=== PATIENT | male | born 1950 | race Caucasian/White ===

== ENCOUNTER 2017-10-21 08:07 | Emergency (ER) | payer MEDICARE ==
[~2017-10-21] VITALS: Ht 188 cm; Wt 125.2 kg
[~2017-10-21 08:07] MED LIST: ACYCLOVIR800 MG PO; AMIODARONE HCL200 MG PO; B COMPLEX1 EACH PO; BIAXIN500 MG PO; FOLIC ACID1 MG PO; LEVAQUIN750 MG PO; PERCOCET 7.5-31 EACH PO; VITAMIN D5000 UNI1 PO; ZOFRAN ODT4 MG SL
[2017-10-21] MEDS ORDERED: CARDIZEM CD120 MG PO (09:21)
--- OUTSIDE RECORDS SUMMARY | 2017-10-21 09:42 | XMS | Clinical Summary ---
Demographics + + + | Address | [address] | | | [place] [address] | + + + | Home Phone | | + + + | Preferred Language | Unknown | + + + | Marital Status | Single | + + + | Hoahaoism Affiliation | Unknown | + + + | Race | White | + + + | Ethnic Group | Not or | + + + Author + + + | Author | [facility] | + + + | Organization | [facility] | + + + | Address | Unknown | + + + | Phone | Unavailable | + + + Support +------+ +---------+ + | Name | Relationship | Address | Phone | +------+ +---------+ + ECON | Unknown | | +------+ +---------+ + ECON | Unknown | | +------+ +---------+ + Care Team Providers + +------+-------+ | Care Wheat Grower Name | Role | Phone | + +------+-------+ | Emeterio Campos DO | PP | tel | + +------+-------+ Source Comments MIRANDA is fully live on both [facility] and [facility] Allergies No Known Allergies Current Medications + + +-------+---------+------+------+-------+ | Prescription | Sig. | Disp. | Refills | Star | End | Statu | | | | | | t | Date | s | | | | | | Date | | | + + +-------+---------+------+------+-------+ | amiodarone 200 mg | Take 200 mg by mouth | | | | | Activ | | oral tablet | once daily. | | | | | e | + + +-------+---------+------+------+-------+ | acyclovir 800 mg | Take 800 mg by mouth | | | | | Activ | | oral tablet | once daily. | | | | | e | + + +-------+---------+------+------+-------+ Active Problems + + + | Problem | Noted Date | + + + | CLL (chronic lymphocytic leukemia) (HCC) | 09/09/2013 | + + + Social History + +-------+ +--------+------+ | Tobacco Use | Types | Packs/Day | Years | Date | | | | | Used | | + +-------+ +--------+------+ | Never Smoker | | | | | + +-------+ +--------+------+ + + +---------+ + | Alcohol Use | Drinks/We | oz/Week | Comments | | | ek | | | + + +---------+ + | No | | | | + + +---------+ + + + + | Sex Assigned at | Date Recorded | | | | + + + | Not on file | | + + + Last Filed Vital Signs + + + + | Vital Sign | Reading | Time Taken | + + + + | Blood Pressure | 123/79 | 05/23/2016 2:37 PM PDT | + + + + | Pulse | 66 | 05/23/2016 2:37 PM PDT | + + + + | Temperature | 36.9 C (98.4 F) | 05/23/2016 2:37 PM PDT | + + + + | Respiratory Rate | 16 | 05/23/2016 2:37 PM PDT | + + + + | Oxygen Saturation | 95% | 05/23/2016 2:37 PM PDT | + + + + | Inhaled Oxygen | - | - | | Concentration | | | + + + + | Weight | 135.7 kg (299 lb 3.2 | 05/23/2016 2:37 PM PDT | | | oz) | | + + + + | Height | 187 cm (6' 1.62") | 05/23/2016 2:37 PM PDT | + + + + | Body Mass Index | 38.81 | 05/23/2016 2:37 PM PDT | + + + + Plan of Treatment + + + + + | Health Maintenance | Due Date | Last Done | Comments | + + + + + | INFLUENZA VACCINE | | | | | (FLU SHOT) | 7 | | | + + + + + Results Not on filefrom Last 3 Months
--- NOTE | 2017-10-22 14:25 | EKG ---
[facility] [address] [facility] [place] [address] Signed Atrial fibrillation Abnormal ECG No previous ECGs available Confirmed by NASIM BERRIOS MD ([id number]) on 10/22/2017 2:25:05 PM Electronically Signed By: NASIM BERRIOS MD 10/22/17 1425 PATIENT NAME: OCTAVIO WASHINGTON MARIS Electrocardiogram DATE OF : 52 PHYSICIAN: NASIM BERRIOS MD REPORT #: [id number] REPORT IS CONFIDENTIAL AND NOT TO BE RELEASED WITHOUT AUTHORIZATION
[2017-11-07] MEDS ORDERED: ASPIRIN EC325 MG PO (11:01)
[2017-11-07] MEDS ORDERED: IMBRUVICA140 MG PO (11:02)
== END 2017-10-21 11:43 | disposition home or self-care (01) ==
LOC: ED 08:07
DX: I48.91 Unspecified atrial fibrillation (principal); C91.10 Chronic lymphocytic leukemia of B-cell type not having achieved remission; Z85.46 Personal history of malignant neoplasm of prostate; Z79.899 Other long term (current) drug therapy
CPT/HCPCS: 71010; 80048; 84484; 85025; 93005; 93010; 96374; 99283; J7030

== ENCOUNTER 2018-12-02 15:09 | Emergency (ER) | payer MEDICARE ==
[~2018-12-02] VITALS: Ht 188 cm; Wt 126.8 kg
[~2018-12-02 15:09] MED LIST changes: +ASPIRIN EC325 MG PO; +CARDIZEM CD120 MG PO; +IMBRUVICA140 MG PO
--- NOTE | 2018-12-03 13:39 | EKG ---
[facility] [address] [facility] [place] [address] Signed Atrial fibrillation Abnormal ECG When compared with ECG of 21-OCT-2017 08:25, No significant change was found Confirmed by JENNIE GARCIA DO ([id number]) on 12/03/2018 1:39:47 PM Electronically Signed By: JENNIE GARCIA DO 12/03/18 1339 PATIENT NAME: OCTAVIO WASHINGTON Electrocardiogram DATE OF : 52 PHYSICIAN: JENNIE GARCIA DO REPORT #: [id number] REPORT IS CONFIDENTIAL AND NOT TO BE RELEASED WITHOUT AUTHORIZATION
== END 2018-12-02 17:22 | disposition home or self-care (01) ==
LOC: ED 15:09
DX: I48.91 Unspecified atrial fibrillation (principal); C91.10 Chronic lymphocytic leukemia of B-cell type not having achieved remission; Z85.46 Personal history of malignant neoplasm of prostate; Z79.82 Long term (current) use of aspirin; Z79.899 Other long term (current) drug therapy
CPT/HCPCS: 71045; 80053; 84484; 85025; 93005; 93010; 99285-25

== ENCOUNTER 2019-03-27 09:38 | Inpatient (IN) | payer MEDICARE ==
[~2019-03-27] VITALS: Ht 188 cm; Wt 131.4 kg
--- NOTE | ~2019-03-27 | OR ---
[facility] [address] [place], [place] [address] Draft DATE OF OPERATION: 04/14/2019 SURGEON: Sarah Pardo MD PREOPERATIVE DIAGNOSIS: Severe degenerative joint disease, right hip. POSTOPERATIVE DIAGNOSIS: Severe degenerative joint disease, right hip. PROCEDURE PERFORMED: Right total hip arthroplasty, anterior approach. BAG REPAIRER: Tiki Tavera PA-C. ANESTHESIA: Spinal. BLOOD LOSS: 500 mL. IMPLANTS: Simms size 7 Accolade II 58 mm PSL cup and a -2.5 head. BRIEF HISTORY: Octavio is a 68-year-old gentleman with progressive worsening of severe osteoarthritis. Risks and benefits of operative treatment were discussed with him and he elected to proceed. DESCRIPTION OF PROCEDURE: Once consent was obtained, he was taken to the operating room. 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 I did speak to his dental resident who said that his platelets at 120 should be sufficient for surgery, although I did bank two 6 packs of platelets in case they were needed. The patient was given a gram of TXA prior to surgery and one intraoperatively when he continued to have bleeding from the bone. Soft tissue bleeding was actually quite minimal. Once consent was obtained, he was taken to the operating room. After a time-out was established and all agreed. The patient was placed on operating table. All downside pressure points well padded. Both legs were prepped and draped in a standard sterile fashion. The ASIS PATIENT NAME: OCTAVIO WASHINGTON OPERATIVE REPORT DATE OF : 52 REPORT #: [id number] PHYSICIAN: SARAH PARDO MD PCP: NASIM BERRIOS MD REPORT IS CONFIDENTIAL AND NOT TO BE RELEASED WITHOUT AUTHORIZATION [facility] [address] [place], [place] [address] Draft and the greater trochanter were marked out and a 10 cm incision was planned. This was taken through the skin and subcutaneous tissue. It was taken through the fat down to the fascia. The fascia was easily visualized and the interval between the tensor fascia ebonie and the gluteus medius was opened and the finger dissection was undertaken through the muscle down to the bone. Image intensifier was brought in and used to ascertain landmarks as there were significant osteophytes all the way around. The two retractors were placed around the femoral neck and the anterior capsulotomy was performed. The labrum and osteophytes around the acetabulum were removed as best we could prior to dislocation. Two femoral neck cuts were made, one just below the head and one at the proposed final cutting position again visualized using image intensifier. The napkin ring of bone was then removed and the femoral head was removed. The periacetabular soft tissue was removed and the acetabulum was reamed starting with a 45 and going up to a 58. A 58 for correction. This was done under image intensifier guidance for medialization and sizing. The 58 was selected and a 50 cup was impacted until it was well seated. The liner was then impacted until it was locked. The remaining osteophytes were removed as best we could. Once this was accomplished, attention was turned to the proximal femur. There was extensive tightening of the capsule throughout his hip. He had virtually no rotation on preoperative examination. The capsule was carefully released superiorly and posteriorly around the top of the femur to allow visual correction to allow elevation without significant stress on the trochanter. Once this was accomplished, the could be proximal femur was opened using Voice123 cutter followed by the awls. The femur was then sequentially broached starting with one up to a 7. The 7 was cut, found to be quite well fitting. The correction eight sorry not seven please change that on the on the implants to its the size eight sorry the eight. The correction the -2.5 head was placed on the trial and the hip was reduced leg lengths found to be equally and excellent range of motion. Excellent stability. The radiographs showed the trial to be well positioned. The trial was removed after dislocation of the hip and the final size eight stem was impacted until it was well-seated with no rotational instability. The -2.5 head was placed on it was deduced again. Final radiographs showed excellent placement of the stem. Leg lengths and offset. The wound was copiously irrigated with antibiotic solution. The periarticular soft tissues were injected with 100 mL of ropivacaine and Toradol mixture. The fascia was then closed using #1 Stratafix, the subcutaneous tissue with #0 Stratafix, and the skin with gary. Wound was dressed with a DEBBIE wound VAC dressing. He was awakened and taken to the recovery room in satisfactory condition. All sponge, needle, and instrument counts were correct. Sarah Pardo MD PATIENT NAME: OCTAVIO WASHINGTON OPERATIVE REPORT DATE OF : 52 REPORT #: [id number] PHYSICIAN: SARAH PARDO MD PCP: NASIM BERRIOS MD REPORT IS CONFIDENTIAL AND NOT TO BE RELEASED WITHOUT AUTHORIZATION [place] [id number] [facility] /[id number] Copies: ~ PATIENT NAME: OCTAVIO WASHINGTON OPERATIVE REPORT DATE OF : 52 REPORT #: [id number] PHYSICIAN: SARAH PARDO MD PCP: NASIM BERRIOS MD REPORT IS CONFIDENTIAL AND NOT TO BE RELEASED WITHOUT AUTHORIZATION
--- NOTE | 2019-04-01 12:57 | NUR ---
PATIENT IS HERE TODAY FOR PREADMISSION APPOINTMENT. HE IS SCHEDULED TO HAVE A RIGHT TOTAL HIP ARTHROPLASTY ON 04/14/19. HE REPORTS ATTENDING THE [facility] ON 03/27/19. HIS SON JOSE WILL BE HERE TO TAKE HIM HOME AND AVAILABLE AFTER HER IS DISCHARGED TO HELP OUT. HE HAS 3 STEPS INTO THE HOME AND NO STEPS INSIDE THE HOME. HE WILL WORK ON GETTING A HAND HELD SHOWER HEAD AND SHOWER BENCH TO USE IN THE WALK IN SHOWER HE HAS. HE WOULD LIKE TO HAVE A WALKER SENT HERE TO THE HOSPITAL DURING HIS STAY SINCE PHYSICAL THERAPY TOLD HIM WE COULD ARRANGE THAT. HE WOULD LIKE PHYSICAL THERAPY SET UP AT [facility] PHYSICAL THERAPY AFTER SURGERY. THIS INFORMATION WILL BE SENT TO DR SCHULTZ OFFICE AND CASE MANAGEMENT FOR FURTHER FOLLOW UP.
--- NOTE | 2019-04-14 09:30 | NUR ---
PT HAS O2 MASK ON, AND IS RAHER DROWSY. HE IS TRYING HARD TO STAY AWAKE. HE IS SUPPORTED BY HIS SON JOSE. PT REQUESTED PRAYER, AND WAS AWAKE FOR SOME OF IT! WILL CONTINUE TO FOLLOW NEEDED
--- NOTE | 2019-04-14 10:02 | NUR ---
04/14/19 1001 Sheets,Nicole 0992 PT ARRIVED TO PACU ON 10L VIA MASK, RESP EVEN AND UNLABORED. PT REACTIVE TO VERBAL STIMULI. 928 NASAL AIRWAY REMVOED. PT REORINTED TO PACU, PT DENIES PAIN AND NAUSEA. HOLDING TORADOL PER MD DUE TO PLATLETS. HOB INCREASED. PT BACK TO SLEEP AND SMALL AMOUNT OF SNORING NOTED, PT WOKE TO VERBAL STIMULI AND IS ENCOURAGED TO DEEP BREATHE AND COUGH. 935 O2 MASK REMOVED. PT ENOCURAGED TO DEEP BREATHE AND COUGH. 943 PT ASLEEP OFF AND ON. O2 SAT DECREASED TO 86%, PT ENOCURAGED TO COUGH AND DEEP BREATHE. O2 NC PLACED ON PT AT 2L. 944 O2 SAT 95%. X-RAY AT BEDSIDE. PT CONTINUES TO DENY NAUSEA AND PAIN.
[2019-04-14] MEDS ORDERED: CARTIA XT180 MG PO (11:01)
[2019-04-14] MEDS ORDERED: IMBRUVICA280 MG PO (11:02)
--- NOTE | 2019-04-14 11:23 | NUR ---
PT ARRIVED FROM PACU. REPORT GIVEN BY ROXANA VAUGHN. VITAL SIGNS STABLE. PT DROSWY BUT EASILY AROUSABLE TO SOUND. PT HAS NUMBNESS ON RIGHT LEG HAD NERVE BLOCK PLACED PREOP. PT IS ABLE TO WIGGLE TOES AND FEEL TOUCH ON LOWER LEGS. PT ON 2L NC ON 95%. PT HAS NO NEEDS/CONCERNS AT THIS TIME. CALL LIGHT WITHIN REACH.
--- NOTE | 2019-04-14 12:59 | NUR ---
PT IN M/S RM FOLLOWING SURGERY. PT WAS STILL PRETTY GROGGY, BUT AWARE OF MY PRESENCE. PT SAID HE HAD NO PAIN, AND WAS FEELING PRETY GOOD AT THE MOMENT. I EXTENDED A BLESSING AND WILL CONTINUE TO FOLLOW
--- NOTE | 2019-04-14 14:15 | NUR ---
1400 RN TO ROOM WITH P.T., P.T. ASKED HELP WITH Pt FIRST TIME OUT OF BED. Pt VOIDED IN BED, CHUX REMOVED AND NEW ONE PLACED. BED DRY. O2 SAT 94%, O2 NC REMOVED. Pt STANDING AT SIDE OF BED WITH P.T. Pt USING URINAL AND WAS ABLE TO VOID. Pt BACK IN BED AND CALL LIGHT WITHIN REACH AND P.T. AT BEDSIDE FINISHING EDUCATION.
--- NOTE | 2019-04-14 14:56 | NUR ---
PT RESTING WITH SON AT BEDSIDE. PT REQUESTING FOOD TRAY SOUP AND SANDWICH. ICE MACHINE REFILLED. PT PAIN IS 0/10 AND STATES THAT NUMBNESS IS SLOWLY GOING AWAY "GETTING SOME FEELING IN LEG BACK". DRESSING WITH SANGUINOUS AT BOTTOM HALF. HEEL PROTECTORS PLACED. PT HAS NO FURTHER CONCERNS/NEEDS AT THIS TIME. CALL LIGHT WITHIN REACH.
--- NOTE | 2019-04-14 16:58 | NUR ---
DR SCHULTZ NOTIFIED OF DEBBIE DRESSING DRAINAGE IN THE LAST TWO HOURS WITH NO NEW ORDERS AT THIS TIME.
--- NOTE | 2019-04-14 18:41 | NUR ---
PT DRESSING COMPLETELY SATURATED, LEAKING BLOOD FROM BOTTOM OF DRESSING. DR SCHULTZ CALLED AND NOTIFIED, ORDER TO REPLACE DEBBIE DRESSING AND PLACE COBAND SPICA DRESSING OVER TOP, DOES NOT WANT TO TRANSFUSE PLATELETS AT THIS TIME.
--- NOTE | 2019-04-14 19:11 | NUR ---
DEBBIE DRESSING REMOVED. PT WITH MODERATE AMOUNT OF ACTIVE DRAINAGE FROM DISTAL PORTION OF INCISION, PRESSURE HELD. NEW DEBBIE APPLIED TO INCISION. HIP COBAN SPICA PLACED WITH 3 ABD AND 2 ROLLS OF COBAN. PT SHORTS CHNAGED. PT BED CHANGED. PT ASSISTED TO BED, INSTRUCTED TO REST AT THIS TIME. PT DENIES OTHER NEEDS AT THIS TIME.
--- NOTE | 2019-04-14 19:20 | NUR ---
SHIFT REPORT RECEIVED. PATIENT RESTING IN BED. WATCHING TV. SPICE DRESSING IN PLACE. NO DRAINAGE NOTED ON AREAS VISUALIZED UNDER COBAN WRAP. PATIENT DENIES ANY NEEDS. CRYO IN PLACE. CALL LIGHT IN REACH.
--- NOTE | 2019-04-14 21:45 | NUR ---
V/S AND I&O TAKEN AND CHARTED. CRYO CUFF REFILLED. ICE ON CUP REFILLED. PATIENT WAS DANGLING BY THE BED. INSTRUCTED TO CALL WHEN READY TO LAY DOWN IN BED. PATIENT AGREED.
--- NOTE | 2019-04-14 22:00 | NUR ---
EVENING MEDS PROVIDED PER ORDER. PATIENT SITTING UP ON EDGE OF BED WATCHING BASEBALL GAME. HE DENIES ANY PAIN. NO OBVIOUS DRAINAGE NOTED UNDER SPICA DRESSING. DEBBIE IN PLACE, GREEN LIGHT NOTED. CMS INTACT. SPINAL RESOLVED. CRYO, TEDS, AND SCDS IN USE. PATIENT DENIES PAIN OR NAUSEA. FRESH WATER PROVIDED. PATIENT DECLINES NEEDS AT THIS TIME. WILL CALL WHEN READY TO LAY BACK IN BED. CALL LIGHT IN REACH.
--- NOTE | 2019-04-15 00:18 | NUR ---
ANSWERED CALL LIGHT. PATIENT BACK IN BED. SCD, CRYO AND HEEL PROTECTOR ARE BACK ON. CALL LIGHT AND PERSONAL THINGS WITHIN REACH. ROOM LIGHTS ARE OFF.
--- NOTE | 2019-04-15 01:50 | NUR ---
PATIENT APPEARED TO BE SLEEPING SOUNDLY. WOKE TO VOICE. VS COMPLETED. DEBBIE DRESSING PARTIALLY VISUALIZED, APPEARS HEAVILY SATURATED. NO DRAINAGE OUTSIDE DEBBIE DRESSING. COBAN SPICA IN PLACE. CRYO, HEEL PROTECTORS, AND SCDS IN USE. PATIENT DENIES PAIN. URINE OUTPUT QS. PATIENT CONFUSED BY HIS SURROUNDINGS UPON WAKING BUT WAS EASILY REORIENTED. DENIES ANY NEEDS. CALL LIGHT IN REACH.
--- NOTE | 2019-04-15 04:15 | NUR ---
PATIENT SITTING UP AT BEDSIDE. PATIENT STATES HE WAS "HAVING WEIRD DREAMS AND WOKE UP THINKING I WAS SOME WHERE ELSE". PATIENT AAOX4. ENCOURAGED PATIENT TO REST BUT HE STATED "I CAN'T LAY IN THAT BED ANYMORE, I NEED TO SIT UP". DISCUSSED SAFETY CONCERNS WITH PATIENT AND ENCOURAGED HIM TO USE CALL LIGHT FOR ANY NEEDS. PATIENT AGREES NOT TO GET UP ON HIS OWN. CALL LIGHT IN REACH.
--- NOTE | 2019-04-15 05:27 | NUR ---
ROMARIO MARTIN FOUND PATIENT AMBULATING IN HIS ROOM WITHOUT STAFF ASSIST. PATIENT REPORTS BEING CONFUSED ABOUT WHERE HE WAS WHEN HE WOKE UP AND THAT IT TOOK HIM A WHILE TO CLEAR. PATIENT REMEMBERS OUR CONVERSATION AN HOUR AGO BUT REPORTS THINKING IT WAS PART OF HIS DREAM. PATIENT APPEARS ORIENTED AT THIS TIME, ALARM PLACED ON PATIENT TO ENSURE HE DOES NOT AMBULATE WITHOUT STAFF. PATIENT DENIES PAIN. THE DEBBIE DRESSING UNDER THE SPICA IS SATURATED WITH DARK RED DRAINAGE, NOT LEAKING FROM THE SITE. DEBBIE TUBING BROKEN, UNABLE TO REPAIR.
--- NOTE | 2019-04-15 06:35 | NUR ---
PATIENT APPEARS TO BE SLEEPING SOUNDLY IN RECLINER. DOES NOT WAKE WITH RN IN ROOM. CHAIR ALARM IN PLACE. CALL LIGHT IN REACH.
--- NOTE | 2019-04-15 06:36 | NUR ---
PATIENT POST-OP DAY 1. PAIN WELL CONTROLLED. 1PA W/FWW. PATIENT STEADY THIS MORNING. DEBBIE DRESSING WILL LIKELY NEED REPLACED THIS MORNING. THE DRESSING IS HEAVILY SATURATED AND THE TUBING CONNECTING THE DRESSING TO THE MACHANISM WAS BROKEN. PATIENT OCCATIONALY CONFUSED UPON WAKING, STATES THIS HAS HAPPENED WHEN HE WAS HOSPITALIZED PREVIOUSLY. BED/CHAIR ALARM IN USE. TOLERATING REGULAR DIET. VS STABLE. URINE OUTPUT QS. IV SL.
--- NOTE | 2019-04-15 06:52 | NUR ---
NOTIFIED OF DRESSING SATURATED AND DEBBIE BEING BROKEN. STATES HE WILL BE IN TO SEE THE PATIENT SHORTLY. NO NEW ORDERS.
[2019-04-15] MEDS ORDERED: OXYCODONE HCL5 MG PO (07:24)
[2019-04-15] MEDS ORDERED: TYLENOL EXTRA500 MG PO (07:25)
[2019-04-15] MEDS ORDERED: GABAPENTIN600 MG PO (07:25)
[2019-04-15] MEDS ORDERED: HEALTHYLAX17 GM PO (07:25)
[2019-04-15] MEDS ORDERED: SENNA LAX8.6 MG PO (07:25)
--- NOTE | 2019-04-15 07:45 | NUR ---
DR. SCHULTZ IN TO SEE PATIENT THIS MORNING. DOSE OF TXA INFUSING FOR 15 MINUTES. PLAN TO TRANSFUSE ONE UNIT OF PLATELETS AFTER TXA AND CHANGE RIGHT HIP DRESSING. PATIENT IS RESTING IN BED. RIGHT HIP DRESSING SATURATED BUT NOT LEAKING AT THIS TIME. PATIENT RATES RIGHT HIP PAIN 0/10, NO NAUSEA, BREAKFAST ORDERED.
--- NOTE | 2019-04-15 09:43 | NUR ---
ONE UNIT OF PLATELETS PICKED UP FROM LAB. SECOND UNIT OF PLATELETS ON 04/14/19 AND WERE UNABLE TO BE TRANSFUSED. CALL TO DR. SCHULTZ TO LET HIM KNOW. DR. SCHULTZ INDICATED TO HAVE LAB GET A SECOND UNIT OF PLATELETS STAT. CALL TO LAB AND THEY ARE ORDERING ONE UNIT OF PLATELETS STAT.
--- NOTE | 2019-04-15 09:51 | NUR ---
PATIENT IS TOLERATING PLATELET INFUSION WELL.
--- NOTE | 2019-04-15 10:01 | NUR ---
PT IS ALERT, ORIENTED AND WATCHING TV. HE SAID HE SLEPT FAIRLY WELL-JUST NOT HOME. HAVING TROUBLE WITH SOME BLEEDING FROM INCISION, BUT PAIN APPEARS TO BE WELL UNDER CONTROL. EXTENDED A BLESSING, WILL FOLLOW NEEDED
--- NOTE | 2019-04-15 11:09 | NUR ---
DEBBIE DRESSING CHANGED, PATIENT STOOD FOR REPLACEMENT OF SPIKA DRESSING. NOTED THAT BOTTOM PORTION OF NEW DRESSING WAS ALREADY SATURATED. PATIENT PLACED BACK IN BED, ICE APPLIED.
--- NOTE | 2019-04-15 11:12 | NUR ---
PT STATED HE WANTED TO WAIT UNTIL THIS AFTERNOON TO SHOWER.
--- NOTE | 2019-04-15 11:42 | NUR ---
ONE HOUR POST PLATELET TRANSFUSION VITALS ARE STABLE. PATIENT DENIES PAIN, DENIES NAUSEA.
--- NOTE | 2019-04-15 15:11 | NUR ---
PATIENT RESTING IN BED, SECOND PLATELET INFUSION GOING, PATIENT TOLERATING WELL. PATIENT DENIES PAIN, SCHEDULED TYLENOL AND GABAPENTIN GIVEN.
--- NOTE | 2019-04-15 16:59 | NUR ---
PATIENT HAS DONE WELL TODAY WITH LIMITED ACTIVITY DUE TO INCISIONAL BLEEDING. DRESSING CHANGED EARLY TODAY AND HAD VERY LITTLE BLEEDING ON IT. MEDICATIONS AND 2 UNITS OF PLATELETS GIVEN. PATIENT DID TAKE PART IN PHYSICAL THERAPY TONIGHT AND DRESSING IS NOW SATURATED. PLAN TO CALL DR. SCHULTZ AND GIVE HIM AND UPDATE.
--- NOTE | 2019-04-15 17:10 | NUR ---
CALL TO DR. SCHULTZ TO UPDATE ON DRESSING HAVING STABLE AMOUNT OF BLOOD ON IN ALL AFTERNOON AND DRESSING WAS SATURATED AFTER PHYSICAL THERAPY THIS AFTERNOON. DR. SCHULTZ ODERED DRESSING OF MEPILEX WITH 2-3 ABD UNDER SPIKA DRESSING.
--- NOTE | 2019-04-15 19:11 | NUR ---
CHARGE NURSE REPORT. PT ON BEDREST, WATCHING TV.
--- NOTE | 2019-04-15 19:20 | NUR ---
SHIFT REPORT RECEIVED. PATIENT RESTING IN BED. DENIES PAIN. DRESSING OBSERVED, NO DRAINAGE OUTSIDE MEPILEX NOTED. REMINDED PATIENT TO CALL FOR ASSIST. PATIENT AGREES. BED ALARM ACTIVE.
--- NOTE | 2019-04-15 21:50 | NUR ---
EVENING MEDS PROVIDED. PATIENT RESTING IN BED. REPORTS FEELING WELL. DENIES PAIN. VS STABLE. PATIENT HAS REMAINED IN BED AND CALLED APPROPRIATELY. SPICA DRESSING IN PLACE. SMALL AMOUNT OF SHADOWING NOTED ON MEPILEX, NOT BLEEDING THROUGH TO ABD PAD. [facility] INATCT. CRYO AND SCDS IN USE. PATIENT DENIES ANY NEEDS. CALL LIGHT IN REACH. BED ALARM ACTIVE.
--- NOTE | 2019-04-15 22:59 | NUR ---
WENT INTHE ROOM. REFILLED CRYO AND ICE WATER. EMPTIED URINAL. BED ALARM ON.
--- NOTE | 2019-04-15 23:22 | NUR ---
PATIENT RESTING IN BED. EYES CLOSED. RR18. TV AND LIGHT TURNED OFF. CALL LIGHT IN REACH.
--- NOTE | 2019-04-16 02:00 | NUR ---
PATIENT SLEEPING ON RIGHT SIDE. HIP AND LEG IN STRAIGHT LINE. PATIENT APPEARS COMFORTABLE. RR18. CRYO IN USE. CALL LIGHT IN REACH. BED ALARM ACTIVE.
--- NOTE | 2019-04-16 04:36 | NUR ---
PATIENT RESTING IN BED. APPEARS TO BE SLEEPING SOUNDLY. RR 17. CALL LIGHT IN REACH. BED ALARM ACTIVE.
--- NOTE | 2019-04-16 05:40 | NUR ---
PATIENT PROVIDED WITH SCHEDULED TYLENOL. PATIENT DENIES ANY PAIN. SPICA DRESSING REPOSITIONED. NO NEW DRAINAGE NOTED ON MEPILEX. CMS INTACT. VS STABLE.
--- NOTE | 2019-04-16 05:51 | NUR ---
PATIENT SLEPT MOST OF THE NIGHT. PATIENT AAAOX4, USED CALL LIGHT APPROPRIATELY. NO PAIN OR DISCOMFORT REPORTED. VS STABLE. URINE OUTPUT QS. SPICA DRESSING WITH ABD AND MEPILEX ON RIGHT HIP. SMALL AMOUNT OF DRAINAGE NOTED ON MEPILEX. PATIENT ONLY OUT OF BED ONCE LAST NIGHT TO LIMIT ACTIVITY DUE TO BLEEDING. REGULAR DIET. CRYO, SCDS, AND TABITHA HOSE.
--- NOTE | 2019-04-16 06:52 | NUR ---
DR SCHULTZ CALLED, REQUESTED A CBC BE DRAWN STAT. ORDER PLACED, AND NOTIFIED LAB VIA PHONE.
--- NOTE | 2019-04-16 07:48 | NUR ---
0715: BEDSIDE REPORT RECIEVED FROM KOMAL SCHMIDT. PT LAYING IN BED WITH CALL SALTER WITHIN REACH AND NOT COMPLAINTS AT THIS TIME.
--- NOTE | 2019-04-16 09:51 | NUR ---
PT WAS AMBULATING IN THE HALLS. UPON RETURNING TO THE ROOM I ASSESSED THE DRESSING WHICH THERE IS AN INCREASE IN THE NOTED SHADOWING ON THE DRESSING. CHARLA LADD WAS NOTIFIED AND CAME AND SAW THE PT. THE DRESSING WAS CHANGED WITH CHARLA AND WE WILL CONTINUE TO MONITOR FOR BLEEDING. OCTAVIO TOLERATED THE DRESSING CHANGE WELL AND IS HOPING TO GO HOME TODAY.
--- NOTE | 2019-04-16 10:26 | NUR ---
PATIENT WALKING AROUND ROOM. NURSE IN ROOM WITH HIM. WATER REFRESHED. CALL LIGHT IN REACH.
--- NOTE | 2019-04-16 10:31 | NUR ---
DISCHARGE INSTRUCTIONS GIVEN WITH UNDERSTANDING STATED BY THE PT. VSS. INCISION SITE DRESSING REMAINS CDI AFTER MOVING AROUND IN HIS ROOM. WILL CONTINUE TO MONITOR.
--- NOTE | 2019-04-16 10:52 | NUR ---
DRESSING REMAINS CDI.
--- NOTE | 2019-04-16 13:42 | NUR ---
SAW PT IN THE [place]AN[place] ROMARIO SPENCER WAS ESCORTING HIM OUT IN . PT SEEMS EXCITED, HAD GOOD VISIT. EXTENDED A BLESSING. WILL FOLLOW NEEDED
--- NOTE | 2019-04-17 09:38 | NUR ---
FAXED CHART NOTES TO [facility] OP PT INCLUDING FACE SHEET, OP NOTE, PROG NOTE, PT AND OT EVAL AND NOTES. RECIEVED FAX CONFIRMATION. TALKED WITH ROSA FROM [facility] OP PT.
== END 2019-04-16 10:55 | disposition home or self-care (01) | DRG 470 ==
LOC: DSVR 04-14 05:35 → MS 04-14 06:45
PROVIDERS: ADMIT Specialist
PROC: 3E0T3BZ Introduction of Anesthetic Agent into Peripheral Nerves and Plexi, Percutaneous Approach (ICD-10-PCS; 2019-04-14)
PROC: 0SR90JZ Replacement of Right Hip Joint with Synthetic Substitute, Open Approach (ICD-10-PCS; principal; 2019-04-14 06:45)
PROC: 30233R1 Transfusion of Nonautologous Platelets into Peripheral Vein, Percutaneous Approach (ICD-10-PCS; 2019-04-15)
DX: M16.11 Unilateral primary osteoarthritis, right hip (principal); C91.10 Chronic lymphocytic leukemia of B-cell type not having achieved remission; G89.18 Other acute postprocedural pain; I48.2 Chronic atrial fibrillation; E66.01 Morbid (severe) obesity due to excess calories; D69.6 Thrombocytopenia, unspecified; Z79.82 Long term (current) use of aspirin; Z79.899 Other long term (current) drug therapy; Z68.36 Body mass index [BMI] 36.0-36.9, adult
CPT/HCPCS: 01214; 36415; 36430; 64447; 72170; 76942; 85025; 97110; 97116; 97161; 97166; 97535; C1776; J0131; J0690; J0735; J1100; J1160; J1885; J2250; J2370; J2405; J2704; J2765; J3010; J7120; J8540; P9035

== ENCOUNTER 2019-11-10 22:57 | Emergency (ER) | payer MEDICARE ==
[~2019-11-10] VITALS: Ht 188 cm; Wt 134.7 kg
--- OUTSIDE RECORDS SUMMARY | ~2019-11-10 | XMS | Encounter Summary ---
Demographics + + + | Address | [address] | | | [place] [address] | + + + | Home Phone | | + + + | Preferred Language | Unknown | + + + | Marital Status | | + + + | Hoahaoism Affiliation | 1028 | + + + | Race | Unknown | + + + | Ethnic Group | Unknown | + + + Author + + + | Author | [facility] | | | and [place] | + + + | Organization | [facility] | | | and [place] | + + + | Address | Unknown | + + + | Phone | Unavailable | + + + Support + + + + + | Name | Relationship | Address | Phone | + + + + + | Jorge Myrick | [place] | [place], [place] | | | | | [address] | | + + + + + | Feng Myrick | ECON | NA | | | | | [place] | | + + + + + Care Team Providers + +------+ + | Care Rn Traveling Name | Role | Phone | + +------+ + | Emeterio Campos DO | PCP | | + +------+ + Reason for Visit +--------+ + | Reason | Comments | +--------+ + | Other | Labs needed for amiodarone protocol | +--------+ + Encounter Details +--------+ + + + + | Date | Type | Department | Care Team | Description | +--------+ + + + + | 05/11/ | Telephone | [facility] | Jerrod Redding | Other (Labs needed | | 2013 | | CARDIOLOGY [address] | MD Jose [address] | for amiodarone | | | | [address] [place], | [address] [place] | protocol) | | | | [place] [address] | [place] [address] | | | | | [phone] | [phone] | | | | | | | | +--------+ + + + + Social History + +-------+ +--------+------+ | Tobacco Use | Types | Packs/Day | Years | Date | | | | | Used | | + +-------+ +--------+------+ | Never Smoker | | | | | + +-------+ +--------+------+ + +------+---+---+ | Smokeless Tobacco: | Chew | | | | Current User | | | | + +------+---+---+ + + | Comments: Since 1968 | + + + + +---------+ + | Alcohol Use | Drinks/Week | oz/Week | Comments | + + +---------+ + | Yes | | | 3-4 monthly, beer | + + +---------+ + + + + | Sex Assigned at | Date Recorded | | | | + + + | Not on file | | + + + + + + + | Job Start Date | Occupation | Industry | + + + + | Not on file | Not on file | Not on file | + + + + + + + + | Travel History | Travel Start | Travel End | + + + + + + | No recent travel history available. | + + documented as of this encounter Plan of Treatment Not on filedocumented as of this encounter Visit Diagnoses Not on filedocumented in this encounter"
--- OUTSIDE RECORDS SUMMARY | ~2019-11-10 | XMS | Encounter Summary ---
Demographics + + + | Address | [address] | | | [place] [address] | + + + | Home Phone | | + + + | Preferred Language | Unknown | + + + | Marital Status | | + + + | Samaritan Affiliation | 1028 | + + + | Race | Unknown | + + + | Ethnic Group | Unknown | + + + Author + + + | Author | [facility] | | | and [place] | + + + | Organization | [facility] | | | and [place] | + + + | Address | Unknown | + + + | Phone | Unavailable | + + + Support + + + + + | Name | Relationship | Address | Phone | + + + + + | Jorge Myrick | [place] | [place] | | | | | [address] | | + + + + + | Feng Myrick | ECON | NA | | | | | [place], [place] | | + + + + + Care Team Providers + +------+ + | Care Water Systems Designer Name | Role | Phone | + +------+ + PCP | Unavailable | + +------+ + Encounter Details +--------+ + + + + | Date | Type | Department | Care Team | Description | +--------+ + + + + | 10/26/ | Hospital | [facility] | [place], | | | 2010 | Encounter | MED CTR XRAY [address] | Markell Cano MD [address] | | | | | [place] | [address] [place] | | | | | [place] [address] | [place] [address] | | | | | [phone] | [phone] | | | | | | | | +--------+ + + + + Social History + +-------+ +--------+------+ | Tobacco Use | Types | Packs/Day | Years | Date | | | | | Used | | + +-------+ +--------+------+ | Never Assessed | | | | | + +-------+ +--------+------+ + + + | Sex Assigned at [...] Not on filedocumented as of this encounter Procedures + +--------+ + + + | Procedure Name | Priori | Date/Time | Associated Diagnosis | Comments | | | ty | | | | + +--------+ + + + | CBC WITH | Routin | 10/26/2011 | | Results for this | | DIFFERENTIAL | e | 11:00 AM | | procedure are in the | | | | PST | | results section. | + +--------+ + + + documented in this encounter Results CBC with Differential (10/26/2011 11:00 AM PST) + + + + + + | Component | Value | Ref Range | Performed | Pathologist | | | | | At | Signature | + + + + + + | WBC | 7.1 | 4.0 - 11.0 K/uL | [facility] | | | | | | [facility] | | | | | | [facility] | | | | | [facility] - | | | | | | LABORATORY | | + + + + + + | RBC | 3.90 (L) | 4.30 - 5.70 | [facility] | | | | | M/uL | [facility] | | | | | | [facility] | | | | | | [facility] - | | | | | | LABORATORY | | + + + + + + | Hemoglobin | 12.9 (L) | 13.5 - 18.0 | [facility] | | | | | gm/dL | [facility] | | | | | | [facility] | | | | | | C[facility] - | | | | | | LABORATORY | | + + + + + + | Hematocrit | 37.2 (L) | 40.0 - 51.0 % | [facility] | | | | | | [facility] | | | | | | [facility] | | | | | | C[facility] - | | | | | | LABORATORY | | + + + + + + | MCV | 95.3 | 83.0 - 101.0 fL | [facility] | | | | | | [facility] | | | | | | [facility] | | | | | | [facility] - | | | | | | LABORATORY | | + + + + + + | MCH | 33.1 | 28.0 - 35.0 pg | [facility] | | | | | | [facility] | | | | | | [facility] | | | | | | [facility] - | | | | | | LABORATORY | | + + + + + + | MCHC | 34.7 | 32.0 - 36.0 | [facility] | | | | | g/dL | [facility] | | | | | | MED[facility] | | | | | | CENTER - | | | | | | LABORATORY | | + + + + + + | RDW-CV | 13.6 | <15.0 % | [facility] | | | | | | [facility] | | | | | | [facility] | | | | | | C[facility] - | | | | | | LABORATORY | | + + + + + + | Platelet | 97 (L) | 140 - 440 K/uL | [facility] | | | Count | | | [facility] | | | | | | [facility] | | | | | | CENTER - | | | | | | LABORATORY | | + + + + + + | % | 23.8 (L) | 45 - 75 % | [facility] | | | Neutrophils | | | [facility] | | | | | | MEDICAL | | | | | | CENTER - | | | | | | LABORATORY | | + + + + + + | % | 73.2 (H)Comment: RARE | 20 - 45 % | [facility] | | | Lymphocytes | ATYPICAL LYMP SEEN ON | | [facility] | | | | SMEAR REVIEW. | | MEDICAL | | | | | | CENTER - | | | | | | LABORATORY | | + + + + + + | % Monocytes | 2.1 (L) | 4 - 12 % | [facility] | | | | | | [facility] | | | | | | MEDICAL | | | | | | CENTER - | | | | | | LABORATORY | | + + + + + + | % | 0.7 | 0 - 5 % | [facility] | | | Eosinophils | | | [facility] | | | | | | MEDICAL | | | | | | CENTER - | | | | | | LABORATORY | | + + + + + + | % Basophils | 0.2 | 0 - 1 % | [facility] | | | | | | [facility] | | | | | | MEDICAL | | | | | | CENTER - | | | | | | LABORATORY | | + + + + + + | Absolute | 1.7 | 1.5 - 6.6 K/uL | [facility] | | | Neutrophils | | | [facility] | | | | | | MEDICAL | | | | | | CENTER - | | | | | | LABORATORY | | + + + + + + | Absolute | 5.2 (H) | 0.6 - 3.2 K/uL | [facility] | | | Lymphocytes | | | [facility] | | | | | | MEDICAL | | | | | | CENTER - | | | | | | LABORATORY | | + + + + + + | Absolute | 0.1 | 0.0 - 1.0 K/uL | [facility] | | | Monocytes | | | [facility] | | | | | | MEDICAL | | | | | | CENTER - | | | | | | LABORATORY | | + + + + + + | Absolute | 0.0 | 0.0 - 0.4 K/uL | [facility] | | | Eosinophils | | | [facility] | | | | | | MEDICAL | | | | | | CENTER - | | | | | | LABORATORY | | + + + + + + | Absolute | 0.0 | 0.0 - 0.1 K/uL | [facility] | | | Basophils | | | [facility] | | | | | | MEDICAL | | | | | | CENTER - | | | | | | LABORATORY | | + + + + + + | FLAG | 1Comment: Lymphocytosis | | [facility] | | | | % | | [facility] | | | | | | MEDICAL | | | | | | CENTER - | | | | | | LABORATORY | | + + + + + + | SUSPECTED | 1 (H)Comment: Variant LY | | [facility] | | | PROBLEM IS: | | | [facility] | | | | | | MEDICAL | | | | | | CENTER - | | | | | | LABORATORY | | + + + + + + + + | Specimen | + + | | + + + + + + + | Performing | Address | City/State/Zipcode | Phone Number | | Organization | | | | + + + + + | [facility] | [address] | [place] | [phone] | | [facility] | | [address] | | | - LABORATORY | | | | + + + + + | [facility] | [address] | [place], [place] | | | [facility] | | [address] | | | - LABORATORY | | | | + + + + + documented in this encounter Visit Diagnoses Not on filedocumented in this encounter"
--- OUTSIDE RECORDS SUMMARY | ~2019-11-10 | XMS | Encounter Summary ---
Demographics + + + | Address | [address] | | | [place] [address] | + + + | Home Phone | | + + + | Preferred Language | Unknown | + + + | Marital Status | Single | + + + | Spiritism Affiliation | Unknown | + + + | Race | White | + + + | Ethnic Group | Not or | + + + Author + + + | Author | [facility] | + + + | Organization | [facility] | + + + | Address | Unknown | + + + | Phone | Unavailable | + + + Support + + +---------+ + | Name | Relationship | Address | Phone | + + +---------+ + | Feng Myrick | ECON | Unknown | | + + +---------+ + | Ulices Myrick | ECON | Unknown | | + + +---------+ + Care Team Providers + +------+ + | Care Cardiopulmonary Physical Therapist Name | Role | Phone | + +------+ + | Emeterio Campos DO | PCP | | + +------+ + Encounter Details +--------+ + + + + | Date | Type | Department | Care Team | Description | +--------+ + + + + | 12/23/ | Document-Sc | UNKNOWN DEPARTMENT | Unknown . | | | 2016 | anned | [address] | | | | | | [address] | | | | | | [place], [place] | | | | | | [address] | | | +--------+ + + + [...] Comments | + + +---------+ + | No [...] | + +--------+ + + + | LAB REPORTS | | 12/23/2015 | | Results for this | | | | 12:00 AM | | procedure are in the | | | | PST | | results section. | + +--------+ + + + documented in this encounter Results LAB REPORTS (12/23/2015 12:00 AM PST) + + + | Narrative | Performed At | + + + | | | + + + documented in this encounter Visit Diagnoses Not on filedocumented in this encounter"
--- OUTSIDE RECORDS SUMMARY | ~2019-11-10 | XMS | Encounter Summary ---
Demographics + + + | Address | [address] | | | [place] [address] | + + + | Home Phone | | + + + | Preferred Language | Unknown | + + + | Marital Status | Single | + + + | Jainism Affiliation | Unknown | + + + | Race | White | + + + | Ethnic Group | Not or | + + + Author + + + | Author | [facility] | + + + | Organization | [facility] | + + + | Address | [...] Team Providers + +------+ + | Care Stacker Name | Role | Phone | + +------+ + | Emeterio Campos DO | PCP | | + +------+ + Encounter Details +--------+ + + + + | Date | Type | Department | Care Team | Description | +--------+ + + + + | 07/29/ | Document-Sc | UNKNOWN DEPARTMENT | Unknown . | | | 2012 | anned | [address] | | | | | | [address] | | | | | | [place], [place] | | | | | | [address] | | | +--------+ + + + [...] + + | LAB REPORTS | | 07/29/2013 | | Results for this | | | | 12:00 AM | | procedure are in the | | | | PDT | | results section. | + +--------+ + + + documented in this encounter Results LAB REPORTS (07/29/2013 12:00 AM PDT) + + + | Narrative | Performed At | + + + | | | + + + documented in this encounter Visit Diagnoses Not on filedocumented in this encounter"
--- OUTSIDE RECORDS SUMMARY | ~2019-11-10 | XMS | Encounter Summary ---
Demographics + + + | Address | [address] | | | [place] [address] | + + + | Home Phone | | + + + | Preferred Language | Unknown | + + + | Marital Status | | + + + | Confucianist Affiliation | 1028 | + + + | Race | Unknown | + + + | Ethnic Group | Unknown | + + + Author + + + | Author | [facility] | | | and [place] | + + + | Organization | [facility] | | | and [place] | + + + | Address | Unknown | + + + | Phone | Unavailable | + + + Support + + + + + | Name | Relationship | Address | Phone | + + + + + | Jorge Myrick | [place] | [place] | | | | | [address] | | + + + + + | Feng Myrick | ECON | NA | | | | | [place] | | + + + + + Care Team Providers + +------+ + | Care Splitter Head Name | Role | Phone | + +------+ + | Emeterio Campos DO | PCP | | + +------+ + Encounter Details +--------+ + + + + | Date | Type | Department | Care Team | Description | +--------+ + + + + | 01/01/ | Orders Only | [facility] | Jerrod Redding | A-fib ([facility]) (Primary | | 2013 | | [facility] [address] | MD Jose [address] | Dx); Encounter for | | | | [address], | [address] [place] | monitoring | | | | [place] [address] | [place] [address] | amiodarone therapy | | | | [phone] | [phone] | | | | | | | [...] filedocumented as of this encounter Visit Diagnoses + + | Diagnosis | + + | A-fib (HCC) - Primary Atrial fibrillation | + + | Encounter for monitoring amiodarone therapy Encounter for therapeutic drug monitoring | + + documented in this encounter"
--- OUTSIDE RECORDS SUMMARY | ~2019-11-10 | XMS | Encounter Summary ---
Demographics + + + | Address | [address] | | | [place] [address] | + + + | Home Phone | | + + + | Preferred Language | Unknown | + + + | Marital Status | Single | + + + | Anglican Affiliation | Unknown | + + + | Race | White | + + + | Ethnic Group | Not or | + + + Author + + + | Author | [facility] | + + + | Organization | [facility] | + + + | Address | [...] Team Providers + +------+ + | Care Extension Work Director Name | Role | Phone | + +------+ + | Emeterio Campos DO | PCP | | + +------+ + Encounter Details +--------+------+ + + + | Date | Type | Department | Care Team | Description | +--------+------+ + + + | 09/09/ | Lab | Laboratory, | | CLL (chronic | | 2012 | | Specimen Collection | | lymphocytic | | | | at [facility] [address] | | leukemia) (HCC) | | | | [address] | | | | | | [address] [place], [place] | | | | | | [address] | | | | | | [phone] | | | +--------+------+ + + + Social History + +-------+ [...] | + +--------+ + + + | C3 FÁTIMA | Routin | 09/09/2013 | CLL (chronic | Results for this | | | e | 2:34 PM | lymphocytic | procedure are in the | | | | PST | leukemia) ([facility]) | results section. | + +--------+ + + + | FÁTIMA POLY | Routin | 09/09/2013 | CLL (chronic | Results for this | | | e | 2:34 PM | lymphocytic | procedure are in the | | | | PST | leukemia) ([facility]) | results section. | + +--------+ + + + | FTÁIMA IGG | Routin | 09/09/2013 | CLL (chronic | Results for this | | | e | 2:34 PM | lymphocytic | procedure are in the | | | | PST | leukemia) ([facility]) | results section. | + +--------+ + + + | RBC MORPHOLOGY | Routin | 09/09/2013 | CLL (chronic | Results for this | | | e | 2:34 PM | lymphocytic | procedure are in the | | | | PST | leukemia) ([facility] | results section. | + +--------+ + + + | CBC AND AUTO DIFF | Routin | 09/09/2013 | CLL (chronic | Results for this | | | e | 2:34 PM | lymphocytic | procedure are in the | | | | PST | leukemia) ([facility] | results section. | + +--------+ + + + | MANUAL DIFFERENTIAL | Routin | 09/09/2013 | CLL (chronic | Results for this | | | e | 2:34 PM | lymphocytic | procedure are in the | | | | PST | leukemia) ([facility]) | results section. | + +--------+ + + + | CBC, WITH | Routin | 09/09/2013 | CLL (chronic | Results for this | | DIFFERENTIAL | e | 2:34 PM | lymphocytic | procedure are in the | | | | PST | leukemia) ([facility]) | results section. | + +--------+ + + + | COMPLETE METABOLIC | Routin | 09/09/2013 | CLL (chronic | Results for this | | SET | e | 2:34 PM | lymphocytic | procedure are in the | | (NA,K,CL,CO2,BUN,CRE | | PST | leukemia) ([facility]) | results section. | | AT,GLUC,CA,AST,ALT,B | | | | | | KATE TOTAL,ALK | | | | | | PHOS,ALB,PROT TOTAL) | | | | | + +--------+ + + + | IGG, SERUM | Routin | 09/09/2013 | CLL (chronic | Results for this | | | e | 2:34 PM | lymphocytic | procedure are in the | | | | PST | leukemia) ([facility]) | results section. | + +--------+ + + + | BRANDEE KNOWLES | Routin | 09/09/2013 | CLL (chronic | Results for this | | | e | 2:34 PM | lymphocytic | procedure are in the | | | | PST | leukemia) ([facility]) | results section. | + +--------+ + + + | LDH TOTAL, PLASMA | Routin | 09/09/2013 | CLL (chronic | Results for this | | | e | 2:34 PM | lymphocytic | procedure are in the | | | | PST | leukemia) ([facility]) | results section. | + +--------+ + + + documented in this encounter Results RBC MORPHOLOGY (09/09/2013 2:34 PM PST) + +---------+ + + + | Component | Value | Ref Range | Performed | Pathologist | | | | | At | Signature | + +---------+ + + + | JAIMEE | Present | | [facility] | | | BODIES | | | LABORATORY | | | | | | SERVICES, | | | | | | CORE | | + +---------+ + + + | TOXIC | Present | | [facility] | | | GRANULATION | | | LABORATORY | | | | | | SERVICES, | | | | | | CORE | | + +---------+ + + + + + | Specimen | + + | Blood - Blood | + + + + + + + | Performing | Address | City/State/Zipcode | Phone Number | | Organization | | | | + + + + + | [facility] | [address] | [place] [address] | | | SERVICES, CORE | [address] | | | + + + + + MANUAL DIFFERENTIAL (09/09/2013 2:34 PM PST) + + + + + + | Component | Value | Ref Range | Performed | Pathologist | | | | | At | Signature | + + + + + + | NEUTROPHIL | 59.0 | 50.0 - 70.0 % | [facility] | | | % | | | LABORATORY | | | | | | SERVICES, | | | | | | CORE | | + + + + + + | LYMPHOCYTE | 3.8 (L) | 18.0 - 42.0 % | [facility] | | | % | | | LABORATORY | | | | | | SERVICES, | | | | | | CORE | | + + + + + + | MONOCYTE % | 2.9 (L) | 3.5 - 9.0 % | [facility] | | | | | | LABORATORY | | | | | | SERVICES, | | | | | | CORE | | + + + + + + | EOSINOPHIL | 0.9 (L) | 1.0 - 3.0 % | [facility] | | | % | | | LABORATORY | | | | | | SERVICES, | | | | | | CORE | | + + + + + + | BASOPHIL % | 1.9 | 0.0 - 2.0 % | [facility] | | | | | | LABORATORY | | | | | | SERVICES, | | | | | | CORE | | + + + + + + | BANDS % | 28.6 (H) | 0.0 - 10.0 % | [facility] | | | | | | LABORATORY | | | | | | SERVICES, | | | | | | CORE | | + + + + + + | METAMYELOCY | 1.0 (H) | <1.0 % | [facility] | | | ANGELINE % | | | LABORATORY | | | | | | SERVICES, | | | | | | CORE | | + + + + + + | MYELOCYTES | | 0.0 % | [facility] | | | % | | | LABORATORY | | | | | | SERVICES, | | | | | | CORE | | + + + + + + | PROMYELOCYT | 1.0 (H) | 0.0 % | [facility] | | | ES % | | | LABORATORY | | | | | | SERVICES, | | | | | | CORE | | + + + + + + | ATYPICAL | | 0.0 % | [facility] | | | CELL % | | | LABORATORY | | | | | | SERVICES, | | | | | | CORE | | + + + + + + | REACTIVE | 0.9 | 0.0 - 10.0 % | [facility] | | | LYMPHS % | | | LABORATORY | | | | | | SERVICES, | | | | | | CORE | | + + + + + + | NEUTROPHIL | 9.32 (H) | 1.80 - 7.70 | [facility] | | | # | | K/cu mm | LABORATORY | | | | | | SERVICES, | | | | | | CORE | | + + + + + + | LYMPHOCYTE | 0.60 (L) | 1.00 - 4.80 | [facility] | | | # | | K/cu mm | LABORATORY | | | | | | SERVICES, | | | | | | CORE | | + + + + + + | MONOCYTE # | 0.46 | 0.10 - 0.90 | [facility] | | | | | K/cu mm | LABORATORY | | | | | | SERVICES, | | | | | | CORE | | + + + + + + | EOSINOPHIL | 0.14 | 0.00 - 0.50 | [facility] | | | # | | K/cu mm | LABORATORY | | | | | | SERVICES, | | | | | | CORE | | + + + + + + | BASOPHIL # | 0.30 (H) | 0.00 - 0.10 | [facility] | | | | | K/cu mm | LABORATORY | | | | | | SERVICES, | | | | | | CORE | | + + + + + + | BANDS # | 4.52 (H) | 0.00 - 1.10 | [facility] | | | | | K/cu mm | LABORATORY | | | | | | SERVICES, | | | | | | CORE | | + + + + + + | METAMYELOCY | 0.16 | K/cu mm | [facility] | | | ANGELINE # | | | LABORATORY | | | | | | SERVICES, | | | | | | CORE | | + + + + + + | MYELOCYTES | | K/cu mm | [facility] | | | # | | | LABORATORY | | | | | | SERVICES, | | | | | | CORE | | + + + + + + | PROMYELOCYT | 0.16 | K/cu mm | [facility] | | | ES # | | | LABORATORY | | | | | | SERVICES, | | | | | | CORE | | + + + + + + | ATYPICAL | | K/cu mm | [facility] | | | CELLS # | | | LABORATORY | | | | | | SERVICES, | | | | | | CORE | | + + + + + + | REACTIVE | 0.14 | K/cu mm | [facility] | | | LYMPHS # | | | LABORATORY | | | | | | SERVICES, | | | | | | CORE | | + + + + + + + + | Specimen | + + | Blood - Blood | + + + + + + + | Performing | Address | City/State/Zipcode | Phone Number | | Organization | | | | + + + + + | [facility] | [address] | [place] [address] | | | SERVICES, CORE | [address] | | | + + + + + C3 FÁTIMA (09/09/2013 2:34 PM PST) + + + + + + | Component | Value | Ref Range | Performed | Pathologist | | | | | At | Signature | + + + + + + | FÁTIMA C3 | Negative | | [facility] | | | | | | LABORATORY | | | | | | SERVICES, | | | | | | TRANSFUSION | | | | | | MEDICINE | | + + + + + + + + | Specimen | + + | Blood - Blood | + + + + + + + | Performing | Address | City/State/Zipcode | Phone Number | | Organization | | | | + + + + + | [facility] | [address] | [place] [address] | | | SERVICES, | [address] | | | | TRANSFUSION MEDICINE | | | | + + + + + FÁTIMA POLY (09/09/2013 2:34 PM PST) + + + + + + | Component | Value | Ref Range | Performed | Pathologist | | | | | At | Signature | + + + + + + | FÁTIMA POLY | Positive | | [facility] | | | | | | LABORATORY | | | | | | SERVICES, | | | | | | TRANSFUSION | | | | | | MEDICINE | | + + + + + + + + | Specimen | + + | Blood - Blood | + + + + + + + | Performing | Address | City/State/Zipcode | Phone Number | | Organization | | | | + + + + + | [facility] | [address] | [place] [address] | | | SERVICES, | [address] | | | | TRANSFUSION MEDICINE | | | | + + + + + FÁTIMA IGG (09/09/2013 2:34 PM PST) + + + + + + | Component | Value | Ref Range | Performed | Pathologist | | | | | At | Signature | + + + + + + | BENSON, IGG | Positive | | [facility] | | | | | | LABORATORY | | | | | | SERVICES, | | | | | | TRANSFUSION | | | | | | MEDICINE | | + + + + + + + + | Specimen | + + | Blood - Blood | + + + + + + + | Performing | Address | City/State/Zipcode | Phone Number | | Organization | | | | + + + + + | [facility] | [address] | [place] [address] | | | SERVICES, | [address] | | | | TRANSFUSION MEDICINE | | | | + + + + + CBC AND AUTO DIFF (09/09/2013 2:34 PM PST) + + + + + + | Component | Value | Ref Range | Performed | Pathologist | | | | | At | Signature | + + + + + + | WHITE CELL | 15.79 (H) | 4.40 - 11.00 | [facility] | | | COUNT | | K/cu mm | LABORATORY | | | | | | SERVICES, | | | | | | CORE | | + + + + + + | RED CELL | 4.23 (L) | 4.50 - 6.00 | [facility] | | | COUNT | | M/cu mm | LABORATORY | | | | | | SERVICES, | | | | | | CORE | | + + + + + + | HEMOGLOBIN | 13.8 | 13.5 - 17.5 | [facility] | | | | | g/dL | LABORATORY | | | | | | SERVICES, | | | | | | CORE | | + + + + + + | HEMATOCRIT | 39.8 (L) | 41.0 - 53.0 % | [facility] | | | | | | LABORATORY | | | | | | SERVICES, | | | | | | CORE | | + + + + + + | MCV | 94.1 | 80.0 - 96.0 fL | [facility] | | | | | | LABORATORY | | | | | | SERVICES, | | | | | | CORE | | + + + + + + | MCHC | 34.7 | 33.0 - 35.5 | [facility] | | | | | g/dL | LABORATORY | | | | | | SERVICES, | | | | | | CORE | | + + + + + + | RDW SD | 43.4 | 35.1 - 46.3 fL | [facility] | | | | | | LABORATORY | | | | | | SERVICES, | | | | | | CORE | | + + + + + + | PLATELET | 127 (L) | 150 - 400 K/cu | [facility] | | | COUNT | | mm | LABORATORY | | | | | | SERVICES, | | | | | | CORE | | + + + + + + | MPV | 10.2 | 9.7 - 12.3 fL | [facility] | | | | | | LABORATORY | | | | | | SERVICES, | | | | | | CORE | | + + + + + + | NRBC% | 0.0 | 0.0 - 0.3 % | [facility] | | | | | | LABORATORY | | | | | | SERVICES, | | | | | | CORE | | + + + + + + | NRBC# | 0.00 | 0.00 - 0.02 | [facility] | | | | | K/cu mm | LABORATORY | | | | | | SERVICES, | | | | | | CORE | | + + + + + + + + | Specimen | + + | Blood - Blood | + + + + + | Narrative | Performed At | + + + | New methodology and reference ranges for some CBC/Differential | [facility] | | analytes in effect on 05/16/13. | LABORATORY | | | SERVICES, CORE | + + + + + + + + | Performing | Address | City/State/Zipcode | Phone Number | | Organization | | | | + + + + + | [facility] | [address] | [place] [address] | | | RAME[address]QUEIR[place] | [address] | | | + + + + + IGG, SERUM (09/09/2013 2:34 PM PST) + +---------+ + + + | Component | Value | Ref Range | Performed | Pathologist | | | | | At | Signature | + +---------+ + + + | IGG SERUM | 438 (L) | 700 - 1600 | [facility] | | | | | mg/dL | [facility] | | | | | [place] | | + +---------+ + + + + + | Specimen | + + | Blood - Blood | + + + + + + + | Performing | Address | City/State/Zipcode | Phone Number | | Organization | | | | + + + + + | [facility] | [address] | [place] [address] | | | [place] | | | | + + + + + LDH TOTAL, PLASMA (09/09/2013 2:34 PM PST) + +---------+ + + + | Component | Value | Ref Range | Performed | Pathologist | | | | | At | Signature | + +---------+ + + + | LD TOTAL, | 229 | 155 - 250 U/L | [facility] | | | PLASMA | | | LABORATORY | | | | | | SERVICES, | | | | | | CORE | | + +---------+ + + + | LD CMNT | No Hemo | | [facility] | | | | | | LABORATORY | | | | | | SERVICES, | | | | | | CORE | | + +---------+ + + + + + | Specimen | + + | Blood | + + + + + | Narrative | Performed At | + + + | New reference range effective 2013 for LD Total performed | [facility] | | in Core Lab only. | LABORATORY | | | SERVICES, CORE | + + + + + + + + | Performing | Address | City/State/Zipcode | Phone Number | | Organization | | | | + + + + + | [facility] | [address] | [place] [address] | | | SERVICES, CORE | [address] | | | + + + + + COMPLETE METABOLIC SET (NA,K,CL,CO2,BUN,CREAT,GLUC,CA,AST,ALT,BILI TOTAL,ALK PHOS,ALB,PROT TOTAL) (09/09/2013 2:34 PM PST) + +---------+ + + + | Component | Value | Ref Range | Performed | Pathologist | | | | | At | Signature | + +---------+ + + + | GLUCOSE, | 85 | 60 - 99 mg/dL | [facility] | | | PLASMA | | | LABORATORY | | | (LAB) | | | SERVICES, | | | | | | CORE | | + +---------+ + + + | BUN, PLASMA | 12 | 6 - 20 mg/dL | [facility] | | | (LAB) | | | LABORATORY | | | | | | SERVICES, | | | | | | CORE | | + +---------+ + + + | CREATININE | 1.07 | 0.70 - 1.30 | [facility] | | | PLASMA | | mg/dL | LABORATORY | | | (LAB) | | | SERVICES, | | | | | | CORE | | + +---------+ + + + | EGFR | >60 | >60 mL/min | [facility] | | | - | | | LABORATORY | | | [facility] [place] [facility] | | | SERVICES, | | | | | | CORE | | + +---------+ + + + | EGFR NON | >60 | >60 mL/min | [facility] | | | -JETT | | | LABORATORY | | | RICAN | | | SERVICES, | | | | | | CORE | | + +---------+ + + + | SODIUM, | 142 | 136 - 145 | [facility] | | | PLASMA | | mmol/L | LABORATORY | | | (LAB) | | | SERVICES, | | | | | | CORE | | + +---------+ + + + | POTASSIUM, | 3.4 | 3.4 - 5.0 | [facility] | | | PLASMA | | mmol/L | LABORATORY | | | (LAB) | | | SERVICES, | | | | | | CORE | | + +---------+ + + + | CHLORIDE, | 106 | 97 - 108 mmol/L | [facility] | | | PLASMA | | | LABORATORY | | | (LAB) | | | SERVICES, | | | | | | CORE | | + +---------+ + + + | TOTAL CO2, | 23 | 21 - 32 mmol/L | [facility] | | | PLASMA | | | LABORATORY | | | (LAB) | | | SERVICES, | | | | | | CORE | | + +---------+ + + + | CALCIUM, | 8.6 | 8.6 - 10.2 | [facility] | | | PLASMA | | mg/dL | LABORATORY | | | (LAB) | | | SERVICES, | | | | | | CORE | | + +---------+ + + + | BILIRUBIN | 0.6 | mg/dL | [facility] | | | TOTAL | | | LABORATORY | | | | | | SERVICES, | | | | | | CORE | | + +---------+ + + + | TOTAL | 6.7 | 6.4 - 8.2 g/dL | [facility] | | | PROTEIN, | | | LABORATORY | | | PLASMA | | | SERVICES, | | | (LAB) | | | CORE | | + +---------+ + + + | ALBUMIN, | 4.2 | 3.5 - 4.7 g/dL | [facility] | | | PLASMA | | | LABORATORY | | | (LAB) | | | SERVICES, | | | | | | CORE | | + +---------+ + + + | ALK PHOS | 128 (H) | 56 - 119 U/L | [facility] | | | | | | LABORATORY | | | | | | SERVICES, | | | | | | CORE | | + +---------+ + + + | AST(SGOT) | 12 (L) | 15 - 41 U/L | [facility] | | | | | | LABORATORY | | | | | | SERVICES, | | | | | | CORE | | + +---------+ + + + | ALT (SGPT) | 18 | 12 - 60 U/L | [facility] | | | | | | LABORATORY | | | | | | SERVICES, | | | | | | CORE | | + +---------+ + + + | ANION | 12 (H) | 4 - 11 mmol/L | [facility] | | | GAP(ALB | | | LABORATORY | | | CORRECTED) | | | SERVICES, | | | | | | CORE | | + +---------+ + + + | POTASSIUM | No Hemo | | [facility] | | | CMNT | | | LABORATORY | | | | | | SERVICES, | | | | | | CORE | | + +---------+ + + + | BILI T CMNT | No Hemo | | [facility] | | | | | | LABORATORY | | | | | | SERVICES, | | | | | | CORE | | + +---------+ + + + | AST CMNT | No Hemo | | [facility] | | | | | | LABORATORY | | | | | | SERVICES, | | | | | | CORE | | + +---------+ + + + | ANION GAP | 13 | mmol/L | [facility] | | | | | | LABORATORY | | | | | | SERVICES, | | | | | | CORE | | + +---------+ + + + + + | Specimen | + + | Blood | + + + + + | Narrative | Performed At | + + + | GFR is estimated using the MDRD equation recommended by the | [facility] | | National Kidney Disease Education Program. Estimated GFR | LABORATORY | | Interpretive Information: <60 mL/min/1.73 sq m | SERVICES, CORE | | Chronic Kidney Disease <15 mL/min/1.73 sq m | | | Kidney Failure Estimated GFR greater that 60 mL/min/1.73 sq m is of | | | limited clinical value. The MDRD equation is not valid in the | | | following situations: - Patients under 18 years of age - Severe | | | malnutrition or obesity - Vegetarian diet - Rapidly changing kidney | | | function New reference range effective 2013 for Total proteins | | | performed in Core Lab only. | | + + + + + + + + | Performing | Address | City/State/Zipcode | Phone Number | | Organization | | | | + + + + + | [facility] | [address] | [place] [address] | | | SERVICES, CORE | [address] | | | + + + + + documented in this encounter Visit Diagnoses + + | Diagnosis | + + | CLL (chronic lymphocytic leukemia) (HCC) Chronic lymphoid leukemia, without mention | | of having achieved remission | + + documented in this encounter"
--- OUTSIDE RECORDS SUMMARY | ~2019-11-10 | XMS | Encounter Summary ---
Demographics + + + | Address | [address] | | | [place] [address] | + + + | Home Phone | | + + + | Preferred Language | Unknown | + + + | Marital Status | | + + + | Adventism Affiliation | 1028 | + + + | Race | Unknown | + + + | Ethnic Group | Unknown | + + + Author + + + | Author | [facility] | | | and [place] | + + + | Organization | [facility] | | | and [place] | + + + | Address | Unknown | + + + | Phone | Unavailable | + + + Support + + + + + | Name | Relationship | Address | Phone | + + + + + | Jorge Myrick | [place] | [place] | | | | | [address] | | + + + + + | Feng Myrick | ECON | NA | | | | | [place], [place] | | + + + + + Care Team Providers + +------+ + | Care Sand Miller Name | Role | Phone | + +------+ + PCP | Unavailable | + +------+ + Encounter Details +--------+ + + + + | Date | Type | Department | Care Team | Description | +--------+ + + + + | 03/12/ | Hospital | [facility] | | | | 2002 - | Encounter | [facility] | | | | | | C[facility] [address] | | | | 05/21/ | | [place] | | | | 2002 | | [address] | | | | | | [phone] | | | +--------+ + + + [...]
--- OUTSIDE RECORDS SUMMARY | ~2019-11-10 | XMS | Encounter Summary ---
Demographics + + + | Address | [address] | | | [place] [address] | + + + | Home Phone | | + + + | Preferred Language | Unknown | + + + | Marital Status | | + + + | Buddhist Affiliation | 1028 | + + + | Race | Unknown | + + + | Ethnic Group | Unknown | + + + Author + + + | Author | [facility] | | | and [place] | + + + | Organization | [facility] | | | and [place] | + + + | Address | Unknown | + + + | Phone | Unavailable | + + + Support + + + + + | Name | Relationship | Address | Phone | + + + + + | Jorge Myrick | [place] | [place] | | | | | [address] | | + + + + + | Feng Myrick | ECON | NA | | | | | [place], [place] | | + + + + + Care Team Providers + +------+ + | Care Controls Designer Name | Role | Phone | + +------+ + PCP | Unavailable | + +------+ + Encounter Details +--------+ + + + + | Date | Type | Department | Care Team | Description | +--------+ + + + + | 11/28/ | Hospital | [facility] | | | | 2004 | Encounter | MED [facility] | | | | | | [address] | | | | | | [place], [place] | | | | | | [phone] | | | | | | [phone] | | | +--------+ + + + [...]
--- OUTSIDE RECORDS SUMMARY | ~2019-11-10 | XMS | Encounter Summary ---
Demographics + + + | Address | [address] | | | [place] [address] | + + + | Home Phone | | + + + | Preferred Language | Unknown | + + + | Marital Status | Single | + + + | Orthodoxy Affiliation | Unknown | + + + | Race | White | + + + | Ethnic Group | Not or | + + + Author + + + | Author | [facility] | + + + | Organization | [facility] | + + + | Address | [...] Team Providers + +------+ + | Care Linux Architect Name | Role | Phone | + +------+ + | Emeterio Campos DO | PCP | | + +------+ + Reason for Visit + + + | Reason | Comments | + + + | New patient | | | consultation | | + + + Consultation (Routine) +--------+--------+ + + + + | Status | Reason | Specialty | Diagnoses / | Referred By | Referred To | | | | | Procedures | Contact | Contact | +--------+--------+ + + + + | Closed | | Hematology | Diagnoses | | Daniela, | | | | Malignancy | Stage 4 CLL | Andry | MD Huseyin | | | | | Never had | Markell Rachael, | [address] | | | | | a bmbx CT | [address] | | | | | done in March | [facility] | [place], [place] | | | | | @ St | [place], | [address] | | | | | [place] | [place] [address] | Phone: | | | | | Hospital | Phone: | [phone] | | | | | | [phone] | Fax: | | | | | | Fax: | [phone] | | | | | | [phone] | | +--------+--------+ + + + + Encounter Details +--------+---------+ + + + | Date | Type | Department | Care Team | Description | +--------+---------+ + + + | 09/09/ | Office | Center for | Huseyin Suarez, | CLL (chronic | | 2012 | Visit | Hematologic | MD [address] | lymphocytic | | | | Malignancies at [facility] | [address] [place], [place] | leukemia) (HCC) | | | | [address] | [address] | (Primary Dx) | | | | Loop Mailcode: | [phone] | | | | | [id number] | | | | | | [facility] [place], | | | | | | [place] [address] | | | | | | [phone] | | | +--------+---------+ + + + Social History + +-------+ [...] + + documented as of this encounter Last Filed Vital Signs + + + + + | Vital Sign | Reading | Time Taken | Comments | + + + + + | Blood Pressure | 150/91 | 09/09/2013 12:51 PM | | | | | PST | | + + + + + | Pulse | 66 | 09/09/2013 12:51 PM | | | | | PST | | + + + + + | Temperature | 37.6 C (99.7 F) | 09/09/2013 12:51 PM | | | | | PST | | + + + + + | Respiratory Rate | 18 | 09/09/2013 12:51 PM | | | | | PST | | + + + + + | Oxygen Saturation | 96% | 09/09/2013 12:51 PM | | | | | PST | | + + + + + | Inhaled Oxygen | - | - | | | Concentration | | | | + + + + + | Weight | 125.3 kg (276 lb 3.8 | 09/09/2013 12:51 PM | | | | oz) | PST | | + + + + + | Height | 188 cm (6' 2") | 09/09/2013 12:51 PM | | | | | PST | | + + + + + | Body Mass Index | 35.47 | 09/09/2013 12:51 PM | | | | | PST | | + + + + + documented in this encounter Patient Instructions Patient Instructions Lore Sheriff RN - 09/09/2013 2:07 PM PSTIt was nice to see you to day. We will have you get labs on your way out on the 3rd floor [facility]. Dr. Suarez will see you back after you have your bone marrow biopsy and CT scans after your 6 th cycle of treatment. Call me and let me know the date of those tests and we can then sched ule for an appointment. Please let me know if you have any questions before your next visit. Email is the best way to get a hold of me. Lore Wolff RN is Dr. Suarez s Nurse Coordinator. Please call me with any questio ns or concerns. My direct line is [phone] or you may contact me through email: [email or web address]. Please note: I am in clinic Tuesdays, Wednesdays, and and ma y not be able to respond to phone calls on those days. I am also off on Sunday afternoons. Heber pappas call the Triage Nurse (contact information listed below) for medical issues and/or pre scriptions. If you develop any symptoms or have any urgent medical questions, please call the Triage Nu rse at [phone] or [phone] (Sunday - Sunday 8:30-4:30). During after steve rs, please call [phone] and ask to have the BMT Person Adoption Specialist paged. If you have any questions about appointments or need to call to make a follow up appointmen t, please call the front office coordinator at [phone]. FOR PRESCRIPTIONS: please allow 48-72 hours for prescription refills. Please make sure no r efills remain prior to calling. If refills remain, please call the pharmacy for a refill. documented in this encounter Progress Notes Huseyin Suarez MD - 09/14/2013 5:55 PM PSTFormatting of this note might be different f rom the original. [place] [facility] Initial Consultation 09-09-13 Referring MD: Markell Wilde Reason for Referral: CLL, hemolytic anemia HPI: Mr. 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 Most recent;y he developed progressive splenomegaly and hemolytic anemia and tumor lysis. Given his rapidly progressive course, there was significant concern for Ri chters transformation. He did not have any adenopathy and there was no histologic confirmati on/evidence for transformation. He was started on R-Bendamustine to which he has had an exce llent response with normalization of his counts, resolution of his splenomeglay, and his hem olytic anemia. He has completed 3 cycles of B-R with plan for a bone marrow biopsy after 4 cycles, tentative plan for 2 additional cycles and then R-maintenance. Currently, Mr. Myrick notes he feels well and has tolerated the B-R very well (after cycle 1). He is accompanied by a friend today. Oncology History --initially diagnosed with hairy cell luekaemia in 2004 at that time with hemoglobin of 12. 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 +smokeless tobacco use. No smoking hx. ETOH-3 drinks per week. Hx of marijuana use. Family Hx: non-contributory Physical Exam Objective: vitals and nursing notes reviewed per [facility] perfomance status = 0 Physical Exam: General appearance, incl mental status: pleasant, alert and oriented x 3, no distress LABS Lab Results Component Value Date WBC 15.79* 09/09/2013 RBC 4.23* 09/09/2013 HCT 39.8* 09/09/2013 HB 13.8 09/09/2013 MCV 94.1 09/09/2013 MCHC 34.7 09/09/2013 PLT 127* 09/09/2013 NEUTROPERC 59.0 09/09/2013 LYMPHPERC 3.8* 09/09/2013 MONOPERC 2.9* 09/09/2013 EOSPERC 0.9* 09/09/2013 BASOPERC 1.9 09/09/2013 NEUTROPHILCO 9.32* 09/09/2013 GLU 85 09/09/2013 BUN 12 09/09/2013 CR 1.07 09/09/2013 TP 6.7 09/09/2013 ALB 4.2 09/09/2013 CA 8.6 09/09/2013 TBILI 0.6 09/09/2013 AP 128* 09/09/2013 AST 12* 09/09/2013 NA 142 09/09/2013 K 3.4 09/09/2013 CL 106 09/09/2013 BICARB 23 09/09/2013 ALT 18 09/09/2013 LDH 229 Yonathan- positive with +IgG Assessment: 62 year old man with history of relapsde CLL (although dx with hairy cell leuke musa in 2004). He recently developed rapid progression of his disease with splenomegaly, hemo lytic anemia, and tumor lysis. Given his clinical presentation, there was concern about pote ntial transformation. He has had an excellent response to B-R chemotherapy. I had a lengthy discussion with Mr. Myrick and his friend today about the followin) Transformation: I explained that in the setting of hemolytic anemia that clinically, CLL can appear to be aggressive with profound splenomegaly, lymphocytosis, elevated LDH; howeve r, this oftehn happens without histologic transformation and thus, without tissue dx (flow s howing PLL or DLBCL) and given good response to B-R, I do not think this represents transfor mation. 2) Treatment: He is responding nicely to B-R and thus I have recommended he have a bone mar row and CT at least one month after Rx to assess his disease status. We also discussed MRD w hich we can perform by PB flow; however, we would need to do this 3 months after his last ri tuximab. 3) maintenance rituximab: Outside of a clinical trial, there is little role for R_maintenan ce in CL and I explained that this is not something I usually recommend. However, given his hemolytic anemia, this could be considered. 4) Novel therapies: There are many novel therapies that we discussed today including kinase inhibitors (on study or off-with ibrutinib pending approval in early 2103) among others. We have a number of trials her but not a consolidation trial. 5) BMT: No role for transplant currently (despite aggressive presentation); however, I revi ewed these indications in detail. Recommendations 1. Continue B-R, complete a total of [address] Wilde -perform restaging studies after completion of 6 cycles 2. I will see Mr. Myrick back after he has had restaging studies (would do marrow and CT). At that time, we will again check a Yonathan (may remain positive even after resolution of hem olytic anemia). We will then discuss further remission expectations and plans moving forward . I appreciate the opportunity to be involved in Mr. Broussard's care. Please do not hesitate to call me with questions. I spent 65 minutes with > 50% In face to face counseling and coordination of care. HUSEYIN SUAREZ MD Supervisor [employer] [email or web address] [email or web address] [phone] documented in this encounter Plan of Treatment Not on filedocumented as of this encounter Results IGG, SERUM (09/09/2013 2:34 PM PST) + [...] + | [facility] - | [address] | [place] [address] | | | [facility] | | | | + + + [...] | + + + + + | [facility] | [address] | [place] [address] | | | SERVICES, CORE | PARK [...] | | | LABORATORY | | | [facility] | | | SERVICES, | | | [...] the MDRD equation recommended by the | [facility] | | National Kidney Disease Education Program. Estimated GFR | LABORATORY | | Interpretive Information: <60 mL/min/1.73 sq m | [facility] | | Chronic Kidney Disease <15 mL/min/1.73 [...] | + + + + + | [facility] | [address] | [place] [address] | | | [facility] | [address] | | | + + + + + documented in this encounter Visit Diagnoses + + | Diagnosis | + + | CLL (chronic lymphocytic leukemia) (HCC) - Primary Chronic lymphoid leukemia, without | | mention of having achieved remission | + + documented in this encounter
--- OUTSIDE RECORDS SUMMARY | ~2019-11-10 | XMS | Encounter Summary ---
Demographics + + + | Address | [address] | | | [place] [address] | + + + | Home Phone | | + + + | Preferred Language | Unknown | + + + | Marital Status | | + + + | Scientologist Affiliation | [id number] | + + + [...] [place] | | | | | [address] | | + + + + + | Feng Myrick | ECON | NA | | | | | [place] | | + + + + + Care Team Providers + +------+ + | Care Tower Attendant Name | Role | Phone | + +------+ + | Emeterio Campos DO | PCP | | + +------+ + Reason for Visit + + + | Reason | Comments | + + + | Appointment | | + + + Encounter Details +--------+ + + + + | Date | Type | Department | Care Team | Description | +--------+ + + + + | 09/28/ | Telephone | [facility] | Jerrod Redding | Appointment | | 2013 | | [address] | MD Jose [address] | | | | | [address], | [address] [place] | | | | | [place] [address] | [place] [address] | | | | | [phone] | [phone] | | | | | | | [...]
--- OUTSIDE RECORDS SUMMARY | ~2019-11-10 | XMS | Encounter Summary ---
Demographics + + + | Address | [address] | | | [place] [address] | + + + | Home Phone | | + + + | Preferred Language | Unknown | + + + | Marital Status | | + + + | Oriental Orthodox Affiliation | 1028 | + + + | Race | Unknown | + + + | Ethnic Group | Unknown | + + + Author + + + | Author | [facility] | | | and [place] | + + + | Organization | [facility] | | | and [place] | + + + | Address | Unknown | + + + | Phone | Unavailable | + + + Support + + + + + | Name | Relationship | Address | Phone | + + + + + | Jorge Myrick | [place] | [place] | | | | | [address] | | + + + + + | Feng Myrick | ECON | NA | | | | | [place] | | + + + + + Care Team Providers + +------+ + | Care Consulting Networking Engineer Name | Role | Phone | + +------+ + | Emeterio Campos DO | PCP | | + +------+ + Encounter Details +--------+ + + + + | Date | Type | Department | Care Team | Description | +--------+ + + + + | 06/24/ | Hospital | [facility] | [place], | | | 2012 - | Encounter | [facility] | Markell Cano MD [address] | | | | [address] [place] | [address] [place] | | | 06/28/ | | [place] [address] | [place] [address] | | | 2012 | | [phone] | [phone] | | | | | | | [...] + + documented as of this encounter Discharge Summaries Provider Franci, In System - 06/28/2013 11:49 [place] [address] Patient Name: JUDE MYRICK Provider: Markell Wilde MD Unit #: [id number] Location : [facility] : 1950 ADMISSION DATE: 06/24/2013 DISCHARGE DATE: 06/28/2013 DISCHARGE SUMMARY ADMITTING DIAGNOSES 1. Chronic lymphocytic leukemia. 2. Warm autoimmune hemolytic anemia. DISCHARGE DIAGNOSES 1. Chronic lymphocytic leukemia, improved. 2. Warm autoimmune hemolytic anemia, improved. 3. Renal insufficiency. 4. Acute tubular necrosis. 5. Tumor lysis syndrome. CONSULTATIONS: None. COMPLICATIONS: None. PROCEDURES: Cycle #1 bendamustine/Rituxan chemotherapy beginning on 06/24/2013. HOSPITAL COURSE: Jude Myrick is a 62-year-old man from [place], [place], who has an estab lished diagnosis of chronic lymphocytic leukemia and currently was on active surveillance, who was admitted for progression of disease complicated by a warm autoimmune hemolytic anem ia. Jude was admitted to the [address] [place] [address] oncology [place] where he immediately began on intrav enous fluids , urinary alkalinization, and Allopurinol. He immediately began treatment with bendamustine/Rituxan chemotherapy as follows. On 06/24/2013, he received 900 mg of intravenous Rituxan, along with 125 mg of intravenous Solu- Medrol every 8 hours. On 06/25/2013 he received 226 mg of intravenous bendamustine along with another dose of 12 5 mg of intravenous Solu-Medrol. On 06/26/2013 he received 226 mg of intravenous bendamustine and 125 mg of intravenous Sheeba u-Medrol. On 06/27/2013 he received 125 mg of intravenous Solu-Medrol. Chemotherapy was complicated by an infusion related reaction related to Rituxan that resol dionna with a brief interruption of the infusion and a single dose of intravenous Demerol. Treatment with bendamustine was complicated by mild nausea without emesis. It was well con trolled with Zofran and lorazepam. Treatment with bendamustine/Rituxan was complicated by the tumor lysis syndrome and acute tubular necrosis. Treatment consisted of high-dose intravenous IV fluids urinary alkaliniza tion and oral Allopurinol. PHYSICAL EXAMINATION VITAL SIGNS: Temperature was 36.6 degrees Celsius. His pulse was 60, blood pressure is 131 /64, respiratory rate was 18, saturation of oxygen was 92% on room air. 24-hour input was 6 101 mL, 24-hour output 4700 mL. HEENT: Sclerae is anicteric. The oropharynx is free of lesions. NECK: Supple without thyromegaly. LUNGS: Clear to auscultation. CARDIOVASCULAR: Regular rate and rhythm, normal S1, normal S2 without rubs, gallops or mur murs. ABDOMEN: Notable for splenomegaly 16 cm below the left costal margin, although Jude report s that pain from the spleen as well as abdominal distention from splenomegaly, at least sub jectively, improved substantially during his hospitalization. LYMPH NODE SURVEY: There was no cervical, supraclavicular, axillary, or inguinal lymphaden opathy. MUSCULOSKELETAL: There is no joint tenderness or swelling or sarcopenia. EXTREMITIES: There was no edema. NEUROLOGIC: Jude was fatigued during his hospitalization, but he was totally independent o f all his activities and was alert and oriented. LABORATORY DATA: Hemoglobin was 5.5, hematocrit 16.3%, platelet count was 44,000. His whit e count was 10,000 with an absolute lymphocyte count of 7600. BUN was 15, creatinine was 1. 37 estimated GFR of 53 mL per minute per 1.73 meters squared. Uric acid was 5.7 mg /dL. Urinary electrolytes were notable for a fractional excretion of sodium of 3%. DISCHARGE PLAN: The discharge plan was discussed with Jude in great detail on the day of d ischarge where I recommended ongoing hospitalization for IV fluids and urinary alkalinizati on to prevent further renal dysfunction from his tumor lysis syndrome; however, Jude declin ed, but did voice his understanding of the nature of his diagnoses and the need to take act ion at home, specifically with trying to drink at least 6 liters (1-1/2 gallons) of fluid a day as well as to continue with allopurinol as an outpatient. DISCHARGE MEDICATIONS 1. Lorazepam 1 mg #40 one tablet orally every 4 hours as needed for nausea, anxiety or res tlessness. 2. Zofran 8 mg ODT #30 one tablet on the tongue every 8 hours as needed for na usea. 3. Allopurinol 300 mg orally daily. 4. Acyclovir 800 mg orally twice daily. Jude will return to the [facility] on Sunday07/01/2013 for clinical and laboratory followup and additional IV fluids if necessary to treat complications of tumor lysis syndrome. DICTATED BY: Markell Wilde MD Oncology JOB #: [id number] EXT JOB #:[id number] <<Signature on File>> Markell lamas [id number]/01/[id number] < documented in this encounter Plan of Treatment Not on filedocumented as of this encounter Procedures + +--------+ + + + | Procedure Name | Priori | Date/Time | Associated Diagnosis | Comments | | | ty | | | | + +--------+ + + + | SODIUM, URINE, | Routin | 06/27/2013 | | Results for this | | RANDOM | e | 4:41 PM | | procedure are in the | | | | PDT | | results section. | + +--------+ + + + | CREATININE, URINE, | Routin | 06/27/2013 | | Results for this | | RANDOM | e | 4:41 PM | | procedure are in the | | | | PDT | | results section. | + +--------+ + + + | CBC WITH | Routin | 06/27/2013 | | Results for this | | DIFFERENTIAL | e | 11:17 AM | | procedure are in the | | | | PDT | | results section. | + +--------+ + + + | BASIC METABOLIC | Routin | 06/27/2013 | | Results for this | | PANEL | e | 11:17 AM | | procedure are in the | | | | PDT | | results section. | + +--------+ + + + | CBC WITH | Routin | 06/27/2013 | | Results for this | | DIFFERENTIAL | e | 6:59 AM | | procedure are in the | | | | PDT | | results section. | + +--------+ + + + | BASIC METABOLIC | Routin | 06/27/2013 | | Results for this | | PANEL | e | 6:59 AM | | procedure are in the | | | | PDT | | results section. | + +--------+ + + + | URINALYSIS, REFLEX | Routin | 06/26/2013 | | Results for this | | MICROSCOPIC AND/OR | e | 10:29 AM | | procedure are in the | | CULTURE | | PDT | | results section. | + +--------+ + + + | MANUAL DIFFERENTIAL | Routin | 06/26/2013 | | Results for this | | | e | 6:52 AM | | procedure are in the | | | | PDT | | results section. | + +--------+ + + + | CBC WITH | Routin | 06/26/2013 | | Results for this | | DIFFERENTIAL | e | 6:52 AM | | procedure are in the | | | | PDT | | results section. | + +--------+ + + + | URIC ACID | Routin | 06/26/2013 | | Results for this | | | e | 6:52 AM | | procedure are in the | | | | PDT | | results section. | + +--------+ + + + | BASIC METABOLIC | Routin | 06/26/2013 | | Results for this | | PANEL | e | 6:52 AM | | procedure are in the | | | | PDT | | results section. | + +--------+ + + + | CBC WITH | Routin | 06/25/2013 | | Results for this | | DIFFERENTIAL | e | 5:42 AM | | procedure are in the | | | | PDT | | results section. | + +--------+ + + + | URIC ACID | Routin | 06/25/2013 | | Results for this | | | e | 5:42 AM | | procedure are in the | | | | PDT | | results section. | + +--------+ + + + | BASIC METABOLIC | Routin | 06/25/2013 | | Results for this | | PANEL | e | 5:42 AM | | procedure are in the | | | | PDT | | results section. | + +--------+ + + + | ANTIBODY ID | Routin | 06/24/2013 | | Results for this | | | e | 1:13 PM | | procedure are in the | | | | PDT | | results section. | + +--------+ + + + | ANTIBODY ID | Routin | 06/24/2013 | | Results for this | | | e | 1:13 PM | | procedure are in the | | | | PDT | | results section. | + +--------+ + + + | ABO RH | Routin | 06/24/2013 | | Results for this | | | e | 1:13 PM | | procedure are in the | | | | PDT | | results section. | + +--------+ + + + | ABO RH | Routin | 06/24/2013 | | | | | e | 1:13 PM | | | | | | PDT | | | + +--------+ + + + | CBC WITH | Routin | 06/24/2013 | | Results for this | | DIFFERENTIAL | e | 1:13 PM | | procedure are in the | | | | PDT | | results section. | + +--------+ + + + | ANTIBODY SCREEN | Routin | 06/24/2013 | | Results for this | | | e | 1:13 PM | | procedure are in the | | | | PDT | | results section. | + +--------+ + + + | URIC ACID | Routin | 06/24/2013 | | Results for this | | | e | 1:13 PM | | procedure are in the | | | | PDT | | results section. | + +--------+ + + + | BASIC METABOLIC | Routin | 06/24/2013 | | Results for this | | PANEL | e | 1:13 PM | | procedure are in the | | | | PDT | | results section. | + +--------+ + + + documented in this encounter Results Sodium, Urine, Random (06/27/2013 4:41 PM PDT) + + + + + + | Component | Value | Ref Range | Performed | Pathologist | | | | | At | Signature | + + + + + + | Sodium, | 77Comment: NO NORMAL | mEq/L | [facility] | | | Urine | RANGE FOR RANDOM URINE | | [facility] | | | Random | SPECIMEN | | MEDICAL | | | | [...] + | [facility] | [address] | [place] | [phone] | | [facility] | | [address] | | | - LABORATORY | | | | + + + + + | [facility] | [address] | [place] | | | [facility] | | [address] | | | - LABORATORY | | | | + + + + + Creatinine, Urine, Random (06/27/2013 4:41 PM PDT) + + + + + + | Component | Value | Ref Range | Performed | Pathologist | | | | | At | Signature | + + + + + + | Creatinine, | 25.18Comment: NO NORMAL | mg/dL | [facility] | | | Urine, | RANGE FOR RANDOM URINE | | [facility] | | | Random | SPECIMEN | | MEDICAL | | | | [...] + | [facility] | [address] | [place] | [phone] | | [facility] | | [address] | | | - LABORATORY | | | | + + + + + | [facility] | [address] | [place] | | | [facility] | | [address] | | | - LABORATORY | | | | + + + + + CBC with Differential (06/27/2013 11:17 AM PDT) + + + + + + | Component | Value | Ref Range | Performed | Pathologist | | | | | At | Signature | + + + + + + | MANUAL | NO | | [facility] | | | DIFFERENTIA | | | [facility] | | | L ? | | | MEDICAL | | | | | | CENTER - | | | | | | LABORATORY | | + + + + + + | WBC | 10.0 (A) | 4.0 - 11.0 K/uL | [facility] | | | | | | [facility] | | | | | | MEDICAL | | | | | | CENTER - | | | | | | LABORATORY | | + + + + + + | RBC | 1.42 (L) | 4.30 - 5.70 | [facility] | | | | | M/uL | [facility] | | | | | | MEDICAL | | | | | | CENTER - | | | | | | LABORATORY | | + + + + + + | Hemoglobin | 5.5 (LL)Comment: @VALUE | 13.5 - 18.0 | [facility] | | | | CONSISTENT WITH PREVIOUS | gm/dL | [facility] | | | | RESULTS | | MEDICAL | | | | | | CENTER - | | | | | | LABORATORY | | + + + + + + | Hematocrit | 16.3 (LL) | 40.0 - 51.0 % | [facility] | | | | | | [facility] | | | | | | MEDICAL | | | | | | CENTER - | | | | | | LABORATORY | | + + + + + + | MCV | 114.8 (H)Comment: @VALUE | 83.0 - 101.0 fL | [facility] | | | | CONSISTENT WITH | | [facility] | | | | PREVIOUS RESULTS | | MEDICAL | | | | | | CENTER - | | | | | | LABORATORY | | + + + + + + | MCH | 38.8 (H) | 28.0 - 35.0 pg | [facility] | | | | | | [facility] | | | | | | MEDICAL | | | | | | CENTER - | | | | | | LABORATORY | | + + + + + + | MCHC | 33.8 | 32.0 - 36.0 | [facility] | | | | | g/dL | [facility] | | | | | | MEDICAL | | | | | | CENTER - | | | | | | LABORATORY | | + + + + + + | RDW-CV | 19.7 (H) | <15.0 % | [facility] | | | | | | [facility] | | | | | | MEDICAL | | | | | | CENTER - | | | | | | LABORATORY | | + + + + + + | Platelet | 44 (L) | 140 - 440 K/uL | [facility] | | | Count | | | [facility] | | | | | | MEDICAL | | | | | | CENTER - | | | | | | LABORATORY | | + + + + + + | % | 22.8 (L) | 45 - 75 % | [facility] | | | Neutrophils | | | [facility] | | | | | | MEDICAL | | | | | | CENTER - | | | | | | LABORATORY | | + + + + + + | % | 76.0 (H)Comment: @VALUE | 20 - 45 % | [facility] | | | Lymphocytes | CONSISTENT WITH PREVIOUS | | [facility] | | | | RESULTS | | MEDICAL | | | | | | CENTER - | | | | | | LABORATORY | | + + + + + + | % Monocytes | 1.1 (L) | 4 - 12 % | [facility] | | | | | | [facility] | | | | | | MEDICAL | | | | | | CENTER - | | | | | | LABORATORY | | + + + + + + | % | 0.1 | 0 - 5 % | [facility] | | | Eosinophils | | | [facility] | | | | | | MEDICAL | | | | | | CENTER - | | | | | | LABORATORY | | + + + + + + | % Basophils | 0.0 | 0 - 1 % | [facility] | | | | | | [facility] | | | | | | MEDICAL | | | | | | CENTER - | | | | | | LABORATORY | | + + + + + + | Absolute | 2.3 | 1.5 - 6.6 K/uL | [facility] | | | Neutrophils | | | [facility] | | | | | | MEDICAL | | | | | | CENTER - | | | | | | LABORATORY | | + + + + + + | Absolute | 7.6 (H) | 0.6 - 3.2 K/uL | [...] + + | SUSPECTED | 1 (H)Comment: TEST | | [facility] | | | PROBLEM IS: | REPEATED, CRITICAL | | [facility] | | | | RESULT-PHONE RESULTS | | MEDICAL | | | | PERFORM SMEAR REVIEW | | CENTER - | | | | FOR DIFF % PERFORM | | LABORATORY | | | | SMEAR REVIEW FOR MCV/RDW | | | | | | Variant LY | | | | + + + + + + + + | Specimen | + + | | + + + + + + + | Performing | Address | City/State/Zipcode | Phone Number | | Organization | | | | + + + + + | [facility] | [address] | [place] | [phone] | | [facility] | | [address] | | | - LABORATORY | | | | + + + + + | [facility] | [address] | [place] | | | [facility] | | [address] | | | - LABORATORY | | | | + + + + + Basic Metabolic Panel (06/27/2013 11:17 AM PDT) + + + + + + | Component | Value | Ref Range | Performed | Pathologist | | | | | At | Signature | + + + + + + | Glucose | 123 (H) | 70 - 109 mg/dL | [facility] | | | | | | [facility] | | | | | | MEDICAL | | | | | | CENTER - | | | | | | LABORATORY | | + + + + + + | Calcium | 7.9 (L) | 8.3 - 10.5 | [facility] | | | | | mg/dL | [facility] | | | | | | MEDICAL | | | | | | CENTER - | | | | | | LABORATORY | | + + + + + + | BUN | 15 | 7 - 18 mg/dL | [facility] | | | | | | [facility] | | | | | | MEDICAL | | | | | | CENTER - | | | | | | LABORATORY | | + + + + + + | Creatinine | 1.37 (H) | 0.60 - 1.30 | [facility] | | | | | mg/dL | [facility] | | | | | | MEDICAL | | | | | | CENTER - | | | | | | LABORATORY | | + + + + + + | Estimated | 53 (L)Comment: For | >60 mL/min/A | [facility] | | | GFR | -Americans, | | [facility] | | | | please multiply the | | MEDICAL | | | | result by 1.210 | | CENTER - | | | | This is an estimated | | LABORATORY | | | | GFR and is based on a | | | | | | standard adult | | | | | | body mass (A=1.73m2) and | | | | | | serum creatinine | | | | + + + + + + | BUN/Creatin | 10.9 (L) | 12 - 20 | [facility] | | | ine Ratio | | | [facility] | | | | | | MEDICAL | | | | | | CENTER - | | | | | | LABORATORY | | + + + + + + | Na | 137 | 136 - 149 mEq/L | [facility] | | | | | | [facility] | | | | | | MEDICAL | | | | | | CENTER - | | | | | | LABORATORY | | + + + + + + | K | 3.2 (L) | 3.5 - 5.1 mEq/l | [facility] | | | | | | [facility] | | | | | | MEDICAL | | | | | | CENTER - | | | | | | LABORATORY | | + + + + + + | Cl | 99 | 98 - 109 mEq/l | [facility] | | | | | | [facility] | | | | | | MEDICAL | | | | | | CENTER - | | | | | | LABORATORY | | + + + + + + | CO2 | 34 (H) | 24 - 31 mEq/L | [facility] | | | | | | [facility] | | | | | | MEDICAL | | | | | | CENTER - | | | | | | LABORATORY | | + + + + + + | Anion Gap | 7.2 | 6.0 - 17.0 | [facility] | | | | | [...] + | [facility] | [address] | [place] | [phone] | | [facility] | | [address] | | | - LABORATORY | | | | + + + + + | [facility] | [address] | [place] | | | [facility] | | [address] | | | - LABORATORY | | | | + + + + + CBC with Differential (06/27/2013 6:59 AM PDT) + + + + + + | Component | Value | Ref Range | Performed | Pathologist | | | | | At | Signature | + + + + + + | MANUAL | NO | | [facility] | | | DIFFERENTIA | | | [facility] | | | L ? | | | MEDICAL | | | | | | CENTER - | | | | | | LABORATORY | | + + + + + + | WBC | 12.2 (H) | 4.0 - 11.0 K/uL | [facility] | | | | | | [facility] | | | | | | MEDICAL | | | | | | CENTER - | | | | | | LABORATORY | | + + + + + + | RBC | 1.29 (L) | 4.30 - 5.70 | [facility] | | | | | M/uL | [facility] | | | | | | MEDICAL | | | | | | CENTER - | | | | | | LABORATORY | | + + + + + + | Hemoglobin | 5.1 (LL)Comment: @VALUE | 13.5 - 18.0 | [facility] | | | | CONSISTENT WITH PREVIOUS | gm/dL | [facility] | | | | RESULTS | | MEDICAL | | | | | | CENTER - | | | | | | LABORATORY | | + + + + + + | Hematocrit | 15.2 (LL)Comment: @VALUE | 40.0 - 51.0 % | [facility] | | | | CONSISTENT WITH | | [facility] | | | | PREVIOUS RESULTS | | MEDICAL | | | | | | CENTER - | | | | | | LABORATORY | | + + + + + + | MCV | 117.7 (H) | 83.0 - 101.0 fL | [facility] | | | | | | [facility] | | | | | | MEDICAL | | | | | | CENTER - | | | | | | LABORATORY | | + + + + + + | MCH | 39.8 (H) | 28.0 - 35.0 pg | [facility] | | | | | | [facility] | | | | | | MEDICAL | | | | | | CENTER - | | | | | | LABORATORY | | + + + + + + | MCHC | 33.8 | 32.0 - 36.0 | [facility] | | | | | g/dL | [facility] | | | | | | MEDICAL | | | | | | CENTER - | | | | | | LABORATORY | | + + + + + + | RDW-CV | 19.3 (H) | <15.0 % | [facility] | | | | | | [facility] | | | | | | MEDICAL | | | | | | CENTER - | | | | | | LABORATORY | | + + + + + + | Platelet | 40 (L) | 140 - 440 K/uL | [facility] | | | Count | | | [facility] | | | | | | MEDICAL | | | | | | CENTER - | | | | | | LABORATORY | | + + + + + + | % | 20.9 (L)Comment: SEE | 45 - 75 % | [facility] | | | Neutrophils | MANUAL DIFF FROM | | [facility] | | | | 06/26/13 | | MEDICAL | | | | | | CENTER - | | | | | | LABORATORY | | + + + + + + | % | 78.1 (H) | 20 - 45 % | [facility] | | | Lymphocytes | | | [facility] | | | | | | MEDICAL | | | | | | CENTER - | | | | | | LABORATORY | | + + + + + + | % Monocytes | 1.0 (L) | 4 - 12 % | [facility] | | | | | | [facility] | | | | | | MEDICAL | | | | | | CENTER - | | | | | | LABORATORY | | + + + + + + | % | 0.0 | 0 - 5 % | [facility] | | | Eosinophils | | | [facility] | | | | | | MEDICAL | | | | | | CENTER - | | | | | | LABORATORY | | + + + + + + | % Basophils | 0.0 | 0 - 1 % | [facility] | | | | | | [facility] | | | | | | MEDICAL | | | | | | CENTER - | | | | | | LABORATORY | | + + + + + + | Absolute | 2.6 | 1.5 - 6.6 K/uL | [facility] | | | Neutrophils | | | [facility] | | | | | | MEDICAL | | | | | | CENTER - | | | | | | LABORATORY | | + + + + + + | Absolute | 9.5 (H) | 0.6 - 3.2 K/uL | [...] + + | SUSPECTED | 1 (H)Comment: TEST | | [facility] | | | PROBLEM IS: | REPEATED, CRITICAL | | [facility] | | | | RESULT-PHONE RESULTS | | MEDICAL | | | | PERFORM SMEAR REVIEW | | CENTER - | | | | FOR DIFF % PERFORM | | LABORATORY | | | | SMEAR REVIEW FOR MCV/RDW | | | | | | PERFORM SMEAR REVIEW | | | | | | FOR PLTS Variant LY | | | | | | | | | | + + + + + + + + | Specimen | + + | | + + + + + + + | Performing | Address | City/State/Zipcode | Phone Number | | Organization | | | | + + + + + | [facility] | [address] | [place] | [phone] | | [facility] | | [address] | | | - LABORATORY | | | | + + + + + | [facility] | [address] | [place], [place] | | | [facility] | | [address] | | | - LABORATORY | | | | + + + + + Basic Metabolic Panel (06/27/2013 6:59 AM PDT) + + + + + + | Component | Value | Ref Range | Performed | Pathologist | | | | | At | Signature | + + + + + + | Glucose | 132 (H) | 70 - 109 mg/dL | [facility] | | | | | | [facility] | | | | | | MEDICAL | | | | | | CENTER - | | | | | | LABORATORY | | + + + + + + | Calcium | 7.9 (L) | 8.3 - 10.5 | [facility] | | | | | mg/dL | [facility] | | | | | | MEDICAL | | | | | | CENTER - | | | | | | LABORATORY | | + + + + + + | BUN | 16 | 7 - 18 mg/dL | [facility] | | | | | | [facility] | | | | | | MEDICAL | | | | | | CENTER - | | | | | | LABORATORY | | + + + + + + | Creatinine | 1.33 (H) | 0.60 - 1.30 | [facility] | | | | | mg/dL | [facility] | | | | | | MEDICAL | | | | | | CENTER - | | | | | | LABORATORY | | + + + + + + | Estimated | 55 (L)Comment: For | >60 mL/min/A | [facility] | | | GFR | -Americans, | | [facility] | | | | please multiply the | | MEDICAL | | | | result by 1.210 | | CENTER - | | | | This is an estimated | | LABORATORY | | | | GFR and is based on a | | | | | | standard adult | | | | | | body mass (A=1.73m2) and | | | | | | serum creatinine | | | | + + + + + + | BUN/Creatin | 12.0 | 12 - 20 | [facility] | | | ine Ratio | | | [facility] | | | | | | MEDICAL | | | | | | CENTER - | | | | | | LABORATORY | | + + + + + + | Na | 139 | 136 - 149 mEq/L | [facility] | | | | | | [facility] | | | | | | MEDICAL | | | | | | CENTER - | | | | | | LABORATORY | | + + + + + + | K | 3.6 | 3.5 - 5.1 mEq/l | [facility] | | | | | | [facility] | | | | | | MEDICAL | | | | | | CENTER - | | | | | | LABORATORY | | + + + + + + | Cl | 101 | 98 - 109 mEq/l | [facility] | | | | | | [facility] | | | | | | MEDICAL | | | | | | CENTER - | | | | | | LABORATORY | | + + + + + + | CO2 | 31 | 24 - 31 mEq/L | [facility] | | | | | | [facility] | | | | | | MEDICAL | | | | | | CENTER - | | | | | | LABORATORY | | + + + + + + | Anion Gap | 10.6 | 6.0 - 17.0 | [facility] | | | | | | [facility] [...] | + + + + + | [facility] | [address] | [place] | [phone] | | [facility] | | [id number] | | | - LABORATORY | | | | + + + + + | [facility] | [address] | [place] | | | [facility] | | [phone] | | | - LABORATORY | | | | + + + + + Urinalysis, Reflex Microscopic and/or Culture (06/26/2013 10:29 AM PDT) + + + + + + | Component | Value | Ref Range | Performed | Pathologist | | | | | At | Signature | + + + + + + | COLLECTION | VOID | | [facility] | | | [facility] | | | [facility] | | | | | | [facility] | | | | | | CENTER - | | | | | | LABORATORY | | + + + + + + | Color, | YELLOW | | [facility] | | | Urine | | | [facility] | | | | | | [facility] | | | | | | CENTER - | | | | | | LABORATORY | | + + + + + + | Clarity | CLEAR | | [facility] | | | | | | [facility] | | | | | | [facility]ICAL | | | | | | CENTER - | | | | | | LABORATORY | | + + + + + + | Glucose, | NEGATIVE | NEGATIVE mg/dL | [facility] | | | Urine | | | [facility] | | | | | | MEDICAL | | | | | | CENTER - | | | | | | LABORATORY | | + + + + + + | Bilirubin, | NEGATIVE | NEGATIVE | [facility] | | | Urine | | | [facility] | | | | | | MEDICAL | | | | | | CENTER - | | | | | | LABORATORY | | + + + + + + | Ketones, | NEGATIVE | NEGATIVE | [facility] | | | Urine | | | [facility] | | | | | | MEDICAL | | | | | | CENTER - | | | | | | LABORATORY | | + + + + + + | Specific | 1.010 | 1.001 - 1.030 | [facility] | | | Spring | | | [facility] | | | | | | MEDICAL | | | | | | CENTER - | | | | | | LABORATORY | | + + + + + + | Blood, | NEGATIVE | NEGATIVE | [facility] | | | Urine | | | [facility] | | | | | | MEDICAL | | | | | | CENTER - | | | | | | LABORATORY | | + + + + + + | pH, Urine | 7.5 | 5.0 - 8.0 | [facility] | | | | | | [facility] | | | | | | [facility] | | | | | | [facility] - | | | | | | LABORATORY | | + + + + + + | Protein, | NEGATIVE | NEGATIVE mg/dL | [facility] | | | Urine | | | [facility] | | | | | | [facility]ICAL | | | | | | CENTER - | | | | | | LABORATORY | | + + + + + + | Urobilinoge | 4.0 | NORMAL EU/dL | [facility] | | | n, Urine | | | [facility] | | | | | | MEDICAL | | | | | | CENTER - | | | | | | LABORATORY | | + + + + + + | Nitrite, | NEGATIVE | NEGATIVE | [facility] | | | Urine | | | [facility] | | | | | | MEDICAL | | | | | | CENTER - | | | | | | LABORATORY | | + + + + + + | Leukocyte | NEGATIVE | NEGATIVE | [facility] | | | Esterase, | | | [facility] | | | Urine | | | MEDICAL | | | | | | CENTER - | | | | | | LABORATORY | | + + + + + + | MICROSCOPIC | NO | | [facility] | | | ? | | | [facility] | | [...] + | [facility] | [address] | [place], [place] | [phone] | | [facility] | | [address] | | | - LABORATORY | | | | + + + + + | [facility] | [address] | [place], [place] | | | [facility] | | [address] | | | - LABORATORY | | | | + + + + + Differential, Blood, Manual (06/26/2013 6:52 AM PDT) + + + + + + | Component | Value | Ref Range | Performed | Pathologist | | | | | At | Signature | + + + + + + | Total | 100 | | [facility] | | | Counted | | | [facility] | | | | | | MEDICAL | | | | | | CENTER - | | | | | | LABORATORY | | + + + + + + | % Segmented | 15 (L) | 50 - 70 % | [facility] | | | | | | [facility] | | | Neutrophils | | | MEDICAL | | | | | | CENTER - | | | | | | LABORATORY | | + + + + + + | % Bands | 1 | 0 - 5 % | [facility] | | | | | | [facility] | | | | | | MEDICAL | | | | | | CENTER - | | | | | | LABORATORY | | + + + + + + | % | 81 (H) | 20 - 40 % | [facility] | | | Lymphocytes | | | [facility] | | | | | | MEDICAL | | | | | | CENTER - | | | | | | LABORATORY | | + + + + + + | % Variant | 3 | 0 - 5 % | [facility] | | | Lymphocytes | | | [facility] | | | | | | MEDICAL | | | | | | CENTER - | | | | | | LABORATORY | | + + + + + + | Absolute | 2.7 | K/uL | [facility] | | | Neutrophils | | | [facility] | | | | | | MEDICAL | | | | | | CENTER - | | | | | | LABORATORY | | + + + + + + | nRBC, | 1 (H) | 0 /100WBC | [facility] | | | manual | | | [facility] | | | | | | MEDICAL | | | | | | CENTER - | | | | | | LABORATORY | | + + + + + + | Anisocytosi | 3+ | | [facility] | | | s | | | [facility] | | | | | | MEDICAL | | | | | | CENTER - | | | | | | LABORATORY | | + + + + + + | Poikilocyte | 2+ | | [facility] | | | s | | | [facility] | | | | | | MEDICAL | | | | | | CENTER - | | | | | | LABORATORY | | + + + + + + | RBC | 2+ | | [facility] | | | Microcytes | | | [facility] | | | | | | MEDICAL | | | | | | CENTER - | | | | | | LABORATORY | | + + + + + + | RBC | 1+ | | [facility] | | | Macrocytes | | | [facility] | | | | | | MEDICAL | | | | | | CENTER - | | | | | | LABORATORY | | + + + + + + | Polychromas | 2+ | | [facility] | | | ia | | | [facility] | | | | | | MEDICAL | | | | | | CENTER - | | | | | | LABORATORY | | + + + + + + | Hypochromas | 1+ | | [facility] | | | ia | | | [facility] | | | | | | MEDICAL | | | | | | CENTER - | | | | | | LABORATORY | | + + + + + + | Tear Drop | 2+ | | [facility] | | | Cells | | | [facility] | | | | | | MEDICAL | | | | | | CENTER - | | | | | | LABORATORY | | + + + + + + | Basophilic | 2+ | | [facility] | | | Stippling | | | [facility] | | | | | | MEDICAL | | | | | | CENTER - | | | | | | LABORATORY | | + + + + + + | Platelet | DECREASED | | [facility] | | | Estimate | | | [facility] | | [...] | + + + + + | [facility] | [address] | [place], [place] | [phone] | | [facility] | | [address] | | | - LABORATORY | | | | + + + + + | [facility] | [address] | [place], [place] | | | [facility] | | [address] | | | - LABORATORY | | | | + + + + + CBC with Differential (06/26/2013 6:52 AM PDT) + + + + + + | Component | Value | Ref Range | Performed | Pathologist | | | | | At | Signature | + + + + + + | MANUAL | YES | | [facility] | | | [facility] | | | [facility] | | | L ? | | | MEDICAL | | | | | | CENTER - | | | | | | LABORATORY | | + + + + + + | WBC | 17.1 (H) | 4.0 - 11.0 K/uL | [facility] | | | | | | [facility] | | | | | | MEDICAL | | | | | | CENTER - | | | | | | LABORATORY | | + + + + + + | RBC | 1.23 (L) | 4.30 - 5.70 | [facility] | | | | | M/uL | [facility] | | | | | | MEDICAL | | | | | | CENTER - | | | | | | LABORATORY | | + + + + + + | Hemoglobin | 4.8 (LL)Comment: @VALUE | 13.5 - 18.0 | [facility] | | | | CONSISTENT WITH PREVIOUS | gm/dL | [facility] | | | | RESULTS | | MEDICAL | | | | | | CENTER - | | | | | | LABORATORY | | + + + + + + | Hematocrit | 14.5 (LL)Comment: @VALUE | 40.0 - 51.0 % | [facility] | | | | CONSISTENT WITH | | [facility] | | | | PREVIOUS RESULTS | | MEDICAL | | | | | | CENTER - | | | | | | LABORATORY | | + + + + + + | MCV | 118.0 (H) | 83.0 - 101.0 fL | [facility] | | | | | | [facility] | | | | | | MEDICAL | | | | | | CENTER - | | | | | | LABORATORY | | + + + + + + | MCH | 39.1 (H) | 28.0 - 35.0 pg | [facility] | | | | | | [facility] | | | | | | MEDICAL | | | | | | CENTER - | | | | | | LABORATORY | | + + + + + + | MCHC | 33.1 | 32.0 - 36.0 | [facility] | | | | | g/dL | [facility] | | | | | | MEDICAL | | | | | | CENTER - | | | | | | LABORATORY | | + + + + + + | RDW-CV | 19.8 (H) | <15.0 % | [facility] | | | | | | [facility] | | | | | | MEDICAL | | | | | | CENTER - | | | | | | LABORATORY | | + + + + + + | Platelet | 41 (L) | 140 - 440 K/uL | [facility] | | | Count | | | [facility] | | | | | | MEDICAL | | | | | | CENTER - | | | | | | LABORATORY | | + + + + + + | SUSPECTED | 1 (H)Comment: TEST | | [facility] | | | PROBLEM IS: | REPEATED, CRITICAL | | [facility] | | | | RESULT-PHONE RESULTS | | MEDICAL | | | | PERFORM SMEAR REVIEW | | CENTER - | | | | FOR PLTS PERFORM SMEAR | | LABORATORY | | | | REVIEW FOR DIFF % | | | | | | PERFORM SMEAR REVIEW | | | | | | FOR MCV/RDW Variant | | | | | | LY | | | | + + + + + + + + | Specimen | + + | | + + + + + + + | Performing | Address | City/State/Zipcode | Phone Number | | Organization | | | | + + + + + | [facility] | [address] | [place] | [phone] | | [facility] | | [address] | | | - LABORATORY | | | | + + + + + | [facility] | [address] | [place] | | | [facility] | | [address] | | | - LABORATORY | | | | + + + + + Basic Metabolic Panel (06/26/2013 6:52 AM PDT) + + + + + + | Component | Value | Ref Range | Performed | Pathologist | | | | | At | Signature | + + + + + + | Glucose | 151 (H) | 70 - 109 mg/dL | [facility] | | | | | | [facility] | | | | | | MEDICAL | | | | | | CENTER - | | | | | | LABORATORY | | + + + + + + | Calcium | 8.0 (L) | 8.3 - 10.5 | [facility] | | | | | mg/dL | [facility] | | | | | | MEDICAL | | | | | | CENTER - | | | | | | LABORATORY | | + + + + + + | BUN | 19 (H) | 7 - 18 mg/dL | [facility] | | | | | | [facility] | | | | | | MEDICAL | | | | | | CENTER - | | | | | | LABORATORY | | + + + + + + | Creatinine | 1.28 | 0.60 - 1.30 | [facility] | | | | | mg/dL | [facility] | | | | | | MEDICAL | | | | | | CENTER - | | | | | | LABORATORY | | + + + + + + | Estimated | 57 (L)Comment: For | >60 mL/min/A | [facility] | | | GFR | -Americans, | | [facility] | | | | please multiply the | | MEDICAL | | | | result by 1.210 | | CENTER - | | | | This is an estimated | | LABORATORY | | | | GFR and is based on a | | | | | | standard adult | | | | | | body mass (A=1.73m2) and | | | | | | serum creatinine | | | | + + + + + + | BUN/Creatin | 14.8 | 12 - 20 | [facility] | | | ine Ratio | | | [facility] | | | | | | MEDICAL | | | | | | CENTER - | | | | | | LABORATORY | | + + + + + + | Na | 136 | 136 - 149 mEq/L | [facility] | | | | | | [facility] | | | | | | MEDICAL | | | | | | CENTER - | | | | | | LABORATORY | | + + + + + + | K | 3.8 | 3.5 - 5.1 mEq/l | [facility] | | | | | | [facility] | | | | | | MEDICAL | | | | | | CENTER - | | | | | | LABORATORY | | + + + + + + | Cl | 99 | 98 - 109 mEq/l | [facility] | | | | | | [facility] | | | | | | MEDICAL | | | | | | CENTER - | | | | | | LABORATORY | | + + + + + + | CO2 | 29 | 24 - 31 mEq/L | [facility] | | | | | | [facility] | | | | | | MEDICAL | | | | | | CENTER - | | | | | | LABORATORY | | + + + + + + | Anion Gap | 11.8 | 6.0 - 17.0 | [facility] | | | | | | [facility] | | | | | | [...] + | [facility] | [address] | [place] | [phone] | | [facility] | | [address] | | | - LABORATORY | | | | + + + + + | [facility] | [address] | [place] | | | [facility] | | [address] | | | - LABORATORY | | | | + + + + + Uric Acid (06/26/2013 6:52 AM PDT) + +-------+ + + + | Component | Value | Ref Range | Performed | Pathologist | | | | | At | Signature | + +-------+ + + + | Uric Acid | 5.7 | 2.6 - 7.2 mg/dL | [facility] | | | | | | [facility] | | | | | | MEDICAL | | | | | | CENTER - | | | | | | LABORATORY | | + +-------+ + + + + + | Specimen | + + | | + + + + + + + | Performing | Address | City/State/Zipcode | Phone Number | | Organization | | | | + + + + + | [facility] | [address] | [place] | [phone] | | [facility] | | [address] | | | - LABORATORY | | | | + + + + + | [facility] | [address] | [place] | | | [facility] | | [address] | | | - LABORATORY | | | | + + + + + CBC with Differential (06/25/2013 5:42 AM PDT) + + + + + + | Component | Value | Ref Range | Performed | Pathologist | | | | | At | Signature | + + + + + + | MANUAL | NO | | [facility] | | | [facility] | | | [facility] | | | L ? | | | MEDICAL | | | | | | CENTER - | | | | | | LABORATORY | | + + + + + + | WBC | 17.6 (H) | 4.0 - 11.0 K/uL | [facility] | | | | | | [facility] | | | | | | MEDICAL | | | | | | CENTER - | | | | | | LABORATORY | | + + + + + + | RBC | 1.37 (L) | 4.30 - 5.70 | [facility] | | | | | M/uL | [facility] | | | | | | MEDICAL | | | | | | CENTER - | | | | | | LABORATORY | | + + + + + + | Hemoglobin | 5.2 (LL)Comment: @VALUE | 13.5 - 18.0 | [facility] | | | | CONSISTENT WITH PREVIOUS | gm/dL | [facility] | | | | RESULTS | | MEDICAL | | | | | | CENTER - | | | | | | LABORATORY | | + + + + + + | Hematocrit | 16.0 (LL)Comment: @VALUE | 40.0 - 51.0 % | [facility] | | | | CONSISTENT WITH | | [facility] | | | | PREVIOUS RESULTS | | MEDICAL | | | | | | CENTER - | | | | | | LABORATORY | | + + + + + + | MCV | 116.9 (H)Comment: @VALUE | 83.0 - 101.0 fL | [facility] | | | | CONSISTENT WITH | | [facility] | | | | PREVIOUS RESULTS | | MEDICAL | | | | | | CENTER - | | | | | | LABORATORY | | + + + + + + | MCH | 37.9 (H) | 28.0 - 35.0 pg | [facility] | | | | | | [facility] | | | | | | MEDICAL | | | | | | CENTER - | | | | | | LABORATORY | | + + + + + + | MCHC | 32.4 | 32.0 - 36.0 | [facility] | | | | | g/dL | [facility] | | | | | | MEDICAL | | | | | | CENTER - | | | | | | LABORATORY | | + + + + + + | RDW-CV | 20.3 (H)Comment: @VALUE | <15.0 % | [facility] | | | | CONSISTENT WITH PREVIOUS | | [facility] | | | | RESULTS | | MEDICAL | | | | | | CENTER - | | | | | | LABORATORY | | + + + + + + | Platelet | 29 (L) | 140 - 440 K/uL | [facility] | | | Count | | | [facility] | | | | | | MEDICAL | | | | | | CENTER - | | | | | | LABORATORY | | + + + + + + | % | 20.6 (L) | 45 - 75 % | [facility] | | | Neutrophils | | | [facility] | | | | | | MEDICAL | | | | | | CENTER - | | | | | | LABORATORY | | + + + + + + | % | 78.9 (H) | 20 - 45 % | [facility] | | | Lymphocytes | | | [facility] | | | | | | MEDICAL | | | | | | CENTER - | | | | | | LABORATORY | | + + + + + + | % Monocytes | 0.5 (L) | 4 - 12 % | [facility] | | | | | | [facility] | | | | | | MEDICAL | | | | | | CENTER - | | | | | | LABORATORY | | + + + + + + | % | 0.0 | 0 - 5 % | [facility] | | | Eosinophils | | | [facility] | | | | | | MEDICAL | | | | | | CENTER - | | | | | | LABORATORY | | + + + + + + | % Basophils | 0.0 | 0 - 1 % | [facility] | | | | | | [facility] | | | | | | MEDICAL | | | | | | CENTER - | | | | | | LABORATORY | | + + + + + + | Absolute | 3.6 (A) | 1.5 - 6.6 K/uL | [facility] | | | Neutrophils | | | [facility] | | | | | | MEDICAL | | | | | | CENTER - | | | | | | LABORATORY | | + + + + + + | Absolute | 13.9 (H) | 0.6 - 3.2 K/uL | [...] + + | SUSPECTED | 1 (H)Comment: TEST | | [facility] | | | PROBLEM IS: | REPEATED, CRITICAL | | [facility] | | | | RESULT-PHONE RESULTS | | MEDICAL | | | | PERFORM SMEAR REVIEW | | CENTER - | | | | FOR PLTS PERFORM SMEAR | | LABORATORY | | | | REVIEW FOR DIFF % | | | | | | PERFORM SMEAR REVIEW | | | | | | FOR MCV/RDW Variant | | | | | | LY | | | | + + + + + + + + | Specimen | + + | | + + + + + + + | Performing | Address | City/State/Zipcode | Phone Number | | Organization | | | | + + + + + | [facility] | [address] | [place] | [phone] | | [facility] | | [address] | | | - LABORATORY | | | | + + + + + | [facility] | [address] | [place] | | | [facility] | | [address] | | | - LABORATORY | | | | + + + + + Basic Metabolic Panel (06/25/2013 5:42 AM PDT) + + + + + + | Component | Value | Ref Range | Performed | Pathologist | | | | | At | Signature | + + + + + + | Glucose | 194 (H) | 70 - 109 mg/dL | [facility] | | | | | | [facility] | | | | | | MEDICAL | | | | | | CENTER - | | | | | | LABORATORY | | + + + + + + | Calcium | 7.9 (L) | 8.3 - 10.5 | [facility] | | | | | mg/dL | [facility] | | | | | | MEDICAL | | | | | | CENTER - | | | | | | LABORATORY | | + + + + + + | BUN | 19 (H) | 7 - 18 mg/dL | [facility] | | | | | | [facility] | | | | | | MEDICAL | | | | | | CENTER - | | | | | | LABORATORY | | + + + + + + | Creatinine | 1.13 | 0.60 - 1.30 | [facility] | | | | | mg/dL | [facility] | | | | | | MEDICAL | | | | | | CENTER - | | | | | | LABORATORY | | + + + + + + | Estimated | >60Comment: For | >60 mL/min/A | [facility] | | | GFR | -Americans, | | [facility] | | | | please multiply the | | MEDICAL | | | | result by 1.210 | | CENTER - | | | | This is an estimated | | LABORATORY | | | | GFR and is based on a | | | | | | standard adult | | | | | | body mass (A=1.73m2) and | | | | | | serum creatinine | | | | + + + + + + | BUN/Creatin | 16.8 | 12 - 20 | [facility] | | | ine Ratio | | | [facility] | | | | | | MEDICAL | | | | | | CENTER - | | | | | | LABORATORY | | + + + + + + | Na | 136 | 136 - 149 mEq/L | [facility] | | | | | | [facility] | | | | | | MEDICAL | | | | | | CENTER - | | | | | | LABORATORY | | + + + + + + | K | 3.9 | 3.5 - 5.1 mEq/l | [facility] | | | | | | [facility] | | | | | | MEDICAL | | | | | | CENTER - | | | | | | LABORATORY | | + + + + + + | Cl | 103 | 98 - 109 mEq/l | [facility] | | | | | | [facility] | | | | | | MEDICAL | | | | | | CENTER - | | | | | | LABORATORY | | + + + + + + | CO2 | 25 | 24 - 31 mEq/L | [facility] | | | | | | [facility] | | | | | | MEDICAL | | | | | | CENTER - | | | | | | LABORATORY | | + + + + + + | Anion Gap | 11.9 | 6.0 - 17.0 | [facility] | | | | | [...] + | [facility] | [address] | [place], [place] | [phone] | | [facility] | | [address] | | | - LABORATORY | | | | + + + + + | [facility] | [address] | [place], [place] | | | [facility] | | [address] | | | - LABORATORY | | | | + + + + + Uric Acid (06/25/2013 5:42 AM PDT) + +---------+ + + + | Component | Value | Ref Range | Performed | Pathologist | | | | | At | Signature | + +---------+ + + + | Uric Acid | 7.2 (A) | 2.6 - 7.2 mg/dL | [facility] | | | | | | [facility] | | | | | | MEDICAL | | | | | | CENTER - | | | | | | LABORATORY | | + +---------+ + + + + + | Specimen | + + | | + + + + + + + | Performing | Address | City/State/Zipcode | Phone Number | | Organization | | | | + + + + + | [facility] | [address] | [place] | [phone] | | [facility] | | [address] | | | - LABORATORY | | | | + + + + + | [facility] | [address] | [place] | | | [facility] | | [address] | | | - LABORATORY | | | | + + + + + CBC with Differential (06/24/2013 1:13 PM PDT) + + + + + + | Component | Value | Ref Range | Performed | Pathologist | | | | | At | Signature | + + + + + + | MANUAL | NO | | [facility] | | | [facility] | | | [facility] | | | L ? | | | MEDICAL | | | | | | CENTER - | | | | | | LABORATORY | | + + + + + + | WBC | 15.8 (H) | 4.0 - 11.0 K/uL | [facility] | | | | | | [facility] | | | | | | MEDICAL | | | | | | CENTER - | | | | | | LABORATORY | | + + + + + + | RBC | 1.26 (L) | 4.30 - 5.70 | [facility] | | | | | M/uL | [facility] | | | | | | MEDICAL | | | | | | CENTER - | | | | | | LABORATORY | | + + + + + + | Hemoglobin | 4.9 (LL)Comment: | 13.5 - 18.0 | [facility] | | | | | gm/dL | [facility] | | | | CRITICAL NOTIFICATION | | MEDICAL | | | | Time for CRITICAL | | CENTER - | | | | 11 results to Clinical | | LABORATORY | | | | Provider is 30 min. | | | | | | DO NOT DISCARD | | | | | | THIS REPORT * PLACE IN | | | | | | NURSING NOTES | | | | | | Nursing documentation | | | | | | will NOT be included on | | | | | | Summary Report | | | | | | RESULT CALLED TO | | | | | | ANTHONY/4EM 06/24/13 | | | | | | @1328 by WESSMA @ * | | | | | | READ BACK MUST BE | | | | | | OBTAINED * READ BACK | | | | | | PERFORMED? Y Nurses' | | | | | | patient: Y N if NO | | | | | | -handoff | | | | | | to: Date/time: | | | | | | Report by Nursing | | | | | | Staff to Clinical | | | | | | Provider who will | | | | | | act/intervene on this | | | | | | value: Nurse Calling | | | | | | Result: | | | | | | Date/Time: | | | | | | Provider or licensee | | | | | | called: | | | | | | | | | | | | Time Provider | | | | | | called/paged: | | | | | | Time spoke to | | | | | | Provider: | | | | | | Read Back performed: Y | | | | | | N Provider NOT | | | | | | called - Reason: | | | | | | | | | | | | | | | | | | | | | | | | | | | | | | | | | | | | . | | | | + + + + + + | Hematocrit | 15.1 (LL) | 40.0 - 51.0 % | [facility] | | | | | | [facility] | | | | | | MEDICAL | | | | | | CENTER - | | | | | | LABORATORY | | + + + + + + | MCV | 120.3 (H) | 83.0 - 101.0 fL | [facility] | | | | | | [facility] | | | | | | MEDICAL | | | | | | CENTER - | | | | | | LABORATORY | | + + + + + + | MCH | 39.0 (H) | 28.0 - 35.0 pg | [facility] | | | | | | [facility] | | | | | | MEDICAL | | | | | | CENTER - | | | | | | LABORATORY | | + + + + + + | MCHC | 32.5 | 32.0 - 36.0 | [facility] | | | | | g/dL | [facility] | | | | | | MEDICAL | | | | | | CENTER - | | | | | | LABORATORY | | + + + + + + | RDW-CV | 20.2 (H) | <15.0 % | [facility] | | | | | | [facility] | | | | | | MEDICAL | | | | | | CENTER - | | | | | | LABORATORY | | + + + + + + | Platelet | 95 (L) | 140 - 440 K/uL | [facility] | | | Count | | | [facility] | | | | | | MEDICAL | | | | | | CENTER - | | | | | | LABORATORY | | + + + + + + | % | 12.6 (L) | 45 - 75 % | [facility] | | | Neutrophils | | | [facility] | | | | | | MEDICAL | | | | | | CENTER - | | | | | | LABORATORY | | + + + + + + | % | 86.1 (H) | 20 - 45 % | [facility] | | | Lymphocytes | | | [facility] | | | | | | MEDICAL | | | | | | CENTER - | | | | | | LABORATORY | | + + + + + + | % Monocytes | 0.9 (L) | 4 - 12 % | [facility] | | | | | | [facility] | | | | | | MEDICAL | | | | | | CENTER - | | | | | | LABORATORY | | + + + + + + | % | 0.2 | 0 - 5 % | [facility] [...] + + + + | Absolute | 2.0 | 1.5 - 6.6 K/uL | [facility] | | | Neutrophils | | | [facility] | | | | | | MEDICAL | | | | | | CENTER - | | | | | | LABORATORY | | + + + + + + | Absolute | 13.6 (H) | 0.6 - 3.2 K/uL | [...] + + | SUSPECTED | 1 (H)Comment: TEST | | [facility] | | | PROBLEM IS: | REPEATED, CRITICAL | | [facility] | | | | RESULT-PHONE RESULTS | | MEDICAL | | | | PERFORM SMEAR REVIEW | | CENTER - | | | | FOR DIFF % PERFORM | | LABORATORY | | | | SMEAR REVIEW FOR MCV/RDW | | | | | | Variant LY | | | | + + + + + + + + | Specimen | + + | | + + + + + + + | Performing | Address | City/State/Zipcode | Phone Number | | Organization | | | | + + + + + | [facility] | [address] | [place], [place] | [phone] | | [facility] | | [address] | | | - LABORATORY | | | | + + + + + | [facility] | [address] | [place], [place] | | | [facility] | | [address] | | | - LABORATORY | | | | + + + + + ABO Rh (06/24/2013 1:13 PM PDT) + +-------+ + + + | Component | Value | Ref Range | Performed | Pathologist | | | | | At | Signature | + +-------+ + + + | ABO | OP | | [facility] | | | | | | [facility] | | | | [facility] | [facility] | | | | | | CENTER - | | | | | | LABORATORY | | + +-------+ + + + + + | Specimen | + + | | + + + + + + + | Performing | Address | City/State/Zipcode | Phone Number | | Organization | | | | + + + + + | [facility] | [address] | [place] | [phone] | | [facility] | | [address] | | | - LABORATORY | | | | + + + + + | [facility] | [address] | [place] | | | [facility] | | [address] | | | - LABORATORY | | | | + + + + + Antibody ID (06/24/2013 1:13 PM PDT) + + + + + + | Component | Value | Ref Range | Performed | Pathologist | | | | | At | Signature | + + + + + + | Antibody ID | SEE BELOWComment: Red | | [facility] | | | Result 2 | Cell Serology Report - | | [facility] | | | | [place] | | MEDICAL | | | | Laboratory Red Cell | | CENTER - | | | | Antibodies: - An | | LABORATORY | | | | apparent warm | | | | | | autoantibody was | | | | | | reactive with all cells | | | | | | tested in saline at AGT | | | | | | and in papain at 37C to | | | | | | AGT. An adsorption of | | | | | | the patient's plasma | | | | | | using donor cells | | | | | | (papain-treated) of | | | | | | known phenotypes | | | | | | revealed no underlying | | | | | | alloantibodies reactive | | | | | | in saline at AGT. - | | | | | | No additional antibodies | | | | | | were detected. | | | | | | Transfusion | | | | | | Recommendations: | | | | | | Consult pathologist; | | | | | | patients with warm | | | | | | autoantibodies are | | | | | | considered higher | | | | | | transfusion risk. Avoid | | | | | | transfusion if possible. | | | | | | Due to the presence of | | | | | | the apparent warm | | | | | | autoantibody the units | | | | | | will, at this time, be | | | | | | crossmatch incompatible. | | | | | | Consultation: | | | | | | Immunohematology | | | | | | Reference Laboratory | | | | | | results indicate the | | | | | | presence of a positive | | | | | | dirct antiglobulin test | | | | | | (FÁTIMA) due to IgG and | | | | | | complement (C3d). The | | | | | | plasma also reacted with | | | | | | all test cells. These | | | | | | results are consistent | | | | | | with the formation of a | | | | | | warm autoantibody. Warm | | | | | | autoantibodies of this | | | | | | type may be drug-induced | | | | | | (commonly alpha-methyl | | | | | | dopa and derivatives) or | | | | | | occur in association | | | | | | with underlying disease | | | | | | processes such as | | | | | | infections, neoplasms, | | | | | | and autoimmune | | | | | | disorders. The | | | | | | following may indicated | | | | | | immune hemolysis: | | | | | | 1. Increased | | | | | | bilirubin, 2. | | | | | | elevated reticulocyte | | | | | | values, 3. and | | | | | | decreased haptoglobin | | | | | | levels | | | | | | Autoadsorption | | | | | | techniques could not be | | | | | | performed to remove the | | | | | | apparent warm | | | | | | autoantibody since this | | | | | | patient appears to have | | | | | | been recently | | | | | | transfused. Warm | | | | | | adsorption using donor | | | | | | cells of known | | | | | | phenotypes removed the | | | | | | autoantibody and | | | | | | revealed no underlying | | | | | | allo-antibodies. | | | | | | The formation of an | | | | | | antibody to a high | | | | | | incidence antigen, while | | | | | | unlikely, is not ruled | | | | | | out in the warm | | | | | | adsorption procedure | | | | | | mentioned above. | | | | | | Jose Cheung MD, | | | | | | MT(ASCP), Interim Chief | | | | | | Ammonia Operator | | | | | | 06/25/13 <<TEST | | | | | | PERFORMED BY [facility] | | | | | | [facility] | | | | | | [facility].>> | | | | | | [address] | | | | | [address] | | | | | | | | | | | | [place] [address] | | | | | | | | | | | | | | | | | | | | | | | | . [ | | | | + + + + + + + + | Specimen | + + | | + + + + + + + | Performing | Address | City/State/Zipcode | Phone Number | | Organization | | | | + + + + + | [facility] | [address] | [place] | [phone] | | [facility] | | [address] | | | - LABORATORY | | | | + + + + + | [facility] | [address] | [place] | | | [facility] | | [address] | | | - LABORATORY | | | | + + + + + Antibody identification (06/24/2013 1:13 PM PDT) + + + + + + | Component | Value | Ref Range | Performed | Pathologist | | | | | At | Signature | + + + + + + | Antibody ID | ...Comment: SPECIMEN | | [facility] | | | | SENT TO [facility] | | [facility] | | | | [facility] | | MEDICAL | | | | 06-24-13 @ 1500 | | CENTER - | | | | CONCLUSION FROM | | LABORATORY | | | | [facility] | | | | | | REFERENCE LAB 06-25-13: | | | | | | FÁTIMA POSITIVE | | | | | | IgG(3+) C3d(1+) | | | | | | PROBABLE WARM AUTO | | | | | | ANTIBODY IN PLASMA AND | | | | | | ELUATE. 1X HOMOLOGOUS | | | | | | ADSORPTION REMOVED, NO | | | | | | UNDERLYING ANTIBODY | | | | | | DETECTED. ANTIBODY TO | | | | | | Complex Media. AG. IS NOT | | | | | | RULED OUT WITH THIS | | | | | | METHOD. CONSULT | | | | | | PATHOLOGIST, PATIENT | | | | | | WITH WARM AUTO ANTIBODY | | | | | | ARE HIGHER RISK | | | | | | TRANSFUSION. AVOID IF | | | | | | POSSIBLE. YOU WILL NOT | | | | | | GET AGT CROSSMATCH | | | | | | COMPATIBLE UNITS. | | | | + + + + + + + + | Specimen | + + | | + + + + + + + | Performing | Address | City/State/Zipcode | Phone Number | | Organization | | | | + + + + + | [facility] | [address] | [place], [place] | [phone] | | [facility] | | [address] | | | - LABORATORY | | | | + + + + + | [facility] | [address] | [place], [place] | | | [facility] | | [address] | | | - LABORATORY | | | | + + + + + Antibody Screen (06/24/2013 1:13 PM PDT) + + + + + + | Component | Value | Ref Range | Performed | Pathologist | | | | | At | Signature | + + + + + + | Antibody | POSITIVE | | [facility] | | | Screen | | | [facility] | | [...] | + + + + + | [facility] | [address] | [place] | [phone] | | [facility] | | [address] | | | - LABORATORY | | | | + + + + + | [facility] | [address] | [place] | | | [facility] | | [address] | | | - LABORATORY | | | | + + + + + ABO Rh (06/24/2013 1:13 PM PDT) + + | Specimen | + + | | + + + + + + + | Performing | Address | City/State/Zipcode | Phone Number | | Organization | | | | + + + + + | [facility] | [address] | [place] | [phone] | | [facility] | | [address] | | | - LABORATORY | | | | + + + + + Basic Metabolic Panel (06/24/2013 1:13 PM PDT) + + + + + + | Component | Value | Ref Range | Performed | Pathologist | | | | | At | Signature | + + + + + + | Glucose | 130 (H) | 70 - 109 mg/dL | [facility] | | | | | | [facility] | | | | | | MEDICAL | | | | | | CENTER - | | | | | | LABORATORY | | + + + + + + | Calcium | 8.8 | 8.3 - 10.5 | [facility] | | | | | mg/dL | [facility] | | | | | | MEDICAL | | | | | | CENTER - | | | | | | LABORATORY | | + + + + + + | BUN | 19 (H) | 7 - 18 mg/dL | [facility] | | | | | | [facility] | | | | | | MEDICAL | | | | | | CENTER - | | | | | | LABORATORY | | + + + + + + | Creatinine | 1.22 | 0.60 - 1.30 | [facility] | | | | | mg/dL | [facility] | | | | | | MEDICAL | | | | | | CENTER - | | | | | | LABORATORY | | + + + + + + | Estimated | 60Comment: For | >60 mL/min/A | [facility] | | | GFR | -Americans, | | [facility] | | | | please multiply the | | MEDICAL | | | | result by 1.210 | | CENTER - | | | | This is an estimated | | LABORATORY | | | | GFR and is based on a | | | | | | standard adult | | | | | | body mass (A=1.73m2) and | | | | | | serum creatinine | | | | + + + + + + | BUN/Creatin | 15.6 | 12 - 20 | [facility] | | | ine Ratio | | | [facility] | | | | | | MEDICAL | | | | | | CENTER - | | | | | | LABORATORY | | + + + + + + | Na | 137 | 136 - 149 mEq/L | [facility] | | | | | | [facility] | | | | | | [facility]ICAL | | | | | | CENTER - | | | | | | LABORATORY | | + + + + + + | K | 3.8 | 3.5 - 5.1 mEq/l | [facility] | | | | | | [facility] | | | | | | [facility]ICAL | | | | | | CENTER - | | | | | | LABORATORY | | + + + + + + | Cl | 103 | 98 - 109 mEq/l | [facility] | | | | | | [facility] | | | | | | MEDICAL | | | | | | CENTER - | | | | | | LABORATORY | | + + + + + + | CO2 | 23 (L) | 24 - 31 mEq/L | [facility] | | | | | | [facility] | | | | | | MEDICAL | | | | | | CENTER - | | | | | | LABORATORY | | + + + + + + | Anion Gap | 14.8 | 6.0 - 17.0 | [facility] | | | | | [...] + | [facility] | [address] | [place] | [phone] | | [facility] | | [address] | | | - LABORATORY | | | | + + + + + | [facility] | [address] | [place], [place] | | | [facility] | | [address] | | | - LABORATORY | | | | + + + + + Uric Acid (06/24/2013 1:13 PM PDT) + +---------+ + + + | Component | Value | Ref Range | Performed | Pathologist | | | | | At | Signature | + +---------+ + + + | Uric Acid | 9.7 (H) | 2.6 - 7.2 mg/dL | [facility] | | | | | [facility] | | | [facility] | [facility] | | | | | | [facility] - | | | | | | LABORATORY | | + +---------+ + + + + + | Specimen | + + | | + + + + + + + | Performing | Address | City/State/Zipcode | Phone Number | | Organization | | | | + + + + + | [facility] | [address] | [place] | [phone] | | [facility] | | [address] | | | - LABORATORY | | | | + + + + + | [facility] | [address] | [place] | | | [facility] | | [address] | | | - LABORATORY | | | | + + + + + documented in this encounter Visit Diagnoses Not on filedocumented in this encounter"
--- OUTSIDE RECORDS SUMMARY | ~2019-11-10 | XMS | Encounter Summary ---
Demographics + + + | Address | [address] | | | [place] [address] | + + + | Home Phone | | + + + | Preferred Language | Unknown | + + + | Marital Status | | + + + | Congregation Affiliation | 1028 | + + + | Race | Unknown | + + + | Ethnic Group | Unknown | + + + Author + + + | Author | [facility] | | | and [place] | + + + | Organization | [facility] | | | and [place] | + + + | Address | Unknown | + + + | Phone | Unavailable | + + + Support + + + + + | Name | Relationship | Address | Phone | + + + + + | Jorge Myrick | [place] | [place], [place] | | | | | [address] | | + + + + + | Feng Myrick | ECON | NA | | | | | [place] | | + + + + + Care Team Providers + +------+ + | Care Canvas Goods Maker Name | Role | Phone | + +------+ + | Emeterio Campos DO | PCP | | + +------+ + Reason for Visit +--------+ + | Reason | Comments | +--------+ + | LABS | per amiodarone protocol | +--------+ + Encounter Details +--------+ + + + + | Date | Type | Department | Care Team | Description | +--------+ + + + + | 03/02/ | Telephone | [facility] | Jerrod Redding | LABS (per amiodarone | | 2013 | | CARDIOLOGY [address] | MD Jose [address] | protocol) | | | | [address] [place] [address], | [address] [place] | | | | | [place] [address] | [place] [address] | | | | | [phone] | [phone] | | | | | | | [...]
--- OUTSIDE RECORDS SUMMARY | ~2019-11-10 | XMS | Encounter Summary ---
Demographics + + + | Address | [address] | | | [place] [address] | + + + | Home Phone | | + + + | Preferred Language | Unknown | + + + | Marital Status | | + + + | Spiritism Affiliation | 1028 | + + + | Race | Unknown | + + + | Ethnic Group | Unknown | + + + Author + + + | Author | [facility] | | | and [place] | + + + | Organization | [facility] | | | and [place] | + + + | Address | Unknown | + + + | Phone | Unavailable | + + + Support + + + + + | Name | Relationship | Address | Phone | + + + + + | Jorge Myrick | [place] | [place] | | | | | [address] | | + + + + + | Feng Myrick | ECON | NA | | | | | [place], [place] | | + + + + + Care Team Providers + +------+ + | Care Tub Washer Name | Role | Phone | + +------+ + PCP | Unavailable | + +------+ + Encounter Details +--------+ + + + + | Date | Type | Department | Care Team | Description | +--------+ + + + + | 08/15/ | Hospital | [facility] | Santi Larson MD | | | 2001 | Encounter | [facility] | [address] | | | | | [address] | [place], [place] | | | | | [place], [place] | [address] | | | | | [address] | [phone] | | | | | [phone] | | | +--------+ + + + [...]
--- OUTSIDE RECORDS SUMMARY | ~2019-11-10 | XMS | Encounter Summary ---
Demographics + + + | Address | [address] | | | [place] [address] | + + + | Home Phone | | + + + | Preferred Language | Unknown | + + + | Marital Status | Single | + + + | Gnosticism Affiliation | Unknown | + + + | Race | White | + + + | Ethnic Group | Not or | + + + Author + + + | Author | [facility] | + + + | Organization | [facility] | + + + | Address [...] Team Providers + +------+ + | Care Deportation Officer Name | Role | Phone | + [...] Daniela, | | | | Malignancy | CLL | Andry | MD Huseyin | | | | | (chronic | Markell C, | [address] | | | | | lymphocytic | [address] | | | | | leukemia) | [address] [address] | [place], [place] | | | | | (HCC) CLL | [place], | [address] | | | | | Procedures | [place] [address] | Phone: | | | | | CONSULT TO | Phone: | [phone] | | | | | HEMATOLOGIC | [phone] | Fax: | | | | | MALIGNANCIES | Fax: | [phone] | | | | | | [phone] | | +--------+--------+ + + + + Encounter Details +--------+---------+ + + + | Date | Type | Department | Care Team | Description | +--------+---------+ + + + | 05/23/ | Office | Center for | Huseyin Suarez, | CLL (chronic | | 2016 | Visit | Hematologic | MD [address] | lymphocytic | | | | Malignancies at | [address] [place], [place] | leukemia) (HCC) | | | | [facility] | [address] | (Primary Dx) | | | | [address] | [phone] | | | | | Loop Mailcode: | | | | | | [id number] [facility] | | | | | | [facility] [place], | | | | | | [place] [address] | | | | | | [phone] | | | +--------+---------+ + + + [...] Pressure | 123/79 | 05/23/2016 2:37 PM | | | | | PDT | | + + + + + | Pulse | 66 | 05/23/2016 2:37 PM | | | | | PDT | | + + + + + | Temperature | 36.9 C (98.4 F) | 05/23/2016 2:37 PM | | | | | PDT | | + + + + + | Respiratory Rate | 16 | 05/23/2016 2:37 PM | | | | | PDT | | + + + + + | Oxygen Saturation | 95% | 05/23/2016 2:37 PM | | | | | PDT | | + + + + + | Inhaled Oxygen | - | - | | | Concentration | | | | + + + + + | Weight | 135.7 kg (299 lb 3.2 | 05/23/2016 2:37 PM | | | | oz) | PDT | | + + + + + | Height | 187 cm (6' 1.62") | 05/23/2016 2:37 PM | | | | | PDT | | + + + + + | Body Mass Index | 38.81 | 05/23/2016 2:37 PM | | | | | PDT | | + + + + + documented in this encounter Patient Instructions Patient Instructions Lore Sheriff RN - 05/23/2016 3:29 PM PDTIt was nice to see you to day. These are the things that were discussed in your appointment today: 1. We are going to get labs today. 2. We will give you a consent form for you to look over for our PRATIBHA study. 3. Dr. Suarez will let you know what his thoughts are in regards to you needing treatment after he reviews your labs. Lore Wolff RN is Dr. Suarez s and Dr. Calhoun's Nurse Coordinator. My direct karlo e is [phone] or you may contact me through email: [email or web address] or [email or web address]. Please note that I am off on Fridays. If you develop any symptoms or have any urgent medical questions, please call the Triage Nu rse at [phone] or x [phone] (Sunday - Sunday 8:30-4:30). During after steve rs, please call [phone] and ask to have the BMT Person Quality Control Industrial Engineer paged. If you have any questions about appointments or need to call to make a follow up appointmen t, please call the front man at [phone]. FOR PRESCRIPTIONS: please allow 48-72 hours for prescription refills. Please make sure no r efills remain prior to calling. If refills remain, please call the pharmacy for a refill. documented in this encounter Progress Notes Huseyin Suarez MD - 06/07/2016 12:23 PM PDTFormatting of this note might be different f rom the original. [facility] Consultation 05-23-16 Referring MD: Markell Wilde Reason for Referral: CLL, hemolytic anemia HPI: Mr. 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 He was fisrt seen at [facility] in August of 2013. His course has been complicated with hemolytic anemia which resolved after initail treatmen t with B-R to which he had an excellent response. He recently developed progressive disease (see hx below). He currently notes that he feels well and is essentially asymptomatic. Speci fically, he denies fatigue, early satiety, night sweats, weight loss, fevers, or infections. 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 He is here to discuss potential treatment approaches and developments in the field. 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 FISH with 13q and 11q deletion (no 17p del). IgVh testing equivocal (polyclonal) CT scan shows splenomegaly 19 x 10 cm and recurrent small volume adenopathy up to 1.7 cm i n the pelvis and jugular node in neck measuring 3.7 x 1.7 cm. Yonathan also now positive for FÁTIMA and IgG (FÁTIMA had turned negative with rx) Past Medical History Diagnosis Date A-fib (HCC) Depression Chronic low back pain Prostate cancer (HCC) s/p brachytherapy Pneumonia Hemolytic anemia (HCC) Social History Narrative Stinson who lives in [place]. 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 +smokeless tobacco use. No smoking hx. ETOH-3 drinks per week. Hx of marijuana use. Family Hx: non-contributory Physical Exam Objective: vitals and nursing notes reviewed per [facility] perfomance status = 0 Physical Exam: General appearance, incl mental status: pleasant, alert and oriented x 3, no distress HEENT: OP clear, NCAT, sclera are anicteric Cor: RR s1s2 w/o m/r/g Pulm: CTA b/l Abd: obese, NTND spleen palpable 2 finger breadths below LCM laterally Ext: no edema Skin: no rashes on visible surfaces MSK: no spinal tenderness Psych: normal affect Lymph: no significant palpable adenopathy involving the neck, supraclavicular, axillary, or inguinal regions. Psych: normal affect LAB Lab Results Component Value Date WBC 19.60* 05/23/2016 RBC 4.82 05/23/2016 HCT 42.0 05/23/2016 HB 15.4 05/23/2016 MCV 87.1 05/23/2016 MCHC 36.7 05/23/2016 PLT 120* 05/23/2016 NEUTROPERC 21.2* 05/23/2016 LYMPHPERC 73.7* 05/23/2016 MONOPERC 0.9* 05/23/2016 EOSPERC 4.2* 05/23/2016 BASOPERC 0.0 05/23/2016 NEUTROPHILCO 4.16 05/23/2016 GLU 95 05/23/2016 BUN 14 05/23/2016 CR 0.92 05/23/2016 TP 6.3* 05/23/2016 ALB 4.1 05/23/2016 CA 8.4* 05/23/2016 TBILI 0.8 05/23/2016 AP 83 05/23/2016 AST 17 05/23/2016 NA 140 05/23/2016 K 3.8 05/23/2016 CL 109* 05/23/2016 BICARB 22 05/23/2016 ALT 35 05/23/2016 Assessment: 65 year old man with 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 In 2012 he developed rapid progression of his disease with splenomegaly, hemol ytic anemia. Given his clinical presentation, there was concern about potential transformati on. He has had an excellent response to B-R chemotherapy x 6 and recently developed relapse/ progression of his disease. We discussed his disease in detail as well as indication for treatment, disease complicatio ns, novel therapies, and clinical trials. Although he has developed disease progression, he does not have any indications for treatment. He does have a + Yonathan noting that this may or may not become clinically important as we often see persistent Yonathan positivity. It is not able that his prior Yonathan C3/FÁTIMA had been negative in 2013 (in setting of positive yonathan) but is now negative. Of note, [facility] is performing a different test (different vendor) and in speaking with Dr. Ackerman, he notes he has seen some inconsistencies with these results c ompared to prior testing. Either way, as mentioned previously, the clinical significance is unclear. With this in mind, given stability of lymphocytosis, minimal adenopathy, asymptomatic splen omegaly, lack of B symtpoms, and preserved plt (have been lower since B-R) and hgb, I have r ecommended that he defer treatment at this time. We did discuss available trials here includ ing a trial we currently have using a novel btk inhibitor plus idelalisib or entoepletenib ( syk inhibitor). He is interested in pursuing such a trial. We also have another trial with i brutinib plus an anti-CD37 antibody as well as a trial using obinituzumab plus entospletenib (this one includes ibrutinib failures). Of note, given his FISH test results, if he opted n ot to pursue TKI based therapy or I did business and financial counsel him on signs/symptoms of hemolysis. Recommendations 1. Continue observation and follow up with Dr. Wilde 2. Pursue treatment if b symptoms, bulky adenopathy, cytopenias etc. 3. Provided pt with consent of one of our currently available trials (he understands trials can open and close noting that he is interested in potentially prusuing a trial) 4. I would like to see him back in 6 months to touch base. 5. Annual flu shot 6. Age appropriate cancer screening and annual skin exams I appreciate the opportunity to be involved in Mr. Broussard's care. Please do not hesitate to call me with questions. I spent 60 minutes in face to face time with > 50% Spent reviewing the above. HUSEYIN SUAREZ MD Epilepsy Physician [facility] Cancer Equality [email or web address] [phone] documented in this encounter Plan of Treatment Not on filedocumented as of this encounter Procedures + +--------+ + + + | Procedure Name | Priori | Date/Time | Associated Diagnosis | Comments | | | ty | | | | + +--------+ + + + | PATHOLOGY | | 02/13/2017 | | Results for this | | | | 12:00 AM | | procedure are in the | | | | PDT | | results section. | + +--------+ + + + | LAB REPORTS | | 07/06/2016 | | Results for this | | | | 12:00 AM | | procedure are in the | | | | PDT | | results section. | + +--------+ + + + | C3 FÁTIMA | Routin | 05/23/2016 | CLL (chronic | Results for this | | | e | 3:45 PM | lymphocytic | procedure are in the | | | | PDT | leukemia) ([facility]) | results section. | + +--------+ + + + | FÁTIMA IGG | Routin | 05/23/2016 | CLL (chronic | Results for this | | | e | 3:45 PM | lymphocytic | procedure are in the | | | | PDT | leukemia) ([facility]) | results section. | + +--------+ + + + | BRANDEE KNOWLES | Routin | 05/23/2016 | CLL (chronic | Results for this | | | e | 3:45 PM | lymphocytic | procedure are in the | | | | PDT | leukemia) ([facility]) | results section. | + +--------+ + + + | RBC MORPHOLOGY | Routin | 05/23/2016 | CLL (chronic | | | | e | 3:44 PM | lymphocytic | | | | | PDT | leukemia) ([facility]) | | + +--------+ + + + | CBC AND AUTO DIFF | Urgent | 05/23/2016 | CLL (chronic | Results for this | | | | 3:44 PM | lymphocytic | procedure are in the | | | | PDT | leukemia) ([facility]) | results section. | + +--------+ + + + | MANUAL DIFFERENTIAL | Routin | 05/23/2016 | CLL (chronic | Results for this | | | e | 3:44 PM | lymphocytic | procedure are in the | | | | PDT | leukemia) ([facility]) | results section. | + +--------+ + + + | CBC, WITH | Urgent | 05/23/2016 | CLL (chronic | Results for this | | DIFFERENTIAL | | 3:44 PM | lymphocytic | procedure are in the | | | | PDT | leukemia) ([facility]) | results section. | + +--------+ + + + | COMPLETE METABOLIC | Routin | 05/23/2016 | CLL (chronic | Results for this | | SET | e | 3:44 PM | lymphocytic | procedure are in the | | (NA,K,CL,CO2,BUN,CRE | | PDT | leukemia) ([facility]) | results section. | | AT,GLUC,CA,AST,ALT,B | | | | | | KATE TOTAL,ALK | | | | | | PHOS,ALB,PROT TOTAL) | | | | | + +--------+ + + + | BETA 2 | Routin | 05/23/2016 | CLL (chronic | Results for this | | MICROGLOBULIN, SERUM | e | 3:44 PM | lymphocytic | procedure are in the | | | | PDT | leukemia) ([facility]) | results section. | + +--------+ + + + | URIC ACID, PLASMA | Routin | 05/23/2016 | CLL (chronic | Results for this | | | e | 3:44 PM | lymphocytic | procedure are in the | | | | PDT | leukemia) ([facility]) | results section. | + +--------+ + + + | LDH TOTAL, PLASMA | Routin | 05/23/2016 | CLL (chronic | Results for this | | | e | 3:44 PM | lymphocytic | procedure are in the | | | | PDT | leukemia) ([facility]) | results section. | + +--------+ + + + | OUTSIDE RADIOLOGY - | | 04/26/2016 | | Results for this | | CT | | 12:00 AM | | procedure are in the | | | | PDT | | results section. | + +--------+ + + + | OUTSIDE LAB - | | 04/19/2016 | | Results for this | | PATHOLOGY | | 12:00 AM | | procedure are in the | | | | PDT | | results section. | + +--------+ + + + | OUTSIDE LAB - | | 10/26/2011 | | Results for this | | PATHOLOGY | | 12:00 AM | | procedure are in the | | | | PST | | results section. | + +--------+ + + + documented in this encounter Results PATHOLOGY (02/13/2017 12:00 AM PDT) + + + | Narrative | Performed At | + + + | | | + + + LAB REPORTS (07/06/2016 12:00 AM PDT) + + + | Narrative | Performed At | + + + | | | + + + C3 FÁTIMA (05/23/2016 3:45 PM PDT) + + + + + + | Component | Value | Ref Range | Performed | Pathologist | | | | | At | Signature | + + + + + + | FÁTIMA C3 | Positive | | [facility] | | [...] + + | [facility] | [address] | [place] [address] | | | SERVICES, | [address] | | | | TRANSFUSION MEDICINE | | | | + + + + + FÁTIMA IGG (05/23/2016 3:45 PM PDT) + + + + + + | Component | Value | Ref Range | Performed | Pathologist | | | | | At | Signature | + + + + + + | YONATHAN, IGG | Positive | | [facility] | [...] | + + + + + | [facility] | [address] | [place] [address] | | | SERVICES, | [address] | | | | TRANSFUSION MEDICINE | | | | + + + + + RBC MORPHOLOGY (05/23/2016 3:44 PM PDT) + + | Specimen | + + | Blood - Blood | | (substance) | + + + + + + + | Performing | Address | City/State/Zipcode | Phone Number | | Organization | | | | + + + + + | [facility] | [address] | [place] [address] | | | SERVICES, CORE | [address] | | | + + + + + MANUAL DIFFERENTIAL (05/23/2016 3:44 PM PDT) + + + + + + | Component | Value | Ref Range | Performed | Pathologist | | | | | At | Signature | + + + + + + | NEUTROPHIL | 21.2 (L)Comment: Fewer | 50.0 - 70.0 % | [facility] | | | % | than 10% Reactive Lymphs | | LABORATORY | | | | noted on scan. | | SERVICES, | | | | | | CORE | | + + + + + + | LYMPHOCYTE | 73.7 (H) | 18.0 - 42.0 % | [facility] | | | % | | | LABORATORY | | | | | | SERVICES, | | | | | | CORE | | + + + + + + | MONOCYTE % | 0.9 (L) | 3.5 - 9.0 % | [facility] | | | | | | LABORATORY | | | | | | SERVICES, | | | | | | CORE | | + + + + + + | EOSINOPHIL | 4.2 (H) | 1.0 - 3.0 % | [facility] | | | % | | | LABORATORY | | | | | | SERVICES, | | | | | | CORE | | + + + + + + | BASOPHIL % | 0.0 | 0.0 - 2.0 % | [facility] | | | | | | LABORATORY | | | | | | SERVICES, | | | | | | CORE | | + + + + + + | IG% | 0.0Comment: Immature | 0.0 - 0.6 % | [facility] | | | | Granulocytes (IG) | | LABORATORY | | | | include metamyelocytes, | | SERVICES, | | | | myelocytes and | | CORE | | | | promyelocytes. Bands are | | | | | | not included in the IG | | | | | | count. Bands are | | | | | | included in the | | | | | | neutrophil count. | | | | + + + + + + | NEUTROPHIL | 4.16 | 1.80 - 7.70 | [facility] | | | # | | K/cu mm | LABORATORY | | | | | | SERVICES, | | | | | | CORE | | + + + + + + | LYMPHOCYTE | 14.45 (H) | 1.00 - 4.80 | [facility] | | | # | | K/cu mm | LABORATORY | | | | | | SERVICES, | | | | | | CORE | | + + + + + + | MONOCYTE # | 0.18 | 0.10 - 0.90 | [facility] | | | | | K/cu mm | LABORATORY | | | | | | SERVICES, | | | | | | CORE | | + + + + + + | EOSINOPHIL | 0.82 (H) | 0.00 - 0.50 | [facility] | | | # | | K/cu mm | LABORATORY | | | | | | SERVICES, | | | | | | CORE | | + + + + + + | BASOPHIL # | 0.00 | 0.00 - 0.10 | [facility] | | | | | K/cu mm | LABORATORY | | | | | | SERVICES, | | | | | | CORE | | + + + + + + | IG# | 0.00 | 0.00 - 0.03 | [facility] | | | | | K/cu mm | LABORATORY | | | | | | SERVICES, | | | | | | CORE | | + + + + + + + + | Specimen | + + | Blood - Blood | | (substance) | + + + + + | Narrative | Performed At | + + + | Immature Granulocytes (IG) include metamyelocytes, myelocytes | [facility] | | and promyelocytes. Bands are not included in the IG count. Bands are | LABORATORY | | included in the neutrophil count. | [facility] | + + + + + + + + | Performing | Address | City/State/Zipcode | Phone Number | | Organization | | | | + + + + + | [facility] | [address] | [place] [address] | | | HUA, RAMEZ | [address] | | | + + + + + CBC AND AUTO DIFF (05/23/2016 3:44 PM PDT) + + + + + + | Component | Value | Ref Range | Performed | Pathologist | | | | | At | Signature | + + + + + + | WHITE CELL | 19.60 (H) | 4.40 - 11.00 | [facility] | | | COUNT | | K/cu mm | LABORATORY | | | | | | SERVICES, | | | | | | CORE | | + + + + + + | RED CELL | 4.82 | 4.50 - 6.00 | [facility] | | | COUNT | | M/cu mm | LABORATORY | | | | | | SERVICES, | | | | | | CORE | | + + + + + + | HEMOGLOBIN | 15.4 | 13.5 - 17.5 | [facility] | | | | | g/dL | LABORATORY | | | | | | SERVICES, | | | | | | CORE | | + + + + + + | HEMATOCRIT | 42.0 | 41.0 - 53.0 % | [facility] | | | | | | LABORATORY | | | | | | SERVICES, | | | | | | CORE | | + + + + + + | MCV | 87.1 | 80.0 - 96.0 fL | [facility] | | | | | | LABORATORY | | | | | | SERVICES, | | | | | | CORE | | + + + + + + | MCHC | 36.7 | 33.0 - 35.5 | [facility] | | | | | g/dL | LABORATORY | | | | | | SERVICES, | | | | | | CORE | | + + + + + + | RDW SD | 42.3 | 35.1 - 46.3 fL | [facility] | | | | | | LABORATORY | | | | | | SERVICES, | | | | | | CORE | | + + + + + + | PLATELET | 120 (L) | 150 - 400 K/cu | [facility] | | | COUNT | | mm | LABORATORY | | | | | | SERVICES, | | | | | | CORE | | + + + + + + | MPV | 9.2 (L) | 9.7 - 12.3 fL | [facility] | | | | | | LABORATORY | | | | | | SERVICES, | | | | | | CORE | | + + + + + + | NRBC% | 0.2 | 0.0 - 0.3 % | [facility] | | | | | | LABORATORY | | | | | | SERVICES, | | | | | | CORE | | + + + + + + | NRBC# | 0.04 (H) | 0.00 - 0.02 | [facility] | | | | | K/cu mm | LABORATORY | | | | | | SERVICES, | | | | | | CORE | | + + + + + + + + | Specimen | + + | Blood - Blood | | (substance) | + + + + + + + | Performing | Address | City/State/Zipcode | Phone Number | | Organization | | | | + + + + + | [facility] | [address] | [place] [address] | | | SERVICES, CORE | [address] | | | + + + + + URIC ACID, PLASMA (05/23/2016 3:44 PM PDT) + +-------+ + + + | Component | Value | Ref Range | Performed | Pathologist | | | | | At | Signature | + +-------+ + + + | URIC ACID, | 6.2 | 3.7 - 8.0 mg/dL | [facility] | | | PLASMA | | | LABORATORY | | | (LAB) | | | SERVICES, | | | | | | CORE | | + +-------+ + + + + + | Specimen | + + | Blood - Blood | | (substance) | + + + + + + + | Performing | Address | City/State/Zipcode | Phone Number | | Organization | | | | + + + + + | [facility] | [address] | [place] [address] | | | SERVICES, CORE | [address] | | | + + + + + BETA 2 MICROGLOBULIN, SERUM (05/23/2016 3:44 PM PDT) + + + + + + | Component | Value | Ref Range | Performed | Pathologist | | | | | At | Signature | + + + + + + | BETA 2 | 2.2Comment: Performed by | 1.1 - 2.4 mg/L | [facility] | | | MICROGLOB | [facility] | | [address] | | | SERUM | [facility] [address] [place], [facility] | | PTH - [facility] | | | | [address] | | | | | | [phone]. | | | | | | comEdmundo, | | | | | | Patricia ORTEGA. Director | | | | + + + + + + + + | Specimen | + + | Blood - Blood | + + + + + + + | Performing | Address | City/State/Zipcode | Phone Number | | Organization | | | | + + + + + | [facility] | [address] | [place], [place] | | | UNIV [facility] | | [address] | | + + + + + LDH TOTAL, PLASMA (05/23/2016 3:44 PM PDT) + +---------+ + + + | Component | Value | Ref Range | Performed | Pathologist | | | | | At | Signature | + +---------+ + + + | LD TOTAL, | 191 | <=250 U/L | [facility] | | | PLASMA [...] + + | Blood - Blood | | (substance) | + + + + + + + | Performing | Address | City/State/Zipcode | Phone Number | | Organization | | | | + + + + + | [facility] | [address] | [place] [address] | | | SERVICES, CORE | [address] | | | + + + + + COMPLETE METABOLIC SET (NA,K,CL,CO2,BUN,CREAT,GLUC,CA,AST,ALT,BILI TOTAL,ALK PHOS,ALB,PROT TOTAL) (05/23/2016 3:44 PM PDT) + +---------+ + + + | Component | Value | Ref Range | Performed | Pathologist | | | | | At | Signature | + +---------+ + + + | GLUCOSE, | 95 | 60 - 99 mg/dL | [facility] | | | PLASMA | | | LABORATORY | | | (LAB) | | | SERVICES, | | | | | | CORE | | + +---------+ + + + | BUN, PLASMA | 14 | 6 - 20 mg/dL | [facility] | | | (LAB) | | | LABORATORY | | | | | | SERVICES, | | | | | | CORE | | + +---------+ + + + | CREATININE | 0.92 | 0.70 - 1.30 | [facility] | | | PLASMA | | mg/dL | LABORATORY | | | (LAB) | | | SERVICES, | | | | | | CORE | | + +---------+ + + + | EGFR | >60 | >60 mL/min | [facility] | | | - | | | LABORATORY | | | SUDANESE | | | SERVICES, | | | | | | CORE | | + +---------+ + + + | EGFR NON | >60 | >60 mL/min | [facility] | | | -JETT | | | LABORATORY | | | RICAN | | | SERVICES, | | | | | | CORE | | + +---------+ + + + | SODIUM, | 140 | 136 - 145 | [facility] | | | PLASMA | | mmol/L | LABORATORY | | | (LAB) | | | SERVICES, | | | | | | CORE | | + +---------+ + + + | POTASSIUM, | 3.8 | 3.4 - 5.0 | [facility] | | | PLASMA | | mmol/L | LABORATORY | | | (LAB) | | | SERVICES, | | | | | | CORE | | + +---------+ + + + | CHLORIDE, | 109 (H) | 97 - 108 mmol/L | [facility] | | | PLASMA | | | LABORATORY | | | (LAB) | | | SERVICES, | | | | | | CORE | | + +---------+ + + + | TOTAL CO2, | 22 | 21 - 32 mmol/L | [facility] | | | PLASMA | | | LABORATORY | | | (LAB) | | | SERVICES, | | | | | | CORE | | + +---------+ + + + | CALCIUM, | 8.4 (L) | 8.6 - 10.2 | [facility] | | | PLASMA | | mg/dL | LABORATORY | | | (LAB) | | | SERVICES, | | | | | | CORE | | + +---------+ + + + | CALCIUM(ALB | 8.3 (L) | 8.6 - 10.2 | [facility] | | | CORRECTED) | | mg/dL | LABORATORY | | | | | | SERVICES, | | | | | | CORE | | + +---------+ + + + | BILIRUBIN | 0.8 | 0.3 - 1.2 mg/dL | [facility] | | | TOTAL | | | LABORATORY | | | | | | SERVICES, | | | | | | CORE | | + +---------+ + + + | TOTAL | 6.3 (L) | 6.4 - 8.2 g/dL | [facility] | | | PROTEIN, | | | LABORATORY | | | PLASMA | | | SERVICES, | | | (LAB) | | | CORE | | + +---------+ + + + | ALBUMIN, | 4.1 | 3.5 - 4.7 g/dL | [facility] | | | PLASMA | | | LABORATORY | | | (LAB) | | | SERVICES, | | | | | | CORE | | + +---------+ + + + | ALK PHOS | 83 | 56 - 119 U/L | [facility] | | | | | | LABORATORY | | | | | | SERVICES, | | | | | | CORE | | + +---------+ + + + | AST(SGOT) | 17 | <=41 U/L | [facility] | | | | | | LABORATORY | | | | | | SERVICES, | | | | | | CORE | | + +---------+ + + + | ALT (SGPT) | 35 | <=60 U/L | [facility] | | | | | | LABORATORY | | | | | | SERVICES, | | | | | | CORE | | + +---------+ + + + | ANION GAP | 9 | mmol/L | [facility] | | | | | | LABORATORY | | | | | | SERVICES, | | | | | | CORE | | + +---------+ + + + | ANION | 8 | 4 - 11 mmol/L | [facility] [...] + + | Blood - Blood | | (substance) | + + + + + | Narrative | Performed At | + + + | GFR is estimated using the MDRD equation recommended by the | [facility] | | National Kid[employer] Education Program. Estimated GFR | LABORATORY | | Interpretive Information: <60 mL/min/1.73 sq m | HUA, CORE | | Chronic Kidney Disease <15 [...] Rapidly changing kidney | | | function | | + + + + + + + + | Performing | Address | City/State/Zipcode | Phone Number | | Organization | | | | + + + + + | [facility] | [address] | [place] [address] | | | RAMEZ SEQUEIRA | [address] | | | + + + + + OUTSIDE RADIOLOGY - CT (04/26/2016 12:00 AM PDT) + + + | Narrative | Performed At | + + + | | | + + + OUTSIDE LAB - PATHOLOGY (04/19/2016 12:00 AM PDT) + + + | Narrative | Performed At | + + + | | | + + + OUTSIDE LAB - PATHOLOGY (10/26/2011 12:00 AM PST) + + + | [...]
--- OUTSIDE RECORDS SUMMARY | ~2019-11-10 | XMS | Encounter Summary ---
Demographics + + + | Address | [address] | | | [place] [address] | + + + | Home Phone | | + + + | Preferred Language | Unknown | + + + | Marital Status | | + + + | Roman Catholic Affiliation | 1028 | + + + | Race | Unknown | + + + | Ethnic Group | Unknown | + + + Author + + + | Author | [facility] | | | and [place] | + + + | Organization | [facility] | | | and [place] | + + + | Address | Unknown | + + + | Phone | Unavailable | + + + Support + + + + + | Name | Relationship | Address | Phone | + + + + + | Jorge Myrick | [place] | [place] | | | | | [address] | | + + + + + | Feng Myrick | ECON | NA | | | | | [place] | | + + + + + Care Team Providers + +------+ + | Care Cloth Printing Back Tender Name | Role | Phone | + [...] | +--------+ + + + + | 09/29/ | Telephone | [facility] | Jerrod Redding | Appointment | | 2013 | | [address] | MD Jose [address] | | | | | [place], | [address] [place] | | | | | [place] [address] | [place] [address] | | | | | [phone] | [phone] | | | | | | | [...]
--- OUTSIDE RECORDS SUMMARY | ~2019-11-10 | XMS | Encounter Summary ---
Demographics + + + | Address | [address] | | | [place] [address] | + + + | Home Phone | | + + + | Preferred Language | Unknown | + + + | Marital Status | Single | + + + | Roman Catholic Affiliation | Unknown | + + + | Race | White | + + + | Ethnic Group | Not or | + + + Author + + + | Author | [facility] | + + + | Organization | [facility] | + + + | [...] Team Providers + +------+ + | Care Open Hearth Furnace Operator Name | Role | Phone | + +------+ + | Emeterio Campos DO | PCP | | + +------+ + Encounter Details +--------+ + + + + | Date | Type | Department | Care Team | Description | +--------+ + + + + | 04/11/ | Document-Sc | Health Information | Unknown . | | | 2015 | anned | [id number] | | | | | | [address] | | | | | | Mailcode: [id number] | | | | | | [facility] | | | | | | [place], [place] | | | | | | [address] | | | | | | [phone] | | | +--------+ + + + [...] + + | LAB REPORTS | | 04/11/2016 | | Results for this | | | | 12:00 AM | | procedure are in the | | | | PDT | | results section. | + +--------+ + + + documented in this encounter Results LAB REPORTS (04/11/2016 12:00 AM PDT) + + + | Narrative | Performed At | + + + | | | + + + documented in this encounter Visit Diagnoses Not on filedocumented in this encounter"
--- OUTSIDE RECORDS SUMMARY | ~2019-11-10 | XMS | Encounter Summary ---
Demographics + + + | Address | [address] | | | [place] [address] | + + + | Home Phone | | + + + | Preferred Language | Unknown | + + + | Marital Status | | + + + | Restorationist Affiliation | 1028 | + + + | Race | Unknown | + + + | Ethnic Group | Unknown | + + + Author + + + | Author | [facility] | | | and [place] | + + + | Organization | [facility] | | | and [place] | + + + | Address | Unknown | + + + | Phone | Unavailable | + + + Support + + + + + | Name | Relationship | Address | Phone | + + + + + | Jorge Myrick | [place] | [place] | | | | | [address] | | + + + + + | Feng Myrick | ECON | NA | | | | | [place], [place] | | + + + + + Care Team Providers + +------+ + | Care Hyperbaric Technologist Name | Role | Phone | + +------+ + PCP | Unavailable | + +------+ + Encounter Details +--------+ + + + + | Date | Type | Department | Care Team | Description | +--------+ + + + + | 12/08/ | Hospital | [facility] | | | | 2005 - | Encounter | [facility] | | | | | | [address] | | | | 12/09/ | | [place] [address] | | | | 2004 | | [phone] | | | +--------+ + + + [...]
--- OUTSIDE RECORDS SUMMARY | ~2019-11-10 | XMS | Encounter Summary ---
Demographics + + + | Address | [address] | | | [place] [address] | + + + | Home Phone | | + + + | Preferred Language | Unknown | + + + | Marital Status | | + + + | Zoroastrian Affiliation | 1028 | + + + | Race | Unknown | + + + | Ethnic Group | Unknown | + + + Author + + + | Author | [facility] | | | and [place] | + + + | Organization | [facility] | | | and [place] | + + + | Address | Unknown | + + + | Phone | Unavailable | + + + Support + + + + + | Name | Relationship | Address | Phone | + + + + + | Jorge Myrick | [place] | [place] | | | | | [address] | | + + + + + | Feng Myrick | ECON | NA | | | | | [place] | | + + + + + Care Team Providers + +------+ + | Care Global Product Manager Name | Role | Phone | + +------+ + | Massiel Pérez MD | PCP | | + +------+ + Reason for Referral Diagnostic/Screening (Routine) + +--------+ + + + + | Status | Reason | Specialty | Diagnoses / | Referred By | Referred To | | | | | Procedures | Contact | Contact | + +--------+ + + + + | Pending | | Radiology | Diagnoses | Ewer, | ADRIEL | | Review | | | Atrial | Huseyin N, | CARDIOLOGY | | | | | fibrillation | MD [address] | | | | | , | [address] | [address] | | | | | unspecified | [address] | | | | | type (HCC) | [place] [address] | [place], [place] | | | | | Procedures | Phone: | [address] | | | | | ECHO | [phone] | Phone: | | | | | Complete | Fax: | [phone] | | | | | | [phone] | Fax: | | | | | | | [phone] | + +--------+ + + + + Reason for Visit + + + | Reason | Comments | + + + | Follow-up | 6 mon | + + + Encounter Details +--------+---------+ + + + | Date | Type | Department | Care Team | Description | +--------+---------+ + + + | 09/18/ | Office | [facility] | Huseyin Khan, | Atrial fibrillation, | | 2019 | Visit | CARDIOLOGY ALINA | [address] | unspecified type | | | | [address] | [place] [address] | ([facility]) (Primary Dx) | | | | [place], [place] | [phone] | | | | | [address] | | | | | | [phone] | | | +--------+---------+ + + + [...] +---------+ + | Yes | | | Alcoholic | | | | | Drinks/day: | | | | | occasional | + + +---------+ + + + [...] + + + | Blood Pressure | 120/76 | 09/18/2019 8:46 AM | | | | | PST | | + + + + + | Pulse | 95 | 09/18/2019 8:46 AM | | | | | PST | | + + + + + | Temperature | - | - | | + + + + + | Respiratory Rate | - | - | | + + + + + | Oxygen Saturation | 95% | 09/18/2019 8:46 AM | | | | | PST | | + + + + + | Inhaled Oxygen | - | - | | | Concentration | | | | + + + + + | Weight | - | - | | + + + + + | Height | 188 cm (6' 2.02") | 09/18/2019 8:46 AM | | | | | PST | | + + + + + | Body Mass Index | - | - | | + + + + + documented in this encounter Progress Notes SoniIshan lyn - 09/18/2019 9:00 AM PSTFormatting of this note might be different from the o [place]. Progress Notes by Huseyin Khan MD at 03/13/19 1045 Author: Huseyin Khan MD Service: (none) Author Type: Physician Filed: 03/14/19 1142 Encounter Date: 03/13/2019 Status: Signed Perforator: Huseyin Khan MD (Physician) Related Notes: Original Note by Huseyin Khan MD (Physician) filed at 03/13/19 1159 CARDIOVASCULAR NEW PATIENT : 1950 DATE OF SERVICE: 03/13/2019 PROVIDER: HUSEYIN KHAN MD PRIMARY CARE: ADE MARKHAM REASON FOR CONSULTATION: Chief Complaint Patient presents with Follow-up Echo Medical Clearance HPI: He is here for followup on his atrial fibrillation. He remains asymptomatic and active. SHERITA DS-VASc score remains 1 on the basis of age. No symptoms of angina, heart failure, arrhythmi a, claudication, or TIA-type symptoms. He has good energy level. PH, FH, SH, and medications reviewed in the chart. PAST MEDICAL HISTORY: Past Medical History Diagnosis Date Chronic lymphatic leukemia (HCC) Past Surgical History Procedure Laterality Date CHOLECYSTECTOMY PROSTATE SURGERY SCROTAL SURGERY WISDOM TOOTH EXTRACTION FAMILY HISTORY: History reviewed. No pertinent family history. SOCIAL HISTORY: Social History Social History Marital status: Spouse name: N/A Number of children: N/A Years of education: N/A Occupational History Not on file. Social History Main Topics Smoking status: Never Smoker Smokeless tobacco: Current User Types: Snuff Alcohol use Yes Comment: occasional Drug use: No Sexual activity: Not on file Other Topics Concern Not on file Social History Narrative No narrative on file CURRENT MEDICATIONS: Outpatient Encounter Prescriptions as of 03/13/2019 Medication Sig Dispense Refill aspirin 325 MG tablet Take 325 mg by mouth daily with breakfast. diltiazem (CARDIZEM CD) 120 MG 24 hr capsule Take 120 mg by mouth daily. ibrutinib (IMBRUVICA) 140 MG capsule Take 420 mg by mouth daily. No facility-administered encounter medications on file as of 03/13/2019. ALLERGIES: Patient has no known allergies. REVIEW OF SYSTEMS: Review of Systems Constitutional: Negative. HENT: Negative. Eyes: Negative. Respiratory: Negative. Cardiovascular: Negative for palpitations. Gastrointestinal: Negative. Endocrine: Negative. Genitourinary: Negative. Musculoskeletal: Negative. Neurological: Negative. Hematological: Negative. Psychiatric/Behavioral: Negative. All other systems reviewed and negative. PHYSICAL EXAM: VITAL SIGNS: BP 120/80 (BP Location: Left upper arm, Patient Position: Sitting) | Pulse 81 | Ht 1.88 m (6' 2") | Wt 130.8 kg (288 lb 6.4 oz) | SpO2 97% | BMI 37.03 kg/m GENERAL - Well developed, well-nourished, appears stated age, in no acute distress. HEENT - Normocephalic, atraumatic. No arcus senillis, no scleral icterus. NECK - Supple. No thyromegaly. CARDIOVASCULAR - No JVD, no carotid bruit, Carotid upstroke normal bilaterally. Irregular r ate and rhythm. No rub. No murmur. No gallop. Normal S1 and S2. CHEST - Nontender. LUNGS - Clear to auscultation. No wheezing, no crackles, no rales, no rhonchi and normal re spiratory rate and rhythm. EXTREMITIES - No edema, clubbing or cyanosis. No deformities, no tenderness, and no discolo ration or ulceration. NEURO/PSYCH - Alert and oriented x3, mood and affect appropriate. No obvious focal motor or sensory deficits. Cranial nerves are grossly intact. MUSCULOSKELETAL - No muscle spasms, no muscle atrophy and no joint deformities. SKIN - No pallor, no jaundice, no cyanosis. Assessment IMPRESSION 1. Persistant atrial fibrillation. 2. Chronic lymphocytic leukemia requiring intermittent cycles of chemotherapy. PLAN He asked questions about ablation. However, given his lack of symptoms and good functional capacity, I do not feel he is a candidate for that. I have asked him to pay close attention to symptoms that could possibly be related to atrial fibrillation, at which time that may gu marcy us towards an attempt at restoring sinus rhythm. We will do an echocardiogram in 6 month s. In the meantime, continue diltiazem and aspirin. Call for problems. Documented by Scott. Cardiac Medications: Continue as prescribed. Huseyin Khan MD FACC, FACP, FASNC documented in this encounter Plan of Treatment + + +--------+ + + | Name | Type | Priori | Associated Diagnoses | Order Schedule | | | | ty | | | + + +--------+ + + | ECHO Complete | Echocardiog | Routin | Atrial | Expected: | | | alix | e | fibrillation, | 03/18/2020, Expires: | | | | | unspecified type | 09/18/2020 | | | | | (HCC) | | + + +--------+ + + documented as of this encounter Visit Diagnoses + + | Diagnosis | + + | Atrial fibrillation, unspecified type (HCC) - Primary | + + documented in this encounter
--- OUTSIDE RECORDS SUMMARY | ~2019-11-10 | XMS | Encounter Summary ---
Demographics + + + | Address | [address] | | | [place] [address] | + + + | Home Phone | | + + + | Preferred Language | Unknown | + + + | Marital Status | | + + + | Latter Day Affiliation | 1028 | + + + | Race | Unknown | + + + | Ethnic Group | Unknown | + + + Author + + + | Author | [facility] | | | and [place] | + + + | Organization | [facility] | | | and [place] | + + + | Address | Unknown | + + + | Phone | Unavailable | + + + Support + + + + + | Name | Relationship | Address | Phone | + + + + + | Jorge Myrick | [place] | [place] | | | | | [address] | | + + + + + | Feng Myrick | ECON | NA | | | | | [place] | | + + + + + Care Team Providers + +------+ + | Care Electric Cell Tender Name | Role | Phone | + +------+ + | Emeterio Campos DO | PCP | | + +------+ + Encounter Details +--------+ + + + + | Date | Type | Department | Care Team | Description | +--------+ + + + + | 12/25/ | Abstract | [facility] | [place], | | | 2013 | | Conversion Location | Markell Cano MD [address] | | | | | [phone] | [address] | | | | | | [place] [address] | | | | | | [phone] | | | | | | | [...] + + + | Blood Pressure | - | - | | + + + + + | Pulse | - | - | | + + + + + | Temperature | - | - | | + + + + + | Respiratory Rate | - | - | | + + + + + | Oxygen Saturation | - | - | | + + + + + | Inhaled Oxygen | - | - | | | Concentration | | | | + + + + + | Weight | 127.4 kg (280 lb | 07/04/2013 10:00 AM | | | | 13.9 oz) | PDT | | + + + + + | Height | 189 cm (6' 2.41") | 07/04/2013 10:00 AM | | | | | PDT | | + + + + + | Body Mass Index | 35.66 | 07/04/2013 10:00 AM | | | | | PDT | | + + + + + documented in this encounter Plan of Treatment Not on filedocumented as of this encounter Visit Diagnoses Not on filedocumented in this encounter
--- OUTSIDE RECORDS SUMMARY | ~2019-11-10 | XMS | Encounter Summary ---
Demographics + + + | Address | [address] | | | [place] [address] | + + + | Home Phone | | + + + | Preferred Language | Unknown | + + + | Marital Status | Single | + + + | Muslim Affiliation | Unknown | + + + | Race | White | + + + | Ethnic Group | Not or | + + + Author + + + | Author | [facility] | + + + | Organization | [facility] | + + + | [...] Team Providers + +------+ + | Care Valet Parker Name | Role | Phone | + +------+ + | Emeterio Campos DO | PCP | | + +------+ + Encounter Details +--------+ + + + + | Date | Type | Department | Care Team | Description | +--------+ + + + + | 07/06/ | Document-Sc | Health Information | Unknown . | | | 2016 | anned | Services [address] | | | | | | [address] | | | | | | Mailcode: [id number] | | | | | | [facility] | | | | | | [place], [place] | | | | | | [address] | | | | | | [phone] | | | +--------+ + + + [...] documented in this encounter Results LAB REPORTS (07/06/2016 12:00 AM PDT) + + + | Narrative | Performed At | + + + | | | + + + documented in this encounter Visit Diagnoses Not on filedocumented in this encounter"
--- OUTSIDE RECORDS SUMMARY | ~2019-11-10 | XMS | Encounter Summary ---
Demographics + + + | Address | [address] | | | [place] [address] | + + + | Home Phone | | + + + | Preferred Language | Unknown | + + + | Marital Status | | + + + | Yarsanism Affiliation | 1028 | + + + | Race | Unknown | + + + | Ethnic Group | Unknown | + + + Author + + + | Author | [facility] | | | and [place] | + + + | Organization | [facility] | | | and [place] | + + + | Address | Unknown | + + + | Phone | Unavailable | + + + Support + + + + + | Name | Relationship | Address | Phone | + + + + + | Jorge Myrick | [place] | [place] | | | | | [address] | | + + + + + | Feng Myrick | ECON | NA | | | | | [place] | | + + + + + Care Team Providers + +------+ + | Care Film Coater Name | Role | Phone | + [...] | +--------+ + + + + | 01/20/ | Telephone | [facility] | Jerrod Redding | Appointment | | 2013 | | [address] | MD Jose [address] | | | | | [place], | [place] | | | | | [place] [address] | [place] [address] | | | | | [phone] | [phone] | | | | | | | [...]
--- OUTSIDE RECORDS SUMMARY | ~2019-11-10 | XMS | Encounter Summary ---
Demographics + + + | Address | [address] | | | [place] [address] | + + + | Home Phone | | + + + | Preferred Language | Unknown | + + + | Marital Status | | + + + | Sabianist Affiliation | 1028 | + + + | Race | Unknown | + + + | Ethnic Group | Unknown | + + + Author + + + | Author | [facility] | | | and [place] | + + + | Organization | [facility] | | | and [place] | + + + | Address | Unknown | + + + | Phone | Unavailable | + + + Support + + + + + | Name | Relationship | Address | Phone | + + + + + | Jorge Myrick | [place] | [place] | | | | | [address] | | + + + + + | Feng Myrick | ECON | NA | | | | | [place] | | + + + + + Care Team Providers + +------+ + | Care Cement Mason Apprentice Name | Role | Phone | + +------+ + | Emeterio Campos DO | PCP | | + +------+ + Encounter Details +--------+ + + + + | Date | Type | Department | Care Team | Description | +--------+ + + + + | 07/28/ | Abstract | [facility] | Jatin Reddingr | | | 2012 | | [address] | MD Jose [address] | | | | | [place], | [address] [place] | | | | | [place] [address] | [place] [address] | | | | | [phone] | [phone] | | | | | | | [...] | + +--------+ + + + | EXTERNAL LAB: ROBERT | Routin | 07/23/2013 | | Results for this | | | e | | | procedure are in the | | | | | | results section. | + +--------+ + + + | EXTERNAL LAB: AST | Routin | 07/23/2013 | | Results for this | | | e | | | procedure are in the | | | | | | results section. | + +--------+ + + + | EXTERNAL LAB: ALT | Routin | 07/23/2013 | | Results for this | | | e | | | procedure are in the | | | | | | results section. | + +--------+ + + + | EXTERNAL LAB: EGFR | Routin | 07/23/2013 | | Results for this | | | e | | | procedure are in the | | | | | | results section. | + +--------+ + + + | EXTERNAL LAB: | Routin | 07/23/2013 | | Results for this | | CREATININE | e | | | procedure are in the | | | | | | results section. | + +--------+ + + + documented in this encounter Results External Lab: CBC (07/23/2013) + +-------+ + + + | Component | Value | Ref Range | Performed | Pathologist | | | | | At | Signature | + +-------+ + + + | WBC, | 1.6 | | | | | External | | | | | + +-------+ + + + | HGB, | 7.6 | | | | | External | | | | | + +-------+ + + + | HCT, | 26.8 | | | | | External | | | | | + +-------+ + + + | PLT, | 38 | | | | | External | | | | | + +-------+ + + + + + | Resulting Agency Comment | + + | [facility] | + + External Lab: CRISTI (07/23/2013) + +-------+ + + + | Component | Value | Ref Range | Performed | Pathologist | | | | | At | Signature | + +-------+ + + + | AST, | 11 | | | | | External | | | | | + +-------+ + + + + + | Specimen | + + | Blood specimen | | (specimen) | + + + + | Resulting Agency Comment | + + | [facility] | + + External Lab: ALT (07/23/2013) + +-------+ + + + | Component | Value | Ref Range | Performed | Pathologist | | | | | At | Signature | + +-------+ + + + | ALT, | 14 | | | | | External | | | | | + +-------+ + + + + + | Specimen | + + | Blood specimen | | (specimen) | + + + + | Resulting Agency Comment | + + | [facility] | + + External Lab: eGFR (07/23/2013) + +-------+ + + + | Component | Value | Ref Range | Performed | Pathologist | | | | | At | Signature | + +-------+ + + + | eGFR, | >60 | | | | | External | | | | | + +-------+ + + + | eGFR, | | | | | | | | | | | | Taiwanese, | | | | | | External | | | | | + +-------+ + + + + + | Specimen | + + | Blood specimen | | (specimen) | + + + + | Resulting Agency Comment | + + | [facility] | + + External Lab: Creatinine (07/23/2013) + +-------+ + + + | Component | Value | Ref Range | Performed | Pathologist | | | | | At | Signature | + +-------+ + + + | Creatinine, | 0.94 | | | | | External | | | | | + +-------+ + + + + + | Specimen | + + | Blood specimen | | (specimen) | + + + + | Resulting Agency Comment | + + | [facility] | + + documented in this encounter Visit Diagnoses Not on filedocumented in this encounter"
--- OUTSIDE RECORDS SUMMARY | ~2019-11-10 | XMS | Encounter Summary ---
Demographics + + + | Address | [address] | | | [place] [address] | + + + | Home Phone | | + + + | Preferred Language | Unknown | + + + | Marital Status | Single | + + + | Catholic Affiliation | Unknown | + + + | Race | White | + + + | Ethnic Group | Not or | + + + Author + + + | Author | [facility] | + + + | Organization | [facility] | + + + | [...] Team Providers + +------+ + | Care Cheese Grader Name | Role | Phone | + +------+ + | Emeterio Campos DO | PCP | | + +------+ + Encounter Details +--------+ + + + + | Date | Type | Department | Care Team | Description | +--------+ + + + + | 12/23/ | Document-Sc | UNKNOWN DEPARTMENT | Unknown . | | | 2013 | anned | [address] | | | | [address] | | | | | | [place], [place] | | | | | | [address] | | | +--------+ + + + [...] + + | LAB REPORTS | | 12/23/2013 | | Results for this | | | | 12:00 AM | | procedure are in the | | | | PST | | results section. | + +--------+ + + + documented in this encounter Results LAB REPORTS (12/23/2013 12:00 AM PST) + + + | Narrative | Performed At | + + + | | | + + + documented in this encounter Visit Diagnoses Not on filedocumented in this encounter"
--- OUTSIDE RECORDS SUMMARY | ~2019-11-10 | XMS | Encounter Summary ---
Demographics + + + | Address | [address] | | | [place] [address] | + + + | Home Phone | | + + + | Preferred Language | Unknown | + + + | Marital Status | | + + + | Yarsanism Affiliation | 1028 | + + + | Race | Unknown | + + + | Ethnic Group | Unknown | + + + Author + + + | Author | [facility] | | | and [place] | + + + | Organization | [facility] | | | and [place] | + + + | Address | Unknown | + + + | Phone | Unavailable | + + + Support + + + + + | Name | Relationship | Address | Phone | + + + + + | Jorge Myrick | [place] | [place] | | | | | [address] | | + + + + + | Feng Myrick | ECON | NA | | | | | [place] | | + + + + + Care Team Providers + +------+ + | Care Physician Aide Name | Role | Phone | + +------+ + | Emeterio Campos DO | PCP | | + +------+ + Reason for Visit + + + | Reason | Comments | + + + | Atrial Fibrillation | Initial Consultation | + + + Encounter Details +--------+---------+ + + + | Date | Type | Department | Care Team | Description | +--------+---------+ + + + | 07/24/ | Office | [facility] | Jerrod Redding | Atrial fibrillation | | 2012 | Visit | CARDIOLOGY [address] | MD Jose [address] | ([facility]) (Primary Dx) | | | | [place], | [address] [place] | | | | | [place] [address] | [place] [address] | | | | | [phone] | [phone] | | | | | | | | +--------+---------+ + + + [...] + + + | Blood Pressure | 102/60 | 07/24/2013 9:16 AM | 114/70, right arm | | | | PDT | | + + + + + | Pulse | 78 | 07/24/2013 9:16 AM | regular | | | | PDT | | + + + + + | Temperature | - | - | | + + + + + | Respiratory Rate | 18 | 07/24/2013 9:16 AM | | | | | PDT | | + + + + + | Oxygen Saturation | - | - | | + + + + + | Inhaled Oxygen | - | - | | | Concentration | | | | + + + + + | Weight | 122.5 kg (270 lb) | 07/24/2013 9:16 AM | | | | | PDT | | + + + + + | Height | 188 cm (6' 2") | 07/24/2013 9:16 AM | | | | | PDT | | + + + + + | Body Mass Index | 34.67 | 07/24/2013 9:16 AM | | | | | PDT | | + + + + + documented in this encounter Progress Notes Jerrod Redding MD - 07/24/2013 9:11 AM PDTFormatting of this note might be differe nt from the original. Subjective: Cardiology Office Visit Note Date of Service: 07/24/2013 Patient ID: Jude Myrick is a 62 y.o. male. PCP: Dr. Andry Flores HPI Jude Myrick is a 62 y.o. male with a history of chronic lymphocytic leukemia and recent e pisode of paroxysmal atrial fibrillation who presents for a followup visit after recent disc harge from the hospital. He was hospitalized earlier this month after presenting with episod e of atrial fibrillation with rapid ventricular rate in the context of severe anemia. He was treated with loading dose of intravenous amiodarone and discharged on a low maintenance ora l dose. Since discharge he has done well without any further palpitations or chest discomfor t and he believes that his anemia is slowly improving. Patient had had an episode of paroxysmal atrial fibrillation back in 2005 for which she und erwent brief evaluation including echocardiography. Recent repeat evaluation confirmed that he has mild left atrial enlargement. He has no known history of CAD, cardiomyopathy, heart f ailure, diabetes, hypertension, or hyperlipidemia. He anticipates needing more cycles of christa motherapy over the next 4-6 months and probable associated anemia. He has been followed by Dwight Palma for this. Patient Active Problem List Diagnosis Atrial fibrillation, 2004 Leukemia, Lymphocytic Past Surgical History Procedure Date Colonoscopy Prostate surgery radiation seed implant for cancer Hydrocele excision x2 No family history on file. 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 amiodarone (PACERONE) 200 mg tablet Active Take 200 mg by mouth Daily. amoxicillin (AMOXIL) 875 mg tablet Active Take 875 mg by mouth 2 times daily. diltiazem (CARDIZEM) 60 mg tablet Active Take 1 tablet by mouth Daily as needed. 30 ta blet 6 folic acid 1 mg tablet Active Take 1 mg by mouth Daily. levofloxacin (LEVAQUIN) 750 MG tablet Active Take 750 mg by mouth Daily. LORazepam (ATIVAN) 1 mg tablet Active Take 1 mg by mouth every 6 hours as needed. posaconazole (NOXAFIL) 40 mg/mL suspension Active Take 200 mg by mouth 3 times daily (w ith meals). 200mg/5ml No Known Allergies Review of Systems Constitutional: Positive for fever, chills, activity change (in cancer treatment), appetite change, fatigue and unexpected weight change. Negative for diaphoresis. HENT: Negative for hearing loss, ear pain, nosebleeds, congestion, dental problem and tinni tus. Eyes: Negative for visual disturbance. Respiratory: Negative for apnea, cough, choking, chest tightness, shortness of breath, whee zing and stridor. Cardiovascular: Positive for palpitations and leg swelling. Negative for chest pain. Gastrointestinal: Positive for constipation. Negative for nausea, vomiting, abdominal pain, diarrhea, blood in stool, abdominal distention, anal bleeding and rectal pain. Genitourinary: Negative for dysuria, urgency, frequency, hematuria, decreased urine volume and difficulty urinating. Musculoskeletal: Negative for myalgias, back pain, joint swelling, arthralgias and gait pro blem. Skin: Negative for color change, rash and wound. Neurological: Positive for light-headedness and numbness (feet, mild). Negative for dizzine ss, tremors, seizures, syncope, speech difficulty, weakness and headaches. Hematological: Negative for adenopathy. Does not bruise/bleed easily. Psychiatric/Behavioral: Negative for confusion, sleep disturbance and decreased concentrati on. The patient is not nervous/anxious. Objective: Physical Exam Vitals reviewed. Constitutional: He is oriented to person, place, and time. He appears well-developed and we ll-nourished. HENT: Head: Normocephalic and atraumatic. Eyes: Conjunctivae normal and EOM are normal. Neck: Normal range of motion. Neck supple. No thyromegaly present. Cardiovascular: Normal rate, regular rhythm, S1 normal, S2 normal, normal heart sounds and intact distal pulses. PMI is not displaced. Exam reveals no gallop and no friction rub. No murmur heard. Pulmonary/Chest: Effort normal and breath sounds normal. No respiratory distress. He has no wheezes. He has no rales. He exhibits no tenderness. Abdominal: Soft. Bowel sounds are normal. He exhibits no distension and no mass. There is n o tenderness. There is no rebound and no guarding. Musculoskeletal: Normal range of motion. He exhibits no edema. Lymphadenopathy: He has no cervical adenopathy. Neurological: He is alert and oriented to person, place, and time. Skin: Skin is warm and dry. No rash noted. Psychiatric: He has a normal mood and affect. BP 102/60 | Pulse 78 | Resp 18 | Ht 1.88 m (6' 2") | Wt 122.471 kg (270 lb) | BMI 34.67 kg/ m2 ECG: Reviewed by me today shows normal sinus rhythm, heart rate 69, normal ECG. LAB: Abstract on 07/24/2013 Component Date Value Creatinine, External 06/17/2013 1.09 eGFR, External 06/17/2013 >60 LDL Cholesterol, External 06/17/2013 38 Cholesterol, Total, Exte* 06/17/2013 76 HDL Cholesterol, External 06/17/2013 22.3* Triglycerides, External 06/17/2013 80 Cholesterol, Total, Non * 06/17/2013 54 TSH, External 06/17/2013 2.01 ALT, External 06/17/2013 14 AST, External 06/17/2013 19 WBC, External 06/17/2013 13.1* HGB, External 06/17/2013 7.3* HCT, External 06/17/2013 23.0* PLT, External 06/17/2013 142 RBC 06/17/2013 2.07* MCV 06/17/2013 111.4* RDW 06/17/2013 18.6* MCH 06/17/2013 35.0* MCHC 06/17/2013 32.0 NEUTROPHILS % 06/17/2013 15.0* LYMPHOCYTES % 06/17/2013 83.3* MONOCYTES % 06/17/2013 0.3 EOSINOPHILS % 06/17/2013 0.5 BASOPHILS % 06/17/2013 0.8 T3, Total 06/17/2013 94 Free T4 06/17/2013 1.5 NA 06/17/2013 140 K 06/17/2013 4.2 Chloride 06/17/2013 107 CO2 06/17/2013 28 ANION GAP 06/17/2013 9 GLUCOSE 06/17/2013 119 BUN 06/17/2013 18 BUN/CREATININE 06/17/2013 16.5 CALCIUM 06/17/2013 9.0 ALK PHOS 06/17/2013 59 BILIRUBIN TOTAL 06/17/2013 4.0* Total protein 06/17/2013 6.4 ALBUMIN 06/17/2013 4.8 Globulin 06/17/2013 1.6* Albumin/Globulin Ratio 06/17/2013 3.0* VLDL Cholesterol Minesh 06/17/2013 16 Chol/HDL Ratio 06/17/2013 3.4 Hematocrit 27, white count 1.6, platelet count 38, creatinine 0.94, potassium 3.8 checked y esterday. I personally reviewed records from another healthcare provider. Echocardiogram June 2013 interpreted and reviewed by me notable for LVEF at 63%, biatr ial enlargement, mild TR, borderline right-sided systolic pressures, mildly enlarged aortic root, no change compared with patient's prior study of 2004 Assessment: 1. Paroxysmal atrial fibrillation - patient should continue on his current dose of amiodaro ne therapy given anticipated recurrence of significant anemia associated with upcoming cycle s of chemotherapy - perhaps this could be discontinued within 6 months if his CLL stabilizes . We will recheck liver and thyroid parameters in the near future and I will see him in [facility] within 3 months. At this point, patient does not meet criteria for anticoagulation, and even antiplatelet therapy is contraindicated at this point given his thrombocytopenia and s evere anemia. I have prescribed him short-acting diltiazem 60 mg to be taken in the event of recurrence o f paroxysmal A. Fib. We also discussed the importance of good hydration and remaining as act daniel as feasible. Plan: 1. Continue current medical therapy - additional therapy with diltiazem in case of paroxysm al episode of A. Fib. 2. No further cardiovascular diagnostics for now. 3. No antiplatelet therapy until/unless thrombocytopenia and anemia resolved. 4. followup visit in 2-3 months after recheck of LFTs and TFTs. Portions of this report were transcribed using voice recognition software. Every effort wa s made to ensure accuracy; however, inadvertent computerized scoring machine operator errors may be pre sent. I appreciate the opportunity to help with the management of this patient. Barak Redding MD PhD documented in t his encounter Plan of Treatment + +------+--------+ + + | Name | Type | Priori | Associated Diagnoses | Order Schedule | | | | ty | | | + +------+--------+ + + | ECG 12 lead | ECG | Routin | Atrial | Ordered: 07/24/2013 | | | | e | fibrillation (HCC) | | + +------+--------+ + + documented as of this encounter Procedures + +--------+ + + + | Procedure Name | Priori | Date/Time | Associated Diagnosis | Comments | | | ty | | | | + +--------+ + + + | ECG - EXTERNAL SCAN | | 07/24/2013 | | Results for this | | | | 12:00 AM | | procedure are in the | | | | PDT | | results section. | + +--------+ + + + | LABS - EXTERNAL SCAN | | 07/23/2013 | | Results for this | | | | 12:00 AM | | procedure are in the | | | | PDT | | results section. | + +--------+ + + + | LABS - EXTERNAL SCAN | | 06/17/2013 | | Results for this | | | | 12:00 AM | | procedure are in the | | | | PDT | | results section. | + +--------+ + + + documented in this encounter Results ECG - EXTERNAL SCAN (07/24/2013 12:00 AM PDT) + + + | Narrative | Performed At | + + + | Ordered by an | | | unspecified provider. | | + + + + + | Transcriptions | + + | Valentina Owen - 07/24/2013 12:00 AM PDT | + + LABS - EXTERNAL SCAN (07/23/2013 12:00 AM PDT) + + + | Narrative | Performed At | + + + | Ordered by an | | | unspecified provider. | | + + + + + | Transcriptions | + + | Valentina Owen - 07/23/2013 12:00 AM PDT | + + LABS - EXTERNAL SCAN (06/17/2013 12:00 AM PDT) + + + | Narrative | Performed At | + + + | Ordered by an | | | unspecified provider. | | + + + + + | Transcriptions | + + | Cayetano Owenaamir - 06/17/2013 12:00 AM PDT | + + documented in this encounter Visit Diagnoses + + | Diagnosis | + + | Atrial fibrillation (HCC) - Primary Atrial fibrillation | + + documented in this encounter
--- OUTSIDE RECORDS SUMMARY | ~2019-11-10 | XMS | Encounter Summary ---
Demographics + + + | Address | [address] | | | [place] [address] | + + + | Home Phone | | + + + | Preferred Language | Unknown | + + + | Marital Status | | + + + | Orthodox Affiliation | 1028 | + + + | Race | Unknown | + + + | Ethnic Group | Unknown | + + + Author + + + | Author | [facility] | | | and [place] | + + + | Organization | [facility] | | | and [place] | + + + | Address | Unknown | + + + | Phone | Unavailable | + + + Support + + + + + | Name | Relationship | Address | Phone | + + + + + | Jorge Myrick | [place] | [place] | | | | | [address] | | + + + + + | Feng Myrick | ECON | NA | | | | | [place] | | + + + + + Care Team Providers + +------+ + | Care Tumor Registrar Name | Role | Phone | + +------+ + | Massiel Pérez MD | PCP | | + +------+ + Encounter Details +--------+ + + + + | Date | Type | Department | Care Team | Description | +--------+ + + + + | 01/17/ | Orders Only | [facility] | Huseyin Khan, | | | 2017 | | CARDIOLOGY [place] | MD [address] | | | | | [address] | [place] [address] | | | | | [address] | [phone] | | | | | [place], [place] | | | | | | [address] | | | | | | [phone] | | | +--------+ + + + [...] | + +--------+ + + + | NM MYOCARDIAL | Routin | 01/17/2018 | | Results for this | | PERFUSION MULT SPECT | e | 12:33 PM | | procedure are in the | | | | PDT | | results section. | + +--------+ + + + documented in this encounter Results NM Myocardial Perfusion Mult SPECT (01/17/2018 12:33 PM PDT) + + | Specimen | + + | | + + + + + | Impressions | Performed At | + + + | Good exercise tolerance No exercise-induced symptoms or significant | | | arrhythmias Borderline ST segment depression Mildly abnormal SPECT | | | study showing a small but reversible inferobasal defect Normal LV | | | systolic function Low to moderate risk study. Huseyin Khan, | | | , FACC, FACP, FASNC | | + + + + + + | Narrative | Performed At | + + + | [facility] [address], [address] [place], [place] | | | [phone] NUCLEAR TREADMILL STRESS TEST TEST DATE: | | | 01/17/2018 NAME: Jude Myrick : 1950 | | | ORDERING MD: Huseyin Khan MD INDICATION FOR TEST: atrial | | | fibrillation RISK FACTORS: hypertension, tobacco abuse | | | PREVIOUS CARDIAC PROCEDURES: No PROCEDURE: Mainor protocol. Rest | | | dose- 11.6 mCi of Tc-99 Cardiolite given intravenously. Stress dose- | | | At 10:57minutes 35.6 mCi of Tc-99 Cardiolite given intravenously. | | | Effective Dose Equivalent: 23.7 mSv. Predicted exercise time was 8:00 | | | minutes. Predicted Maximum HR: 154. Predicted 85% Max HR: 131. | | | REST DATA: Heart Rate: 71 bpm, BP: 110/73. ECG: Normal STRESS | | | DATA: Exercise Time: 11:20 minutes, Heart Rate achieved: 139 bpm, Max | | | BP: 187/85, RPP: 12189. METS: 13.70. The patient walked to 90% MPHR. | | | Symptoms none The test was terminated due to patient fatigue, ECG: | | | Significant tracing artifact. Occasional PACs and PVCs. Borderline | | | ST segment depression. EJECTION FRACTION: REST EF: 56% STRESS EF: | | | 69%. IMAGING: The quality images are good. No artifacts are seen. | | | SPECT images show a small reversible inferolateral basal defect. | | | There is abnormal thickening in the inferolateral basal region. Gated | | | images show normal wall motion and normal systolic thickening. Post | | | stress ejection fraction 69%.. | | + + + + + | Procedure Note | + + | Vasyl Nj Conversion - 06/19/2019 5:18 PM [facility] [id number] | | , [place], [phone] NUCLEAR TREADMILL STRESS TESTTEST DATE: | | 01/17/2018NAME: Bishop MyrickOB: 1950MRN: [id number] MD: Huseyin Khan MD | | INDICATION FOR TEST: atrial fibrillation RISK FACTORS: hypertension, tobacco abuse | | PREVIOUS CARDIAC PROCEDURES: No PROCEDURE: Mainor protocol. Rest dose- 11.6 mCi of Tc-99 | | Cardiolite given intravenously. Stress dose- At 10:57minutes 35.6 mCi of Tc-99 | | Cardiolite given intravenously. Effective Dose Equivalent: 23.7 mSv. Predicted exercise | | time was 8:00 minutes. Predicted Maximum HR: 154. Predicted 85% Max HR: 131. REST DATA: | | Heart Rate: 71 bpm, BP: 110/73. ECG: Normal STRESS DATA: Exercise Time: 11:20 minutes, | | Heart Rate achieved: 139 bpm, Max BP: 187/85, RPP: 16498. METS: 13.70. The patient | | walked to 90% MPHR. Symptoms none The test was terminated due to patient fatigue, ECG: | | Significant tracing artifact. Occasional PACs and PVCs. Borderline ST segment | | depression. EJECTION FRACTION: REST EF: 56% STRESS EF: 69%. IMAGING:The quality images | | are good. No artifacts are seen. SPECT images show a small reversible inferolateral | | basal defect. There is abnormal thickening in the inferolateral basal region. Gated | | images show normal wall motion and normal systolic thickening. Post stress ejection | | fraction 69%.. IMPRESSION: Good exercise toleranceNo exercise-induced symptoms or | | significant arrhythmiasBorderline ST segment depressionMildly abnormal SPECT study | | showing a small but reversible inferobasal defectNormal LV systolic functionLow to | | moderate risk study. Huseyin Khan MD, FACC, FACP, F[place] | | | |STRESS DATA: Exercise Time: 11:20 minutes, Heart Rate achieved: 139 bpm, Max BP: 187/85, RP P: [id number]. METS: 13.70. The patient walked to 90% MPHR. Symptoms none The test was terminated due to patient fatigue, ECG: | |Significant tracing artifact. Occasional | |PACs and PVCs. Borderline ST segment depression. | | | |EJECTION FRACTION: REST EF: 56% STRESS EF: 69%. | | | |IMAGING: | |The quality images are good. No artifacts are seen. SPECT images show a small reversible in ferolateral basal defect. There is abnormal thickening in the inferolateral basal region. Ga sulema images show normal wall motion | |and normal systolic thickening. Post | | stress ejection fraction 69%.. | | | |IMPRESSION: | |Good exercise tolerance | |No exercise-induced symptoms or significant arrhythmias | |Borderline ST segment depression | |Mildly abnormal SPECT study showing a small but reversible inferobasal defect | |Normal LV systolic function | |Low to moderate risk study. | | | |Huseyin Khan MD, FACC, FACP, FASNC | | | | | + + documented in this encounter Visit Diagnoses Not on filedocumented in this encounter"
--- OUTSIDE RECORDS SUMMARY | ~2019-11-10 | XMS | Clinical Summary ---
Demographics + + + | Address | [address] | | | [place] [address] | + + + | Home Phone | | + + + | Preferred Language | Unknown | + + + | Marital Status | Single | + + + | Yarsanism Affiliation | Unknown | + + + | Race | White | + + + | Ethnic Group | Not or | + + + Author + + + | Author | [facility] | + + + | Organization | [facility] | + + + [...] Team Providers + +------+ + | Care Cotton Cleaner Name | Role | Phone | + +------+ + | Emeterio Campos DO | PCP | | + +------+ + Source Comments MIRANDA is fully live on both [facility] and [facility] Allergies No Known Allergies Medications + + + +---------+------+------+-------+ | Medication | Sig | Dispensed | Refills | Star | End | Statu | | | | | | t | Date | s | | | | | | Date | | | + + + +---------+------+------+-------+ | amiodarone 200 mg | Take 200 mg by mouth | | 0 | | | Activ | | oral tablet | once daily. | | | | | e | + + + +---------+------+------+-------+ | acyclovir 800 mg | Take 800 mg by mouth | | 0 | | | Activ | | oral tablet | once daily. | | | | | e | + + + +---------+------+------+-------+ Active Problems + + + | Problem | Noted Date | + + + | CLL (chronic lymphocytic leukemia) | 09/09/2013 | + + + Social [...] recent travel history available. | + + Last Filed Vital Signs + [...] | | + + + + + Plan of Treatment + + + + + | Health Maintenance | Due Date | Last Done | Comments | + + + + + | Pneumococcal | | | | | vaccination (1 of 2 | 7 | | | | - PCV13) | | | | + + + + + | Influenza (Flu) | | | | | vaccination (#1) | 9 | | | + + + + + Results Not on filefrom Last 3 Months Insurance +-------+--------+ +--------+ + +------+ | Payer | Benefi | Subscriber | Effect | Phone | Address | Type | | | t Plan | ID | daniel | | | | | | / | | Dates | | | | | | Group | | | | | | +-------+--------+ +--------+ + +------+ | [employer] | [employer] | [phone] | 10/29/19 | [phone] | [address] | PPO | | | [place] | | [address] | [address] | [id number] | | | | | | sent | | [place], | | | | | | | | [place] [address] | | +-------+--------+ +--------+ + +------+ + +--------+ +--------+ + + | Guarantor Name | Accoun | Relation to | Date | Phone | Billing Address | | | t Type | Patient | of | | | | | | | | | | + +--------+ +--------+ + + | Jude Myrick | Person | Self [birth year] | [address] | | | al/Fam | | 1951 | [phone] | [place] | | | [place] | | | [address] (Home) | [phone] | + +--------+ +--------+ + +
--- OUTSIDE RECORDS SUMMARY | ~2019-11-10 | XMS | Encounter Summary ---
Demographics + + + | Address | [address] | | | [place] [address] | + + + | Home Phone | | + + + | Preferred Language | Unknown | + + + | Marital Status | | + + + | Christian Affiliation | 1028 | + + + | Race | Unknown | + + + | Ethnic Group | Unknown | + + + Author + + + | Author | [facility] | | | and [place] | + + + | Organization | [facility] | | | and [place] | + + + | Address | Unknown | + + + | Phone | Unavailable | + + + Support + + + + + | Name | Relationship | Address | Phone | + + + + + | Jorge Washington | [place] | [place] | | | | | [address] | | + + + + + | Feng [place] | ECON | NA | | | | | [place] | | + + + + + Care Team Providers + +------+ + | [employer] Name | Role | Phone | + +------+ + | Emeterio Campos DO | PCP | | + +------+ + Encounter Details +--------+ + + + + | Date | Type | Department | Care Team | Description | +--------+ + + + + | 07/04/ | Hospital | [facility] | [place], | | | 2012 - | Encounter | MED CTR ICU [address] | Markell Cano MD [address] | | | | | [place], | [address] [place] | | | 07/15/ | | [place] [address] | [place] [address] | | | 2012 | | [phone] | [phone] | | | | | | | [...] Discharge Summaries Provider Franci, In System - 09/10/2013 4:50 [place] [address] Patient Name: JUDE WASHINGTON Provider: Markell Wilde MD Unit #: [id number] Location : [facility] : 1950 ADMISSION DATE: 07/04/2013 DISCHARGE DATE: 07/15/2013 ADMITTING DIAGNOSES 1. Acute kidney injury. 2. Fever of unknown origin with myelosuppression from chemotherapy formerly known as neutr openic fever ) cycle #1, day #11 of bendamustine/Rituxan chemotherapy. 3. Tumor lysis syndrome. 4. Nausea, vomiting and dehydration. 5. Chronic lymphocytic leukemia. 6. Warm autoimmune hemolytic anemia. DISCHARGE DIAGNOSES 1. ACUTE KIDNEY INJURY, RESOLVED. 2. FEVER OF UNKNOWN ORIGIN WITH MYELOSUPPRESSION (FORMERLY KNOWN NEUTROPENIC FEVER) CYC LE #1, DAY # 20 BENDAMUSTINE/RITUXAN CHEMOTHERAPY, IMPROVED. 3. TUMOR LYSIS SYNDROME, RESOLVED. 4. NAUSEA, VOMITING AND DEHYDRATION, RESOLVED. 5. CHRONIC LYMPHOCYTIC LEUKEMIA, IMPROVED. 6. WARM AUTOIMMUNE HEMOLYTIC ANEMIA, STABLE. 7. ATRIAL FIBRILLATION WITH RAPID VENTRICULAR RESPONSE. CONSULTATIONS: Jerrod Redding MD, Cardiology. PROCEDURES: None. COMPLICATIONS: None. HOSPITAL COURSE: Jude Washington was admitted to [address] on 2012 to manage issues related to his aggressive presentation of chronic lymphoc ytic leukemia, potentially with an acute transformation causing a warm autoimmune hemolytic anemia status post chemotherapy with bendamustine and Rituxan chemotherapy. He was started on intravenous fluids with normal saline at 125 mL an hour, and he was started on antibiot ics with ceftazidime 2 grams intravenously every 12 hours. For his warm autoimmune hemolyti c anemia, he began Solu-Medrol 60 mg intravenously every 12 hours. For nausea and vomiting, he received Reglan and Ativan. For tumor lysis syndrome, he received allopurinol. On 07/05/2013, the second hospital day, the patient remained febrile, with a T-max of 39.1 degrees Celsius. However, his nausea resolved. He complained of fatigue but denied chest p ain or dyspnea. PHYSICAL EXAMINATION VITAL SIGNS: Temperature was 39.1 degrees Celsius and subsequently was 36.6 degrees Celsiu s. Blood pressure is 100/62, pulse was 86, 24-hour input was 2276, 24-hour output was 900 w ith a balance of + 1376 mL. His weight was 123.7 kilograms. HEENT: Sclerae were markedly icteric because of his hemolytic anemia. Otherwise, his oroph arynx is clear. LUNGS: Clear to auscultation. CARDIOVASCULAR: Regular, without murmur. ABDOMEN: Notable for splenomegaly 13 cm below the left costal margin. EXTREMITIES: There was no lower extremity edema. NEUROLOGIC: He was alert and awake, although his mentation remained somewhat slow. LABORATORY DATA: Hemoglobin was 4.3 g/dL, hematocrit was 12.2%, platelet count was 80,000, white count was 700. His BUN was 27, creatinine 1.32 and his uric acid was 5.4. All were s ubstantially improved. He continued on ceftazidime 2 grams intravenously every 8 hours with the improvement in hi s kidney function. He continued on intravenous fluids. He continued on Solu-Medrol for his warm autoimmune hemolytic anemia but could not receive a blood transfusion because of the w arm autoantibody. He continued on Zofran, Reglan and lorazepam for his chemotherapy-induced nausea and vomiting. On 07/06/2013, the third hospital day, he was still complaining of fatigue but had no new fevers or chills, and his nausea had resolved. Temperature was 36.1 degrees Celsius, blood pressure was 108/54, pulse 76, respiratory rate was 20. 24-hour input was 5718, 24-hour out put was 3000. His sclerae were less icteric. His lungs were clear to auscultation. His card iovascular exam was notable for the fact that he had a regular rate. His abdomen exam was n otable for the fact that he had persistent splenomegaly 13 cm below the left costal margin. His skin was very pale but no petechia. He was awake and alert and appeared comfortable, w as ambulating without assistance. Hemoglobin was 4.5 g/dL, hematocrit was 13.1%, platelet c ount was 83,000, white count was 600. GFR was greater than 60 mL/min per 1.73 m sq. Blood c ultures demonstrated no growth. He continued on ceftazidime for his neutropenic fever. He switched to p.r.n. and antiemeti cs for his nausea. He continued on allopurinol and IV fluids for his acute kidney injury du e to tumor lysis syndrome and his Solu-Medrol was decreased to 30 mg intravenously every 12 hours for his warm autoimmune hemolytic anemia again with panagglutinin making a type and cross match impossible, and thus prohibiting a transfusion of blood products. On 07/07/2013 hospital day 4, his chief complaint was fatigue, but he denied fevers, chill s, nausea or vomiting. Denied anorexia. He was complaining of insomnia, likely related to t he steroids. Temperature was 36.3 degrees Celsius, blood pressure is 104/50, pulse 73, resp iratory rate was 18, saturation of oxygen was 96% on room air. A 24-hour input was 3600, 24 -hour output was 3000. His sclerae remained icteric. His cardiovascular exam was notable fo r slow regular rate without rubs, gallops or murmurs. He was awake and alert and orientated . Hemoglobin was 4.9, hematocrit was 14.4%, platelet count was 103,000, white count was 700 . BUN 20, creatinine 1.05. His reticulocyte count had decreased dramatically to 30,000. He continued on ceftazidime for his fever and neutropenia. He continued on allopurinol and IV fluids for his acute kidney injury. Solu-Medrol was decreased to once a day dosing for his warm autoimmune hemolytic anemia. Again, the presence of a panagglutinin prohibited blood t ransfusion, and for his insomnia, I prescribed temazepam. On 07/08/2013, the 5th hospital day, his chief complaint was fatigue and nightmares. He de nied any chest pain or palpitations. He denied any nausea, vomiting or anorexia. Temperatur e was 36.6 degrees Celsius, blood pressure is 110/58, pulse 84, respiratory rate 18, satura tion of oxygen is 100% on room air. A 24-hour input was 3312, 24-hour output was 1450. Scle lisa remained slightly icteric. There was no evidence of oral thrush. The abdominal exam was notable for persistent splenomegaly and his neurological exam, although he was awake and a lert and orientated, he appeared quite fatigued, emotional, despondent and sad. Hemoglobin was 4.2 g/dL, hematocrit was 12.5%, platelet count 95,000, white count 500. BUN is 15, creatinine 0.98. He continued on ceftazidime as well as prophylactic acyclovir for his fever and pancytopenia. He continued on intravenous Solu-Medrol for his hemolytic anemi a. On 07/09/2013, hospital day #6, he denied any nausea, vomiting, or pain. He complained of fatigue but denied any dyspnea or angina. Temperature was 36.6 degrees Celsius, pulse 78, r espiratory rate was 20. Blood pressure is 108/60, saturation of oxygen was 97% on room air. A 24-hour input was 3273, 24-hour output was 2400. His sclerae had become anicteric and hi s abdominal exam was notable for the complete resolution of his splenomegaly. Neurological exam was notable for the fact that he appeared more euthymic and was awake and alert and co mfortable. Hemoglobin was 4.3 g/dL, hematocrit was 12.7%, platelet count was 109,000. His w marcie count was 700 with an absolute neutrophil count of 14. BUN was 12 , creatinine was 0.7 9. His bilirubin had decreased to 2.0. His LDH had decreased to 198. His reticulocyte count was 64,410 where previously it was 316,680. All were indicators that his warm autoimmune h emolytic anemia was improving. On 07/10/2013, the 7th hospital day, he still had fatigue and insomnia, but he denied feve rs or chills , nausea or vomiting. Temperature was 36.3 degrees Celsius, pulse 59, blood pr essure 111/75, respiratory rate 16, saturation of oxygen is 95% on room air. A 24-hour inpu t was 4287, 24-hour output was 2150. His sclerae remained anicteric. His abdominal exam was notable for the fact that he had no splenomegaly. He had developed some trace pedal edema. On neurological exam, he was fatigued, but otherwise comfortable. His voice was articulate and moved all extremities well. Hemoglobin was 4.7 g/dL , hematocrit was 13.6%, platelet c ount 118,000, white count 800. However, his neutrophil count was 0. Because of his prolonge d pancytopenia following chemotherapy, G-CSF was added to his ceftazidime and acyclovir. He continued on intravenous Solu-Medrol for warm autoimmune hemolytic anemia. On 07/11/2013, hospital day #8, he complained of insomnia and nightmares. He did have fati nikko but denied nausea, vomiting, pain or fevers or chills. Temperature was 36.1 degrees Sofiya sius, blood pressure was 132/87, pulse 54, respiratory rate 20, saturation 99% on room air, 24-hour input was 6259 , 24-hour output was 3050. Sclerae remained anicteric. His splenome dulce had resolved and did not recur. He had trace pedal edema, and he appeared fatigued but otherwise was awake and alert. Hemoglobin was 5.1 g/dL, hematocrit 15%, platelet count 124 ,000, white count 900, absolute neutrophil count was 13. He continued on ceftazidime and G- CSF for his pancytopenia and Benadryl was offered to help him sleep. On 07/12/2013, the 9th hospital day, he denied any fevers, chills, night sweats, nausea, v omiting. He still had fatigue, especially with exertion and complained that he had nightmar es. Temperature was 37.4 degrees Celsius, pulse was 86, blood pressure 127/64, respiratory rate 18, saturation of oxygen 100% room air. He was alert and orientated. Skin exam was not able for the absence of any petechiae. His white count was 700 with an absolute neutrophil count of 30. He continued on Acyclovir, allopurinol , ceftazidime and Neupogen. On 07/13/2013, hospital day #10, the patient developed a rapid heart rate and the oncologi st, Dr. Mills, was alerted. An EKG was obtained that demonstrated atrial fibrillation with rapid ventricular response. Nevertheless, in spite of only feeling lightheaded, he denied a ny chest pains or palpitations. Pulse ranged from between 126 to 155, blood pressure was 10 2/47 to 85/43. He was transferred to the intensive care unit where Cardizem and digoxin wer e administered intravenously. He continued on Neupogen, Acyclovir, ceftazidime, Solu-Medrol and temazepam. He was alert and orientated x3, but his heart rate was irregular and rapid. White count was 600, hemoglobin was 5.3 g/dL, platelet count 117,000, absolute neutrophil count was 100. Serial troponin measurements were notable for the absence of any cardiac inj ury. Dr. Redding from Cardiology was consulted. Cardiac echocardiogram was obtained and demo nstrated normal left ventricular size and systolic function, ejection fraction 63%, biatria l enlargement, mild tricuspid regurgitation, borderline right-sided systolic pressures, enl arged aortic root and ascending aorta, baseline atrial fibrillation with controlled ventricu lar rate. Dr. Redding recommended that the patient began treatment with amiodarone. On 07/14/2013, the 11 hospital day, he denied any nausea, vomiting, pain. He denied any chest pains , palpitations or dyspnea, denied any fevers or chills. Temperature was 36.8 de grees Celsius, blood pressure 124/54, respiratory rate 20, saturation was 100% on room air. His pulse was 84 on telemetry and it was notable for the fact that he had been in normal s inus rhythm for 24 hours. A 24-hour input was 1610 and output was 900. Sclerae remained ani cteric. His cardiovascular exam was notable for the fact that his heart rate was regular, n o murmur. His abdomen was notable for the complete absence of splenomegaly. Skin exam was n otable for the fact that there were no petechiae. Neurologically, he was awake and alert an d comfortable. Hemoglobin was 5.5, hematocrit was 16.4%, platelet count was 127,000, white count was 600. Review of the peripheral blood was notable for occasional neutrophils. He co ntinued on ceftazidime. However, his Neupogen was boosted to 960 mcg. He continued on amioda felice for his atrial fibrillation and continued on telemetry in the hospital. On 07/15/2013, the 12th hospital day, the patient denied any fevers, chills, nausea, vomit ing, chest pain, palpitations, or dyspnea. Temperature was 36.8 degrees Celsius, blood pres sure was 113/63, respiratory rate was 18, saturation of oxygen was 97% on room air. His pul se was 85 and regular. Sclerae remained anicteric. Oropharynx was notable for the absence o f any oral thrush. Cardiovascular exam was notable for the fact that he now had a regular r ate and rhythm without rubs, gallops or murmurs. Extremities were notable for the absence of any pedal edema. He was awake and alert and totally independent of all his activity in the intensive care unit; however , he voiced hi s advancing frustration with the length of his hospitalization and therefore I engaged the patient in some shared informed decision making about the fact that he remained neutropenic on the day of discharge with a white count of 600 and a neutrophil count of 0. He remained anemic with a hemoglobin of 5.2 and he was at risk of having complications due to his neutr openia after discharge. However, the patient was willing to cooperate with a discharge plan that included both oral Augmentin, oral posaconazole, oral Acyclovir and allopurinol as we ll as to return to see Dr. Wilde every day in his clinic at [facility] in [place], [place] in order to receive additional administrations of Neupogen. The patient wa s willing to comply with the plan and also was willing to contact me immediately if he had any fever over 101 degrees Fahrenheit. He is reliable and therefore Jude and I agree that adams acevedo would be discharged home. DISCHARGE MEDICATIONS 1. Acyclovir 800 mg orally twice daily. 2. Allopurinol 300 mg orally once daily. 3. Amiodarone 200 mg orally once daily. 4. Augmentin 875/125 one tablet orally twice daily. 5. Ativan 1 mg every 4 hours as needed for nausea, anxiety or restlessness. 6. Posacona zole (Noxafil) 40 mg per mL solution, 5 mL orally 3 times a day with food. 7. Zofran 8 mg ODT 1 tablet every 8 hours as needed for nausea. The followup plan is for Jude to see Dr. Wilde tomorrow at the [facility] in [place], [place] for ongoing daily followup and additional administration of Neupogen until his neutrophil count recovers. DICTATED BY: Markell Wilde MD Oncology JOB #: [id number] EXT JOB #:[id number] <<Signature on File>> Markell lamas MD09/13/13 0801 < documented in this encounter Plan of Treatment Not on filedocumented as of this encounter Procedures + +--------+ + + + | Procedure Name | Priori | Date/Time | Associated Diagnosis | Comments | | | ty | | | | + +--------+ + + + | CBC WITH | Routin | 07/15/2013 | | Results for this | | DIFFERENTIAL | e | 4:52 AM | | procedure are in the | | | | PDT | | results section. | + +--------+ + + + | URIC ACID | Routin | 07/15/2013 | | Results for this | | | e | 4:52 AM | | procedure are in the | | | | PDT | | results section. | + +--------+ + + + | LACTATE | Routin | 07/15/2013 | | Results for this | | DEHYDROGENASE | e | 4:52 AM | | procedure are in the | | | | PDT | | results section. | + +--------+ + + + | COMPREHENSIVE | Routin | 07/15/2013 | | Results for this | | METABOLIC PANEL | e | 4:52 AM | | procedure are in the | | | | PDT | | results section. | + +--------+ + + + | CBC WITH | Routin | 07/14/2013 | | Results for this | | DIFFERENTIAL | e | 8:32 AM | | procedure are in the | | | | PDT | | results section. | + +--------+ + + + | ECHO COMPLETE | Routin | 07/13/2013 | | Results for this | | | e | 2:23 PM | | procedure are in the | | | | PDT | | results section. | + +--------+ + + + | TSH | Routin | 07/13/2013 | | Results for this | | | e | 8:07 AM | | procedure are in the | | | | PDT | | results section. | + +--------+ + + + | TROPONIN I | Routin | 07/13/2013 | | Results for this | | | e | 6:32 AM | | procedure are in the | | | | PDT | | results section. | + +--------+ + + + | CBC WITH | Routin | 07/13/2013 | | Results for this | | DIFFERENTIAL | e | 6:32 AM | | procedure are in the | | | | PDT | | results section. | + +--------+ + + + | MAGNESIUM | Routin | 07/13/2013 | | Results for this | | | e | 6:32 AM | | procedure are in the | | | | PDT | | results section. | + +--------+ + + + | LACTATE | Routin | 07/13/2013 | | Results for this | | DEHYDROGENASE | e | 6:32 AM | | procedure are in the | | | | PDT | | results section. | + +--------+ + + + | COMPREHENSIVE | Routin | 07/13/2013 | | Results for this | | METABOLIC PANEL | e | 6:32 AM | | procedure are in the | | | | PDT | | results section. | + +--------+ + + + | CBC WITH | Routin | 07/12/2013 | | Results for this | | DIFFERENTIAL | e | 6:55 AM | | procedure are in the | | | | PDT | | results section. | + +--------+ + + + | CBC WITH | Routin | 07/11/2013 | | Results for this | | DIFFERENTIAL | e | 7:13 AM | | procedure are in the | | | | PDT | | results section. | + +--------+ + + + | MANUAL DIFFERENTIAL | Routin | 07/10/2013 | | Results for this | | | e | 6:43 AM | | procedure are in the | | | | PDT | | results section. | + +--------+ + + + | CBC WITH | Routin | 07/10/2013 | | Results for this | | DIFFERENTIAL | e | 6:43 AM | | procedure are in the | | | | PDT | | results section. | + +--------+ + + + | MANUAL DIFFERENTIAL | Routin | 07/09/2013 | | Results for this | | | e | 6:57 AM | | procedure are in the | | | | PDT | | results section. | + +--------+ + + + | RETIC COUNT | Routin | 07/09/2013 | | Results for this | | | e | 6:57 AM | | procedure are in the | | | | PDT | | results section. | + +--------+ + + + | CBC WITH | Routin | 07/09/2013 | | Results for this | | DIFFERENTIAL | e | 6:57 AM | | procedure are in the | | | | PDT | | results section. | + +--------+ + + + | LACTATE | Routin | 07/09/2013 | | Results for this | | DEHYDROGENASE | e | 6:57 AM | | procedure are in the | | | | PDT | | results section. | + +--------+ + + + | COMPREHENSIVE | Routin | 07/09/2013 | | Results for this | | METABOLIC PANEL | e | 6:57 AM | | procedure are in the | | | | PDT | | results section. | + +--------+ + + + | MANUAL DIFFERENTIAL | Routin | 07/08/2013 | | Results for this | | | e | 6:52 AM | | procedure are in the | | | | PDT | | results section. | + +--------+ + + + | RETIC COUNT | Routin | 07/08/2013 | | Results for this | | | e | 6:52 AM | | procedure are in the | | | | PDT | | results section. | + +--------+ + + + | CBC WITH | Routin | 07/08/2013 | | Results for this | | DIFFERENTIAL | e | 6:52 AM | | procedure are in the | | | | PDT | | results section. | + +--------+ + + + | BASIC METABOLIC | Routin | 07/08/2013 | | Results for this | | PANEL | e | 6:52 AM | | procedure are in the | | | | PDT | | results section. | + +--------+ + + + | RETIC COUNT | Routin | 07/07/2013 | | Results for this | | | e | 6:48 AM | | procedure are in the | | | | PDT | | results section. | + +--------+ + + + | CBC WITH | Routin | 07/07/2013 | | Results for this | | DIFFERENTIAL | e | 6:48 AM | | procedure are in the | | | | PDT | | results section. | + +--------+ + + + | BASIC METABOLIC | Routin | 07/07/2013 | | Results for this | | PANEL | e | 6:48 AM | | procedure are in the | | | | PDT | | results section. | + +--------+ + + + | CBC WITH | Routin | 07/06/2013 | | Results for this | | DIFFERENTIAL | e | 6:35 AM | | procedure are in the | | | | PDT | | results section. | + +--------+ + + + | BASIC METABOLIC | Routin | 07/06/2013 | | Results for this | | PANEL | e | 6:35 AM | | procedure are in the | | | | PDT | | results section. | + +--------+ + + + | CBC WITH | Routin | 07/05/2013 | | Results for this | | DIFFERENTIAL | e | 6:57 AM | | procedure are in the | | | | PDT | | results section. | + +--------+ + + + | URIC ACID | Routin | 07/05/2013 | | Results for this | | | e | 6:57 AM | | procedure are in the | | | | PDT | | results section. | + +--------+ + + + | BASIC METABOLIC | Routin | 07/05/2013 | | Results for this | | PANEL | e | 6:57 AM | | procedure are in the | | | | PDT | | results section. | + +--------+ + + + documented in this encounter Results CBC with Differential (07/15/2013 4:52 AM PDT) + + + + + [...] + + + + | WBC | 0.6 (LL)Comment: @VALUE | 4.0 - 11.0 K/uL | [facility] | | | | CONSISTENT WITH PREVIOUS | | [facility] | | | | RESULTS | | [facility] | | | | | | C[facility] - | | | | | | LABORATORY | | + + + + + + | RBC | 1.40 (L) | 4.30 - 5.70 | [facility] [...] | CONSISTENT WITH PREVIOUS | gm/dL | [facility] | | | | RESULTS | | MEDICAL | | | | | | CENTER - | | | | | | LABORATORY | | + + + + + + | Hematocrit | 15.9 (LL)Comment: @VALUE | 40.0 - 51.0 % | [facility] | | | | CONSISTENT WITH | | [facility] | | | | PREVIOUS RESULTS | | MEDICAL | | | | | | CENTER - | | | | | | LABORATORY | | + + + + + + | MCV | 113.3 (H)Comment: @VALUE | 83.0 - 101.0 fL | [facility] | | | | CONSISTENT WITH | | [facility] | | | | PREVIOUS RESULTS | | MEDICAL | | | | | | CENTER - | | | | | | LABORATORY | | + + + + + + | MCH | 36.9 (H) | 28.0 - 35.0 pg | [facility] | | | | | | [facility] | | | | | | [facility]ICAL | | | | | | [facility] - | | | | | | LABORATORY | | + + + + + + | MCHC | 32.6 | 32.0 - 36.0 | [facility] | | | | | g/dL | [facility] | | | | | [...] + + + + | Platelet | 118 (L) | 140 - 440 K/uL | [facility] | | | Count | | | [facility] | | | | | | MEDICAL | | | | | | CENTER - | | | | | | LABORATORY | | + + + + + + | % | 5.1 (L) | 45 - 75 % | [facility] | | | Neutrophils | | | [facility] | | | | | | MEDICAL | | | | | | CENTER - | | | | | | LABORATORY | | + + + + + + | % | 91.1 (H) | 20 - 45 % | [facility] | | | Lymphocytes | | | [facility] | | | | | | MEDICAL | | | | | | CENTER - | | | | | | LABORATORY | | + + + + + + | % Monocytes | 3.8 (L) | 4 - 12 % | [...] + + + | Absolute | 0.0 (L) | 1.5 - 6.6 K/uL | [facility] | | | Neutrophils | | | [facility] | | | | | | MEDICAL | | | | | | CENTER - | | | | | | LABORATORY | | + + + + + + | Absolute | 0.6 | 0.6 - 3.2 K/uL | [facility] | | | Lymphocytes | | | [facility] | | | | | | MEDICAL | | | | | | CENTER - | | | | | | LABORATORY | | + + + + + + | Absolute | 0.0 | 0.0 - 1.0 K/uL | [facility] [...] + + | SUSPECTED | 1 (H)Comment: System | | [facility] | | | PROBLEM IS: | Error, Specimen | | [facility] | | | | Repeated, Review Results | | MEDICAL | | | | TEST REPEATED, | | CENTER - | | | | CRITICAL RESULT-PHONE | | LABORATORY | | | | RESULTS PERFORM SMEAR | | | | | | REVIEW FOR DIFF % | | | | | | PERFORM SMEAR REVIEW | | | | | | FOR MCV/RDW PERFORM | | | | | | SMEAR REVIEW @VALUE | | | | | | CONSISTENT WITH PREVIOUS | | | | | | RESULTS | | | | + + + + + + + + | Specimen | + + | | + + + + + + + | Performing | Address | City/State/Zipcode | Phone Number | | Organization | | | | + + + + + | [facility] | [address] | [place] | [phone] | | [facility] | | [address] | | | - LABORATORY | | | | + + + + + | [facility] | [address] | [place] | | | [facility] | | [address] | | | - LABORATORY | | | | + + + + + Comprehensive Metabolic Panel (07/15/2013 4:52 AM PDT) + + + + + + | Component | Value | Ref Range | Performed | Pathologist | | | | | At | Signature | + + + + + + | Glucose | 108 | 70 - 109 mg/dL | [facility] [...] + + + + + + | Alkaline | 45 | 40 - 110 IU/L | [facility] | | | Phosphatase | | | [facility] | | | | | | [facility] | | | | | | CENTER - | | | | | | LABORATORY | | + + + + + + | AST | 13 | 10 - 42 IU/L | [facility] | | | | | | [facility] | | | | | | [facility] | | | | | | CENTER - | | | | | | LABORATORY | | + + + + + + | ALT | 17 | 6 - 45 IU/L | [facility] | | | | | | [facility] | | | | | | MED[facility] | | | | | | CENTER - | | | | | | LABORATORY | | + + + + + + | Bilirubin | 2.2 (H) | 0.2 - 1.0 mg/dL | [facility] | | | Total | | | [facility] | | | | | | MEDICAL | | | | | | CENTER - | | | | | | LABORATORY | | + + + + + + | Total | 4.5 (L) | 6.0 - 7.8 gm/dL | [facility] | | | Protein | | | [facility] | | | | | | MEDICAL | | | | | | CENTER - | | | | | | LABORATORY | | + + + + + + | Albumin | 2.9 (L) | 3.2 - 5.0 gm/dL | [facility] | | | | | | [facility] | | | | | | MEDICAL | | | | | | CENTER - | | | | | | LABORATORY | | + + + + + + | BUN | 13 | 7 - 18 mg/dL | [facility] | | | | | | [facility] | | | | | | MEDICAL | | | | | | CENTER - | | | | | | LABORATORY | | + + + + + + | Creatinine | 0.80 | 0.60 - 1.30 | [facility] | | | | | mg/dL | [facility] | | | [facility] | [facility] | | | | | | CENTER - | | | | | | LABORATORY | | + + + + + + | Estimated | >60Comment: For | >60 mL/min/A | [facility] | [...] + + + + | BUN/Creatin | 16.3 | 12 - 20 | [facility] | | | ine Ratio | | | [facility] | | | | | | [facility] | | | | | | CENTER - | | | | | | LABORATORY | | + + + + + + | Na | 138 | 136 - 149 mEq/L | [facility] | | | | | [...] + + + + | Cl | 108 | 98 - 109 mEq/l | [facility] | | | | | | [facility] | | | | | | MEDICAL | | | | | | CENTER - | | | | | | LABORATORY | | + + + + + + | CO2 | 26 | 24 - 31 mEq/L | [facility] | | | | | | [facility] | | | | | | [facility]ICAL | | | | | | CENTER - | | | | | | LABORATORY | | + + + + + + | Anion Gap | 7.9 | 6.0 - 17.0 | [facility] | [...] [address] | [place] | [phone] | | [facility] | | [address] | | | - LABORATORY | | | | + + + + + | [facility] | [address] | [place] | | | [facility] | | [address] | | | - LABORATORY | | | | + + + + + Lactate Dehydrogenase (07/15/2013 4:52 AM PDT) + +-------+ + + + | Component | Value | Ref Range | Performed | Pathologist | | | | | At | Signature | + +-------+ + + + | LDH TOTAL | 149 | 91 - 180 IU/L | [facility] | | | | | | [facility] [...] + | [facility] | [address] | [place] | [phone] | | [facility] | | [address] | | | - LABORATORY | | | | + + + + + | [facility] | [address] | [place], [place] | | | [facility] | | [address] | | | - LABORATORY | | | | + + + + + Uric Acid (07/15/2013 4:52 AM PDT) + +-------+ + + + | Component | Value | Ref Range | Performed | Pathologist | | | | | At | Signature | + +-------+ + + + | Uric Acid | 2.9 | 2.6 - 7.2 mg/dL | [facility] [...] + | [facility] | [address] | [place] | [phone] | | [facility] | | [address] | | | - LABORATORY | | | | + + + + + | [facility] | [address] | [place] | | | [facility] | | [address] | | | - LABORATORY | | | | + + + + + CBC with Differential (07/14/2013 8:32 AM PDT) + + + + + [...] + + + + | WBC | 0.6 (LL)Comment: @VALUE | 4.0 - 11.0 K/uL | [facility] | | | | CONSISTENT WITH PREVIOUS | | [facility] | | | | RESULTS | | MEDICAL | | | | | | CENTER - | | | | | | LABORATORY | | + + + + + + | RBC | 1.46 (L) | 4.30 - 5.70 | [facility] [...] | CONSISTENT WITH PREVIOUS | gm/dL | [facility] | | | | RESULTS | | MEDICAL | | | | | | CENTER - | | | | | | LABORATORY | | + + + + + + | Hematocrit | 16.4 (LL) | 40.0 - 51.0 % | [facility] | | | | | | [facility] | | | | | | MEDICAL | | | | | | CENTER - | | | | | | LABORATORY | | + + + + + + | MCV | 112.6 (H) | 83.0 - 101.0 fL | [...] + + + + | MCHC | 33.6 | 32.0 - 36.0 | [facility] | | | | | g/dL | [facility] | | | | | | MEDICAL | | | | | | CENTER - | | | | | | LABORATORY | | + + + + + + | RDW-CV | 20.0 (H) | <15.0 % | [facility] | | | | | | [facility] | | | | | | MEDICAL | | | | | | CENTER - | | | | | | LABORATORY | | + + + + + + | Platelet | 127 (L) | 140 - 440 K/uL | [facility] | | | Count | | | [facility] | | | | | | MEDICAL | | | | | | CENTER - | | | | | | LABORATORY | | + + + + + + | % | 9.4 (L) | 45 - 75 % | [facility] | | | Neutrophils | | | [facility] | | | | | | MEDICAL | | | | | | CENTER - | | | | | | LABORATORY | | + + + + + + | % | 89.3 (H)Comment: @VALUE | 20 - 45 % | [facility] | | | Lymphocytes | CONSISTENT WITH PREVIOUS | | [facility] | | | | RESULTS | | MEDICAL | | | | | | CENTER - | | | | | | LABORATORY | | + + + + + + | % Monocytes | 0.6 (L) | 4 - 12 % | [facility] | | | | | | [facility] | | | | | | MEDICAL | | | | | | CENTER - | | | | | | LABORATORY | | + + + + + + | % | 0.3 | 0 - 5 % | [facility] | | | Eosinophils | | | [facility] | | | | | | MEDICAL | | | | | | CENTER - | | | | | | LABORATORY | | + + + + + + | % Basophils | 0.4 | 0 - 1 % | [facility] | | | | | | [facility] | | | | | | MEDICAL | | | | | | CENTER - | | | | | | LABORATORY | | + + + + + + | Absolute | 0.1 (L) | 1.5 - 6.6 K/uL | [facility] | | | Neutrophils | | | [facility] | | | | | | MEDICAL | | | | | | CENTER - | | | | | | LABORATORY | | + + + + + + | Absolute | 0.5 (L) | 0.6 - 3.2 K/uL | [facility] | | | Lymphocytes | | | [facility] | | | | | | MEDICAL | | | | | | CENTER - | | | | | | LABORATORY | | + + + + + + | Absolute | 0.0 | 0.0 - 1.0 K/uL | [facility] [...] + + | SUSPECTED | 1 (H)Comment: System | | [facility] | | | PROBLEM IS: | Error, Specimen | | [facility] | | | | Repeated, Review Results | | MEDICAL | | | | TEST REPEATED, | | CENTER - | | | | CRITICAL RESULT-PHONE | | LABORATORY | | | | RESULTS PERFORM SMEAR | | | | | | REVIEW FOR DIFF % | | | | | | PERFORM SMEAR REVIEW | | | | | | FOR MCV/RDW PERFORM | | | | | | SMEAR REVIEW Variant | | | | | | LY Undefined Pop: D | | | | | | Low Events: N | | | | + + + + + + + + | Specimen | + + | | + + + + + + + | Performing | Address | City/State/Zipcode | Phone Number | | Organization | | | | + + + + + | [facility] | [address] | [place], [place] | [phone] | | [facility] | | [address] | | | - LABORATORY | | | | + + + + + | [facility] | [address] | [place], [place] | | | [facility] | | [address] | | | - LABORATORY | | | | + + + + + ECHO Complete (07/13/2013 2:23 PM PDT) + + | Specimen | + + | | + + + + + | Narrative | Performed At | + + + | [facility] | [place] | | Department [address] [facility] | [facility] | | [ rep [phone]] [ rep [facility] | | [facility]] Signed | - IMAGING | | | | | Patient Name: JUDE WASHINGTON Physician: | | | ELICIA.Samuel : 1950 Age: 62 Sex: M Unit #: [id number] | | | Exam Date: 07/13/13 Location: [address] [place] [address] | | | Report #: [id number] Page: | | | %(RAD)RES..mtdd.print.filter("pg") of %(RAD) | | | RES..mtdd.print.filter("tpg") | | | | | | Accession Number: [id number] | | | E C H O C A R D I O G R A P H Y R E P O R T | | | HEIGHT: 6'2" WEIGHT: 279# | | | STUDENT [employer]CIAL [employer] COUNSELOR: PRABHAKAR DAY DR: VICENTE KEN DR: | | | MAXOOD DIAGNOSIS: NEW A-FIB | | | | | | M E A S U R E M E N T S | | | Aortic Root: 42 mm LV | | | Diameter-diastole: 59 mm Aortic Cusp Sep: 26 mm | | | LV Diameter--systole: mm LA: | | | 55 mm Fractional Shortenin % | | | IVS--diastole: 13 mm PFV Aortic Valve: | | | IVS--systole: 20 mm MPG Mitral | | | Valve: mmHg LVPW--diastole: 12 mm | | | PFV TR Jet: 2.30 m/s LVPW--systole: | | | 18 mm RA/RV PP.1 mmHg | | | | | | ECHOCARDIOGRAM, 07/13/2013 REFERRING PHYSICIAN: | | | Ludwig Levin MD INDICATION: Atrial fibrillation. | | | TECHNICAL DATA: The quality of the study is good. This is a | | | complete transthoracic echocardiogram including 2-D / M-mode / | | | Doppler / color-flow Doppler analysis. HEMODYNAMICS: The | | | patient is in underlying atrial fibrillation throughout the procedure | | | with a ventricular rate in the upper 80s. RESULTS: | | | CHAMBERS: The left ventricle is of normal end diastolic and end | | | systolic dimensions with normal wall thickness and regional wall | | | motion. LVEF is calculated at 63%. Left atrium is mild to | | | moderately enlarged. Right atrium is also mildly enlarged. Right | | | ventricle is of normal size and systolic function with normal wall | | | thickness. VALVES: Aortic valve is a mildly sclerotic | | | trileaflet valve with adequate opening. There is no significant | | | stenosis or insufficiency noted. Mitral valve is mildly thickened | | | with mild annular calcification and trace regurgitation. Tricuspid | | | valve shows mild insufficiency with a peak velocity of 3.3 meters | | | per second consistent with RV systolic pressures of 26-31 mmHg. | | | Pulmonic valve is normal. MISCELLANEOUS: Aortic valve | | | is enlarged at 42 mm. Ascending aorta is also mildly enlarged at 40 | | | mm. Pericardium is normal without an epicardial effusion. IVC | | | is normal. DIASTOLOGY: Diastolic parameters are not | | | measured due to baseline dysrhythmia. IMPRESSION: 1. | | | NORMAL LV SIZE AND SYSTOLIC FUNCTION WITH AN LVEF OF 63%. | | | 2. BIATRIAL ENLARGEMENT. 3. MILD TRICUSPID | | | REGURGITATION. 4. BORDERLINE RIGHT-SIDED SYSTOLIC | | | PRESSURES. 5. ENLARGED AORTIC ROOT AND ASCENDING AORTA. | | | 6. BASELINE ATRIAL FIBRILLATION WITH CONTROLLED | | | VENTRICULAR RATE. Dictated Date/Time: 07/13/2013 14:23 | | | Transcribed Date/Time: 07/13/2013 15:27 [employer] Mill[employer]: | | | <<Signature on File>> | | | S | | | Jose Redding MD07/14/13 [id number] <Electronically signed by Mckenna Cancino | | | Miladis ORTEGA> Mckenna Redding MD 07/13/13 1423 | | | [employer] Mill[employer]: Kristian Katvnwlolqcyh52/15/13 1527 | | | | | + + + + + + + + | Performing | Address | City/State/Zipcode | Phone Number | | Organization | | | | + + + + + | [facility] | [address] | [place] | [phone] | | [facility] | | [address] | | | - IMAGING | | | | + + + + + TSH (07/13/2013 8:07 AM PDT) + + + + + + | Component | Value | Ref Range | Performed | Pathologist | | | | | At | Signature | + + + + + + | TSH | 1.24Comment: Testing | 0.34 - 5.60 | [facility] | | | | performed on the Rad[facility] | uIU/mL | [facility] | | | | [place] [facility] | | MEDICAL | | | | Analyzer. | | CENTER - | | | | | | LABORATORY | | + + + + + + + + | Specimen | + + | | + + + + + + + | Performing | Address | City/State/Zipcode | Phone Number | | Organization | | | | + + + + + | [facility] | [address] | [place] | [phone] | | [facility] | | [address] | | | - LABORATORY | | | | + + + + + | [facility] | [address] | [place], [place] | | | [facility] | | [address] | | | - LABORATORY | | | | + + + + + CBC with Differential (07/13/2013 6:32 AM PDT) + + + + + + | Component | Value | Ref Range | Performed | Pathologist | | | | | At | Signature | + + + + + + | MANUAL | NO | | [facility] | | | [facility] | | | [facility] | | | L ? | | | MEDICAL | | | | | | CENTER - | | | | | | LABORATORY | | + + + + + + | WBC | 0.6 (LL)Comment: VALUE | 4.0 - 11.0 K/uL | [facility] | | | | CONSISTENT WITH PREVIOUS | | [facility] | | | | RESULTS | | MEDICAL | | | | | | CENTER - | | | | | | LABORATORY | | + + + + + + | RBC | 1.43 (L) | 4.30 - 5.70 | [facility] | | | | | M/uL | [facility] | | | | | | MEDICAL | | | | | | CENTER - | | | | | | LABORATORY | | + + + + + + | Hemoglobin | 5.3 (LL)Comment: VALUE | 13.5 - 18.0 | [facility] | | | | CONSISTENT WITH PREVIOUS | gm/dL | [facility] | | | | RESULTS | | MEDICAL | | | | | | CENTER - | | | | | | LABORATORY | | + + + + + + | Hematocrit | 16.2 (LL)Comment: VALUE | 40.0 - 51.0 % | [facility] | | | | CONSISTENT WITH PREVIOUS | | [facility] | | | | RESULTS | | MEDICAL | | | | | | CENTER - | | | | | | LABORATORY | | + + + + + + | MCV | 113.1 (H)Comment: @VALUE | 83.0 - 101.0 fL | [facility] | | | | CONSISTENT WITH | | [facility] | | | | PREVIOUS RESULTS | | MEDICAL | | | | | | CENTER - | | | | | | LABORATORY | | + + + + + + | MCH | 37.1 (H) | 28.0 - 35.0 pg | [facility] | | | | | | [facility] | | | | | | MEDICAL | | | | | | CENTER - | | | | | | LABORATORY | | + + + + + + | MCHC | 32.8 | 32.0 - 36.0 | [facility] | | | | | g/dL | [facility] | | | | | | MEDICAL | | | | | | CENTER - | | | | | | LABORATORY | | + + + + + + | RDW-CV | 19.6 (H) | <15.0 % | [facility] | | | | | | [facility] | | | | | | MEDICAL | | | | | | CENTER - | | | | | | LABORATORY | | + + + + + + | Platelet | 117 (L) | 140 - 440 K/uL | [facility] | | | Count | | | [facility] | | | | | | MEDICAL | | | | | | CENTER - | | | | | | LABORATORY | | + + + + + + | % | 14.8 (L) | 45 - 75 % | [facility] | | | Neutrophils | | | [facility] | | | | | | MEDICAL | | | | | | CENTER - | | | | | | LABORATORY | | + + + + + + | % | 84.2 (H) | 20 - 45 % | [facility] | | | Lymphocytes | | | [facility] | | | | | | MEDICAL | | | | | | CENTER - | | | | | | LABORATORY | | + + + + + + | % Monocytes | 0.7 (L) | 4 - 12 % | [...] + + + | % Basophils | 0.1 | 0 - 1 % | [facility] | | | | | | [facility] | | | | | | MEDICAL | | | | | | CENTER - | | | | | | LABORATORY | | + + + + + + | Absolute | 0.1 (L) | 1.5 - 6.6 K/uL | [facility] | | | Neutrophils | | | [facility] | | | | | | MEDICAL | | | | | | CENTER - | | | | | | LABORATORY | | + + + + + + | Absolute | 0.5 (L) | 0.6 - 3.2 K/uL | [facility] | | | Lymphocytes | | | [facility] | | | | | | MEDICAL | | | | | | CENTER - | | | | | | LABORATORY | | + + + + + + | Absolute | 0.0 | 0.0 - 1.0 K/uL | [facility] [...] + | [facility] | [address] | [place] | [phone] | | [facility] | | [address] | | | - LABORATORY | | | | + + + + + | [facility] | [address] | [place], [place] | | | [facility] | | [address] | | | - LABORATORY | | | | + + + + + Comprehensive Metabolic Panel (07/13/2013 6:32 AM PDT) + + + + + + | Component | Value | Ref Range | Performed | Pathologist | | | | | At | Signature | + + + + + + | Glucose | 116 (H) | 70 - 109 mg/dL | [...] | | | | mg/dL | [facility] | | | | | | MEDICAL | | | | | | CENTER - | | | | | | LABORATORY | | + + + + + + | Alkaline | 46 | 40 - 110 IU/L | [facility] | | | Phosphatase | | | [facility] | | | | | | MEDICAL | | | | | | CENTER - | | | | | | LABORATORY | | + + + + + + | AST | 14 | 10 - 42 IU/L | [facility] | | | | | | [facility] | | | | | | MEDICAL | | | | | | CENTER - | | | | | | LABORATORY | | + + + + + + | ALT | 19 | 6 - 45 IU/L | [facility] | | | | | | [facility] | | | | | | MEDICAL | | | | | | CENTER - | | | | | | LABORATORY | | + + + + + + | Bilirubin | 2.8 (H) | 0.2 - 1.0 mg/dL | [facility] | | | Total | | | [facility] | | | | | | MEDICAL | | | | | | CENTER - | | | | | | LABORATORY | | + + + + + + | Total | 4.6 (L) | 6.0 - 7.8 gm/dL | [facility] | | | Protein | | | [facility] | | | | | | MEDICAL | | | | | | CENTER - | | | | | | LABORATORY | | + + + + + + | Albumin | 2.8 (L) | 3.2 - 5.0 gm/dL | [facility] | | | | | | [facility] | | | | | | MEDICAL | | | | | | CENTER - | | | | | | LABORATORY | | + + + + + + | BUN | 12 | 7 - 18 mg/dL | [facility] | | | | | | [facility] | | | | | | MEDICAL | | | | | | CENTER - | | | | | | LABORATORY | | + + + + + + | Creatinine | 0.81 | 0.60 - 1.30 | [facility] | [...] 139 | 136 - 149 mEq/L | [facility] | | | | | | [facility] | | | | | | MEDICAL | | | | | | CENTER - | | | | | | LABORATORY | | + + + + + + | K | 3.7 | 3.5 - 5.1 mEq/l | [facility] | | | | | | [facility] | | | | | | MEDICAL | | | | | | CENTER - | | | | | | LABORATORY | | + + + + + + | Cl | 107 | 98 - 109 mEq/l | [facility] | | | | | | [facility] | | | | | | MEDICAL | | | | | | CENTER - | | | | | | LABORATORY | | + + + + + + | CO2 | 26 | 24 - 31 mEq/L | [facility] | | | | | | [facility] | | | | | | MEDICAL | | | | | | CENTER - | | | | | | LABORATORY | | + + + + + + | Anion Gap | 9.7 | 6.0 - 17.0 | [facility] | [...] + + | Performing | Address | City/[facility]/Zipcode | Phone Number | | Organization | | | | + + + + + | [facility] | [address] | [place], [place] | [phone] | | [facility] | | [address] | | | - LABORATORY | | | | + + + + + | [facility] | [address] | [place], [place] | | | [facility] | | [address] | | | - LABORATORY | | | | + + + + + Troponin I (07/13/2013 6:32 AM PDT) + + + + + + | Component | Value | Ref Range | Performed | Pathologist | | | | | At | Signature | + + + + + + | Troponin I | 0.01Comment: Reference | <0.06 ng/mL | [facility] | | | | Ranges: | | [facility] | | | | 0.00-0.06 = NORMAL | | MEDICAL | | | | >0.06 | | CENTER - | | | | = SUSPICIOUS FOR | | LABORATORY | | | | MYOCARDIAL DAMAGE | | | | | | NOTE: Values greater | | | | | | than 0.50 ng/mL have | | | | | | been shown to be | | | | | | strongly associated with | | | | | | acute myocardial | | | | | | infarction. The | | | | | | [employer] | | | | | | Cardiology (ACC) | | | | | | recommends a decision | | | | | | limit of 0.06 ng/mL for | | | | | | this assay. Results | | | | | | greater than 0.06 can | | | | | | reflect a pre-infarct | | | | | | acute coronary | | | | | | syndrome, but can also | | | | | | reflect myocardial | | | | | | necrosis or injury | | | | | | that is not due to | | | | | | coronary artery | | | | | | disease. Some of these | | | | | | causes are sepsis, | | | | | | hypocolemia, atrial | | | | | | fibrillation, heart | | | | | | failure, pulmonary | | | | | | embolism, myocarditis, | | | | | | myocardial contusion, | | | | | | and renal failure. The | | | | | | diagnosis of myocardial | | | | | | infarction should be | | | | | | based on a combination | | | | | | of the patient's | | | | | | clinical presentation | | | | | | and the clinical | | | | | | laboratory test results | | | | | | (especially serial | | | | | | troponin levels). | | | | + + + + + + + + | Specimen | + + | | + + + + + + + | Performing | Address | City/State/Zipcode | Phone Number | | Organization | | | | + + + + + | [facility] | [address] | [place] | [phone] | | [facility] | | [address] | | | - LABORATORY | | | | + + + + + | [facility] | [address] | [place] | | | [facility] | | [address] | | | - LABORATORY | | | | + + + + + Lactate Dehydrogenase (07/13/2013 6:32 AM PDT) + +-------+ + + + | Component | Value | Ref Range | Performed | Pathologist | | | | | At | Signature | + +-------+ + + + | LDH TOTAL | 165 | 91 - 180 IU/L | [facility] | | | | | [...] + | [facility] | [address] | [place] | [phone] | | [facility] | | [address] | | | - LABORATORY | | | | + + + + + | [facility] | [address] | [place] | | | [facility] | | [address] | | | - LABORATORY | | | | + + + + + Magnesium (07/13/2013 6:32 AM PDT) + +-------+ + + + | Component | Value | Ref Range | Performed | Pathologist | | | | | At | Signature | + +-------+ + + + | Magnesium | 2.1 | 1.8 - 2.5 mg/dL | [facility] | | | | [...] + | [facility] | [address] | [place] | [phone] | | [facility] | | [address] | | | - LABORATORY | | | | + + + + + | [facility] | [address] | [place], [place] | | | [facility] | | [address] | | | - LABORATORY | | | | + + + + + CBC with Differential (07/12/2013 6:55 AM PDT) + + + + + [...] + + + + | WBC | 0.7 (LL)Comment: VALUE | 4.0 - 11.0 K/uL | [facility] | | | | CONSISTENT WITH PREVIOUS | | [facility] | | | | RESULTS | | MEDICAL | | | | | | CENTER - | | | | | | LABORATORY | | + + + + + + | RBC | 1.28 (L) | 4.30 - 5.70 | [facility] | | | | | M/uL | [facility] | | | | | | MEDICAL | | | | | | CENTER - | | | | | | LABORATORY | | + + + + + + | Hemoglobin | 4.9 (LL)Comment: VALUE | 13.5 - 18.0 | [facility] | | | | CONSISTENT WITH PREVIOUS | gm/dL | [facility] | | | | RESULTS | | MEDICAL | | | | | | CENTER - | | | | | | LABORATORY | | + + + + + + | Hematocrit | 14.4 (LL)Comment: VALUE | 40.0 - 51.0 % | [facility] | | | | CONSISTENT WITH PREVIOUS | | [facility] | | | | RESULTS | | MEDICAL | | | | | | CENTER - | | | | | | LABORATORY | | + + + + + + | MCV | 113.3 (H) | 83.0 - 101.0 fL | [facility] | | | | | | [facility] | | | | | | [facility] | | | | | | C[facility] - | | | | | | LABORATORY | | + + + + + + | MCH | 38.1 (H) | 28.0 - 35.0 pg | [facility] | | | | | | [facility] | | | | | | [facility] | | | | | | [facility] - | | | | | | LABORATORY | | + + + + + + | MCHC | 33.6 | 32.0 - 36.0 | [facility] | [...] + + + + | Platelet | 110 (L) | 140 - 440 K/uL | [facility] | | | Count | | | [facility] | | | | | | [facility] | | | | | | C[facility] - | | | | | | LABORATORY | | + + + + + + | % | 43.1 (L) | 45 - 75 % | [facility] | | | Neutrophils | | | [facility] | | | | | | MEDICAL | | | | | | CENTER - | | | | | | LABORATORY | | + + + + + + | % | 51.7 (H) | 20 - 45 % | [facility] | | | Lymphocytes | | | [facility] | | | | | | MEDICAL | | | | | | CENTER - | | | | | | LABORATORY | | + + + + + + | % Monocytes | 1.6 (L) | 4 - 12 % | [facility] | | | | | | [facility] | | | | | | [facility] | | | | | | CENTER - | | | | | | LABORATORY | | + + + + + + | % | 3.6 | 0 - 5 % | [facility] [...] + + + + | Absolute | 0.3 (L) | 1.5 - 6.6 K/uL | [facility] | | | Neutrophils | | | [facility] | | | | | | MEDICAL | | | | | | CENTER - | | | | | | LABORATORY | | + + + + + + | Absolute | 0.4 (L) | 0.6 - 3.2 K/uL | [facility] | | | Lymphocytes | | | [facility] | | | | | | MEDICAL | | | | | | CENTER - | | | | | | LABORATORY | | + + + + + + | Absolute | 0.0 | 0.0 - 1.0 K/uL | [facility] [...] + | [facility] | [address] | [place], [place] | [phone] | | [facility] | | [id number] | | | - LABORATORY | | | | + + + + + | [facility] | [address] | [place], [place] | | | [facility] | | [id number] | | | - LABORATORY | | | | + + + + + CBC with Differential (07/11/2013 7:13 AM PDT) + + + + + [...] + + + + | WBC | 0.9 (LL)Comment: @VALUE | 4.0 - 11.0 K/uL | [facility] | | | | CONSISTENT WITH PREVIOUS | | [facility] | | | | RESULTS | | MEDICAL | | | | | | CENTER - | | | | | | LABORATORY | | + + + + + + | RBC | 1.32 (L) | 4.30 - 5.70 | [facility] [...] CONSISTENT WITH PREVIOUS | gm/dL | [facility] | | | | RESULTS | | MEDICAL | | | | | | CENTER - | | | | | | LABORATORY | | + + + + + + | Hematocrit | 15.0 (LL) | 40.0 - 51.0 % | [facility] | | | | | | [facility] | | | | | | [facility]ICAL | | | | | | C[facility] - | | | | | | LABORATORY | | + + + + + + | MCV | 113.2 (H)Comment: @VALUE | 83.0 - 101.0 fL | [facility] | | | | CONSISTENT WITH | | [facility] | | | | PREVIOUS RESULTS | | MEDICAL | | | | | | CENTER - | | | | | | LABORATORY | | + + + + + + | MCH | 38.7 (H) | 28.0 - 35.0 pg | [facility] | | | | | | [facility] | | | | | | [facility] | | | | | | CENTER - | | | | | | LABORATORY | | + + + + + + | MCHC | 34.2 | 32.0 - 36.0 | [facility] | | | | | g/dL | [facility] | | | | | | MEDICAL | | | | | | CENTER - | | | | | | LABORATORY | | + + + + + + | RDW-CV | 20.4 (H) | <15.0 % | [facility] | | | | | | [facility] | | | | | | MEDICAL | | | | | | CENTER - | | | | | | LABORATORY | | + + + + + + | Platelet | 124 (L) | 140 - 440 K/uL | [facility] | | | Count | | | [facility] | | | | | | [facility] | | | | | | C[facility] - | | | | | | LABORATORY | | + + + + + + | % | 1.4 (L) | 45 - 75 % | [facility] | | | Neutrophils | | | [facility] | | | | | | MEDICAL | | | | | | CENTER - | | | | | | LABORATORY | | + + + + + + | % | 98.0 (H)Comment: @VALUE | 20 - 45 % | [facility] | | | Lymphocytes | CONSISTENT WITH PREVIOUS | | [facility] | | | | RESULTS | | MEDICAL | | | | | | CENTER - | | | | | | LABORATORY | | + + + + + + | % Monocytes | 0.6 (L) | 4 - 12 % | [...] + + + | Absolute | 0.0 (L) | 1.5 - 6.6 K/uL | [facility] | | | Neutrophils | | | [facility] | | | | | | [facility] | | | | | | CENTER - | | | | | | LABORATORY | | + + + + + + | Absolute | 0.9 | 0.6 - 3.2 K/uL | [facility] | | | Lymphocytes | | | [facility] | | | | | | [facility] | | | | | | CENTER - | | | | | | LABORATORY | | + + + + + + | Absolute | 0.0 | 0.0 - 1.0 K/uL | [facility] [...] + + | SUSPECTED | 1 (H)Comment: System | | [facility] | | | PROBLEM IS: | Error, Specimen | | [facility] | | | | Repeated, Review Results | | MEDICAL | | | | TEST REPEATED, | | CENTER - | | | | CRITICAL RESULT-PHONE | | LABORATORY | | | | RESULTS PERFORM SMEAR | | | | | | REVIEW FOR DIFF % | | | | | | PERFORM SMEAR REVIEW | | | | | | FOR MCV/RDW PERFORM | | | | | | SMEAR REVIEW Variant | | | | | | [...] [address] | [place] | [phone] | | [facility] | | [address] | | | - LABORATORY | | | | + + + + + | [facility] | [address] | [place] | | | [facility] | | [address] | | | - LABORATORY | | | | + + + + + Differential, Blood, Manual (07/10/2013 6:43 AM PDT) + + + + + + | Component | Value | Ref Range | Performed | Pathologist | | | | | At | Signature | + + + + + + | Total | 50 | | [facility] | | | Counted | | | [facility] | | | | | | [facility] | | | | | | CENTER - | | | | | | LABORATORY | | + + + + + + | % | 98 (H) | 20 - 40 % | [facility] | | | Lymphocytes | | | [facility] | | | | | | MEDICAL | | | | | | CENTER - | | | | | | LABORATORY | | + + + + + + | % Variant | 2 | 0 - 5 % | [facility] | | | Lymphocytes | | | [facility] | | | | | | MEDICAL | | | | | | CENTER - | | | | | | LABORATORY | | + + + + + + | nRBC, | 5 (H) | 0 /100WBC | [facility] | | | manual | | | [facility] | | | | | | MEDICAL | | | | | | CENTER - | | | | | | LABORATORY | | + + + + + + | Anisocytosi | 1+ | | [facility] | | | s | | | [facility] | | | | | | MEDICAL | | | | | | CENTER - | | | | | | LABORATORY | | + + + + + + | Poikilocyte | 1+ | | [facility] | | | s [...] + + | [facility] | [address] | [place] | [phone] | | [facility] | | [address] | | | - LABORATORY | | | | + + + + + | [facility] | [address] | [place] | | | [facility] | | [address] | | | - LABORATORY | | | | + + + + + CBC with Differential (07/10/2013 6:43 AM PDT) + + + + + + | Component | Value | Ref Range | Performed | Pathologist | | | | | At | Signature | + + + + + + | MANUAL | YES | | [facility] | | | [facility] | | | [facility] | | | L ? | | | MEDICAL | | | | | | CENTER - | | | | | | LABORATORY | | + + + + + + | WBC | 0.8 (LL) | 4.0 - 11.0 K/uL | [facility] | | | | | | [facility] | | | | | | MEDICAL | | | | | | CENTER - | | | | | | LABORATORY | | + + + + + + | WBC DAKOTA | 0.8 (LL) | 4.0 - 11.0 K/uL | [facility] | | | | | | [facility] | | | | | | MEDICAL | | | | | | CENTER - | | | | | | LABORATORY | | + + + + + + | RBC | 1.20 (L) | 4.30 - 5.70 | [facility] | | | | | M/uL | [facility] | | | | | | MEDICAL | | | | | | CENTER - | | | | | | LABORATORY | | + + + + + + | Hemoglobin | 4.7 (LL) | 13.5 - 18.0 | [facility] | | | | | gm/dL | [facility] | | | | | | MEDICAL | | | | | | CENTER - | | | | | | LABORATORY | | + + + + + + | Hematocrit | 13.6 (LL)Comment: @VALUE | 40.0 - 51.0 % | [facility] | | | | CONSISTENT WITH | | [facility] | | | | PREVIOUS RESULTS | | MEDICAL | | | | VERIFIED BY REPEAT | | CENTER - | | | | ANALYSIS ALISON | | LABORATORY | | + + + + + + | MCV | 113.3 (H) | 83.0 - 101.0 fL | [...] + + + + | MCHC | 34.2 | 32.0 - 36.0 | [facility] | [...] + + + + | Platelet | 118 (L) | 140 - 440 K/uL | [...] | | | | FOR DIFF % PERFROM | | LABORATORY | | | | SMEAR REVIEW FOR NRBCS | | | | | | PERFORM [...] [address] | [place] | [phone] | | [facility] | | [address] | | | - LABORATORY | | | | + + + + + | [facility] | [address] | [place] | | | [facility] | | [address] | | | - LABORATORY | | | | + + + + + Retic Count (07/09/2013 6:57 AM PDT) + +---------+ + + + | Component | Value | Ref Range | Performed | Pathologist | | | | | At | Signature | + +---------+ + + + | % | 5.7 (H) | 0.4 - 2.7 % | [facility] | | | Reticulocyt | | | [facility] | | | e Count | | | MEDICAL | | | [...] + | [facility] | [address] | [place], [place] | [phone] | | [facility] | | [address] | | | - LABORATORY | | | | + + + + + | [facility] | [address] | [place], [place] | | | [facility] | | [address] | | | - LABORATORY | | | | + + + + + Differential, Blood, Manual (07/09/2013 6:57 AM PDT) + + + + + + | Component | Value | Ref Range | Performed | Pathologist | | | | | At | Signature | + + + + + + | Total | 50 | | [facility] | | | Counted | | | [facility] | | | | | | MEDICAL | | | | | | CENTER - | | | | | | LABORATORY | | + + + + + + | % Segmented | 2 (L) | 50 - 70 % | [facility] | | | | | | [facility] | | | Neutrophils | | | MEDICAL | | | | | | CENTER - | | | | | | LABORATORY | | + + + + + + | % | 98 (H) | 20 - 40 % | [facility] | | | Lymphocytes | | | [facility] | | | | | | MEDICAL | | | | | | CENTER - | | | | | | LABORATORY | | + + + + + + | nRBC, | 3 (H) | 0 /100WBC | [facility] | [...] + + | [facility] | [address] | [place] | [phone] | | [facility] | | [address] | | | - LABORATORY | | | | + + + + + | [facility] | [address] | [place] | | | [facility] | | [address] | | | - LABORATORY | | | | + + + + + CBC with Differential (07/09/2013 6:57 AM PDT) + + + + + + | Component | Value | Ref Range | Performed | Pathologist | | | | | At | Signature | + + + + + + | MANUAL | YES | | [facility] | | | [facility] | | | [facility] | | | L ? | | | MEDICAL | | | | | | CENTER - | | | | | | LABORATORY | | + + + + + + | WBC | 0.7 (LL)Comment: VALUE | 4.0 - 11.0 K/uL | [facility] | | | | CONSISTENT WITH PREVIOUS | | [facility] | | | | RESULTS | | MEDICAL | | | | | | CENTER - | | | | | | LABORATORY | | + + + + + + | WBC DAKOTA | 0.7 (LL) | 4.0 - 11.0 K/uL | [facility] | | | | | | [facility] | | | | | | MEDICAL | | | | | | CENTER - | | | | | | LABORATORY | | + + + + + + | RBC | 1.13 (L) | 4.30 - 5.70 | [facility] | | | | | M/uL | [facility] | | | | | | MEDICAL | | | | | | CENTER - | | | | | | LABORATORY | | + + + + + + | Hemoglobin | 4.3 (LL)Comment: VALUE | 13.5 - 18.0 | [facility] | | | | CONSISTENT WITH PREVIOUS | gm/dL | [facility] | | | | RESULTS | | MEDICAL | | | | | | CENTER - | | | | | | LABORATORY | | + + + + + + | Hematocrit | 12.7 (LL)Comment: VALUE | 40.0 - 51.0 % | [facility] | | | | CONSISTENT WITH PREVIOUS | | [facility] | | | | RESULTS | | MEDICAL | | | | | | CENTER - | | | | | | LABORATORY | | + + + + + + | MCV | 112.9 (H) | 83.0 - 101.0 fL | [facility] | | | | | | [facility] | | | | | | MEDICAL | | | | | | CENTER - | | | | | | LABORATORY | | + + + + + + | MCH | 38.5 (H) | 28.0 - 35.0 pg | [facility] | | | | | | [facility] | | | | | | MEDICAL | | | | | | CENTER - | | | | | | LABORATORY | | + + + + + + | MCHC | 34.1 | 32.0 - 36.0 | [facility] | | | | | g/dL | [facility] | | | | | | MEDICAL | | | | | | CENTER - | | | | | | LABORATORY | | + + + + + + | RDW-CV | 18.1 (H) | <15.0 % | [facility] | | | | | | [facility] | | | | | | MEDICAL | | | | | | CENTER - | | | | | | LABORATORY | | + + + + + + | Platelet | 109 (L) | 140 - 440 K/uL | [facility] | | | Count | | | [facility] | | | | | | MEDICAL | | | | | | CENTER - | | | | | | LABORATORY | | + + + + + + | SUSPECTED | 1 (H)Comment: System | | [facility] | | | PROBLEM IS: | Error, Specimen | | [facility] | | | | Repeated, Review Results | | MEDICAL | | | | TEST REPEATED, | | CENTER - | | | | CRITICAL RESULT-PHONE | | LABORATORY | | | | RESULTS PERFORM SMEAR | | | | | | REVIEW FOR DIFF % | | | | | | PERFROM SMEAR REVIEW | | | | | | FOR NRBCS PERFORM | | | | | | SMEAR REVIEW FOR [...] + | [facility] | [address] | [place] | [phone] | | [facility] | | [address] | | | - LABORATORY | | | | + + + + + | [facility] | [address] | [place] | | | [facility] | | [address] | | | - LABORATORY | | | | + + + + + Comprehensive Metabolic Panel (07/09/2013 6:57 AM PDT) + + + + + + | Component | Value | Ref Range | Performed | Pathologist | | | | | At | Signature | + + + + + + | Glucose | 94 | 70 - 109 mg/dL | [facility] | | | | | | [facility] | | | | | | MEDICAL | | | | | | CENTER - | | | | | | LABORATORY | | + + + + + + | Calcium | 7.4 (L) | 8.3 - 10.5 | [facility] | | | | | mg/dL | [facility] | | | | | | MEDICAL | | | | | | CENTER - | | | | | | LABORATORY | | + + + + + + | Alkaline | 44 | 40 - 110 IU/L | [facility] | | | Phosphatase | | | [facility] | | | | | | MEDICAL | | | | | | CENTER - | | | | | | LABORATORY | | + + + + + + | AST | 18 | 10 - 42 IU/L | [facility] | | | | | | [facility] | | | | | | MEDICAL | | | | | | CENTER - | | | | | | LABORATORY | | + + + + + + | ALT | 42 | 6 - 45 IU/L | [facility] | | | | | | [facility] | | | | | | MEDICAL | | | | | | CENTER - | | | | | | LABORATORY | | + + + + + + | Bilirubin | 2.0 (H) | 0.2 - 1.0 mg/dL | [facility] | | | Total | | | [facility] | | | | | | MEDICAL | | | | | | CENTER - | | | | | | LABORATORY | | + + + + + + | Total | 4.2 (L) | 6.0 - 7.8 gm/dL | [facility] | | | Protein | | | [facility] | | | | | | MEDICAL | | | | | | CENTER - | | | | | | LABORATORY | | + + + + + + | Albumin | 2.6 (L) | 3.2 - 5.0 gm/dL | [facility] | | | | | | [facility] | | | | | | MEDICAL | | | | | | CENTER - | | | | | | LABORATORY | | + + + + + + | BUN | 12 | 7 - 18 mg/dL | [facility] | | | | | | [facility] | | | | | | MEDICAL | | | | | | CENTER - | | | | | | LABORATORY | | + + + + + + | Creatinine | 0.79 | 0.60 - 1.30 | [facility] | | | | | mg/dL | [facility] | | | | | | MEDICAL | | | | | | CENTER - | | | | | | LABORATORY | | + + + + + + | Estimated | >60Comment: For | >60 mL/min/A | [facility] | [...] + + + + | BUN/Creatin | 15.2 | 12 - 20 | [facility] | | | ine Ratio | | | [facility] | | [...] + + + + | K | 3.4 (L) | 3.5 - 5.1 mEq/l | [facility] | | | | | | [facility] | | | | | | MEDICAL | | | | | | CENTER - | | | | | | LABORATORY | | + + + + + + | Cl | 108 | 98 - 109 mEq/l | [facility] [...] + + + | Anion Gap | 6.4 | 6.0 - 17.0 | [facility] | [...] + | [facility] | [address] | [place] | [phone] | | [facility] | | [address] | | | - LABORATORY | | | | + + + + + | [facility] | [address] | [place], [place] | | | [facility] | | [address] | | | - LABORATORY | | | | + + + + + Lactate Dehydrogenase (07/09/2013 6:57 AM PDT) + +---------+ + + + | Component | Value | Ref Range | Performed | Pathologist | | | | | At | Signature | + +---------+ + + + | LDH TOTAL | 198 (H) | 91 - 180 IU/L | [facility] | | | | | [...] + + | [facility] | [address] | [place] | [phone] | | [facility] | | [address] | | | - LABORATORY | | | | + + + + + | [facility] | [address] | [place] | | | [facility] | | [address] | | | - LABORATORY | | | | + + + + + Retic Count (07/08/2013 6:52 AM PDT) + +---------+ + + + | Component | Value | Ref Range | Performed | Pathologist | | | | | At | Signature | + +---------+ + + + | % | 2.8 (H) | 0.4 - 2.7 % | [facility] | | | Reticulocyt | | | [facility] | | | e Count | | | MEDICAL | | | [...] + | [facility] | [address] | [place] | [phone] | | [facility] | | [address] | | | - LABORATORY | | | | + + + + + | [facility] | [address] | [place] | | | [facility] | | [address] | | | - LABORATORY | | | | + + + + + Differential, Blood, Manual (07/08/2013 6:52 AM PDT) + + + + + + | Component | Value | Ref Range | Performed | Pathologist | | | | | At | Signature | + + + + + + | Total | 50 | | [facility] | | | Counted | | | [facility] | | | | | | MEDICAL | | | | | | CENTER - | | | | | | LABORATORY | | + + + + + + | % | 98 (H) | 20 - 40 % | [facility] | | | Lymphocytes | | | [facility] | | | | | | MEDICAL | | | | | | CENTER - | | | | | | LABORATORY | | + + + + + + | % Variant | 2 | 0 - 5 % | [facility] | | | Lymphocytes | | | [facility] | | | | | | MEDICAL | | | | | | CENTER - | | | | | | LABORATORY | | + + + + + + | nRBC, | 8 (H) | 0 /100WBC | [facility] | | | manual | | | [facility] | | | | | | MEDICAL | | | | | | CENTER - | | | | | | LABORATORY | | + + + + + + | Anisocytosi | 1+ | | [facility] | | | s | | | [facility] | | | | | | MEDICAL | | | | | | CENTER - | | | | | | LABORATORY | | + + + + + + | Poikilocyte | 1+ | | [facility] | | | s [...] + | [facility] | [address] | [place], [place] | [phone] | | [facility] | | [address] | | | - LABORATORY | | | | + + + + + | [facility] | [address] | [place], [place] | | | [facility] | | [address] | | | - LABORATORY | | | | + + + + + CBC with Differential (07/08/2013 6:52 AM PDT) + + + + [...] + + + + | WBC | 0.5 (LL)Comment: @VALUE | 4.0 - 11.0 K/uL | [facility] | | | | CONSISTENT WITH PREVIOUS | | [facility] | | | | RESULTS | | MEDICAL | | | | | | CENTER - | | | | | | LABORATORY | | + + + + + + | WBC DAKOTA | 0.5 (LL) | 4.0 - 11.0 K/uL | [facility] | | | | | | [facility] | | | | | | MEDICAL | | | | | | CENTER - | | | | | | LABORATORY | | + + + + + + | RBC | 1.10 (L) | 4.30 - 5.70 | [facility] | | | | | M/uL | [facility] | | | | | | MEDICAL | | | | | | CENTER - | | | | | | LABORATORY | | + + + + + + | Hemoglobin | 4.2 (LL) | 13.5 - 18.0 | [facility] | | | | | gm/dL | [facility] | | | | | | MEDICAL | | | | | | CENTER - | | | | | | LABORATORY | | + + + + + + | Hematocrit | 12.5 (LL)Comment: @VALUE | 40.0 - 51.0 % | [facility] | | | | CONSISTENT WITH | | [facility] | | | | PREVIOUS RESULTS | | MEDICAL | | | | | | CENTER - | | | | | | LABORATORY | | + + + + + + | MCV | 113.1 (H) | 83.0 - 101.0 fL | [facility] | | | | | | [facility] | | | | | | MEDICAL | | | | | | CENTER - | | | | | | LABORATORY | | + + + + + + | MCH | 38.1 (H) | 28.0 - 35.0 pg | [facility] | | | | | | [facility] | | | | | | MEDICAL | | | | | | CENTER - | | | | | | LABORATORY | | + + + + + + | MCHC | 33.7 | 32.0 - 36.0 | [facility] | | | | | g/dL | [facility] | | | | | | MEDICAL | | | | | | CENTER - | | | | | | LABORATORY | | + + + + + + | RDW-CV | 17.7 (H) | <15.0 % | [facility] | [...] + + | SUSPECTED | 1 (H)Comment: System | | [facility] | | | PROBLEM IS: | Error, Specimen | | [facility] | | | | Repeated, Review Results | | MEDICAL | | | | TEST REPEATED, | | CENTER - | | | | CRITICAL RESULT-PHONE | | LABORATORY | | | | RESULTS PERFORM SMEAR | | | | | | REVIEW FOR DIFF % | | | | | | PERFROM SMEAR REVIEW | | | | | | FOR NRBCS PERFORM | | | | | | SMEAR REVIEW FOR MCV/RDW | | | | | | PERFORM SMEAR REVIEW | | | | | | Excessive Debris: D | | | | | | Low Events: D Low | | | | | | Events: N | | | | + + + + + + + + | Specimen | + + | | + + + + + + + | Performing | Address | City/[facility]/Zipcode | Phone Number | | Organization | | | | + + + + + | [facility] | [address] | [place] | [phone] | | [facility] | | [address] | | | - LABORATORY | | | | + + + + + | [facility] | [address] | [place] | | | [facility] | | [address] | | | - LABORATORY | | | | + + + + + Basic Metabolic Panel (07/08/2013 6:52 AM PDT) + + + + + + | Component | Value | Ref Range | Performed | Pathologist | | | | | At | Signature | + + + + + + | Glucose | 97 | 70 - 109 mg/dL | [facility] | | | | | | [facility] | | | | | | MEDICAL | | | | | | CENTER - | | | | | | LABORATORY | | + + + + + + | Calcium | 7.2 (L) | 8.3 - 10.5 | [facility] | | | | | mg/dL | [facility] | | | | | | MEDICAL | | | | | | CENTER - | | | | | | LABORATORY | | + + + + + + | BUN | 15 | 7 - 18 mg/dL | [facility] | | | | | | [facility] | | | | | | MEDICAL | | | | | | CENTER - | | | | | | LABORATORY | | + + + + + + | Creatinine | 0.98 | 0.60 - 1.30 | [facility] | | | | | mg/dL | [facility] | | | | | | MEDICAL | | | | | | CENTER - | | | | | | LABORATORY | | + + + + + + | Estimated | >60Comment: For | >60 mL/min/A | [facility] | | | GFR | -Americans, | | [facility] | | | | please multiply [...] + + + + | BUN/Creatin | 15.3 | 12 - 20 | [facility] | | | ine Ratio | | | [facility] | | | | | | MEDICAL | | | | | | CENTER - | | | | | | LABORATORY | | + + + + + + | Na | 134 (L) | 136 - 149 mEq/L | [facility] | | | | | | [facility] | | | | | | MEDICAL | | | | | | CENTER - | | | | | | LABORATORY | | + + + + + + | K | 3.4 (L) | 3.5 - 5.1 mEq/l | [facility] | | | | | | [facility] | | | | | | MEDICAL | | | | | | CENTER - | | | | | | LABORATORY | | + + + + + + | Cl | 106 | 98 - 109 mEq/l | [facility] | | | | | | [facility] | | | | | | MEDICAL | | | | | | CENTER - | | | | | | LABORATORY | | + + + + + + | CO2 | 26 | 24 - 31 mEq/L | [facility] | | | | | | [facility] | | | | | | MEDICAL | | | | | | CENTER - | | | | | | LABORATORY | | + + + + + + | Anion Gap | 5.4 (L) | 6.0 - 17.0 | [facility] | [...] + | [facility] | [address] | [place] | [phone] | | [facility] | | [address] | | | - LABORATORY | | | | + + + + + | [facility] | [address] | [place], [place] | | | [facility] | | [address] | | | - LABORATORY | | | | + + + + + Retic Count (07/07/2013 6:48 AM PDT) + +-------+ + + + | Component | Value | Ref Range | Performed | Pathologist | | | | | At | Signature | + +-------+ + + + | % | 2.6 | 0.4 - 2.7 % | [facility] | | | Reticulocyt | | | [facility] | | | e Count | | | MEDICAL | | | [...] + + | [facility] | [address] | [place] | [phone] | | [facility] | | [address] | | | - LABORATORY | | | | + + + + + | [facility] | [address] | [place] | | | [facility] | | [address] | | | - LABORATORY | | | | + + + + + CBC with Differential (07/07/2013 6:48 AM PDT) + + + + + + | Component | Value | Ref Range | Performed | Pathologist | | | | | At | Signature | + + + + + + | MANUAL | NO | | [facility] | | | [facility] | | | [facility] | | | L ? | | | MEDICAL | | | | | | CENTER - | | | | | | LABORATORY | | + + + + + + | WBC | 0.7 (LL)Comment: VALUE | 4.0 - 11.0 K/uL | [facility] | | | | CONSISTENT WITH PREVIOUS | | [facility] | | | | RESULTS | | MEDICAL | | | | | | CENTER - | | | | | | LABORATORY | | + + + + + + | RBC | 1.28 (L) | 4.30 - 5.70 | [facility] | | | | | M/uL | [facility] | | | | | | MEDICAL | | | | | | CENTER - | | | | | | LABORATORY | | + + + + + + | Hemoglobin | 4.9 (LL)Comment: VALUE | 13.5 - 18.0 | [facility] | | | | CONSISTENT WITH PREVIOUS | gm/dL | [facility] | | | | RESULTS | | MEDICAL | | | | | | CENTER - | | | | | | LABORATORY | | + + + + + + | Hematocrit | 14.4 (LL) | 40.0 - 51.0 % | [facility] | | | | | | [facility] | | | | | | [facility] | | | | | | [facility] - | | | | | | LABORATORY | | + + + + + + | MCV | 112.4 (H) | 83.0 - 101.0 fL | [facility] | | | | | | [facility] | | | | | | [facility] | | | | | | [facility] - | | | | | | LABORATORY | | + + + + + + | MCH | 38.6 (H) | 28.0 - 35.0 pg | [facility] | | | | | | [facility] | | | | | | [facility] | | | | | | CENTER - | | | | | | LABORATORY | | + + + + + + | MCHC | 34.3 | 32.0 - 36.0 | [facility] | | | | | g/dL | [facility] | | | | | | [facility]ICAL | | | | | | CENTER - | | | | | | LABORATORY | | + + + + + + | RDW-CV | 17.7 (H) | <15.0 % | [facility] | | | | | | [facility] | | | | | | [facility] | | | | | | CENTER - | | | | | | LABORATORY | | + + + + + + | Platelet | 103 (L) | 140 - 440 K/uL | [facility] | | | Count | | | [facility] | | | | | | [facility] | | | | | | CENTER - | | | | | | LABORATORY | | + + + + + + | % | 0.7 (L) | 45 - 75 % | [facility] | | | Neutrophils | | | [facility] | | | | | | MEDICAL | | | | | | CENTER - | | | | | | LABORATORY | | + + + + + + | % | 94.7 (H) | 20 - 45 % | [facility] | | | Lymphocytes | | | [facility] | | | | | | MEDICAL | | | | | | CENTER - | | | | | | LABORATORY | | + + + + + + | % Monocytes | 3.8 (L) | 4 - 12 % | [facility] | | | | | | [facility] | | | | | | MEDICAL | | | | | | CENTER - | | | | | | LABORATORY | | + + + + + + | % | 0.8 | 0 - 5 % | [facility] [...] + + + | Absolute | 0.0 (L) | 1.5 - 6.6 K/uL | [facility] | | | Neutrophils | | | [facility] | | | | | | MEDICAL | | | | | | CENTER - | | | | | | LABORATORY | | + + + + + + | Absolute | 0.6 | 0.6 - 3.2 K/uL | [facility] | | | Lymphocytes | | | [facility] | | | | | | MEDICAL | | | | | | CENTER - | | | | | | LABORATORY | | + + + + + + | Absolute | 0.0 | 0.0 - 1.0 K/uL | [facility] [...] + + | SUSPECTED | 1 (H)Comment: System | | [facility] | | | PROBLEM IS: | Error, Specimen | | [facility] | | | | Repeated, Review Results | | MEDICAL | | | | TEST REPEATED, | | CENTER - | | | | CRITICAL RESULT-PHONE | | LABORATORY | | | | RESULTS PERFORM SMEAR | | | | | | REVIEW FOR DIFF % | | | | | | PERFORM SMEAR REVIEW | | | | | | FOR MCV/RDW Variant | | | | | | LY Low Events: N | | | | + + + + + + + + | Specimen | + + | | + + + + + + + | Performing | Address | City/State/Zipcode | Phone Number | | Organization | | | | + + + + + | [facility] | [address] | [place], [place] | [phone] | | [facility] | | [address] | | | - LABORATORY | | | | + + + + + | [facility] | [address] | [place], [place] | | | [facility] | | [address] | | | - LABORATORY | | | | + + + + + Basic Metabolic Panel (07/07/2013 6:48 AM PDT) + + + + + + | Component | Value | Ref Range | Performed | Pathologist | | | | | At | Signature | + + + + + + | Glucose | 120 (H) | 70 - 109 mg/dL | [facility] | | | | | | [facility] | | | | | | [facility]ICAL | | | | | | CENTER - | | | | | | LABORATORY | | + + + + + + | Calcium | 7.6 (L) | 8.3 - 10.5 | [facility] | | | | | mg/dL | [facility] | | | | | | [facility] | | | | | | CENTER - | | | | | | LABORATORY | | + + + + + + | BUN | 20 (H) | 7 - 18 mg/dL | [facility] | | | | | | [facility] | | | | | | [facility] | | | | | | CENTER - | | | | | | LABORATORY | | + + + + + + | Creatinine | 1.05 | 0.60 - 1.30 | [facility] | | | | | mg/dL | [facility] | | | | | | MEDICAL | | | | | | CENTER - | | | | | | LABORATORY | | + + + + + + | Estimated | >60Comment: For | >60 mL/min/A | [facility] | [...] + + + + | BUN/Creatin | 19.0 | 12 - 20 | [facility] | | | ine Ratio | | | [facility] | | | | | | MEDICAL | | | | | | CENTER - | | | | | | LABORATORY | | + + + + + + | Na | 131 (L) | 136 - 149 mEq/L | [facility] [...] + + + + | Cl | 104 | 98 - 109 mEq/l | [facility] | | | | | | [facility] | | | | | | MEDICAL | | | | | | CENTER - | | | | | | LABORATORY | | + + + + + + | CO2 | 21 (L) | 24 - 31 mEq/L | [facility] | | | | | | [facility] | | | | | | MEDICAL | | | | | | CENTER - | | | | | | LABORATORY | | + + + + + + | Anion Gap | 9.9 | 6.0 - 17.0 | [facility] | | | | | | [facility] | | | [...] [address] | [place] | [phone] | | [facility] | | [address] | | | - LABORATORY | | | | + + + + + | [facility] | [address] | [place] | | | ST. [facility] | | [address] | | | - LABORATORY | | | | + + + + + CBC with Differential (07/06/2013 6:35 AM PDT) + + + + + + | Component | Value | Ref Range | Performed | Pathologist | | | | | At | Signature | + + + + + + | MANUAL | NO | | [facility] | | | [facility] | | | [facility] | | | L ? | | | [facility]ICAL | | | | | | CENTER - | | | | | | LABORATORY | | + + + + + + | WBC | 0.6 (LL)Comment: @VALUE | 4.0 - 11.0 K/uL | [facility] | | | | [facility]SI[facility] WITH PREVIOUS | | [facility] | | | | RESULTS | | MEDICAL | | | | | | CENTER - | | | | | | LABORATORY | | + + + + + + | RBC | 1.15 (L) | 4.30 - 5.70 | [facility] | | | | | M/uL | [facility] | | | | | | MEDICAL | | | | | | CENTER - | | | | | | LABORATORY | | + + + + + + | Hemoglobin | 4.5 (LL)Comment: @VALUE | 13.5 - 18.0 | [facility] | | | | CONSISTENT WITH PREVIOUS | gm/dL | [facility] | | | | RESULTS | | MEDICAL | | | | | | CENTER - | | | | | | LABORATORY | | + + + + + + | Hematocrit | 13.1 (LL) | 40.0 - 51.0 % | [facility] | | | | | | [facility] | | | | | | MEDICAL | | | | | | CENTER - | | | | | | LABORATORY | | + + + + + + | MCV | 113.5 (H) | 83.0 - 101.0 fL | [...] + + + + | MCHC | 34.2 | 32.0 - 36.0 | [facility] | | | | | g/dL | [facility] | | | | | | MEDICAL | | | | | | CENTER - | | | | | | LABORATORY | | + + + + + + | RDW-CV | 17.6 (H) | <15.0 % | [facility] | | | | | | [facility] | | | | | | MEDICAL | | | | | | CENTER - | | | | | | LABORATORY | | + + + + + + | Platelet | 83 (L) | 140 - 440 K/uL | [facility] | | | Count | | | [facility] | | | | | | MEDICAL | | | | | | CENTER - | | | | | | LABORATORY | | + + + + + + | % | 7.5 (L) | 45 - 75 % | [facility] | | | Neutrophils | | | [facility] | | | | | | MEDICAL | | | | | | CENTER - | | | | | | LABORATORY | | + + + + + + | % | 71.1 (H) | 20 - 45 % | [facility] | | | Lymphocytes | | | [facility] | | | | | | MEDICAL | | | | | | CENTER - | | | | | | LABORATORY | | + + + + + + | % Monocytes | 20.3 (H) | 4 - 12 % | [facility] | | | | | | [facility] | | | | | | MEDICAL | | | | | | CENTER - | | | | | | LABORATORY | | + + + + + + | % | 1.1 | 0 - 5 % | [facility] [...] + + + | Absolute | 0.0 (L) | 1.5 - 6.6 K/uL | [facility] | | | Neutrophils | | | [facility] | | | | | | MEDICAL | | | | | | CENTER - | | | | | | LABORATORY | | + + + + + + | Absolute | 0.5 (L) | 0.6 - 3.2 K/uL | [facility] [...] + + | SUSPECTED | 1 (H)Comment: System | | [facility] | | | PROBLEM IS: | Error, Specimen | | [facility] | | | | Repeated, Review Results | | MEDICAL | | | | TEST REPEATED, | | CENTER - | | | | CRITICAL RESULT-PHONE | | LABORATORY | | | | RESULTS PERFORM SMEAR | | | | | | REVIEW FOR DIFF % | | | | | | PERFORM SMEAR REVIEW | | | | | | FOR MCV/RDW PERFORM | | | | | | SMEAR REVIEW Low | | | | | | Events: N Data Disc: D | | | | | | Low Events: D | | | | | | Excessive Debris: D | | | | + + + + + + + + | Specimen | + + | | + + + + + + + | Performing | Address | City/State/Zipcode | Phone Number | | Organization | | | | + + + + + | [facility] | [address] | [place], [place] | [phone] | | [facility] | | [address] | | | - LABORATORY | | | | + + + + + | [facility] | [address] | [place], [place] | | | [facility] | | [address] | | | - LABORATORY | | | | + + + + + Basic Metabolic Panel (07/06/2013 6:35 AM PDT) + + + + + + | Component | Value | Ref Range | Performed | Pathologist | | | | | At | Signature | + + + + + + | Glucose | 156 (H) | 70 - 109 mg/dL | [facility] | | | | | | [facility] | | | | | | MEDICAL | | | | | | CENTER - | | | | | | LABORATORY | | + + + + + + | Calcium | 7.5 (L) | 8.3 - 10.5 | [facility] | | | | | mg/dL | [facility] | | | | | | MEDICAL | | | | | | CENTER - | | | | | | LABORATORY | | + + + + + + | BUN | 29 (H) | 7 - 18 mg/dL | [facility] | | | | | | [facility] | | | | | | MEDICAL | | | | | | CENTER - | | | | | | LABORATORY | | + + + + + + | Creatinine | 1.21 | 0.60 - 1.30 | [place] | | | | | mg/dL | [facility] | | | | | | MEDICAL | | | | | | CENTER - | | | | | | LABORATORY | | + + + + + + | Estimated | >60Comment: For | >60 mL/min/A | [facility] | [...] + + + + | BUN/Creatin | 24.0 (H) | 12 - 20 | [facility] | | | ine Ratio | | | [facility] | | | | | | MEDICAL | | | | | | CENTER - | | | | | | LABORATORY | | + + + + + + | Na | 134 (L) | 136 - 149 mEq/L | [facility] | | | | | | [facility] | | | | | | MEDICAL | | | | | | CENTER - | | | | | | LABORATORY | | + + + + + + | K | 3.7 | 3.5 - 5.1 mEq/l | [facility] | | | | | | [facility] | | | | | | MEDICAL | | | | | | CENTER - | | | | | | LABORATORY | | + + + + + + | Cl | 107 | 98 - 109 mEq/l | [facility] | | | | | | [facility] | | | | | | MEDICAL | | | | | | CENTER - | | | | | | LABORATORY | | + + + + + + | CO2 | 22 (L) | 24 - 31 mEq/L | [facility] | | | | | | [facility] | | | | | | MEDICAL | | | | | | CENTER - | | | | | | LABORATORY | | + + + + + + | Anion Gap | 8.7 | 6.0 - 17.0 | [facility] | [...] + | [facility] | [address] | [place] | [phone] | | [facility] | | [address] | | | - LABORATORY | | | | + + + + + | [facility] | [address] | [place], [place] | | | [facility] | | [address] | | | - LABORATORY | | | | + + + + + CBC with Differential (07/05/2013 6:57 AM PDT) + + + + + + | Component | Value | Ref Range | Performed | Pathologist | | | | | At | Signature | + + + + + + | MANUAL | NO | | [facility] | | | [facility] | | | [facility] | | | L ? | | | MEDICAL | | | | | | CENTER - | | | | | | LABORATORY | | + + + + + + | WBC | 0.7 (LL)Comment: @VALUE | 4.0 - 11.0 K/uL | [facility] | | | | CONSISTENT WITH PREVIOUS | | [facility] | | | | RESULTS | | MEDICAL | | | | | | CENTER - | | | | | | LABORATORY | | + + + + + + | RBC | 1.09 (L) | 4.30 - 5.70 | [facility] | | | | | M/uL | [facility] | | | | | | MEDICAL | | | | | | CENTER - | | | | | | LABORATORY | | + + + + + + | Hemoglobin | 4.3 (LL)Comment: | 13.5 - 18.0 | [facility] | | | | | gm/dL | [facility] | | | | ALERT VALUE | | MEDICAL | | | | DO NOT DISCARD WRITTEN | | CENTER - | | | | DOCUMENTATION. PLACE IN | | LABORATORY | | | | NURSING NOTES Nursing | | | | | | documentation will NOT | | | | | | be included on Summary | | | | | | Report @TELEPHONE | | | | | | NOTIFICATION? NURSE FRANKIE | | | | | | LINO 07/05/13 @0713 | | | | | | by [email or web address] Clinical | | | | | | Provider notification | | | | | | at Nurses discretion | | | | | | Report [...] | | Provider: | | | | + + + + + + | Hematocrit | 12.2 (LL)Comment: | 40.0 - 51.0 % | [facility] | | | | | | [facility] | | | | CRITICAL NOTIFICATION | [...] | | | | RESULT CALLED TO NURSE | | | | | | FRANKIE HUYNH 07/05/13 | | | | | | @0712 by ELIZABETH @ * | | | | | | READ BACK MUST BE | | | | | | OBTAINED * READ BACK | | | | | | PERFORMED? YES Nurses' | | | | | | [...] + + + + | MCV | 112.5 (H) | 83.0 - 101.0 fL | [facility] | | | | | | [facility] | | | | | | MEDICAL | | | | | | CENTER - | | | | | | LABORATORY | | + + + + + + | MCH | 39.5 (H) | 28.0 - 35.0 pg | [facility] | | | | | | [facility] | | | | | | MEDICAL | | | | | | CENTER - | | | | | | LABORATORY | | + + + + + + | MCHC | 35.1 | 32.0 - 36.0 | [facility] | | | | | g/dL | [facility] | | | | | | MEDICAL | | | | | | CENTER - | | | | | | LABORATORY | | + + + + + + | RDW-CV | 17.5 (H) | <15.0 % | [facility] | | | | | | [facility] | | | | | | MEDICAL | | | | | | CENTER - | | | | | | LABORATORY | | + + + + + + | Platelet | 80 (L)Comment: @VALUE | 140 - 440 K/uL | [facility] | | | Count | CONSISTENT WITH PREVIOUS | | [facility] | | | | RESULTS | | MEDICAL | | | | | | CENTER - | | | | | | LABORATORY | | + + + + + + | % | 67.9 | 45 - 75 % | [facility] | | | Neutrophils | | | [facility] | | | | | | MEDICAL | | | | | | CENTER - | | | | | | LABORATORY | | + + + + + + | % | 22.6 | 20 - 45 % | [facility] | | | Lymphocytes | | | [facility] | | | | | | MEDICAL | | | | | | CENTER - | | | | | | LABORATORY | | + + + + + + | % Monocytes | 4.2 | 4 - 12 % | [facility] | | | | | | [facility] | | | | | | MEDICAL | | | | | | CENTER - | | | | | | LABORATORY | | + + + + + + | % | 0.9 | 0 - 5 % | [facility] | | | Eosinophils | | | [facility] | | | | | | MEDICAL | | | | | | CENTER - | | | | | | LABORATORY | | + + + + + + | % Basophils | 4.4 (H) | 0 - 1 % | [facility] | | | | | | [facility] | | | | | | MEDICAL | | | | | | CENTER - | | | | | | LABORATORY | | + + + + + + | Absolute | 0.5 (L) | 1.5 - 6.6 K/uL | [facility] | | | Neutrophils | | | [facility] | | | | | | MEDICAL | | | | | | CENTER - | | | | | | LABORATORY | | + + + + + + | Absolute | 0.2 (L) | 0.6 - 3.2 K/uL | [facility] | | | Lymphocytes | | | [facility] | | | | | | MEDICAL | | | | | | CENTER - | | | | | | LABORATORY | | + + + + + + | Absolute | 0.0 | 0.0 - 1.0 K/uL | [facility] [...] MCV/RDW | | | | | | System Error, | | | | | | Specimen Repeated, | | | | | | Review Results Imm | | | | | | Grans Low Events: N | | | | | | NRBC-LY Overlap | | | | + + + + + + + + | Specimen | + + | | + + + + + + + | Performing | Address | City/State/Zipcode | Phone Number | | Organization | | | | + + + + + | [facility] | [address] | [place], [place] | [phone] | | [facility] | | [address] | | | - LABORATORY | | | | + + + + + | [facility] | [address] | [place], [place] | | | [facility] | | [address] | | | - LABORATORY | | | | + + + + + Basic Metabolic Panel (07/05/2013 6:57 AM PDT) + + + + + + | Component | Value | Ref Range | Performed | Pathologist | | | | | At | Signature | + + + + + + | Glucose | 180 (H) | 70 - 109 mg/dL | [facility] | | | | | | [facility] | | | | | | MEDICAL | | | | | | CENTER - | | | | | | LABORATORY | | + + + + + + | Calcium | 7.4 (L) | 8.3 - 10.5 | [facility] | | | | | mg/dL | [facility] | | | | | | MEDICAL | | | | | | CENTER - | | | | | | LABORATORY | | + + + + + + | BUN | 27 (H) | 7 - 18 mg/dL | [facility] | | | | | | [facility] | | | | | | MEDICAL | | | | | | CENTER - | | | | | | LABORATORY | | + + + + + + | Creatinine | 1.32 (H) | 0.60 - 1.30 | [facility] | | | | | mg/dL | [facility] | | | | | | MEDICAL | | | | | | CENTER - | | | | | | LABORATORY | | + + + + + + | Estimated | 55 (L)Comment: For | >60 mL/min/A | [facility] | | | GFR | -Americans, | | [facility] | | | | please multiply [...] + + + + | BUN/Creatin | 20.5 (H) | 12 - 20 | [facility] | | | ine Ratio | | | [facility] | | | | | | MEDICAL | | | | | | CENTER - | | | | | | LABORATORY | | + + + + + + | Na | 131 (L) | 136 - 149 mEq/L | [facility] [...] + + + + | CO2 | 22 (L) | 24 - 31 mEq/L | [facility] | | | | | | [facility] | | | | | | MEDICAL | | | | | | CENTER - | | | | | | LABORATORY | | + + + + + + | Anion Gap | 11.6 | 6.0 - 17.0 | [facility] | [...] [address] | [place] | [phone] | | [facility] | | [address] | | | - LABORATORY | | | | + + + + + | [facility] | [address] | [place] | | | [facility] | | [address] | | | - LABORATORY | | | | + + + + + Uric Acid (07/05/2013 6:57 AM PDT) + +-------+ + + + | Component | Value | Ref Range | Performed | Pathologist | | | | | At | Signature | + +-------+ + + + | Uric Acid | 5.4 | 2.6 - 7.2 mg/dL | [facility] [...] + | [facility] | [address] | [place] | [phone] | | [facility] | | [address] | | | - LABORATORY | | | | + + + + + | [facility] | [address] | [place] | | | [facility] | | [address] | | | - LABORATORY | | | | + + + + + documented in this encounter Visit Diagnoses Not on filedocumented in this encounter
--- OUTSIDE RECORDS SUMMARY | ~2019-11-10 | XMS | Encounter Summary ---
Demographics + + + | Address | [address] | | | [place] [address] | + + + | Home Phone | | + + + | Preferred Language | Unknown | + + + | Marital Status | | + + + | Taoist Affiliation | 1028 | + + + | Race | Unknown | + + + | Ethnic Group | Unknown | + + + Author + + + | Author | [facility] | | | and [place] | + + + | Organization | [facility] | | | and [place] | + + + | Address | Unknown | + + + | Phone | Unavailable | + + + Support + + + + + | Name | Relationship | Address | Phone | + + + + + | Jorge Myrick | [place] | [place] | | | | | [address] | | + + + + + | Feng Myrick | ECON | NA | | | | | [place] | | + + + + + Care Team Providers + +------+ + | Care Extrusion Press Supervisor Name | Role | Phone | + +------+ + | Emeterio Campos DO | PCP | | + +------+ + Encounter Details +--------+ + + + + | Date | Type | Department | Care Team | Description | +--------+ + + + + | 03/10/ | Care | [facility] | Andry, | | | 2013 | Coordinatio | [facility] | Markell Cano MD [address] | | | n | [address] | [address] | | | | | [address] [place] | [place] [address] | | | | | [place] [address] | [phone] | | | | | [phone] | | | +--------+ + + + [...]
--- OUTSIDE RECORDS SUMMARY | ~2019-11-10 | XMS | Encounter Summary ---
Demographics + + + | Address | [address] | | | [place] [address] | + + + | Home Phone | | + + + | Preferred Language | Unknown | + + + | Marital Status | Single | + + + | Yazdanism Affiliation | Unknown | + + + | Race | White | + + + | Ethnic Group | Not or | + + + Author + + + | Author | [facility] | + + + | Organization | [facility] | + + + | Address | Unknown | + + + | Phone | Unavailable | + + + Support + + +---------+ + | Name | Relationship | Address | Phone | + + +---------+ + | eFng Myrick | ECON | Unknown | | + + +---------+ + | Ulices Myrick | ECON | Unknown | | + + +---------+ + Care Team Providers + +------+ + | Care Tin Flopper Name | Role | Phone | + +------+ + | Emeterio Campos DO | PCP | | + +------+ + Encounter Details +--------+ + + + + | Date | Type | Department | Care Team | Description | +--------+ + + + + | 09/09/ | Document-Sc | Center for | Huseyin Suarez, | | | 2012 | anned | Hematologic | [address] | | | | | Malignancies at [facility] | [place], [place] | | | | | [address] | [address] | | | | | Loop Mailcode: | [phone] | | | | | [id number] | | | | | | [place], | | | | | | [place] [address] | | | | | | [phone] | | | +--------+ + + + [...] | + +--------+ + + + | PROCEDURE NOTE | Routin | 2015 | | Results for this | | | e | 8:56 PM | | procedure are in the | | | | PST | | results section. | + +--------+ + + + | LAB REPORTS | | 08/12/2013 | | Results for this | | | | 12:00 AM | | procedure are in the | | | | PDT | | results section. | + +--------+ + + + | RADIOLOGY | | 03/18/2013 | | Results for this | | | | 12:00 AM | | procedure are in the | | | | PDT | | results section. | + +--------+ + + + | PATHOLOGY | | 10/26/2011 | | Results for this | | | | 12:00 AM | | procedure are in the | | | | PST | | results section. | + +--------+ + + + documented in this encounter Results PROCEDURE NOTE (2015 8:56 PM PST) + + | Transcriptions | + + | Edgar Faculty - 09/02/2013 2:39 PM PST | + + LAB REPORTS (08/12/2013 12:00 AM PDT) + + + | Narrative | Performed At | + + + | | | | | | + + + + + | Procedure Note | + + | Millie Hernández - 09/02/2013 2:39 PM PST | + + RADIOLOGY (03/18/2013 12:00 AM PDT) + + + | Narrative | Performed At | + + + | | | | | | + + + + + | Procedure Note | + + | Millie Hernández - 09/02/2013 2:39 PM PST | + + PATHOLOGY (10/26/2011 12:00 AM PST) + + + | Narrative | Performed At | + + + | | | | | | + + + + + | Procedure Note | + + | Millie Hernández - 09/02/2013 2:39 PM PST | + + documented in this encounter Visit Diagnoses Not on filedocumented in this encounter"
--- OUTSIDE RECORDS SUMMARY | ~2019-11-10 | XMS | Encounter Summary ---
Demographics + + + | Address | [address] | | | [place] [address] | + + + | Home Phone | | + + + | Preferred Language | Unknown | + + + | Marital Status | Single | + + + | Taoism Affiliation | Unknown | + + + | Race | White | + + + | Ethnic Group | Not or | + + + Author + + + | Author | [facility] | + + + | Organization | [facility] | + + + | Address [...] Team Providers + +------+ + | Care Shop Superintendent Name | Role | Phone | + +------+ + | Emeterio Campos DO | PCP | | + +------+ + Reason for Referral Consultation (Routine) +--------+--------+ + + + + | Status | Reason | Specialty | Diagnoses / | Referred By | Referred To | | | | | Procedures | Contact | Contact | +--------+--------+ + + + + | Closed | | Hematology | Diagnoses | | Daniela, | | | | Malignancy | CLL | Andry, | MD Huseyin | | | | | (chronic | Markell Cano, | [address] | | | | | lymphocytic | [address] | | | | | leukemia) | [place] [place] [facility] | [place], [place] | | | | | (HCC) CLL | [place], | [address] | | | | | Procedures | [place] [address] | Phone: | | | | | CONSULT TO | Phone: | [phone] | | | | | HEMATOLOGIC | [phone] | Fax: | | | | | MALIGNANCIES | Fax: | [phone] | | | | | | [phone] | | +--------+--------+ + + + + Encounter Details +--------+ + + + + | Date | Type | Department | Care Team | Description | +--------+ + + + + | 05/11/ | Apprentice Plumber | Center for | Lore Sheriff, | CLL (chronic | | 2016 | | Hematologic | RN [address] | lymphocytic | | | | Malignancies at | [address] | leukemia) (HCC) | | | | [facility] | [place], [place] | (Primary Dx) | | | | [address] | [address] | | | | | Loop Mailcode: | [phone] | | | | | [id number] | | | | | | [place], | | | | | | [place] [address] | | | | | | [phone] | | | +--------+ + + + [...]
--- OUTSIDE RECORDS SUMMARY | ~2019-11-10 | XMS | Encounter Summary ---
Demographics + + + | Address | [address] | | | [place] [address] | + + + | Home Phone | | + + + | Preferred Language | Unknown | + + + | Marital Status | | + + + | Zoroastrian Affiliation | 1028 | + + + | Race | Unknown | + + + | Ethnic Group | Unknown | + + + Author + + + | Author | [facility] | | | and [place] | + + + | Organization | [facility] | | | and [place] | + + + | Address | Unknown | + + + | Phone | Unavailable | + + + Support + + + + + | Name | Relationship | Address | Phone | + + + + + | Jorge Myrick | [place] | [place] | | | | | [address] | | + + + + + | Feng Myrick | ECON | NA | | | | | [place] | | + + + + + Care Team Providers + +------+ + | Care Lamps Tester And Inspector Name | Role | Phone | + +------+ + | Massiel Pérez MD | PCP | | + +------+ + Reason for Visit +--------+ + | Reason | Comments | +--------+ + | Other | | +--------+ + Encounter Details +--------+ + + + + | Date | Type | Department | Care Team | Description | +--------+ + + + + | 04/07/ | Telephone | [facility] | Andry, | Other | | 2019 | | [facility] | Markell Cano MD [address] | | | | | [address] | [facility] | | | | | [address] [place] | [place] [address] | | | | | [place] [address] | [phone] | | | | | [phone] | | | +--------+ + + + [...]
--- OUTSIDE RECORDS SUMMARY | ~2019-11-10 | XMS | Encounter Summary ---
Demographics + + + | Address | [address] | | | [place] [address] | + + + | Home Phone | | + + + | Preferred Language | Unknown | + + + | Marital Status | | + + + | Jain Affiliation | 1028 | + + + | Race | Unknown | + + + | Ethnic Group | Unknown | + + + Author + + + | Author | [facility] | | | and [place] | + + + | Organization | [facility] | | | and [place] | + + + | Address | Unknown | + + + | Phone | Unavailable | + + + Support + + + + + | Name | Relationship | Address | Phone | + + + + + | Jorge Myrick | [place] | [place], [place] | | | | | [address] | | + + + + + | Feng Myrick | ECON | NA | | | | | [place] | | + + + + + Care Team Providers + +------+ + | Care Coffee Grinder Name | Role | Phone | + +------+ + | Emeterio Campos DO | PCP | | + +------+ + Reason for Visit +--------+ + | Reason | Comments | +--------+ + | Other | IC Pre Appt Intake | +--------+ + Encounter Details +--------+ + + + + | Date | Type | Department | Care Team | Description | +--------+ + + + + | 07/23/ | Telephone | [facility] | Jerrod Redding | Other (IC Pre Appt | | 2012 | | [facility] [address] | MD Jose [address] | Intake) | | | | [place], | [address] [place] | | | | | [place] [address] | [place] [address] | | | | | [phone] | [phone] | | | | | | | [...]
--- OUTSIDE RECORDS SUMMARY | ~2019-11-10 | XMS | Clinical Summary ---
Demographics + + + | Address | [address] | | | [place] [address] | + + + | Home Phone | | + + + | Preferred Language | Unknown | + + + | Marital Status | | + + + | Congregational Affiliation | 1028 | + + + [...] [place] | | | | | [address] | | + + + + + | Feng Myrick | ECON | NA | | | | | [place] | | + + + + + Care Team Providers + +------+ + | Care Hospitality Associate Name | Role | Phone | + +------+ + | Massiel Pérez MD | PCP | | + +------+ + Allergies No Known Allergies Medications + + + +---------+------+------+-------+ | Medication | Sig | Dispensed | Refills | Star | End | Statu | | | | | | t | Date | s | | | | | | Date | | | + + + +---------+------+------+-------+ | aspirin 325 mg | Take 325 mg by mouth | | 0 | | | Activ | | tablet | daily with | | | | | e | | | breakfast. | | | | | | + + + +---------+------+------+-------+ | IMBRUVICA 280 MG | | | 0 | 05/2 | | Activ | | tablet | | | | 9/20 | | e | | | | | | 19 | | | + + + +---------+------+------+-------+ | dilTIAZem | | | 0 | 07/1 | | Activ | | (CARDIZEM CD) 180 mg | | | | 2/20 | | e | | 24 hr capsule | | | | 19 | | | + + + +---------+------+------+-------+ Active Problems + + + | Problem | Noted Date | + + + | Amiodarone Therapy | 03/19/2014 | + + + + + | Overview: Chest XR 09/01/13. | | Chest XR 03/02/14. | + + + + + | Encounter for monitoring amiodarone therapy | 09/30/2013 | + + + + + | Overview: Chest XR 09/01/13. | + + + + + | Chronic lymphocytic leukemia | 09/09/2013 | + + + | Atrial fibrillation, 2005 | 07/23/2013 | + + + + + | Overview: Echo 12/08/04, LVEF 70%. | | Echo 07/13/13, LVEF 63%. | + + + + + | Leukemia, Lymphocytic | 07/23/2013 | + + + Encounters +--------+---------+ + + + | Date | Type | Specialty | Care Team | Description | +--------+---------+ + + + | 09/18/ Office | Cardiology | Huseyin Khan, | Atrial fibrillation, | | 2019 | Visit | | MD | unspecified type | | | | | | (HCC) (Primary Dx) | +--------+---------+ + + + from Last 3 Months Immunizations + + + + | Name | Administration Dates | Next Due | + + + + | INFLUENZA 4Y OR | 08/22/2017 | | | >,QUAD DERIVED FROM | | | | TISS-CULT MDV | | | + + + + | TDAP, (ADOL/ADULT) | 03/13/2013 | | + + + + | ZOSTER, 1 DOSE | 03/13/2013 | | | (ZOSTAVAX) | | | + + + + Family History + +------+ + + | Relation | Name | Status | Comments | + +------+ + + | Father | | | unknown | | | | (Age | | | | | 87) | | + +------+ + + | Mother | | | lymphoma | | | | (Age | | | | | 64) | | + +------+ + + Social History + +-------+ +--------+------+ [...] + + + | Respiratory Rate | 20 | 03/12/2018 2:17 PM | | | | | PDT | | + + + + + | Oxygen Saturation | 95% | 09/18/2019 8:46 AM | | | | | PST | | + + + + + | Inhaled Oxygen | - | - | | | Concentration | | | | + + + + + | Weight | 130.8 kg (288 lb 6.4 | 03/13/2019 10:52 AM | | | | oz) | PDT | | + + + + + | Height | 188 cm (6' 2.02") | 09/18/2019 8:46 AM | | | | | PST | | + + + + + | Body Mass Index | 37.03 | 03/13/2019 10:52 AM | | | | | PDT | | + + + + + Plan of Treatment + + + + + | Health Maintenance | Due Date | Last Done | Comments | + + + + + | Hepatitis C | | | | | Screening | 2 | | | + + + + + | Colorectal Cancer | | | | | Screening | 2 | | | | (Colonoscopy) | | | | + + + + + | Vaccine: Zoster (2 | | 03/13/2013 | | | of 3) | 3 | | | + + + + + | Adult Annual | | | | | Wellness Visit | 5 | | | + + + + + | Vaccine: | | | | | Pneumococcal 65+ (1 | 7 | | | | of 2 - PCV13) | | | | + + + + + | Vaccine: | | 03/13/2013 | | | Dtap/Tdap/Td (2 - | 3 | | | | Td) | | | | + + + + + | Vaccine: Influenza | Completed | 08/14/2019, 09/09/2018, | | | | | 08/22/2017, Additional history | | | | | exists | | + + + + + Results Not on filefrom Last 3 Months Insurance + +--------+ +--------+-------+---------+--------+ | Payer | Benefi | Subscriber | Effect | Phone | Address | Type | | | t Plan | ID | daniel | | | | | | / | | Dates | | | | | | Group | | | | | | + +--------+ +--------+-------+---------+--------+ | [facility] | [facility] | [id number] | 10/29/19 | | | Medica | | MEDICARE PPO | HEALTH | | 19-Pre | | | re | | | CARE | | sent | | | | | | MDCR | | | | | | | | PPO | | | | | | + +--------+ +--------+-------+---------+--------+ | [facility] | [facility] | [id number] | 10/29/19 | | | Medica | | MEDICARE PPO | HEALTH | | 19-Pre | | | re | | | CARE | | sent | | | | | | MDCR | | | | | | | | PPO | | | | | | + +--------+ +--------+-------+---------+--------+ + +--------+ +--------+ + + | Guarantor Name | Accoun | Relation to | Date | Phone | Billing Address | | | t Type | Patient | of | | | | | | | | | | + +--------+ +--------+ + + | Jude Myrick | Person | Self | [birth year] | [address] | | | al/[place] | | 1951 | [phone] | [address] [place], [place] | | | [place] | | | [address] (Home) | [address] | + +--------+ +--------+ + + | Jude Myrick | Person | Self | [birth year] | [address] | | | al/Fam | | 1950 | [phone] | [address] [place], [place] | | | [place] | | | [address] ([place]) | [address] | + +--------+ +--------+ + + Advance Directives + + + + + | Type | Date Recorded | Patient | Explanation | | | | Service Order Dispatcher | | + + + + + | Power of | | | | | 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
--- OUTSIDE RECORDS SUMMARY | ~2019-11-10 | XMS | Clinical Summary ---
Demographics + + + | Address | [address] | | | [place] [address] | + + + | Home Phone | | + + + | Preferred Language | Unknown | + + + | Marital Status | | + + + | Baptism Affiliation | Unknown | + + + | Race | Unknown | + + + | Ethnic Group | Unknown | + + + Author + + + | Author | [facility] (Historical as of | | | 06-14-19) | + + + | Organization | [facility] [employer] (Historical as of | | | 06-14-19) | + + + | Address | Unknown | + + + | Phone | Unavailable | + + + Support + + +---------+ + | Name | Relationship | Address | Phone | + + +---------+ + | Jorge Myrick | ECON | Unknown | | + + +---------+ + Care Team Providers + +------+ + | Care Window Repairer Name | Role | Phone | + +------+ + | Emeterio Campos DO | PP | | + +------+ + Allergies No Known Allergies Current Medications + + +-------+---------+------+------+-------+ | Prescription | Sig. | Disp. | Refills | Star | End | Statu | | | | | | t | Date | s | | | | | | Date | | | + + +-------+---------+------+------+-------+ | diltiazem | Take 120 mg by mouth | | | | | Activ | | (CARDIZEM CD) 120 MG | daily. | | | | | e | | 24 hr capsule | | | | | | | + + +-------+---------+------+------+-------+ | ibrutinib | Take 420 mg by mouth | | | | | Activ | | (IMBRUVICA) 140 MG | daily. | | | | | e | | capsule | | | | | | | + + +-------+---------+------+------+-------+ | aspirin 325 MG | Take 325 mg by mouth | | | | | Activ | | tablet | daily with | | | | | e | | | breakfast. | | | | | | + + +-------+---------+------+------+-------+ Active Problems No known active problems Immunizations + + + + | Name | Dates Previously Given | Next Due | + + + + | Influenza, | 08/22/2017 | | | Injectable, Mdck, | | | | Preservative Free, | | | | Quadrivalent | | | + + + + | Tdap | 03/13/2013 | | + + + + | Zoster (Live) | 03/13/2013 | | + + + + Social History + +-------+ +--------+------+ | Tobacco Use | Types | Packs/Day | Years | Date | | | | | Used | | + +-------+ +--------+------+ | Never Smoker | | | | | + +-------+ +--------+------+ + +-------+---+---+ | Smokeless Tobacco: | Snuff | | | | Current User | | | | + +-------+---+---+ + + +---------+ + | Alcohol Use | Drinks/We | oz/Week | Comments | | | ek | | | + + +---------+ + | Yes | | | occasional | + + +---------+ + + + + | Sex Assigned at | Date Recorded | | | | + + + | Not on file | | + + + Last Filed Vital Signs + + + + | Vital Sign | Reading | Time Taken | + + + + | Blood Pressure | 120/80 | 03/13/2019 10:49 AM PDT | + + + + | Pulse | 81 | 03/13/2019 10:49 AM PDT | + + + + | Temperature | - | - | + + + + | Respiratory Rate | 20 | 03/12/2018 2:12 PM PDT | + + + + | Oxygen Saturation | 97% | 03/13/2019 10:49 AM PDT | + + + + | Inhaled Oxygen | - | - | | Concentration | | | + + + + | Weight | 130.8 kg (288 lb 6.4 | 03/13/2019 10:49 AM PDT | | | oz) | | + + + + | Height | 188 cm (6' 2") | 03/13/2019 10:49 AM PDT | + + + + | Body Mass Index | 37.03 | 03/13/2019 10:49 AM PDT | + + + + Plan of Treatment + + + + + | Health Maintenance | Due Date | Last Done | Comments | + + + + + | Colon Cancer | | | | | Screening | 2 | | | | (Colonoscopy) | | | | + + + + + | Vaccine: Zoster (2 | | 03/13/2013 | | | of 3) | 3 | | | + + + + + | Vaccine: | | | | | Pneumococcal 65+ | 7 | | | | Low/Medium Risk (1 | | | | | of 2 - PCV13) | | | | + + + + + | Vaccine: Influenza | | 08/22/2017 | | | (#1) | 9 | | | + + + + + | Vaccine: | | 03/13/2013 | | | Dtap/Tdap/Td (2 - | 3 | | | | Td) | | | | + + + + + Results Not on filefrom Last 3 Months Insurance + +--------+ +--------+ + + | Payer | Benefi | Subscriber | Type | Phone | Address | | | t Plan | ID | | | | | | / | | | | | | | Group | | | | | + +--------+ +--------+ + + | [place] | [place] - | [id number] | Medica | [phone] [address] [address] [place] | | HEALTHCARE | [place] | | re | [phone] | [place] [address] | | | | | | | | | | HEALTH | | | | | | | CARE | | | | | + +--------+ +--------+ + + + +--------+ +--------+ + + | Guarantor Name | Accoun | Relation to | Date | Phone | Billing Address | | | t Type | Patient | of | | | | | | | | | | + +--------+ +--------+ + + | OCTAVIO MYRICK | Person | Self [birth year] | Home: | [address] | | | al/Fam | | 1950 | [phone] [place] | | | [place] | | | [phone] | [phone] | + +--------+ +--------+ + +
--- OUTSIDE RECORDS SUMMARY | ~2019-11-10 | XMS | Encounter Summary ---
Demographics + + + | Address | [address] | | | [place] [address] | + + + | Home Phone | | + + + | Preferred Language | Unknown | + + + | Marital Status | | + + + | Quaker Affiliation | 1028 | + + + [...] [place], [place] | | | | | [address] | | + + + + + | Feng Myrick | ECON | NA | | | | | [place] | | + + + + + Care Team Providers + +------+ + | Care Rfid Strategist Name | Role | Phone | + +------+ + | Emeterio Campos DO | PCP | | + +------+ + Reason for Visit + + + | Reason | Comments | + + + | Lab Results | | + + + Encounter Details +--------+ + + + + | Date | Type | Department | Care Team | Description | +--------+ + + + + | 07/31/ | Telephone | [facility] | Andry, | Lab Results | | 2017 | | [facility] | Markell Cano MD [address] | | | | | [facility] [address] [place] | | | | | [address] [place] | [place] [address] | | | | | [place] [address] | [phone] | | | | | [phone] | | | +--------+ + + + [...]
--- OUTSIDE RECORDS SUMMARY | ~2019-11-10 | XMS | Encounter Summary ---
Demographics + + + | Address | [address] | | | [place] [address] | + + + | Home Phone | | + + + | Preferred Language | Unknown | + + + | Marital Status | | + + + | Amish Affiliation | 1028 | + + + [...] [place] | | | | | [address] | | + + + + + | Feng Myrick | ECON | NA | | | | | [place] | | + + + + + Care Team Providers + +------+ + | Care Escrow Closer Name | Role | Phone | + +------+ + | Massiel Pérez MD | PCP | | + +------+ + Encounter Details +--------+ + + + + | Date | Type | Department | Care Team | Description | +--------+ + + + + | 05/22/ | Orders Only | [facility] | Provider, | | | 2018 | | [facility] | [address] | | | | | [address] | [address] | | | | | [address] [place], [place] | [place] [address] | | | | | [address] | | | | | | [phone] | | | +--------+ + + + [...]
--- OUTSIDE RECORDS SUMMARY | ~2019-11-10 | XMS | Encounter Summary ---
Demographics + + + | Address | [address] | | | [place] [address] | + + + | Home Phone | | + + + | Preferred Language | Unknown | + + + | Marital Status | | + + + | Jewish Affiliation | 1028 | + + + [...] [place], [place] | | | | | [address] | | + + + + + | Feng Myrick | ECON | NA | | | | | [place] | | + + + + + Care Team Providers + +------+ + | Care Dental Hygiene Teacher Name | Role | Phone | + +------+ + | Emeterio Campos DO | PCP | | + +------+ + Reason for Visit + + + | Reason | Comments | + + + | Atrial Fibrillation | Five month follow up | + + + Encounter Details +--------+---------+ + + + | Date | Type | Department | Care Team | Description | +--------+---------+ + + + | 03/19/ | Office | [facility] | Jerrod Redding | Paroxysmal atrial | | 2013 | Visit | CARDIOLOGY [address] | MD Jose [address] | fibrillation (HCC) | | | | [place], | [address] [place] | (Primary Dx); | | | | [place] [address] | [place] [address] | Amiodarone Therapy | | | | [phone] | [phone] | | | | | | | [...] + + + | Blood Pressure | 120/90 | 03/19/2014 11:10 AM | [place] | | | | PDT | | + + + + + | Pulse | 72 | 03/19/2014 11:10 AM | regular | | | | PDT | | + + + + + | Temperature | - | - | | + + + + + | Respiratory Rate | 16 | 03/19/2014 11:10 AM | | | | | PDT | | + + + + + | Oxygen Saturation | - | - | | + + + + + | Inhaled Oxygen | - | - | | | Concentration | | | | + + + + + | Weight | 136.1 kg (300 lb) | 03/19/2014 11:10 AM | | | | | PDT | | + + + + + | Height | 188 cm (6' 2") | 03/19/2014 11:10 AM | | | | | PDT | | + + + + + | Body Mass Index | 38.52 | 03/19/2014 11:10 AM | | | | | PDT | | + + + + + documented in this encounter Progress Notes Jerrod Redding MD - 03/19/2014 11:12 AM PDTFormatting of this note might be differe nt from the original. Subjective: Cardiology Office Visit Note Date of Service: 03/19/2014 Patient ID: Jude Myrick is a 63 y.o. male.thanks PCP: Emeterio Campos, Dr. Wilde HPI Jude Myrick is a 63 y.o. male with a history of chronic lymphocytic leukemia and recent e pisode of paroxysmal atrial fibrillation who presents for a followup visit. He has been doin g well without any complaints of palpitations or chest discomfort. Since our last visit, his CLL has been stable to improved and he is about to meet with Dr. Wilde to discuss opt ions for future therapy. He underwent routine testing for amiodarone therapy, including labo ratory tests, chest x-ray, and PFTs. He denies any respiratory symptoms, other constitution al symptoms, or any symptoms of palpitations or lightheadedness since our last visit. Previously, he was hospitalized after presenting with episode of atrial fibrillation with r apid ventricular rate in the context of severe anemia. He was treated with loading dose of i ntravenous amiodarone and discharged on a low maintenance oral dose. Since discharge he has done well without any further palpitations or chest discomfort and he believes that his anem ia is slowly improving. Patient had had an [...] List Diagnosis Atrial fibrillation, 2004 Leukemia, Lymphocytic Encounter for monitoring amiodarone therapy Past Surgical History Procedure Date Colonoscopy Prostate surgery radiation seed implant for cancer Hydrocele excision x2 No family history on file. 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 amiodarone (PACERONE) 200 mg tablet Take 1 tablet by mouth Daily. 60 tablet 5 diltiazem (CARDIZEM) 60 mg tablet Take 1 tablet by mouth Daily as needed. 30 tablet 6 No Known Allergies Review of Systems Constitutional: [...] has a normal mood and affect. BP 120/90 | Pulse 72 | Resp 16 | Ht 1.88 m (6' 2") | Wt 136.079 kg (300 lb) | BMI 38.50 kg/ m2 ECG: Reviewed by me today shows normal sinus rhythm, heart rate 69, normal ECG. LAB: No visits with results within 2 Month(s) from this visit. Latest known visit with results is: Orders Only on 12/29/2013 Component Date Value LD TOTAL 12/29/2013 140 Procalcitonin 12/29/2013 0.18 GLUCOSE 12/29/2013 108 CALCIUM 12/29/2013 8.9 ALK PHOS 12/29/2013 111* AST 12/29/2013 16 ALT 12/29/2013 20 BILIRUBIN TOTAL 12/29/2013 1.1* Total protein 12/29/2013 6.0 ALBUMIN 12/29/2013 3.9 BUN 12/29/2013 7 Creatinine, Serum 12/29/2013 1.14 Estimated GFR 12/29/2013 >60 BUN/Creatinine Ratio 12/29/2013 6.1* NA 12/29/2013 139 K 12/29/2013 3.2* CL 12/29/2013 101 CO2 12/29/2013 29 ANION GAP 12/29/2013 12.2 Hematocrit 42, Platelet count 108 PFTs reviewed by me August 2013 notable for mild personal airway disease without signific ant abnormalities or any problems with diffusion capacity. Previously: Hematocrit 27, white count 1.6, platelet count 38, creatinine 0.94, potassium 3 .8 checked yesterday. I personally reviewed records from another healthcare provider. Echocardiogram June 2013 interpreted and reviewed by me notable for LVEF at 63%, biatr ial enlargement, mild TR, borderline right-sided systolic pressures, mildly enlarged aortic root, no change compared with patient's prior study of 2004. TSH 2.76, free T4 1.76 LFTs WNL Electrocardiogram today reviewed by me shows sinus bradycardia, heart rate 58, otherwise no rmal ECG. Assessment: 1. Paroxysmal atrial fibrillation - For now we will continue on his current dose of amiodar one therapy - perhaps this could be discontinued within 6 months if his CLL stabilizes. His hematocrit has normalized since our last visit, and his platelet counts have improved. I hav e asked the patient to discuss with Dr. Wilde whether he can safely take low-dose aspi rin. At this point, patient does not meet criteria for anticoagulation, and even antiplatele t therapy is contraindicated at this point given his thrombocytopenia and severe anemia. I have prescribed him short-acting diltiazem [...] No further cardiovascular diagnostics for now. 3. Consider low-dose aspirin therapy. 4. followup visit in 6 months after recheck of LFTs and TFTs. Portions of this report were transcribed using voice recognition software. Every effort wa s made to ensure accuracy; however, inadvertent computerized checker cashier errors may be pre sent. I appreciate [...] 12 lead | ECG | Routin | Amiodarone Therapy | Ordered: 03/19/2014 | | | | e | | | + +------+--------+ + + documented as of this encounter Visit Diagnoses + + | Diagnosis | + + | Paroxysmal atrial fibrillation (HCC) - Primary Atrial fibrillation | + + | Amiodarone Therapy Encounter for therapeutic drug monitoring | + + documented in this encounter
--- OUTSIDE RECORDS SUMMARY | ~2019-11-10 | XMS | Encounter Summary ---
Demographics + + + | Address | [address] | | | [place] [address] | + + + | Home Phone | | + + + | Preferred Language | Unknown | + + + | Marital Status | | + + + | Buddhism Affiliation | 1028 | + + + | Race | Unknown | + + + | Ethnic Group | Unknown | + + + Author + + + | Author | [facility] | | | and [place] | + + + | Organization | [facility] | | | and [place] | + + + | Address | Unknown | + + + | Phone | Unavailable | + + + Support + + + + + | Name | Relationship | Address | Phone | + + + + + | Jorge Myrick | [place] | [place] | | | | | [address] | | + + + + + | Feng Myrick | ECON | NA | | | | | [place] | | + + + + + Care Team Providers + +------+ + | Care Clothing Trades Workers Name | Role | Phone | + +------+ + | Massiel Pérez MD | PCP | | + +------+ + Encounter Details +--------+ + + + + | Date | Type | Department | Care Team | Description | +--------+ + + + + | 01/17/ | Orders Only | [facility] | Huseyin Khan, | | | 2017 | | CARDIOLOGY STEVE | [address] | | | | | [address] | [place] [address] | | | | | [place] | [phone] | | | | | [address] | | | | | | [phone] | | | +--------+ + + + [...] + | ECHO COMPLETE | Routin | 01/17/2018 | | Results for this | | | e | 11:47 AM | | procedure are in the | | | | PDT | | results section. | + +--------+ + + + documented in this encounter Results ECHO Complete (01/17/2018 11:47 AM PDT) + + | Specimen | + + | | + + + + + | Impressions | Performed At | + + + | 1. Overall left ventricular systolic function is normal with, an EF | | | between 60 - 65 %. 2. The diastolic filling pattern indicates | | | impaired relaxation consistent with mild dysfunction (Grade I). 3. | | | There is mild aortic regurgitation. 4. The ascending aorta is dilated | | | measuring up to 40mm. | | + + + + + + | Narrative | Performed At | + + + | Patient Name: JUDE MYRICK Date of : 1950 | | | Performing Physician: Huseyin Khan MD, | | | FACC, FACP, FASNC | | | | | | INDICATIONS AFIB CONCLUSIONS 1. | | | Overall left ventricular systolic function is normal with, an EF | | | between 60 - 65 %. 2. The diastolic filling pattern indicates | | | impaired relaxation consistent with mild dysfunction (Grade I). 3. | | | There is mild aortic regurgitation. 4. The ascending aorta is dilated | | | measuring up to 40mm. FINDINGS -------- ECG rhythm: Sinus | | | rhythm. Study: A 2-dimensional transthoracic echocardiogram with | | | m-mode, spectral and color flow Doppler was perfomed. Study: This was | | | a technically adequate study. Left Ventricle: Overall left | | | ventricular systolic function is normal with, an EF between 60 - 65 %. | | | Left Ventricle: The left ventricle cavity size is normal. Left | | | Ventricle: Left ventricular wall thickness is normal. Left Ventricle: | | | The diastolic filling pattern indicates impaired relaxation | | | consistent with mild dysfunction (Grade I). Right Ventricle: The | | | right ventricle is normal in size and function. Left Atrium: The left | | | atrium is mildly enlarged. Right Atrium: The right atrium is mildly | | | enlarged. Aortic Valve: The aortic valve is trileaflet, and appears | | | anatomically normal. No aortic stenosis or regurgitation. Aortic | | | Valve: There is mild aortic regurgitation. Aortic Valve: There is no | | | evidence of aortic stenosis. Mitral Valve: Normal appearing mitral | | | valve. Mitral Valve: Mild mitral regurgitation is present. Tricuspid | | | Valve: The tricuspid valve appears structurally normal. Tricuspid | | | Valve: Mild tricuspid regurgitation present. Tricuspid Valve: The | | | right ventricular systolic pressure (pulmonary artery systolic | | | pressure), as measured by Doppler, is 27.24mmHg. Pulmonic Valve: | | | Pulmonic valve appears structurally normal. Pulmonic Valve: Trace | | | pulmonic regurgitation. Pericardium: There is no pericardial | | | effusion. IVC/Hepatic Veins: The inferior vena cava is normal in size | | | and collapses > 50 % with sniff, indicating normal central venous | | | pressures. Aorta: The aortic root, ascending aorta and aortic arch | | | are normal. Aorta: The ascending aorta is dilated measuring up to | | | 4.0cm. Mass: No mass visualized Thrombus: No clot visualized | | | Thrombus: No vegetation visualized. Septum: No ASD observed. Septum: | | | No VSD observed. MEASUREMENTS Ao asc: 4.00 cm | | | Ao sinus: 4.[address] junct: 3.74 cm IVC: 2.08 cm | | | EDV(Teich): 166.74 ml IVSd: 0.76 cm LVIDd: 5.80 cm LVPWd: | | | 0.90 cm LVOT Area: 4.54 cm2 LVOT Diam: 2.40 cm %FS: | | | 43.40 % EF(Teich): 73.83 % ESV(Teich): 43.62 ml LVIDs: | | | 3.28 cm SV(Teich): 123.12 ml RVIDd: 3.66 cm LVEF MOD A2C: | | | 59.48 % SV MOD A2C: 90.31 ml LVEF MOD A4C: 61.49 % SV MOD | | | A4C: 100.27 ml EF Biplane: 59.02 % LVEDV MOD BP: 157.77 ml | | | LVESV MOD BP: 64.63 ml LVEDV MOD A2C: 151.83 ml LVLd A2C: | | | 8.60 cm LVEDV MOD A4C: 163.06 ml LVLd A4C: 8.75 cm LVESV MOD | | | A2C: 61.51 ml LVLs A2C: 7.07 cm LVESV MOD A4C: 62.78 ml | | | LVLs A4C: 7.71 cm LAESV(A-L): 88.16 ml LAESV Index (A-L): | | | 34.98 ml/m2 LAAs A2C: 25.38 cm2 LAESV A-L A2C: 97.82 ml LALs | | | A2C: 5.59 cm LAAs A4C: 21.54 cm2 LAESV A-L A4C: 74.80 ml | | | LALs A4C: 5.26 cm RAAs: 21.37 cm2 RAESV A-L: 67.97 ml | | | RAESV MOD: 60.25 ml RALs: 5.70 cm TAPSE: 2.39 cm AV maxPG: | | | 7.85 mmHg AV meanP.26 mmHg AV Vmax: 1.40 m/s AV | | | Vmean: 0.96 m/s AV VTI: 28.95 cm CLAYTON Vmax: 3.67 cm2 CLAYTON | | | (VTI): 3.49 cm2 AVAI (Vmax): 0.00 cm2/m2 AVAI (VTI): 0.00 | | | cm2/m2 LVOT maxP.15 mmHg LVOT meanP.64 mmHg LVSI | | | Dopp: 40.20 ml/m2 LVSV Dopp: 101.30 ml LVOT Vmax: 1.13 m/s | | | LVOT Vmean: 0.75 m/s LVOT VTI: 22.30 cm MV A Canelo: 0.67 m/s | | | MV Dec De Witt: 2.13 m/s2 MV DecT: 240.93 ms MV E Canelo: 0.51 | | | m/s MV E/A Ratio: 0.76 MV PHT: 69.87 ms MVA By PHT: 3.14 | | | cm2 Septal e': 0.05 m/s Septal E/e': 8.90 Lateral e': 0.04 | | | m/s Lateral E/e': 11.31 P Vein A: 0.26 m/s P Vein D: 0.44 | | | m/s P Vein S/D Ratio: 0.97 P Vein S: 0.43 m/s PV maxPG: | | | 2.91 mmHg PV Vmax: 0.85 m/s RAP: 5 mmHg RVSP: 27.24 mmHg | | | TR maxP.24 mmHg TR Vmax: 2.35 m/s Heating And Ventilating Worker: DBS | | | Authenticated by: Huseyin Khan MD, FACC, FACP, FASSADIA Report | | | Date/Time: 01-21-2018 15:43:39 | | + + + + + | Procedure Note | + + | Vasyl Nj Conversion - 06/19/2019 5:18 PM PDT Patient Name: Sweta MYRICK | | : 1950 Performing Physician: Huseyin Khan MD, [facility], | | FACP, | | FASNC INDICATIONS--------- | | --AFIB CONCLUSIONS 1. Overall left ventricular systolic function is normal | | with, an EF between 60 - 65 %.2. The diastolic filling pattern indicates impaired | | relaxation consistent with mild dysfunction (Grade I).3. There is mild aortic | | regurgitation.4. 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 | | FINDINGS--------ECG rhythm: Sinus rhythm.Study: A 2-dimensional transthoracic | | echocardiogram with m-mode, spectral and color flow Doppler was perfomed.Study: This was | | a technically adequate study.Left Ventricle: Overall left ventricular systolic function | | is normal with, an EF between 60 - 65 %.Left Ventricle: The left ventricle cavity size | | is normal.Left Ventricle: Left ventricular wall thickness is normal.Left Ventricle: The | | diastolic filling pattern indicates impaired relaxation consistent with mild dysfunction | | (Grade I).Right Ventricle: The right ventricle is normal in size and function.Left | | Atrium: The left atrium is mildly enlarged.Right Atrium: The right atrium is mildly | | enlarged.Aortic Valve: The aortic valve is trileaflet, and appears anatomically normal. | | No aortic stenosis or regurgitation.Aortic Valve: There is mild aortic | | regurgitation.Aortic Valve: There is no evidence of aortic stenosis.Mitral Valve: Normal | | appearing mitral valve.Mitral Valve: Mild mitral regurgitation is present.Tricuspid | | Valve: The tricuspid valve appears structurally normal.Tricuspid Valve: Mild tricuspid | | regurgitation present.Tricuspid Valve: The right ventricular systolic pressure | | (pulmonary artery systolic pressure), as measured by Doppler, is 27.24mmHg.Pulmonic | | Valve: Pulmonic valve appears structurally normal.Pulmonic Valve: Trace pulmonic | | regurgitation.Pericardium: There is no pericardial effusion.IVC/Hepatic Veins: The | | inferior vena cava is normal in size and collapses > 50 % with sniff, indicating normal | | central venous pressures.Aorta: The aortic root, ascending aorta and aortic arch are | | normal.Aorta: The ascending aorta is dilated measuring up to 4.0cm.Mass: No mass | | visualizedThrombus: No clot visualizedThrombus: No vegetation visualized.Septum: No ASD | | observed.Septum: No VSD observed. MEASUREMENTS Ao asc: 4.00 cmAo sinus: | | 4.[address] junct: 3.74 cmIVC: 2.08 cmEDV(Teich): 166.74 mlIVSd: 0.76 cmLVIDd: | | 5.80 cmLVPWd: 0.90 cmLVOT Area: 4.54 [id number] Diam: 2.40 cm%FS: 43.40 | | %EF(Teich): 73.83 %ESV(Teich): 43.62 mlLVIDs: 3.28 cmSV(Teich): 123.12 mlRVIDd: | | 3.66 cmLVEF MOD A2C: 59.48 %SV MOD A2C: 90.31 mlLVEF MOD A4C: 61.49 %SV MOD A4C: | | 100.27 mlEF Biplane: 59.02 %LVEDV MOD BP: 157.77 mlLVESV MOD BP: 64.63 mlLVEDV | | MOD A2C: 151.83 mlLVLd A2C: 8.60 cmLVEDV MOD A4C: 163.06 mlLVLd A4C: 8.75 | | cmLVESV MOD A2C: 61.51 mlLVLs A2C: 7.07 cmLVESV MOD A4C: 62.78 mlLVLs A4C: 7.71 | | cmLAESV(A-L): 88.16 mlLAESV Index (A-L): 34.98 ml/m2LAAs A2C: 25.38 [id number] A-L | | A2C: 97.82 mlLALs A2C: 5.59 cmLAAs A4C: 21.54 [id number] A-L A4C: 74.80 mlLALs | | A4C: 5.26 cmRAAs: 21.37 [id number] A-L: 67.97 mlRAESV MOD: 60.25 mlRALs: 5.70 | | cmTAPSE: 2.39 cmAV maxP.85 mmHgAV meanP.26 mmHgAV Vmax: 1.40 m/Simran | | Vmean: 0.96 m/Simran VTI: 28.95 cmAVA Vmax: 3.67 cm2AVA (VTI): 3.49 [id number] (Vmax): | | 0.00 cm2/m2AVAI (VTI): 0.00 cm2/m2LVOT maxP.15 mmHgLVOT meanP.64 | | mmHgLVSI Dopp: 40.20 ml/m2LVSV Dopp: 101.30 mlLVOT Vmax: 1.13 m/sLVOT Vmean: | | 0.75 m/sLVOT VTI: 22.30 cmMV A Canelo: 0.67 m/sMV Dec [place]: 2.13 m/s2MV DecT: | | 240.93 msMV E Canelo: 0.51 m/sMV E/A Ratio: 0.76MV PHT: 69.87 msMVA By PHT: 3.14 | | [id number] e': 0.05 m/sSeptal E/e': 8.90Lateral e': 0.04 m/sLateral E/e': 11.31P | | Vein A: 0.26 m/sP Vein D: 0.44 m/sP Vein S/D Ratio: 0.97P Vein S: 0.43 m/sPV | | maxP.91 mmHgPV Vmax: 0.85 m/sRAP: 5 mmHgRVSP: 27.24 mmHgTR maxP.24 | | mmHgTR Vmax: 2.35 m/s Heating And Ventilating Worker: DBSAuthenticated by: Huseyin Khan MD, FACC, FACP, | | FASNCReport Date/Time: 01-21-2018 15:43:39 IMPRESSION: 1. Overall left ventricular | | systolic function is normal with, an EF between 60 - 65 %.2. The diastolic filling | | pattern indicates impaired relaxation consistent with mild dysfunction (Grade I).3. | | There is mild aortic regurgitation.4. The ascending aorta is dilated measuring up to | | 40mm. | |Ao st junct: 3.74 cm | |IVC: 2.08 cm | |EDV(Teich): 166.74 ml | |IVSd: 0.76 cm | |LVIDd: 5.80 cm | |LVPWd: 0.90 cm | |LVOT Area: 4.54 cm2 | |LVOT Diam: 2.40 cm | |%FS: 43.40 % | |EF(Teich): 73.83 % | |ESV(Teich): 43.62 ml | |LVIDs: 3.28 cm | |SV(Teich): 123.12 ml | |RVIDd: 3.66 cm | |LVEF MOD A2C: 59.48 % | |SV MOD A2C: 90.31 ml | |LVEF MOD A4C: 61.49 % | |SV MOD A4C: 100.27 ml | |EF Biplane: 59.02 % | |LVEDV MOD BP: 157.77 ml | |LVESV MOD BP: 64.63 ml | |LVEDV MOD A2C: 151.83 ml | |LVLd A2C: 8.60 cm | |LVEDV MOD A4C: 163.06 ml | |LVLd A4C: 8.75 cm | |LVESV MOD A2C: 61.51 ml | |LVLs A2C: 7.07 cm | |LVESV MOD A4C: 62.78 ml | |LVLs A4C: 7.71 cm | |LAESV(A-L): 88.16 ml | |LAESV Index (A-L): 34.98 ml/m2 | |LAAs A2C: 25.38 cm2 | |LAESV A-L A2C: 97.82 ml | |LALs A2C: 5.59 cm | |LAAs A4C: 21.54 cm2 | |LAESV A-L A4C: 74.80 ml | |LALs A4C: 5.26 cm | |RAAs: 21.37 cm2 | |RAESV A-L: 67.97 ml | |RAESV MOD: 60.25 ml | |RALs: 5.70 cm | |TAPSE: 2.39 cm | |AV maxP.85 mmHg | |AV meanP.26 mmHg | |AV Vmax: 1.40 m/s | |AV Vmean: 0.96 m/s | |AV VTI: 28.95 cm | |CLAYTON Vmax: 3.67 cm2 | |CLAYTON (VTI): 3.49 cm2 | |AVAI (Vmax): 0.00 cm2/m2 | |AVAI (VTI): 0.00 cm2/m2 | |LVOT maxP.15 mmHg | |LVOT meanP.64 mmHg | |LVSI Dopp: 40.20 ml/m2 | |LVSV Dopp: 101.30 ml | |LVOT Vmax: 1.13 m/s | |LVOT Vmean: 0.75 m/s | |LVOT VTI: 22.30 cm | |MV A Canelo: 0.67 m/s | |MV Dec [place]: 2.13 m/s2 | |MV DecT: 240.93 ms | |MV E Canelo: 0.51 m/s | |MV E/A Ratio: 0.76 | |MV PHT: 69.87 ms | |MVA By PHT: 3.14 cm2 | |Septal e': 0.05 m/s | |Septal E/e': 8.90 | |Lateral e': 0.04 m/s | |Lateral E/e': 11.31 | |P Vein A: 0.26 m/s | |P Vein D: 0.44 m/s | |P Vein S/D Ratio: 0.97 | |P Vein S: 0.43 m/s | |PV maxP.91 mmHg | |PV Vmax: 0.85 m/s | |RAP: 5 mmHg | |RVSP: 27.24 mmHg | |TR maxP.24 mmHg | |TR Vmax: 2.35 m/s | | | |Heating And Ventilating Worker: DBS | |Authenticated by: Huseyin Khan MD, FAC, FACP, [facility] | |Report Date/Time: 01-21-2018 15:43:39 | | | |IMPRESSION: | |1. Overall left ventricular systolic function is normal with, an EF between 60 - 65 %. | |2. The diastolic filling pattern indicates impaired relaxation consistent with mild dysfunc tion (Grade I). | |3. There is mild aortic regurgitation. | |4. 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 | + + documented in this encounter Visit Diagnoses Not on filedocumented in this encounter"
--- OUTSIDE RECORDS SUMMARY | ~2019-11-10 | XMS | Encounter Summary ---
Demographics + + + | Address | [address] | | | [place] [address] | + + + | Home Phone | | + + + | Preferred Language | Unknown | + + + | Marital Status | | + + + | Mandaen Affiliation | 1028 | + + + | Race | Unknown | + + + | Ethnic Group | Unknown | + + + Author + + + | Author | [facility] | | | and [place] | + + + | Organization | [facility] | | | and [place] | + + + | Address | Unknown | + + + | Phone | Unavailable | + + + Support + + + + + | Name | Relationship | Address | Phone | + + + + + | Jorge Myrick | [place] | [place], [place] | | | | | [address] | | + + + + + | Feng Myrick | ECON | NA | | | | | [place] | | + + + + + Care Team Providers + +------+ + | Care Measuring Machine Tender Name | Role | Phone | + +------+ + | Emeterio Campos DO | PCP | | + +------+ + Reason for Visit + + + | Reason | Comments | + + + | Medication Refill | | + + + Encounter Details +--------+--------+ + + + | Date | Type | Department | Care Team | Description | +--------+--------+ + + + | 02/23/ | Refill | [facility] | Emmy Baum, | Medication Refill | | 2013 | | [facility] | RN | | | | | [facility] [address] | | | | | | [address] | | | | | | [place] [address] | | | | | | [phone] | | | +--------+--------+ + + + Social History + +-------+ [...] fibrillation | + + documented in this encounter"
--- OUTSIDE RECORDS SUMMARY | ~2019-11-10 | XMS | Encounter Summary ---
Demographics + + + | Address | [address] | | | [place] [address] | + + + | Home Phone | | + + + | Preferred Language | Unknown | + + + | Marital Status | | + + + | Sabianism Affiliation | 1028 | + + + | Race | Unknown | + + + | Ethnic Group | Unknown | + + + Author + + + | Author | [facility] | | | and [place] | + + + | Organization | [facility] | | | and [place] | + + + | Address | Unknown | + + + | Phone | Unavailable | + + + Support + + + + + | Name | Relationship | Address | Phone | + + + + + | Jorge Myrick | [place] | [place], [place] | | | | | [address] | | + + + + + | Feng Myrick | ECON | NA | | | | | [place] | | + + + + + Care Team Providers + +------+ + | Care Sales And Service Consultant Name | Role | Phone | + +------+ + | Emeterio Campos DO | PCP | | + +------+ + Reason for Visit +---------+ + | Reason | Comments | +---------+ + | Illness | | +---------+ + Encounter Details +--------+ + + + + | Date | Type | Department | Care Team | Description | +--------+ + + + + | 01/08/ | Telephone | [facility] | Andry, | Illness | | 2013 | | [facility] | Markell Cano MD [address] | | | | | [facility] [address] | [facility] | | | | | [address] | [place] [address] | | | | | [place] [address] | [phone] | | | | | [phone] | | | +--------+ + + + [...]
--- OUTSIDE RECORDS SUMMARY | ~2019-11-10 | XMS | Encounter Summary ---
Demographics + + + | Address | [address] | | | [place] [address] | + + + | Home Phone [...] [place] | | | | | [address] | | + + + + + | Feng Myrick | ECON | NA | | | | | [place] | | + + + + + Care Team Providers + +------+ + | Care Medical Certification Specialist Name | Role | Phone | + +------+ + | Emeterio Campos DO | PCP | | + +------+ + Encounter Details +--------+ + + + + | Date | Type | Department | Care Team | Description | +--------+ + + + + | 07/24/ | Abstract | [facility] | [facility]atin [facility] | | | 2012 | | [address] | MD Jose [address] | | | | | [place], | [address] [place] | | | | | [place] [address] | [place] [address] | | | | | [phone] | | | | | | | [...] | EXTERNAL LAB: [facility] | Routin | 06/17/2013 | | Results for this | | | e | | | procedure are in the | | | | | | results section. | + +--------+ + + + | EXTERNAL LAB: [facility] | Routin | 06/17/2013 | | Results for this | | | e | | | procedure are in the | | | | | | results section. | + +--------+ + + + | EXTERNAL LAB: [facility] | Routin | 06/17/2013 | | Results for this | | | e | | | procedure are in the | | | | | | results section. | + +--------+ + + + | EXTERNAL LAB: [facility] | Routin | 06/17/2013 | | Results for this | | | e | | | procedure are in the | | | | | | results section. | + +--------+ + + + | EXTERNAL LAB: | Routin | 06/17/2013 | | Results for this | | CHOLESTEROL, NON HDL | e | | | procedure are in the | | LP | | | | results section. | + +--------+ + + + | EXTERNAL LAB: | Routin | 06/17/2013 | | Results for this | | TRIGLYCERIDES | e | | | procedure are in the | | | | | | results section. | + +--------+ + + + | EXTERNAL LAB: | Routin | 06/17/2013 | | Results for this | | CHOLESTEROL, HDL | e | | | procedure are in the | | | | | | results section. | + +--------+ + + + | EXTERNAL LAB: | Routin | 06/17/2013 | | Results for this | | CHOLESTEROL, TOTAL | e | | | procedure are in the | | | | | | results section. | + +--------+ + + + | EXTERNAL LAB: | Routin | 06/17/2013 | | Results for this | | CHOLESTEROL, LDL | e | | | procedure are in the | | | | | | results section. | + +--------+ + + + | EXTERNAL LAB: EGFR | Routin | 06/17/2013 | | Results for this | | | e | | | procedure are in the | | | | | | results section. | + +--------+ + + + | EXTERNAL LAB: | Routin | 06/17/2013 | | Results for this | | CREATININE | e | | | procedure are in the | | | | | | results section. | + +--------+ + + + | LIPID PANEL | Routin | 06/17/2013 | | Results for this | | | e | | | procedure are in the | | | | | | results section. | + +--------+ + + + | T3, TOTAL | Routin | 06/17/2013 | | Results for this | | | e | | | procedure are in the | | | | | | results section. | + +--------+ + + + | CBC WITH | Routin | 06/17/2013 | | Results for this | | DIFFERENTIAL | e | | | procedure are in the | | | | | | results section. | + +--------+ + + + | T4, FREE | Routin | 06/17/2013 | | Results for this | | | e | | | procedure are in the | | | | | | results section. | + +--------+ + + + | COMPREHENSIVE | Routin | 06/17/2013 | | Results for this | | METABOLIC PANEL | e | | | procedure are in the | | | | | | results section. | + +--------+ + + + documented in this encounter Results Lipid Panel (06/17/2013) + +-------+ + + + | Component | Value | Ref Range | Performed | Pathologist | | | | | At | Signature | + +-------+ + + + | VLDL | 16 | | | | | Cholesterol | | | | | | [facility] | | | | | + +-------+ + + + | Chol/HDL | 3.4 | | | | | Ratio | | | | | + +-------+ + + + + + | Specimen | + + | Blood specimen | | (specimen) | + + Comprehensive Metabolic Panel (06/17/2013) + +---------+ + + + | Component | Value | Ref Range | Performed | Pathologist | | | | | At | Signature | + +---------+ + + + | Na | 140 | mmol/L | [facility] | | [facility] - | | | | | | [facility]ORY | | + +---------+ + + + | K | 4.2 | mmol/L | [facility] | | | | | | [facility] | | | | [facility] - | | | | | | [facility]ORY | | + +---------+ + + + | Chloride | 107 | | [facility] | [facility] | | | | | | [facility] | | | | [facility] - | | | | | | LAB[facility]ATORY | | + +---------+ + + + | CO2 | 28 | mmol/L | [facility] | | | | | | [facility] | | | | | [facility] - | | | | | | LAB[facility]ATORY | | + +---------+ + + + | Anion Gap | 9 | mmol/L | [facility] | | | | | [facility] | | | | | | [facility] | | | | | [facility] - | | | | | | LAB[facility]ATORY | | + +---------+ + + + | Glucose | 119 | mg/dL | [facility] | | | | | [facility] | | | | | | [facility] | | | | | [facility] - | | | | | | LAB[facility]ATORY | | + +---------+ + + + | BUN | 18 | mg/dL | [facility] | | | | | [facility] | | | | | | [facility] | | | | [facility] - | | | | | | LAB[facility]ATORY | | + +---------+ + + + | Bun/Creatin | 16.5 | | [facility] | | | ine | | | [facility] | | | | | | [facility] | | | | | | [facility] - | | | | | | LAB[facility]ATORY | | + +---------+ + + + | Calcium | 9.0 | mg/dL | [facility] | | | | | [facility] | | | | | | [facility] | | | | | | [facility] - | | | | | | LAB[facility]ATORY | | + +---------+ + + + | Alkaline | 59 | 35 - 115 U/L | [facility] | | | Phosphatase | | | [facility] | | | | | | [facility] | | | | | | [facility] - | | | | | | LAB[facility]ATORY | | + +---------+ + + + | Bilirubin | 4.0 (A) | 0.1 - 1.5 mg/dL | [facility] | | | Total | | | [facility] | | | | | | [facility] | | | | | | [facility] - | | | | | | LAB[facility]ATORY | | + +---------+ + + + | Total | 6.4 | 6.1 - 8.4 g/dL | [facility] | | | Protein | | | [facility] | | | | | | [facility] | | | | | | [facility] - | | | | | | LABORATORY | | + +---------+ + + + | Albumin | 4.8 | 3.3 - 4.8 g/dL | [facility] | | | | | [facility] | | | [facility] | | [facility] | | | | | | [facility] - | | | | | | LAB[facility]ATORY | | + +---------+ + + + | Globulin | 1.6 (A) | 1.8 - 3.5 | [facility] | | | | | [facility] | | | | | | [facility] | | | | | | [facility] - | | | | | | LAB[facility]ATORY | | + +---------+ + + + | Albumin/Kecia | 3.0 (A) | 1.1 - 2.4 | [facility] | | | bulin Ratio | | | [facility] | | | | | | [facility] | | | | | | [facility] - | | | | | | LABORATORY | | + +---------+ + + + + + | Specimen | + + | Blood specimen | | (specimen) | + + + + + + + | Performing | Address | City/State/Zipcode | Phone Number | | Organization | | | | + + + + + | [facility] | [address] | [place] | | | [facility] | | [address] | | | - LABORATORY | | | | + + + + + T4, Free (06/17/2013) + +-------+ + + + | Component | Value | Ref Range | Performed | Pathologist | | | | | At | Signature | + +-------+ + + + | Free T4 | 1.5 | 0.8 - 1.6 ng/dL | [facility] | | | | | | [facility] | | | | | | MEDICAL | | | | | | CENTER - | | | | | | LABORATORY | | + +-------+ + + + + + | Specimen | + + | Blood specimen | | (specimen) | + + + + + + + | Performing | Address | City/State/Zipcode | Phone Number | | Organization | | | | + + + + + | [facility] | [address] | [place] | | | [facility] | | [address] | | | - LABORATORY | | | | + + + + + T3 (06/17/2013) + +-------+ + + + | Component | Value | Ref Range | Performed | Pathologist | | | | | At | Signature | + +-------+ + + + | T3, Total | 94 | 80 - 200 ng/dL | | | + +-------+ + + + + + | Specimen | + + | Blood specimen | | (specimen) | + + CBC with Differential (06/17/2013) + + + + + + | Component | Value | Ref Range | Performed | Pathologist | | | | | At | Signature | + + + + + + | RBC | 2.07 (A) | 4.30 - 5.70 | | | | | | 10*6/uL | | | + + + + + + | MCV | 111.4 (A) | 80.0 - 100.0 fL | | | + + + + + + | RDW-CV | 18.6 (A) | 11.0 - 15.0 % | | | + + + + + + | MCH | 35.0 (A) | 26.0 - 33.0 pg | | | + + + + + + | MCHC | 32.0 | 31.0 - 37.0 % | | | + + + + + + | % Segmented | 15.0 (A) | 40.0 - 80.0 % | | | | | | | | | | Neutrophils | | | | | + + + + + + | % | 83.3 (A) | 15.0 - 45.0 % | | | | Lymphocytes | | | | | + + + + + + | % Monocytes | 0.3 | 0.0 - 12.0 % | | | + + + + + + | % | 0.5 | 0.0 - 7.0 % | | | | Eosinophils | | | | | + + + + + + | % Basophils | 0.8 | 1.0 % | | | + + + + + + + + | Specimen | + + | Blood specimen | | (specimen) | + + External Lab: CBC (06/17/2013) + + + + + + | Component | Value | Ref Range | Performed | Pathologist | | | | | At | Signature | + + + + + + | WBC, | 13.1 (A) | 4.5 - 11 | EXTERNAL | | | External | | | LAB | | + + + + + + | HGB, | 7.3 (A) | 13.5 - 18 | EXTERNAL | | | External | | | LAB | | + + + + + + | HCT, | 23.0 (A) | 41 - 50 | EXTERNAL | | | External | | | LAB | | + + + + + + | PLT, | 142 | 140 - 440 | EXTERNAL | | | External | | | LAB | | + + + + + + + + | Resulting Agency Comment | + + | [facility] | + + + +---------+ + + | Performing | Address | City/State/Zipcode | Phone Number | | Organization | | | | + +---------+ + + | EXTERNAL LAB | | | | + +---------+ + + External Lab: AST (06/17/2013) + +-------+ + + + | Component | Value | Ref Range | Performed | Pathologist | | | | | At | Signature | + +-------+ + + + | AST, | 19 | 0 - 40 | EXTERNAL | | | External | | | LAB | | + +-------+ + + + + + | Specimen | + + | Blood specimen | | (specimen) | + + + + | Resulting Agency Comment | + + | [facility] | + + + +---------+ + + | Performing | Address | City/State/Zipcode | Phone Number | | Organization | | | | + +---------+ + + | EXTERNAL LAB | | | | + +---------+ + + External Lab: ALT (06/17/2013) + +-------+ + + + | Component | Value | Ref Range | Performed | Pathologist | | | | | At | Signature | + +-------+ + + + | ALT, | 14 | 0 - 46 | EXTERNAL | | | External | | | LAB | | + +-------+ + + + + + | Specimen | + + | Blood specimen | | (specimen) | + + + + | Resulting Agency Comment | + + | [facility] | + + + +---------+ + + | Performing | Address | City/State/Zipcode | Phone Number | | Organization | | | | + +---------+ + + | EXTERNAL LAB | | | | + +---------+ + + External Lab: TSH (06/17/2013) + +-------+ + + + | Component | Value | Ref Range | Performed | Pathologist | | | | | At | Signature | + +-------+ + + + | TSH, | 2.01 | 0.27 - 4.2 | EXTERNAL | | | External | | | LAB | | + +-------+ + + + + + | Specimen | + + | Blood specimen | | (specimen) | + + + + | Resulting Agency Comment | + + | [facility] | + + + +---------+ + + | Performing | Address | City/State/Zipcode | Phone Number | | Organization | | | | + +---------+ + + | EXTERNAL LAB | | | | + +---------+ + + External Lab: Cholesterol, Non HDL LP (06/17/2013) + +-------+ + + + | Component | Value | Ref Range | Performed | Pathologist | | | | | At | Signature | + +-------+ + + + | Cholesterol | 54 | 0 - 130 | EXTERNAL | | | , Total, | | | LAB | | | Non HDL-C | | | | | | (LDL+VLDL), | | | | | | External | | | | | + +-------+ + + + + + | Specimen | + + | Blood specimen | | (specimen) | + + + + | Resulting Agency Comment | + + | [facility] | + + + +---------+ + + | Performing | Address | City/State/Zipcode | Phone Number | | Organization | | | | + +---------+ + + | EXTERNAL LAB | | | | + +---------+ + + External Lab: Triglycerides (06/17/2013) + +-------+ + + + | Component | Value | Ref Range | Performed | Pathologist | | | | | At | Signature | + +-------+ + + + | Triglycerid | 80 | 30 - 150 | EXTERNAL | | | es, | | | LAB | | | External | | | | | + +-------+ + + + + + | Specimen | + + | Blood specimen | | (specimen) | + + + + | Resulting Agency Comment | + + | [facility] | + + + +---------+ + + | Performing | Address | City/State/Zipcode | Phone Number | | Organization | | | | + +---------+ + + | EXTERNAL LAB | | | | + +---------+ + + External Lab: Cholesterol, HDL (06/17/2013) + + + + + + | Component | Value | Ref Range | Performed | Pathologist | | | | | At | Signature | + + + + + + | HDL | 22.3 (A) | 40 | EXTERNAL | | | Cholesterol | | | LAB | | | , External | | | | | + + + + + + + + | Specimen | + + | Blood specimen | | (specimen) | + + + + | Resulting Agency Comment | + + | [facility] | + + + +---------+ + + | Performing | Address | City/State/Zipcode | Phone Number | | Organization | | | | + +---------+ + + | EXTERNAL LAB | | | | + +---------+ + + External Lab: Cholesterol, Total (06/17/2013) + +-------+ + + + | Component | Value | Ref Range | Performed | Pathologist | | | | | At | Signature | + +-------+ + + + | Cholesterol | 76 | 200 | EXTERNAL | | | , Total, | | | LAB | | | External | | | | | + +-------+ + + + + + | Specimen | + + | Blood specimen | | (specimen) | + + + + | Resulting Agency Comment | + + | [facility] | + + + +---------+ + + | Performing | Address | City/State/Zipcode | Phone Number | | Organization | | | | + +---------+ + + | EXTERNAL LAB | | | | + +---------+ + + External Lab: Cholesterol, LDL (06/17/2013) + +-------+ + + + | Component | Value | Ref Range | Performed | Pathologist | | | | | At | Signature | + +-------+ + + + | LDL | 38 | 100 | EXTERNAL | | | Cholesterol | | | LAB | | | , Direct, | | | | | | External | | | | | + +-------+ + + + + + | Specimen | + + | Blood specimen | | (specimen) | + + + + | Resulting Agency Comment | + + | [facility] | + + + +---------+ + + | Performing | Address | City/State/Zipcode | Phone Number | | Organization | | | | + +---------+ + + | EXTERNAL LAB | | | | + +---------+ + + External Lab: eGFR (06/17/2013) + +-------+ + + + | Component | Value | Ref Range | Performed | Pathologist | | | | | At | Signature | + +-------+ + + + | eGFR, | >60 | | EXTERNAL | | | External | | | LAB | | + +-------+ + + + | eGFR, | | | EXTERNAL | | | | | | LAB | | | [place], | | | | | | External | | | | | + +-------+ + + + + + | Specimen | + + | Blood specimen | | (specimen) | + + + + | Resulting Agency Comment | + + | [facility] | + + + +---------+ + + | Performing | Address | City/State/Zipcode | Phone Number | | Organization | | | | + +---------+ + + | EXTERNAL LAB | | | | + +---------+ + + External Lab: Creatinine (06/17/2013) + +-------+ + + + | Component | Value | Ref Range | Performed | Pathologist | | | | | At | Signature | + +-------+ + + + | Creatinine, | 1.09 | 0.5 - 1.5 | EXTERNAL | | | External | | | LAB | | + +-------+ + + + + + | Specimen | + + | Blood specimen | | (specimen) | + + + + | Resulting Agency Comment | + + | [facility] | + + + +---------+ + + | Performing | Address | City/State/Zipcode | Phone Number | | Organization | | | | + +---------+ + + | EXTERNAL LAB | | | | + +---------+ + + documented in this encounter Visit Diagnoses Not on filedocumented in this encounter"
--- OUTSIDE RECORDS SUMMARY | ~2019-11-10 | XMS | Encounter Summary ---
Demographics + + + | Address | [address] | | | [place] [address] | + + + | Home Phone | | + + + | Preferred Language | Unknown | + + + | Marital Status | | + + + | Religion Affiliation | 1028 | + + + [...] [place] | | | | | [address] | | + + + + + | Feng Myrick | ECON | NA | | | | | [place] | | + + + + + Care Team Providers + +------+ + | Care Quality Head Name | Role | Phone | + +------+ + | Emeterio Campos DO | PCP | | + +------+ + Encounter Details +--------+ + + + + | Date | Type | Department | Care Team | Description | +--------+ + + + + | 09/02/ | Abstract | [facility] | Jatin [facility]ding[facility] | | | 2012 | | [address] | MD Jose [address] | | | | | [address] [place], | [address] [place] | | | | | [place] [address] | [place] [address] | | | | | [phone] | [phone] | | | | | | | [...] + | T4, FREE | Routin | 09/02/2013 | | Results for this | | | e | 11:10 AM | | procedure are in the | | | | PST | | results section. | + +--------+ + + + | HEPATIC FUNCTION | Routin | 09/02/2013 | | Results for this | | PANEL | e | 11:08 AM | | procedure are in the | | | | PST | | results section. | + +--------+ + + + | EXTERNAL LAB: [facility] | Routin | 09/02/2013 | | Results for this | | | e | | | procedure are in the | | | | | | results section. | + +--------+ + + + | EXTERNAL LAB: [facility] | Routin | 09/02/2013 | | Results for this | | | e | | | procedure are in the | | | | | | results section. | + +--------+ + + + | EXTERNAL LAB: [facility] | Routin | 09/02/2013 | | Results for this | | | e | | | procedure are in the | | | | | | results section. | + +--------+ + + + documented in this encounter Results T4, Free (09/02/2013 11:10 AM PST) + +---------+ + + + | Component | Value | Ref Range | Performed | Pathologist | | | | | At | Signature | + +---------+ + + + | T4, Total | 1.4 (A) | 4.7 - 11.3 | [facility] | | | | | ug/dL | [facility] | | | | [...] + | [facility] | [address] | [place], [place] | [phone] | | [facility] | | [address] | | | - LABORATORY | | | | + + + + + | [facility] | [address] | [place], [place] | | | [facility] | | [address] | | | - LABORATORY | | | | + + + + + Hepatic Function Panel (09/02/2013 11:08 AM PST) + +---------+ + + + | Component | Value | Ref Range | Performed | Pathologist | | | | | At | Signature | + +---------+ + + + | Total | 5.9 (A) | 6.1 - 8.4 g/dL | [facility] | | | Protein | | | [facility] | | | | | | [facility] | | | | | | [facility] - | | | | | | LABORATORY | | + +---------+ + + + | Albumin | 4.6 | 3.3 - 4.8 g/dL | [facility] | | | | | | [facility] | | | | | | [facility]ICAL | | | | | | CENTER - | | | | | | LABORATORY | | + +---------+ + + + | Globulin | 1.3 | | [facility] | | | | | | [facility] | | | | | | MEDICAL | | | | | | CENTER - | | | | | | LABORATORY | | + +---------+ + + + | Albumin/Kecia | 3.5 | | [facility] | | | bulin Ratio | | | [facility] | | | | | | MEDICAL | | | | | | CENTER - | | | | | | LABORATORY | | + +---------+ + + + | Bilirubin | 1.0 | 0.1 - 1.5 mg/dL | [facility] | | | Total | | | [facility] | | | | | | MEDICAL | | | | | | CENTER - | | | | | | LABORATORY | | + +---------+ + + + | Bilirubin | 0.2 | mg/dL | [facility] | | | Direct | | | [facility] | | | | | | MEDICAL | | | | | | CENTER - | | | | | | LABORATORY | | + +---------+ + + + | BILIRUBIN | 0.8 | mg/dL | [facility] | | | INDIRECT | | | [facility] | | | | | | MEDICAL | | | | | | CENTER - | | | | | | LABORATORY | | + +---------+ + + + | Alkaline | 49 | 35 - 115 U/L | [facility] [...] + + | Performing | Address | [facility] | Phone Number | | Organization | | | | + + + + + | [facility] | [address] | [place] | [phone] | | [facility] | | [address] | | | - LABORATORY | | | | + + + + + | [facility] | [address] | [place], [place] | | | [facility] | | [address] | | | - LABORATORY | | | | + + + + + External Lab: AST (09/02/2013) + +-------+ + + + | Component | Value | Ref Range | Performed | Pathologist | | | | | At | Signature | + +-------+ + + + | AST, | 13 | 0 - 40 | | | | External | | | | | + +-------+ + + + + + | Specimen | + + | Blood specimen | | (specimen) | + + + + | Resulting Agency Comment | + + | [facility] | + + External Lab: ALT (09/02/2013) + +-------+ + + + | Component | Value | Ref Range | Performed | Pathologist | | | | | At | Signature | + +-------+ + + + | ALT, | 16 | 0 - 46 | | | | External | | | | | + +-------+ + + + + + | Specimen | + + | Blood specimen | | (specimen) | + + + + | Resulting Agency Comment | + + | [facility] | + + External Lab: TSH (09/02/2013) + +-------+ + + + | Component | Value | Ref Range | Performed | Pathologist | | | | | At | Signature | + +-------+ + + + | TSH, | 2.62 | 0.27 - 4.2 | | | | External | | [...]
--- OUTSIDE RECORDS SUMMARY | ~2019-11-10 | XMS | Encounter Summary ---
Demographics + + + | Address | [address] | | | [place] [address] | + + + | Home Phone | | + + + | Preferred Language | Unknown | + + + | Marital Status | Single | + + + | Zoroastrianism Affiliation | Unknown | + + + | Race | White | + + + | Ethnic Group | Not or | + + + Author + + + | Author | [facility] | + + + | Organization | [facility] | + + + | [...] Providers + +------+ + | Care Medical Device Name | Role | Phone | + +------+ + | Emeterio Campos DO | PCP | | + +------+ + Encounter Details +--------+ + + + + | Date | Type | Department | Care Team | Description | +--------+ + + + + | 04/01/ | Document-Sc | UNKNOWN DEPARTMENT | Unknown . | | | 2016 | anned | [address] | | | | | [address] | | | | | | [place], [place] | | | | | | [address] | | | +--------+ + + + [...]
--- OUTSIDE RECORDS SUMMARY | ~2019-11-10 | XMS | Encounter Summary ---
Demographics + + + | Address | [address] | | | [place] [address] | + + + | Home Phone | | + + + | Preferred Language | Unknown | + + + | Marital Status | | + + + | Episcopal Affiliation | 1028 | + + + | Race | Unknown | + + + | Ethnic Group | Unknown | + + + Author + + + | Author | [facility] | | | and [place] | + + + | Organization | [facility] | | | and [place] | + + + | Address | Unknown | + + + | Phone | Unavailable | + + + Support + + + + + | Name | Relationship | Address | Phone | + + + + + | Jorge Myrick | [place] | [place] | | | | | [address] | | + + + + + | Feng Myrick | ECON | [place] | | | | | [place] | | + + + + + Care Team Providers + +------+ + | Care Pomology Teacher Name | Role | Phone | + +------+ + | Emeterio Campos DO | PCP | | + +------+ + Encounter Details +--------+ + + + + | Date | Type | Department | Care Team | Description | +--------+ + + + + | 07[facility]04/ | [facility] | | | [facility] - | Encounter | [facility] | | | | | [facility] [address] | | | | 07/28/ | | [place] | | | | 2012 | | [id number] | | | | | | [phone] | | | +--------+ + + + [...] + + documented as of this encounter Medications at Time of Discharge + + + +---------+ + + | Medication | Sig | Dispensed | Refills | Start | End Date | | | | | | Date | | + + + +---------+ + + | acyclovir | Take 800 mg by mouth | | 0 | | | | (ZOVIRAX) 800 mg | 2 times daily. | | | | 9 | | tablet | | | | | | + + + +---------+ + + | amiodarone | Take 200 mg by mouth | | 0 | | | | (PACERONE) 200 mg | Daily. | | | | 4 | | tablet | | | | | | + + + +---------+ + + | amoxicillin | Take 875 mg by mouth | | 0 | | | | (AMOXIL) 875 mg | 2 times daily. | | | | 4 | | tablet | | | | | | + + + +---------+ + + | diltiazem | Take 1 tablet by | 30 | 6 | 07/24/20 | | | (CARDIZEM) 60 mg | mouth Daily as | tablet | | 13 | 9 | | tablet | needed. | | | | | + + + +---------+ + + | folic acid 1 mg | Take 1 mg by mouth | | 0 | | | | tablet | Daily. | | | | 4 | + + + +---------+ + + | levofloxacin | Take 750 mg by mouth | | 0 | | | | (LEVAQUIN) 750 MG | Daily. | | | | 4 | | tablet | | | | | | + + + +---------+ + + | LORazepam (ATIVAN) | Take 1 mg by mouth | | 0 | | | | 1 mg tablet | every 6 hours as | | | | 4 | | | needed. | | | | | + + + +---------+ + + | posaconazole | Take 200 mg by mouth | | 0 | | | | (NOXAFIL) 40 mg/mL | 3 times daily (with | | | | 4 | | suspension | meals). 200mg/5ml | | | | | + + + +---------+ + + documented as of this encounter Plan of Treatment Not on filedocumented as of this encounter Procedures + +--------+ + + + | Procedure Name | Priori | Date/Time | Associated Diagnosis | Comments | | | ty | | | | + +--------+ + + + | RETIC COUNT | Routin | 07/04/2013 | | Results for this | | | e | 8:54 AM | | procedure are in the | | | | PDT | | results section. | + +--------+ + + + | CBC WITH | Routin | 07/04/2013 | | Results for this | | DIFFERENTIAL | e | 8:54 AM | | procedure are in the | | | | PDT | | results section. | + +--------+ + + + | LACTATE | Routin | 07/04/2013 | | Results for this | | DEHYDROGENASE | e | 8:54 AM | | procedure are in the | | | | PDT | | results section. | + +--------+ + + + | COMPREHENSIVE | Routin | 07/04/2013 | | Results for this | | METABOLIC PANEL | e | 8:54 AM | | procedure are in the | | | | PDT | | results section. | + +--------+ + + + | RETIC COUNT | Routin | 07/01/2013 | | Results for this | | | e | 10:19 AM | | procedure are in the | | | | PDT | | results section. | + +--------+ + + + | CBC WITH | Routin | 07/01/2013 | | Results for this | | DIFFERENTIAL | e | 10:19 AM | | procedure are in the | | | | PDT | | results section. | + +--------+ + + + | URIC ACID | Routin | 07/01/2013 | | Results for this | | | e | 10:19 AM | | procedure are in the | | | | PDT | | results section. | + +--------+ + + + | PHOSPHORUS | Routin | 07/01/2013 | | Results for this | | | e | 10:19 AM | | procedure are in the | | | | PDT | | results section. | + +--------+ + + + | LACTATE | Routin | 07/01/2013 | | Results for this | | DEHYDROGENASE | e | 10:19 AM | | procedure are in the | | | | PDT | | results section. | + +--------+ + + + | COMPREHENSIVE | Routin | 07/01/2013 | | Results for this | | METABOLIC PANEL | e | 10:19 AM | | procedure are in the | | | | PDT | | results section. | + +--------+ + + + documented in this encounter Results Retic Count (07/04/2013 8:54 AM PDT) + +---------+ + + + | Component | Value | Ref Range | Performed | Pathologist | | | | | At | Signature | + +---------+ + + + | % | 5.7 (H) | 0.4 - 2.7 % | [facility] | | | Retic[facility] | | | [facility] | | | e Count | [...] + | [facility] | [address] | [place], [place] | [phone] | | [facility] | | [address] | | | - LABORATORY | | | | + + + + + | [facility] | [address] | [place] | | | [facility] | | [address] | | | - LABORATORY | | | | + + + + + CBC with Differential (07/04/2013 8:54 AM PDT) + + + + + [...] + + + + | WBC | 1.9 (LL) | 4.0 - 11.0 K/uL | [facility] | | | | | | [facility] | | | | | | MEDICAL | | | | | | CENTER - | | | | | | LABORATORY | | + + + + + + | RBC | 1.36 (L) | 4.30 - 5.70 | [facility] | | | | | M/uL | [facility] | | [facility] | | | MEDICAL | | | | | | CENTER - | | | | | | LABORATORY | | + + + + + + | Hemoglobin | 5.4 (LL) | 13.5 - 18.0 | [facility] | | | | | gm/dL | [facility] | | | | | | MEDICAL | | | | | | CENTER - | | | | | | LABORATORY | | + + + + + + | Hematocrit | 15.5 (LL)Comment: | 40.0 - 51.0 % | [...] | | | | RESULT CALLED TO CECILIA | | | | | | MECHELLE 07/04/13 @0909 | | | | | | by ESTER @ * READ | | | | | | BACK MUST BE OBTAINED * | | | | | | READ BACK PERFORMED? | | | | | | Nurses' patient: Y N | | | | | | if NO -handoff | | | | | | [...] + + + + | MCV | 113.9 (H) | 83.0 - 101.0 fL | [...] + + + + | MCHC | 34.9 | 32.0 - 36.0 | [facility] | | | | | g/dL | [facility] | | | | | | MEDICAL | | | | | | CENTER - | | | | | | LABORATORY | | + + + + + + | RDW-CV | 18.0 (H) | <15.0 % | [facility] | [...] + + + + | % | 58.8 | 45 - 75 % | [facility] | | | Neutrophils | | | [facility] | | | | | | MEDICAL | | | | | | CENTER - | | | | | | LABORATORY | | + + + + + + | % | 36.1 | 20 - 45 % | [facility] | | | Lymphocytes | | | [facility] | | | | | | MEDICAL | | | | | | CENTER - | | | | | | LABORATORY | | + + + + + + | % Monocytes | 4.5 | 4 - 12 % | [facility] | | | | | | [facility] | | | | | | MEDICAL | | | | | | CENTER - | | | | | | LABORATORY | | + + + + + + | % | 0.5 | 0 - 5 % | [facility] [...] + + + + | Absolute | 1.1 (L) | 1.5 - 6.6 K/uL | [facility] | | | Neutrophils | | | [facility] | | | | | | MEDICAL | | | | | | CENTER - | | | | | | LABORATORY | | + + + + + + | Absolute | 0.7 | 0.6 - 3.2 K/uL | [facility] [...] MCV/RDW | | | | | | | | | | + + + + + + + + | Specimen | + + | | + + + + + + + | Performing | Address | City/State/Zipcode | Phone Number | | Organization | | | | + + + + + | [facility] | [address] | [place], [place] | [phone] | | [facility] | | [address] | | | - LABORATORY | | | | + + + + + | [facility] | [address] | [place] | | | [facility] | | [address] | | | - LABORATORY | | | | + + + + + Comprehensive Metabolic Panel (07/04/2013 8:54 AM PDT) + + + + + + | Component | Value | Ref Range | Performed | Pathologist | | | | | At | Signature | + + + + + + | Glucose | 118 (H) | 70 - 109 mg/dL | [...] + + + + | Alkaline | 57 | 40 - 110 IU/L | [facility] | | | Phosphatase | | | [facility] | | | | | | MEDICAL | | | | | | CENTER - | | | | | | LABORATORY | | + + + + + + | AST | 46 (H) | 10 - 42 IU/L | [facility] | | | | | | [facility] | | | | | | MEDICAL | | | | | | CENTER - | | | | | | LABORATORY | | + + + + + + | ALT | 39 (A) | 6 - 45 IU/L | [facility] | | | | | | [facility] | | | | | | MEDICAL | | | | | | CENTER - | | | | | | LABORATORY | | + + + + + + | Bilirubin | 4.3 (H) | 0.2 - 1.0 mg/dL | [facility] | | | Total | | | [facility] | | | | | | MEDICAL | | | | | | CENTER - | | | | | | LABORATORY | | + + + + + + | Total | 5.8 (L) | 6.0 - 7.8 gm/dL | [facility] | | | Protein | | | [facility] | | | | | | MEDICAL | | | | | | CENTER - | | | | | | LABORATORY | | + + + + + + | Albumin | 3.4 | 3.2 - 5.0 gm/dL | [facility] | | | | | | [facility] | | | | | | MEDICAL | | | | | | CENTER - | | | | | | LABORATORY | | + + + + + + | BUN | 24 (H) | 7 - 18 mg/dL | [facility] | | | | | | [facility] | | | | | | MEDICAL | | | | | | CENTER - | | | | | | LABORATORY | | + + + + + + | Creatinine | 1.71 (H) | 0.60 - 1.30 | [facility] | | | | | mg/dL | [facility] | | | | | [facility] | | | | | | CENTER - | | | | | | LABORATORY | | + + + + + + | Estimated | 41 (L)Comment: For | >60 mL/min/A | [facility] [...] + + + + | BUN/Creatin | 14.0 | 12 - 20 | [facility] | | | ine Ratio | | | [facility] | | | | | | MEDICAL | | | | | | CENTER - | | | | | | LABORATORY | | + + + + + + | Na | 129 (L) | 136 - 149 mEq/L | [facility] | | | | | | [facility] | | | | | | MEDICAL | | | | | | CENTER - | | | | | | LABORATORY | | + + + + + + | K | 3.5 | 3.5 - 5.1 mEq/l | [facility] | | | | | | [facility] | | | | | | MEDICAL | | | | | | CENTER - | | | | | | LABORATORY | | + + + + + + | Cl | 98 | 98 - 109 mEq/l | [facility] | | | | | | [facility] | | | | | | MEDICAL | | | | | | CENTER - | | | | | | LABORATORY | | + + + + + + | CO2 | 20 (L) | 24 - 31 mEq/L | [facility] | | | | | | [facility] | | | | | | MEDICAL | | | | | | CENTER - | | | | | | LABORATORY | | + + + + + + | Anion Gap | 14.5 | 6.0 - 17.0 | [facility] | [...] [address] | [place] | [phone] | | [facility] | | [address] | | | - LABORATORY | | | | + + + + + | [facility] | [address] | [place] | | | [facility] | | [address] | | | - LABORATORY | | | | + + + + + Lactate Dehydrogenase (07/04/2013 8:54 AM PDT) + +---------+ + + + | Component | Value | Ref Range | Performed | Pathologist | | | | | At | Signature | + +---------+ + + + | LDH TOTAL | 396 (H) | 91 - 180 IU/L | [facility] [...] + | [facility] | [address] | [place], [place] | [phone] | | [facility] | | [address] | | | - LABORATORY | | | | + + + + + | [facility] | [address] | [place], [place] | | | [facility] | | [address] | | | - LABORATORY | | | | + + + + + Retic Count (07/01/2013 10:19 AM PDT) + + + + + + | Component | Value | Ref Range | Performed | Pathologist | | | | | At | Signature | + + + + + + | % | 15.6 (H) | 0.4 - 2.7 % | [...] + | [facility] | [address] | [place] | [phone] | | [facility] | | [address] | | | - LABORATORY | | | | + + + + + | [facility] | [address] | [place] | | | [facility] | | [address] | | | - LABORATORY | | | | + + + + + CBC with Differential (07/01/2013 10:19 AM PDT) + + + + + [...] + + + + | WBC | 7.7 (A) | 4.0 - 11.0 K/uL | [facility] | | | | | [facility] | | | | | | [facility]ICAL | | | | | | CENTER - | | | | | | LABORATORY | | + + + + + + | RBC | 2.03 (L) | 4.30 - 5.70 | [facility] | | | | | M/uL | [facility] | | | | | | MEDICAL | | | | | | CENTER - | | | | | | LABORATORY | | + + + + + + | Hemoglobin | 8.1 (L) | 13.5 - 18.0 | [facility] | | | | | gm/dL | [facility] | | | | | | MEDICAL | | | | | | CENTER - | | | | | | LABORATORY | | + + + + + + | Hematocrit | 23.6 (L) | 40.0 - 51.0 % | [facility] | | | | | | [facility] | | | | | | MEDICAL | | | | | | CENTER - | | | | | | LABORATORY | | + + + + + + | MCV | 116.5 (H)Comment: @VALUE | 83.0 - 101.0 fL | [facility] | | | | CONSISTENT WITH | | [facility] | | | | PREVIOUS RESULTS | | MEDICAL | | | | | | CENTER - | | | | | | LABORATORY | | + + + + + + | MCH | 40.2 (H) | 28.0 - 35.0 pg | [facility] | | | | | | [facility] | | | | | | MEDICAL | | | | | | CENTER - | | | | | | LABORATORY | | + + + + + + | MCHC | 34.5 | 32.0 - 36.0 | [facility] | | | | | g/dL | [facility] | | | | | | MEDICAL | | | | | | CENTER - | | | | | | LABORATORY | | + + + + + + | RDW-CV | 21.2 (H) | <15.0 % | [facility] | | | | | | [facility] | | | | | | MEDICAL | | | | | | CENTER - | | | | | | LABORATORY | | + + + + + + | Platelet | 90 (L) | 140 - 440 K/uL | [facility] | | | Count | | | [facility] | | | | | | MEDICAL | | | | | | CENTER - | | | | | | LABORATORY | | + + + + + + | % | 61.0 (A) | 45 - 75 % | [facility] | | | Neutrophils | | | [facility] | | | | | | MEDICAL | | | | | | CENTER - | | | | | | LABORATORY | | + + + + + + | % | 35.0 | 20 - 45 % | [facility] | | | Lymphocytes | | | [facility] | | | | | | MEDICAL | | | | | | CENTER - | | | | | | LABORATORY | | + + + + + + | % Monocytes | 2.4 (L) | 4 - 12 % | [facility] | | | | | | [facility] | | | | | | MEDICAL | | | | | | CENTER - | | | | | | LABORATORY | | + + + + + + | % | 1.6 | 0 - 5 % | [facility] [...] + + + + | Absolute | 4.7 (A) | 1.5 - 6.6 K/uL | [facility] | | | Neutrophils | | | [facility] | | | | | | MEDICAL | | | | | | CENTER - | | | | | | LABORATORY | | + + + + + + | Absolute | 2.7 | 0.6 - 3.2 K/uL | [facility] | | | Lymphocytes | | | [facility] | | | | | | MEDICAL | | | | | | CENTER - | | | | | | LABORATORY | | + + + + + + | Absolute | 0.2 | 0.0 - 1.0 K/uL | [facility] | | | Monocytes | | | [facility] | | | | | | MEDICAL | | | | | | CENTER - | | | | | | LABORATORY | | + + + + + + | Absolute | 0.1 | 0.0 - 0.4 K/uL | [facility] [...] + + | SUSPECTED | 1 (H)Comment: PERFORM | | [facility] | | | PROBLEM IS: | SMEAR REVIEW FOR MCV/RDW | | [facility] | | | | Variant LY | | MEDICAL | | | |Variant LY | | CENTER - | | | | | | LABORATORY | | + + + + + + + + | Specimen | + + | | + + + + + + + | Performing | Address | City/State/Zipcode | Phone Number | | Organization | | | | + + + + + | [facility] | [address] | [place] | [phone] | | [facility] | | [address] | | | - LABORATORY | | | | + + + + + | [facility] | [address] | [place] | | | [facility] | | [address] | | | - LABORATORY | | | | + + + + + Comprehensive Metabolic Panel (07/01/2013 10:19 AM PDT) + + + + + + | Component | Value | Ref Range | Performed | Pathologist | | | | | At | Signature | + + + + + + | Glucose | 112 (H) | 70 - 109 mg/dL | [facility] | | | | | | [facility] | | | | | | MEDICAL | | | | | | CENTER - | | | | | | LABORATORY | | + + + + + + | Calcium | 8.3 | 8.3 - 10.5 | [facility] | | | | | mg/dL | [facility] | | | | | | MEDICAL | | | | | | CENTER - | | | | | | LABORATORY | | + + + + + + | Alkaline | 47 | 40 - 110 IU/L | [facility] | | | Phosphatase | | | [facility] | | | | | | MEDICAL | | | | | | CENTER - | | | | | | LABORATORY | | + + + + + + | AST | 21 | 10 - 42 IU/L | [facility] | | | | | | [facility] | | | | | | MEDICAL | | | | | | CENTER - | | | | | | LABORATORY | | + + + + + + | ALT | 25 | 6 - 45 IU/L | [facility] | | | | | | [facility] | | | | | | MEDICAL | | | | | | CENTER - | | | | | | LABORATORY | | + + + + + + | Bilirubin | 4.5 (H) | 0.2 - 1.0 mg/dL | [facility] | | | Total | | | [facility] | | | | | | MEDICAL | | | | | | CENTER - | | | | | | LABORATORY | | + + + + + + | Total | 6.0 | 6.0 - 7.8 gm/dL | [facility] | | | Protein | | | [facility] | | | | | | MEDICAL | | | | | | CENTER - | | | | | | LABORATORY | | + + + + + + | Albumin | 3.7 | 3.2 - 5.0 gm/dL | [facility] [...] | | GFR | -Americans, | | [facility] | | | | please multiply [...] + + + + | BUN/Creatin | 10.6 (L) | 12 - 20 | [facility] | | | ine Ratio | | | [facility] | | [...] + + + | Anion Gap | 12.9 | 6.0 - 17.0 | [facility] | | | | | | [facility] [...] + | [facility] | [address] | [place] | [phone] | | [facility] | | [address] | | | - LABORATORY | | | | + + + + + | [facility] | [address] | [place] | | | [facility] | | [address] | | | - LABORATORY | | | | + + + + + Lactate Dehydrogenase (07/01/2013 10:19 AM PDT) + +---------+ + + + | Component | Value | Ref Range | Performed | Pathologist | | | | | At | Signature | + +---------+ + + + | LDH TOTAL | 257 (H) | 91 - 180 IU/L | [...] + | [facility] | [address] | [place] | [phone] | | [facility] | | [address] | | | - LABORATORY | | | | + + + + + | [facility] | [address] | [place], [place] | | | [facility] | | [address] | | | - LABORATORY | | | | + + + + + Phosphorus (07/01/2013 10:19 AM PDT) + +-------+ + + + | Component | Value | Ref Range | Performed | Pathologist | | | | | At | Signature | + +-------+ + + + | Phosphorus | 3.0 | 2.5 - 4.6 mg/dL | [facility] | | | | [...] [address] | [place] | [phone] | | [facility] | | [address] | | | - LABORATORY | | | | + + + + + | [facility] | [address] | [place] | | | [facility] | | [address] | | | - LABORATORY | | | | + + + + + Uric Acid (07/01/2013 10:19 AM PDT) + +-------+ + + + | Component | Value | Ref Range | Performed | Pathologist | | | | | At | Signature | + +-------+ + + + | Uric Acid | 4.8 | 2.6 - 7.2 mg/dL | [facility] [...] + | [facility] | [address] | [place] | [phone] | | [facility] | | [address] | | | - LABORATORY | | | | + + + + + | [facility] | [address] | [place], [place] | | | [facility] | | [address] | | | - LABORATORY | | | | + + + + + documented in this encounter Visit Diagnoses Not on filedocumented in this encounter"
--- OUTSIDE RECORDS SUMMARY | ~2019-11-10 | XMS | Encounter Summary ---
Demographics + + + | Address | [address] | | | [place] [address] | + + + | Home Phone | | + + + | Preferred Language | Unknown | + + + | Marital Status | | + + + | Advent Affiliation | 1028 | + + + | Race | Unknown | + + + | Ethnic Group | Unknown | + + + Author + + + | Author | [facility] | | | and [place] | + + + | Organization | [facility] | | | and [place] | + + + | Address | Unknown | + + + | Phone | Unavailable | + + + Support + + + + + | Name | Relationship | Address | Phone | + + + + + | Jorge Myrick | [place] | [place] | | | | | [address] | | + + + + + | Feng [place] ECON | NA | | | | | [place] | | + + + + + Care Team Providers + +------+ + | [employer] Name | Role | Phone | + +------+ + | Emeterio Campos DO | PCP | | + +------+ + Reason for Visit + + + | Reason | Comments | + + + | Atrial Fibrillation | Two month follow up, Chest XR 09/01/13 | + + + Encounter Details +--------+---------+ + + + | Date | Type | Department | Care Team | Description | +--------+---------+ + + + | 09/30/ | Office | [facility] | Jerrod Redding | Paroxysmal atrial | | 2012 | Visit | CARDIOLOGY [address] | MD Jose [address] | fibrillation (HCC) | | | | [place], | [address] [place] | (Primary Dx); | | | | [place] [address] | [place] [address] | Encounter for | | | | [phone] | [phone] | monitoring | | | | | | amiodarone therapy | +--------+---------+ + + + Social History [...] + + + | Blood Pressure | 128/72 | 09/30/2013 12:47 PM | [place] | | | | PST | | + + + + + | Pulse | 78 | 09/30/2013 12:47 PM | regular | | | | PST | | + + + + + | Temperature | - | - | | + + + + + | Respiratory Rate | 18 | 09/30/2013 12:47 PM | | | | | PST | | + + + + + | Oxygen Saturation | - | - | | + + + + + | Inhaled Oxygen | - | - | | | Concentration | | | | + + + + + | Weight | 131.5 kg (290 lb) | 09/30/2013 12:47 PM | | | | | PST | | + + + + + | Height | 188 cm (6' 2") | 09/30/2013 12:47 PM | | | | | PST | | + + + + + | Body Mass Index | 37.23 | 09/30/2013 12:47 PM | | | | | PST | | + + + + + documented in this encounter Progress Notes Jerrod Redding MD - 09/30/2013 1:46 PM PSTFormatting of this note might be differe nt from the original. Subjective: Cardiology Office Visit Note Date of Service: 09/30/2013 Patient ID: Jude Myrick is a 62 y.o. male. PCP: Dr. Andry Flores HPI Jude Myrick is a 62 y.o. male with a history of chronic lymphocytic leukemia and recent e pisode of paroxysmal atrial fibrillation who presents for a followup visit. He has been doin g well without any complaints of palpitations or chest discomfort. He believes that he is ab out to resume cycle of chemotherapy in the near future. He underwent routine testing for ami odarone therapy. 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 amiodarone (PACERONE) 200 mg tablet Take 200 mg by mouth Daily. amoxicillin (AMOXIL) 875 mg tablet Take 875 mg by mouth 2 times daily. diltiazem (CARDIZEM) 60 mg tablet Take 1 tablet by mouth Daily as needed. 30 tablet 6 folic acid 1 mg tablet Take 1 mg by mouth Daily. levofloxacin (LEVAQUIN) 750 MG tablet Take 750 mg by mouth Daily. LORazepam (ATIVAN) 1 mg tablet Take 1 mg by mouth every 6 hours as needed. posaconazole (NOXAFIL) 40 mg/mL suspension Take 200 mg by mouth 3 times daily (with keith ls). 200mg/5ml No Known Allergies Review of Systems [...] has a normal mood and affect. BP 128/72 | Pulse 78 | Resp 18 | Ht 1.88 m (6' 2") | Wt 131.543 kg (290 lb) | BMI 37.23 kg/ m2 ECG: Reviewed by me today shows normal sinus rhythm, heart rate 69, normal ECG. LAB: Abstract on 09/02/2013 Component Date Value TSH, External 09/02/2013 2.62 ALT, External 09/02/2013 16 AST, External 09/02/2013 13 T4, total 09/02/2013 1.4* Total protein 09/02/2013 5.9* ALBUMIN 09/02/2013 4.6 Globulin 09/02/2013 1.3 Albumin/Globulin Ratio 09/02/2013 3.5 BILIRUBIN TOTAL 09/02/2013 1.0 BILIRUBIN DIRECT 09/02/2013 0.2 BILIRUBIN INDIRECT 09/02/2013 0.8 ALK PHOS 09/02/2013 49 PFTs reviewed by me August 2013 notable for mild personal airway disease without signific ant abnormalities or any problems with diffusion capacity. Hematocrit 27, white count 1.6, platelet count [...] future and I will see him in [facility] within 6 months. At this point, patient does not [...] and anemia resolved. 4. followup visit in 6 months after recheck of LFTs and TFTs. Portions of this report were transcribed using voice recognition software. Every effort wa s made to ensure accuracy; however, inadvertent computerized sql ssrs ssis developer errors may be pre sent. I appreciate the opportunity to help with the management of this patient. Barak Redding MD PhD documented in t his encounter Plan of Treatment Not on filedocumented as of this encounter Visit Diagnoses + + | Diagnosis | + + | Paroxysmal atrial fibrillation (HCC) - Primary Atrial fibrillation | + + | Encounter for monitoring amiodarone therapy Encounter for therapeutic drug monitoring | + + documented in this encounter
--- OUTSIDE RECORDS SUMMARY | ~2019-11-10 | XMS | Encounter Summary ---
Demographics + + + | Address | [address] | | | [place] [address] | + + + | Home Phone | | + + + | Preferred Language | Unknown | + + + | Marital Status | | + + + | Denominational Affiliation | 1028 | + + + | Race | Unknown | + + + | Ethnic Group | Unknown | + + + Author + + + | Author | [facility] | | | [facility] | + + + | Organization | [facility] | | | and [place] | + + + | Address | Unknown | + + + | Phone | Unavailable | + + + Support + + + + + | Name | Relationship | Address | Phone | + + + + + | Jorge Myrick | [place] | [place] | | | | | [phone] | | + + + + + | Feng Myrick | ECON | NA | | | | | [place], [place] | | + + + + + Care Team Providers + +------+ + | Care Drilling Contractor Name | Role | Phone | + +------+ + PCP | Unavailable | + +------+ + Encounter Details +--------+ + + + + | Date | Type | Department | Care Team | Description | +--------+ + + + + | 04/27/ | Hospital | [facility] | | | | 2004 - | Encounter | [facility] | | | | | | CONV DEPT [address] | | | | 07/26/ | | [place], | | | | 2004 | | [place] [address] | | | | | | [phone] | | | +--------+ + + + [...]
--- OUTSIDE RECORDS SUMMARY | ~2019-11-10 | XMS | Encounter Summary ---
Demographics + + + | Address | [address] | | | [place] [address] | + + + | Home Phone | | + + + | Preferred Language | Unknown | + + + | Marital Status | | + + + | Congregation Affiliation | 1028 | + + + | Race | Unknown | + + + | Ethnic Group | Unknown | + + + Author + + + | Author | [facility] | | | and [place] | + + + | Organization | [facility] | | | and [place] | + + + | Address | Unknown | + + + | Phone | Unavailable | + + + Support + + + + + | Name | Relationship | Address | Phone | + + + + + | Jorge Myrick | [place] | [place] | | | | | [address] | | + + + + + | Feng Myrick | ECON | NA | | | | | [place] | | + + + + + Care Team Providers + +------+ + | Care Farm Products Shipper Name | Role | Phone | + +------+ + | Emeterio Campos DO | PCP | | + +------+ + Encounter Details +--------+ + + + + | Date | Type | Department | Care Team | Description | +--------+ + + + + | 08/27/ | Orders Only | [facility] | MiladisJerrod | Encounter for | | 2012 | | [address] | MD Jose [address] | monitoring | | | | [place], | [place] [address] [place] | amiodarone therapy | | | | [place] [address] | [place] [address] | (Primary Dx) | | | | [phone] | [phone] | | | | | | | [...] + + documented as of this encounter Progress Sakina Kan RN - 08/27/2013 12:49 PM PDTPatient notified of orders, will call 08/28 to s christadule them at [place] P M PDTdocumented in this encounter Plan of Treatment Not on filedocumented as of this encounter Visit Diagnoses + + | Diagnosis | + + | Encounter for monitoring amiodarone therapy - Primary Encounter for therapeutic drug | | monitoring | + + documented in this encounter"
--- OUTSIDE RECORDS SUMMARY | ~2019-11-10 | XMS | Encounter Summary ---
Demographics + + + | Address | [address] | | | [place] [address] | + + + | Home Phone [...] Author + + + | Author | [facility] | + + + | Organization | [facility] | + + + | Address [...] Team Providers + +------+ + | Care Cigarette Roller Name | Role | Phone | + +------+ + | Emeterio Campos DO | PCP | | + +------+ + Reason for Visit + + + | Reason | Comments | + + + | Lab findings, | Lab results and follow up needs | | teaching, guidance, | | | and counseling | | + + + Encounter Details +--------+ + + + + | Date | Type | Department | Care Team | Description | +--------+ + + + + | 08/03/ | Telephone | [facility] | Huseyin Suarez, | Lab findings, | | 2016 | | Hematologic | MD Luisito Dougherty | teaching, guidance, | | | | Malignancies at | [address] [place], [place] | and counseling (Lab | | | | [facility] | [address] | results and follow | | | | [address] | [phone] | up needs) | | | | Loop Mailcode: | | | | | | [id number] | | | | | | [place], | | | | | | [place] [address] | | | | | | [phone] | | | +--------+ + + + [...]
--- OUTSIDE RECORDS SUMMARY | ~2019-11-10 | XMS | Encounter Summary ---
Demographics + + + | Address | [address] | | | [place] [address] | + + + | Home Phone | | + + + | Preferred Language | Unknown | + + + | Marital Status | | + + + | Episcopal Affiliation | 1028 | + + + | Race | Unknown | + + + | Ethnic Group | Unknown | + + + Author + + + | Author | [facility] | | | and [place] | + + + | Organization | [facility] | | | and [place] | + + + | Address | Unknown | + + + | Phone | Unavailable | + + + Support + + + + + | Name | Relationship | Address | Phone | + + + + + | Jorge Myrick | [place] | [place] | | | | | [address] | | + + + + + | Feng Myrick | ECON | NA | | | | | [place] | | + + + + + Care Team Providers + +------+ + | Care Granite Setter Name | Role | Phone | + [...] [address] | | | | | [place], | [address] [place] | | | | | [place] [address] | [place] [address] | | | | | [phone] | [phone] | | | | | | | [...] + +--------+ + + + | CBC REFLEX, | Routin | 07/23/2013 | | Results for this | | DIFFERENTIAL | e | | | procedure are in the | | | | | | results section. | + +--------+ + + + documented in this encounter Results CBC Reflex, Differntial (07/23/2013) + + + + + + | Component | Value | Ref Range | Performed | Pathologist | | | | | At | Signature | + + + + + + | MCV | 126.7 (A) | 80.0 - 100.0 fL | | | + + + + + + + + | Specimen | + + | Blood specimen | | (specimen) | + + documented in this encounter Visit Diagnoses Not on filedocumented in this encounter"
--- OUTSIDE RECORDS SUMMARY | ~2019-11-10 | XMS | Encounter Summary ---
Demographics + + + | Address | [address] | | | [place] [address] | + + + | Home Phone | | + + + | Preferred Language | Unknown | + + + | Marital Status | | + + + | Hindu Affiliation | 1028 | + + + | Race | Unknown | + + + | Ethnic Group | Unknown | + + + Author + + + | Author | [facility] | | | and [place] | + + + | Organization | [facility] | | | and [place] | + + + | Address | Unknown | + + + | Phone | Unavailable | + + + Support + + + + + | Name | Relationship | Address | Phone | + + + + + | Jorge Myrick | [place] | [place] | | | | | [address] | | + + + + + | Feng Myrick | ECON | NA | | | | | [place], [place] | | + + + + + Care Team Providers + +------+ + | Care Steel Post Installer Supervisor Name | Role | Phone | + +------+ + PCP | Unavailable | + +------+ + Encounter Details +--------+ + + + + | Date | Type | Department | Care Team | Description | +--------+ + + + + | 07/18/ | Hospital | [facility] | | | | 2001 - | Encounter | [facility] | | [facility] | | [facility] [address] | | | | 10/24/ | | [place] | | | | 2001 | | [address] | | | | | | [phone] | | | +--------+ + + + [...]
--- OUTSIDE RECORDS SUMMARY | ~2019-11-10 | XMS | Encounter Summary ---
Demographics + + + | Address | [address] | | | [place] [address] | + + + | Home Phone | | + + + | Preferred Language | Unknown | + + + | Marital Status | | + + + | Moravian Affiliation | 1028 | + + + | Race | Unknown | + + + | Ethnic Group | Unknown | + + + Author + + + | Author | [facility] | | | and [place] | + + + | Organization | [facility] | | | and [place] | + + + | Address | Unknown | + + + | Phone | Unavailable | + + + Support + + + + + | Name | Relationship | Address | Phone | + + + + + | Jorge Myrick | [place] | [place] | | | | | [address] | | + + + + + | Feng Myrick | ECON | NA | | | | | [place] | | + + + + + Care Team Providers + +------+ + | Care Curriculum Director Name | Role | Phone | + +------+ + | Massiel Pérez MD | PCP | | + +------+ + Encounter Details +--------+ + + + + | Date | Type | Department | Care Team | Description | +--------+ + + + + | 12/06/ | Orders Only | [facility] | Huseyin Khan, | | | 2018 | | [address] | MD [address] | | | | | [address] | [place] [address] | | | | | [place], [place] | [phone] | | | | | [address] | | | | | | [phone] | | | +--------+ + + + [...] + +--------+ + + + | ECHO INTERPRETATION | Routin | 12/06/2018 | | Results for this | | OF OUTSIDE FILMS | e | 10:19 AM | | procedure are in the | | | | PST | | results section. | + +--------+ + + + documented in this encounter Results ECHO Interpretation of Outside Films (12/06/2018 10:19 AM PST) + + | Specimen | + + | | + + + + + | Impressions | Performed At | + + + | 1. The left ventricle is normal ins ize, wall thickness and systolic | | | function EF 65-70%. 2. The right ventricle is mildly enlarged with | | | normal systolic function. 3. Mild mitral regurgitation with | | | moderately dilated left atrium. 4. There is no pericardial effusion. | | + + + + + + | Narrative | Performed At | + + + | Patient Name: JUDE MYRICK Date of : 1950 | | | Performing Physician: Sonia Ingram | | | | | | INDICATIONS Atrial fibrillation CONCLUSIONS | | | 1. The left ventricle is normal ins ize, wall thickness | | | and systolic function EF 65-70%. 2. The right ventricle is mildly | | | enlarged with normal systolic function. 3. Mild mitral regurgitation | | | with moderately dilated left atrium. 4. There is no pericardial | | | effusion. FINDINGS -------- ECG rhythm: Atrial fibrillation. | | | Study: A 2-dimensional transthoracic echocardiogram with m-mode, | | | spectral and color flow Doppler was perfomed. Study: This was a | | | technically adequate study. Left Ventricle: Overall left ventricular | | | systolic function is normal with, an EF between 65 - 70 %. Left | | | Ventricle: The left ventricle cavity size is normal. Left Ventricle: | | | Left ventricular wall thickness is normal. Right Ventricle: The right | | | ventricle is mildly enlarged. Right Ventricle: The right ventricular | | | systolic function is normal. Left Atrium: The left atrium is | | | moderately enlarged. Right Atrium: The right atrium is mildly | | | enlarged. Aortic Valve: There is mild aortic regurgitation. Aortic | | | Valve: There is no evidence of aortic stenosis. Aortic Valve: The | | | aortic valve is trileaflet and appears structurally normal. Mitral | | | Valve: The mitral valve is normal. Mitral Valve: Mild mitral | | | regurgitation is present. Tricuspid Valve: The tricuspid valve | | | appears structurally normal. Tricuspid Valve: Mild tricuspid | | | regurgitation present. Tricuspid Valve: There is no evidence of | | | pulmonary hypertension. Tricuspid Valve: The right ventricular | | | systolic pressure (pulmonary artery systolic pressure), as measured by | | | Doppler, is 22 mmHg. Pulmonic Valve: Pulmonic valve appears | | | structurally normal. Pulmonic Valve: Trace pulmonic regurgitation. | | | Pericardium: There is no pericardial effusion. Pericardium: No | | | pleural effusion seen. IVC/Hepatic Veins: The inferior vena cava is | | | normal in size and collapses > 50 % with sniff, indicating normal | | | central venous pressures. Aorta: The aortic root is dilated, limited | | | to the sinuses of valsalva measuring up to 43 mm. MEASUREMENTS | | | Ao asc: 3.68 cm Ao sinus: 4.[address] junct: | | | 3.66 cm IVC: 1.87 cm LA Diam: 4.63 cm EDV(Teich): | | | 109.73 ml IVSd: 0.92 cm LVIDd: 4.84 cm LVPWd: 1.04 cm | | | LVOT Area: 4.88 cm2 LVOT Diam: 2.49 cm %FS: 44.85 % | | | EF(Teich): 76.04 % ESV(Teich): 26.28 ml LVIDs: 2.67 cm | | | SV(Teich): 83.44 ml RVIDd: 4.64 cm LVEF MOD A2C: 73.77 % | | | SV MOD A2C: 135.92 ml LVEF MOD A4C: 61.38 % SV MOD A4C: | | | 117.78 ml EF Biplane: 68.14 % LVEDV MOD BP: 191.33 ml LVESV | | | MOD BP: 60.95 ml LVEDV MOD A2C: 184.23 ml LVLd A2C: 9.04 cm | | | LVEDV MOD A4C: 191.88 ml LVLd A4C: 8.72 cm LVESV MOD A2C: | | | 48.31 ml LVLs A2C: 7.27 cm LVESV MOD A4C: 74.10 ml LVLs A4C: | | | 6.95 cm LAESV(A-L): 103.79 ml LAESV Index (A-L): 41.35 | | | ml/m2 LAAs A2C: 25.78 cm2 LAESV A-L A2C: 93.07 ml LALs A2C: | | | 6.06 cm LAAs A4C: 24.20 cm2 LAESV A-L A4C: 97.41 ml LALs | | | A4C: 5.10 cm RAAs: 20.19 cm2 RAESV A-L: 65.72 ml RAESV | | | MOD: 61.84 ml RALs: 5.26 cm TAPSE: 2.13 cm AV maxPG: | | | 7.78 mmHg AV meanP.21 mmHg AV Vmax: 1.39 m/s AV Vmean: | | | 0.97 m/s AV VTI: 22.24 cm CLAYTON Vmax: 3.44 cm2 CLAYTON (VTI): | | | 3.87 cm2 AVAI (Vmax): 0.00 cm2/m2 AVAI (VTI): 0.00 cm2/m2 | | | LVOT maxP.86 mmHg LVOT meanP.61 mmHg LVSI Dopp: | | | 34.32 ml/m2 LVSV Dopp: 86.16 ml LVOT Vmax: 0.98 m/s LVOT | | | Vmean: 0.78 m/s LVOT VTI: 17.64 cm MV E Canelo: 0.80 m/s MV | | | DecT: 125.04 ms RAP: 5 mmHg TR maxP.28 mmHg TR Vmax: | | | 2.07 m/s RV s': 0.17 m/s Lead Network Architect: NOHELIA Authenticated by: | | | Sonia Ingram Report Date/Time: 12-09-2018 19:17:1 | | + + + + + | Procedure Note | + + | Vasyl Nj Conversion - 06/19/2019 1:38 PM PDT Patient Name: Antolin MYRICK of | | : 1950 Performing Physician: Sonia | | Juan Jose INDICATIONS------ | | -----Atrial fibrillation CONCLUSIONS 1. The left ventricle is normal ins ize, | | wall thickness and systolic function EF 65-70%.2. The right ventricle is mildly enlarged | | with normal systolic function.3. Mild mitral regurgitation with moderately dilated left | | atrium.4. There is no pericardial effusion. FINDINGS--------ECG rhythm: Atrial | | fibrillation.Study: A 2-dimensional transthoracic echocardiogram with m-mode, spectral | | and color flow Doppler was perfomed.Study: This was a technically adequate study.Left | | Ventricle: Overall left ventricular systolic function is normal with, an EF between 65 - | | 70 %.Left Ventricle: The left ventricle cavity size is normal.Left Ventricle: Left | | ventricular wall thickness is normal.Right Ventricle: The right ventricle is mildly | | enlarged.Right Ventricle: The right ventricular systolic function is normal.Left Atrium: | | The left atrium is moderately enlarged.Right Atrium: The right atrium is mildly | | enlarged.Aortic Valve: There is mild aortic regurgitation.Aortic Valve: There is no | | evidence of aortic stenosis.Aortic Valve: The aortic valve is trileaflet and appears | | structurally normal.Mitral Valve: The mitral valve is normal.Mitral Valve: Mild mitral | | regurgitation is present.Tricuspid Valve: The tricuspid valve appears structurally | | normal.Tricuspid Valve: Mild tricuspid regurgitation present.Tricuspid Valve: There is | | no evidence of pulmonary hypertension.Tricuspid Valve: The right ventricular systolic | | pressure (pulmonary artery systolic pressure), as measured by Doppler, is 22 | | mmHg.Pulmonic Valve: Pulmonic valve appears structurally normal.Pulmonic Valve: Trace | | pulmonic regurgitation.Pericardium: There is no pericardial effusion.Pericardium: No | | pleural effusion seen.IVC/Hepatic Veins: The inferior vena cava is normal in size and | | collapses > 50 % with sniff, indicating normal central venous pressures.Aorta: The | | aortic root is dilated, limited to the sinuses of valsalva measuring up to 43 mm. | | MEASUREMENTS Ao asc: 3.68 cmAo sinus: 4.[address] junct: 3.66 cmIVC: | | 1.87 cmLA Diam: 4.63 cmEDV(Teich): 109.73 mlIVSd: 0.92 cmLVIDd: 4.84 cmLVPWd: | | 1.04 cmLVOT Area: 4.88 [id number] Diam: 2.49 cm%FS: 44.85 %EF(Teich): 76.04 | | %ESV(Teich): 26.28 mlLVIDs: 2.67 cmSV(Teich): 83.44 mlRVIDd: 4.64 cmLVEF MOD | | A2C: 73.77 %SV MOD A2C: 135.92 mlLVEF MOD A4C: 61.38 %SV MOD A4C: 117.78 mlEF | | Biplane: 68.14 %LVEDV MOD BP: 191.33 mlLVESV MOD BP: 60.95 mlLVEDV MOD A2C: | | 184.23 mlLVLd A2C: 9.04 cmLVEDV MOD A4C: 191.88 mlLVLd A4C: 8.72 cmLVESV MOD A2C: | | 48.31 mlLVLs A2C: 7.27 cmLVESV MOD A4C: 74.10 mlLVLs A4C: 6.95 cmLAESV(A-L): | | 103.79 mlLAESV Index (A-L): 41.35 ml/m2LAAs A2C: 25.78 [id number] A-L A2C: 93.07 | | mlLALs A2C: 6.06 cmLAAs A4C: 24.20 [id number] A-L A4C: 97.41 mlLALs A4C: 5.10 | | cmRAAs: 20.19 [id number] A-L: 65.72 mlRAESV MOD: 61.84 mlRALs: 5.26 cmTAPSE: | | 2.13 cmAV maxP.78 mmHgAV meanP.21 mmHgAV Vmax: 1.39 m/Simran Vmean: 0.97 | | m/Simran VTI: 22.24 cmAVA Vmax: 3.44 cm2AVA (VTI): 3.87 [id number] (Vmax): 0.00 | | cm2/m2AVAI (VTI): 0.00 cm2/m2LVOT maxP.86 mmHgLVOT meanP.61 mmHgLVSI Dopp: | | 34.32 ml/m2LVSV Dopp: 86.16 mlLVOT Vmax: 0.98 m/sLVOT Vmean: 0.78 m/sLVOT VTI: | | 17.64 cmMV E Canelo: 0.80 m/sMV DecT: 125.04 msRAP: 5 mmHgTR maxP.28 mmHgTR | | Vmax: 2.07 m/sRV s': 0.17 m/s Lead Network Architect: CECILIAuthenticated by: Sonia | | [facility] HospitalReport Date/Time: 12-09-2018 19:17:1 IMPRESSION: 1. The left ventricle is normal | | ins ize, wall thickness and systolic function EF 65-70%.2. The right ventricle is mildly | | enlarged with normal systolic function.3. Mild mitral regurgitation with moderately | | dilated left atrium.4. There is no pericardial effusion. | |MEASUREMENTS | | | |Ao asc: 3.68 cm | |Ao sinus: 4.36 cm | |Ao st junct: 3.66 cm | |IVC: 1.87 cm | |LA Diam: 4.63 cm | |EDV(Teich): 109.73 ml | |IVSd: 0.92 cm | |LVIDd: 4.84 cm | |LVPWd: 1.04 cm | |LVOT Area: 4.88 cm2 | |LVOT Diam: 2.49 cm | |%FS: 44.85 % | |EF(Teich): 76.04 % | |ESV(Teich): 26.28 ml | |LVIDs: 2.67 cm | |SV(Teich): 83.44 ml | |RVIDd: 4.64 cm | |LVEF MOD A2C: 73.77 % | |SV MOD A2C: 135.92 ml | |LVEF MOD A4C: 61.38 % | |SV MOD A4C: 117.78 ml | |EF Biplane: 68.14 % | |LVEDV MOD BP: 191.33 ml | |LVESV MOD BP: 60.95 ml | |LVEDV MOD A2C: 184.23 ml | |LVLd A2C: 9.04 cm | |LVEDV MOD A4C: 191.88 ml | |LVLd A4C: 8.72 cm | |LVESV MOD A2C: 48.31 ml | |LVLs A2C: 7.27 cm | |LVESV MOD A4C: 74.10 ml | |LVLs A4C: 6.95 cm | |LAESV(A-L): 103.79 ml | |LAESV Index (A-L): 41.35 ml/m2 | |LAAs A2C: 25.78 cm2 | |LAESV A-L A2C: 93.07 ml | |LALs A2C: 6.06 cm | |LAAs A4C: 24.20 cm2 | |LAESV A-L A4C: 97.41 ml | |LALs A4C: 5.10 cm | |RAAs: 20.19 cm2 | |RAESV A-L: 65.72 ml | |RAESV MOD: 61.84 ml | |RALs: 5.26 cm | |TAPSE: 2.13 cm | |AV maxP.78 mmHg | |AV meanP.21 mmHg | |AV Vmax: 1.39 m/s | |AV Vmean: 0.97 m/s | |AV VTI: 22.24 cm | |CLAYTON Vmax: 3.44 cm2 | |CLAYTON (VTI): 3.87 cm2 | |AVAI (Vmax): 0.00 cm2/m2 | |AVAI (VTI): 0.00 cm2/m2 | |LVOT maxP.86 mmHg | |LVOT meanP.61 mmHg | |LVSI Dopp: 34.32 ml/m2 | |LVSV Dopp: 86.16 ml | |LVOT Vmax: 0.98 m/s | |LVOT Vmean: 0.78 m/s | |LVOT VTI: 17.64 cm | |MV E Canelo: 0.80 m/s | |MV DecT: 125.04 ms | |RAP: 5 mmHg | |TR maxP.28 mmHg | |TR Vmax: 2.07 m/s | |RV s': 0.17 m/s | | | |Lead Network Architect: NOHELIA | |Authenticated by: Sonia Ingram | |Report Date/Time: 12-09-2018 19:17:1 | | | |IMPRESSION: | |1. The left ventricle is normal ins ize, wall thickness and systolic function EF 65-70%. | |2. The right ventricle is mildly enlarged with normal systolic function. | |3. Mild mitral regurgitation with moderately dilated left atrium. | |4. There is no pericardial effusion. | + + documented in this encounter Visit Diagnoses Not on filedocumented in this encounter"
--- OUTSIDE RECORDS SUMMARY | ~2019-11-10 | XMS | Encounter Summary ---
Demographics + + + | Address | [address] | | | [place] [address] | + + + | Home Phone | | + + + | Preferred Language | Unknown | + + + | Marital Status | | + + + | Temple Affiliation | 1028 | + + + | Race | Unknown | + + + | Ethnic Group | Unknown | + + + Author + + + | Author | [facility] | | | and [place] | + + + | Organization | [facility] | | | and [place] | + + + | Address | Unknown | + + + | Phone | Unavailable | + + + Support + + + + + | Name | Relationship | Address | Phone | + + + + + | Jorge Myrick | [place] | [place] | | | | | [address] | | + + + + + | Feng Myrick | ECON | NA | | | | | [place] | | + + + + + Care Team Providers + +------+ + | Care Cutter Brake Lining Name | Role | Phone | + +------+ + | Emeterio Campos DO | PCP | | + +------+ + Encounter Details +--------+ + + + + | Date | Type | Department | Care Team | Description | +--------+ + + + + | 09/28/ | Orders Only | [facility] [place] | Jerrod Redding | | | 2013 | | CARDIOLOGY [address] | MD Jose [address] | | | | | [place], | [address] [place] | | | | | [place] [address] | [place] [address] | | | | | [phone] | [phone] | | | | | | | [...]
--- OUTSIDE RECORDS SUMMARY | ~2019-11-10 | XMS | Encounter Summary ---
Demographics + + + | Address | [address] | | | [place] [address] | + + + | Home Phone | | + + + | Preferred Language | Unknown | + + + | Marital Status | | + + + | Bahai Affiliation | 1028 | + + + | Race | Unknown | + + + | Ethnic Group | Unknown | + + + Author + + + | Author | [facility] | | | and [place] | + + + | Organization | [facility] | | | and [place] | + + + | Address | Unknown | + + + | Phone | Unavailable | + + + Support + + + + + | Name | Relationship | Address | Phone | + + + + + | Jorge Myrick | [place] | [place] | | | | | [address] | | + + + + + | Feng Myrick | ECON | NA | | | | | [place] | | + + + + + Care Team Providers + +------+ + | Care Crossing Tender Name | Role | Phone | + +------+ + | Emeterio Campos DO | PCP | | + +------+ + Encounter Details +--------+ + + + + | Date | Type | Department | Care Team | Description | +--------+ + + + + | 07/23/ | Abstract | [facility] [place] | MiladisJerrod | Atrial fibrillation | | 2012 | | [address] | MD Jose [address] | ([facility]) (Primary Dx); | | | | [address], | [address] [place] | Leukemia, | | | | [place] [address] | [place] [address] | Lymphocytic | | | | [phone] | [phone] | | | | | | | [...] Primary Atrial fibrillation | + + | Leukemia, Lymphocytic Unspecified leukemia, 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
--- OUTSIDE RECORDS SUMMARY | ~2019-11-10 | XMS | Encounter Summary ---
Demographics + + + | Address | [address] | | | [place] [address] | + + + | Home Phone | | + + + | Preferred Language | Unknown | + + + | Marital Status | | + + + | Jew Affiliation | 1028 | + + + | Race | Unknown | + + + | Ethnic Group | Unknown | + + + Author + + + | Author | [facility] | | | and [place] | + + + | Organization | [facility] | | | and [place] | + + + | Address | Unknown | + + + | Phone | Unavailable | + + + Support + + + + + | Name | Relationship | Address | Phone | + + + + + | Jorge Myrick | [place] | [place] | | | | | [address] | | + + + + + | Feng Myrick | ECON | NA | | | | | [place] | | + + + + + Care Team Providers + +------+ + | Care Shift Supervisor Melting Name | Role | Phone | + +------+ + | Emeterio Campos DO | PCP | | + +------+ + Encounter Details +--------+ + + + + | Date | Type | Department | Care Team | Description | +--------+ + + + + | 12/29/ | Orders Only | [facility] | [place], | | | 2013 | | [facility] | Markell Cano MD [address] | | | | | [address] [facility] | [address] | | | | | [address] [place] | [place] [address] | | | | | [place] [address] | [phone] | | | | | [phone] | | | +--------+ + + + [...] | + +--------+ + + + | PROCALCITONIN, SERUM | Routin | 12/29/2013 | | Results for this | | | e | 10:15 AM | | procedure are in the | | | | PST | | results section. | + +--------+ + + + | LACTATE | Routin | 12/29/2013 | | Results for this | | DEHYDROGENASE | e | 10:15 AM | | procedure are in the | | | | PST | | results section. | + +--------+ + + + | COMPREHENSIVE | Routin | 12/29/2013 | | Results for this | | METABOLIC PANEL | e | 10:15 AM | | procedure are in the | | | | PST | | results section. | + +--------+ + + + documented in this encounter Results Comprehensive Metabolic Panel (12/29/2013 10:15 AM PST) + + + + + [...] + + + + | Calcium | 8.9 | 8.3 - 10.5 | [facility] | | | | | mg/dL | [facility] | [facility] | [facility] | | | | | | CENTER - | | | | | | LABORATORY | | + + + + + + | Alkaline | 111 (H) | 40 - 110 IU/L | [facility] | | | Phosphatase | | | [facility] | | | | | | MEDICAL | | | | | | CENTER - | | | | | | LABORATORY | | + + + + + + | AST | 16 | 10 - 42 IU/L | [facility] | | | | | | [facility] | | | | | | MEDICAL | | | | | | CENTER - | | | | | | LABORATORY | | + + + + + + | ALT | 20 | 6 - 45 IU/L | [facility] | | | | | | [facility] | | | | | | MEDICAL | | | | | | CENTER - | | | | | | LABORATORY | | + + + + + + | Bilirubin | 1.1 (H) | 0.2 - 1.0 mg/dL | [...] + + + + | Albumin | 3.9 | 3.2 - 5.0 gm/dL | [facility] | | | | | | [facility] | | | | | [facility] | | | | | | C[facility] - | | | | | | LABORATORY | | + + + + + + | BUN | 7 | 7 - 18 mg/dL | [facility] | | | | | | [facility] | | | | | | [facility] | | | | | | CENTER - | | | | | | LABORATORY | | + + + + + + | Creatinine | 1.14 | 0.60 - 1.30 | [facility] | [...] + + + + | BUN/Creatin | 6.1 (L) | 12 - 20 | [facility] [...] + + + | Anion Gap | 12.2 | 6.0 - 17.0 | [facility] | [...] + | [facility] | [address] | [place], [place] | [phone] | | [facility] | | [address] | | | - LABORATORY | | | | + + + + + | [facility] | [address] | [place], [place] | | | [facility] | | [address] | | | - LABORATORY | | | | + + + + + Procalcitonin, Serum (12/29/2013 10:15 AM PST) + + + + + + | Component | Value | Ref Range | Performed | Pathologist | | | | | At | Signature | + + + + + + | Procalciton | 0.18Comment: <0.5 ng/ml: | 0.0 - 0.49 | [facility] | | | in | Low risk of severe | ng/mL | [facility] | | | | sepsis and/or septic | | MEDICAL | | | | shock >0.5 ng/ml: | | CENTER - | | | | Abnormal, Antibiotic | | LABORATORY | | | | therapy recommended | | | | | | >2.0 ng/ml: High risk | | | | | | of severe sepsis and/or | | | | | | septic shock | | | | | | Concentrations <0.5 | | | | | | ng/ml do not exclude an | | | | | | infection which is | | | | | | localized (not systemic) | | | | | | or a systemic infection | | | | | | in its initial stages | | | | | | (<6 hours). | | | | | | Concentrations between | | | | | | 0.5 and 2.0 ng/ml | | | | | | should be interpreted | | | | | | taking into account the | | | | | | patient's history. It | | | | | | is recommended to | | | | | | retest Procalcitonin | | | | | | within 6-24 hours if | | | | | | concentrations <2.0 | | | | | | ng/ml are obtained. | | | | + + + + + + + + | Specimen | + + | | + + + + + + + | Performing | Address | City/State/Zipcode | Phone Number | | Organization | | | | + + + + + | [facility] | [address] | [place] | [phone] | | [facility] | | [address] | | | - LABORATORY | | | | + + + + + | [facility] | [address] | [place] | | | [facility] | | [address] | | | - LABORATORY | | | | + + + + + Lactate Dehydrogenase (12/29/2013 10:15 AM PST) + +-------+ + + + | Component | Value | Ref Range | Performed | Pathologist | | | | | At | Signature | + +-------+ + + + | LDH TOTAL | 140 | 91 - 180 IU/L | [facility] [...] [facility] | [address] | [place] | [phone] | | [facility] | | [address] | | | - LABORATORY | | | | + + + + + | [facility] | [address] | [place], [place] | | | [facility] | | [address] | | | - LABORATORY | | | | + + + + + documented in this encounter Visit Diagnoses Not on filedocumented in this encounter"
--- OUTSIDE RECORDS SUMMARY | ~2019-11-10 | XMS | Encounter Summary ---
Demographics + + + | Address | [address] | | | [place] [address] | + + + | Home Phone | | + + + | Preferred Language | Unknown | + + + | Marital Status | | + + + | Sikhism Affiliation | 1028 | + + + | Race | Unknown | + + + | Ethnic Group | Unknown | + + + Author + + + | Author | [facility] | | | and [place] | + + + | Organization | [facility] | | | and [place] | + + + | Address | Unknown | + + + | Phone | Unavailable | + + + Support + + + + + | Name | Relationship | Address | Phone | + + + + + | Jorge Myrick | [place] | [place], [place] | | | | | [address] | | + + + + + | Feng Myrick | ECON | NA | | | | | [place] | | + + + + + Care Team Providers + +------+ + | Care Rehab Rn Name | Role | Phone | + +------+ + | Emeterio Campos DO | PCP | | + +------+ + Reason for Visit +--------+ + | Reason | Comments | +--------+ + | Other | | +--------+ + Encounter Details +--------+ + + + + | Date | Type | Department | Care Team | Description | +--------+ + + + + | 03/19/ | Telephone | [facility] | [place], | Other | | 2016 | | [facility] | Markell Cano MD [address] | | | | | [address] | [address] [place] | | | | | [address] [place] | [place] [address] | | | | | [place] [address] | [phone] | | | | | [phone] | | | +--------+ + + + [...]
--- OUTSIDE RECORDS SUMMARY | ~2019-11-10 | XMS | Encounter Summary ---
Demographics + + + | Address | [address] | | | [place] [address] | + + + | Home Phone | | + + + | Preferred Language | Unknown | + + + | Marital Status | | + + + | Druze Affiliation | 1028 | + + + | Race | Unknown | + + + | Ethnic Group | Unknown | + + + Author + + + | Author | [facility] | | | and [place] | + + + | Organization | [facility] | | | and [place] | + + + | Address | Unknown | + + + | Phone | Unavailable | + + + Support + + + + + | Name | Relationship | Address | Phone | + + + + + | Jorge Myrick | [place] | [place], [place] | | | | | [address] | | + + + + + | Feng Myrick | ECON | NA | | | | | [place] | | + + + + + Care Team Providers + +------+ + | Care Blender/Braze Applicator Name | Role | Phone | + [...] + + + + | 03/12/ | Telephone | [facility] | [place], | Other | | 2013 | | [facility] | Markell Cano MD [address] | | | | | [address] | [facility] | | | | | [address] [place] | [place] [address] | | | | | [place] [address] | [phone] | | | | | [phone] | | | +--------+ + + + [...]
--- OUTSIDE RECORDS SUMMARY | ~2019-11-10 | XMS | Encounter Summary ---
Demographics + + + | Address | [address] | | | [place] [address] | + + + | Home Phone | | + + + | Preferred Language | Unknown | + + + | Marital Status | | + + + | Congregational Affiliation | 1028 | + + + | Race | Unknown | + + + | Ethnic Group | Unknown | + + + Author + + + | Author | [facility] | | | and [place] | + + + | Organization | [facility] | [...] [place], [place] | | | | | [address] | | + + + + + | Feng Myrick | ECON | NA | | | | | [place] | | + + + + + Care Team Providers + +------+ + | Care Caption Writer Name | Role | Phone | + +------+ + | Emeterio Campos DO | PCP | | + +------+ + Reason for Visit +--------+ + | Reason | Comments | +--------+ + | Other | Amiodarone Discontinued | +--------+ + Encounter Details +--------+ + + + + | Date | Type | Department | Care Team | Description | +--------+ + + + + | 07/06/ | Telephone | [facility] Jerrod [facility] | Other (Amiodarone | | 2013 | | [facility] [address] | MD Jose [address] | [place]) | | | | [place], | [address] [place] | | | | | [place] [address] | [place] [address] | | | | | [phone] | [phone] | | | | | | | [...]
--- OUTSIDE RECORDS SUMMARY | ~2019-11-10 | XMS | Encounter Summary ---
Demographics + + + | Address | [address] | | | [place] [address] | + + + | Home Phone | | + + + | Preferred Language | Unknown | + + + | Marital Status | | + + + | Taoism Affiliation | 1028 | + + + | Race | Unknown | + + + | Ethnic Group | Unknown | + + + Author + + + | Author | [facility] | | | and [place] | + + + | Organization | [facility] | | | and [place] | + + + | Address | Unknown | + + + | Phone | Unavailable | + + + Support + + + + + | Name | Relationship | Address | Phone | + + + + + | Jorge Myrick | [place] | [place] | | | | | [address] | | + + + + + | Feng Myrick | ECON | NA | | | | | [place], [place] | | + + + + + Care Team Providers + +------+ + | Care Gas Charger Name | Role | Phone | + +------+ + PCP | Unavailable | + +------+ + Encounter Details +--------+ + + + + | Date | Type | Department | Care Team | Description | +--------+ + + + + | 11/17/ | Hospital | [facility] | | | | 2004 - | Encounter | MED CTR GENERIC OP | | | | | | CONV DEPT [address] | | | | 02/15/ | | [place], | | | | 2004 | | [place] [address] | | | | | | [phone] | | | +--------+ + + + [...]
--- OUTSIDE RECORDS SUMMARY | ~2019-11-10 | XMS | Encounter Summary ---
Demographics + + + | Address | [address] | | | [place] [address] | + + + | Home Phone | | + + + | Preferred Language | Unknown | + + + | Marital Status | | + + + | Confucianism Affiliation | 1028 | + + + | Race | Unknown | + + + | Ethnic Group | Unknown | + + + Author + + + | Author | [facility] | | | and [place] | + + + | Organization | [facility] | | | and [place] | + + + | Address | Unknown | + + + | Phone | Unavailable | + + + Support + + + + + | Name | Relationship | Address | Phone | + + + + + | Jorge Myrick | [place] | [place] | | | | | [address] | | + + + + + | Feng Myrick | ECON | NA | | | | | [place] | | + + + + + Care Team Providers + +------+ + | Care Ingot Stripper Name | Role | Phone | + [...] [address] | | | | | [address] [place] | [place] [address] | | | | | [place] [address] | [phone] | | | | | [phone] | | | +--------+ + + + [...] + | CBC WITH | Routin | 12/29/2013 | | Results for this | | DIFFERENTIAL | e | 10:15 AM | | procedure are in the | | | | PST | | results section. | + +--------+ + + + documented in this encounter Results CBC with Differential (12/29/2013 10:15 AM PST) + + + [...] + + + + | WBC | 23.8 (H) | 4.0 - 11.0 K/uL | [facility] | | | | | | [facility] | | | | | | MEDICAL | | | | | | CENTER - | | | | | | LABORATORY | | + + + + + + | RBC | 4.51 | 4.30 - 5.70 | [facility] | | | | | M/uL | [facility] | | | | | | MEDICAL | | | | | | CENTER - | | | | | | LABORATORY | | + + + + + + | Hemoglobin | 14.9 | 13.5 - 18.0 | [facility] | | | | | gm/dL | [facility] | | | | | | MEDICAL | | | | | | CENTER - | | | | | | LABORATORY | | + + + + + + | Hematocrit | 41.8 | 40.0 - 51.0 % | [facility] | | | | | | [facility] | | | | | | MEDICAL | | | | | | CENTER - | | | | | | LABORATORY | | + + + + + + | MCV | 92.7 | 83.0 - 101.0 fL | [facility] [...] + + + + | MCHC | 35.6 | 32.0 - 36.0 | [facility] | | | | | g/dL | [facility] | | | | | | MEDICAL | | | | | | CENTER - | | | | | | LABORATORY | | + + + + + + | RDW-CV | 14.4 | <15.0 % | [facility] | | | | | | [facility] | | [facility] | | | MEDICAL | | | | | | CENTER - | | | | | | LABORATORY | | + + + + + + | Platelet | 108 (L) | 140 - 440 K/uL | [facility] | | | Count | | | [facility] | | | | | | MEDICAL | | | | | | CENTER - | | | | | | LABORATORY | | + + + + + + | % | 92.9 (H) | 45 - 75 % | [facility] | | | Neutrophils | | | [facility] | | | | | | MEDICAL | | | | | | CENTER - | | | | | | LABORATORY | | + + + + + + | % | 0.8 (L) | 20 - 45 % | [facility] | | | Lymphocytes | | | [facility] | | | | | | MEDICAL | | | | | | CENTER - | | | | | | LABORATORY | | + + + + + + | % Monocytes | 3.6 (L) | 4 - 12 % | [facility] | | | | | | [facility] | | | | | | MEDICAL | | | | | | CENTER - | | | | | | LABORATORY | | + + + + + + | % | 0.6 | 0 - 5 % | [facility] | | | Eosinophils | | | [facility] | | | | | | MEDICAL | | | | | | CENTER - | | | | | | LABORATORY | | + + + + + + | % Basophils | 2.1 (H) | 0 - 1 % | [facility] | | | | | | [facility] | | | | | | MEDICAL | | | | | | CENTER - | | | | | | LABORATORY | | + + + + + + | Absolute | 22.1 (H) | 1.5 - 6.6 K/uL | [facility] [...] + + | Absolute | 0.9 | 0.0 - 1.0 K/uL | [facility] [...] + + + | Absolute | 0.5 (H) | 0.0 - 0.1 K/uL | [facility] | | | Basophils | | | [facility] | | | | | | MEDICAL | | | | | | CENTER - | | | | | | LABORATORY | | + + + + + + | SUSPECTED | 1 (H) | | [facility] | | | PROBLEM IS: | Comment: | | [facility] | | | | Left Shift | | MEDICAL | | | | Imm Grans | | CENTER - | | | | | | LABORATORY | | + + + + + + + + | Specimen | + + | | + + + + + + + | Performing | Address | City/[facility]/Zipcode | Phone Number | | Organization | | | | + + + + + | [facility] | [address] | [place], [place] | [phone] | | [facility] | | [address] | | | - LABORATORY | | | | + + + + + | [facility] | [address] | [place], [place] | | | [facility] | | [address] | | | - LABORATORY | | | | + + + + + documented in this encounter Visit Diagnoses Not on filedocumented in this encounter"
[~2019-11-10 22:57] MED LIST changes: +CARTIA XT180 MG PO; +GABAPENTIN600 MG PO; +HEALTHYLAX17 GM PO; +IMBRUVICA280 MG PO; +OXYCODONE HCL5 MG PO; +SENNA LAX8.6 MG PO; +TYLENOL EXTRA500 MG PO
== END 2019-11-11 01:00 | disposition home or self-care (01) ==
LOC: ED 22:57
DX: S22.32XA Fracture of one rib, left side, initial encounter for closed fracture (principal); S60.511A Abrasion of right hand, initial encounter; S50.811A Abrasion of right forearm, initial encounter; Z23 Encounter for immunization; Z79.899 Other long term (current) drug therapy; Z79.82 Long term (current) use of aspirin; W19.XXXA Unspecified fall, initial encounter
CPT/HCPCS: 71101; 85025; 90471; 90715; 99283-25; J7030

== ENCOUNTER 2019-11-18 20:45 | Emergency (ER) | payer MEDICARE ==
[~2019-11-18] VITALS: Ht 188 cm; Wt 131.5 kg
--- OUTSIDE RECORDS SUMMARY | 2019-11-18 20:48 | XMS ---
PreManage Notification: OCTAVIO WASHINGTON Security Pigment Presser Events No recent Security Events currently on file CRITERIA MET - [facility] - 2 Visits in 30 Days CARE PROVIDERS There are no care providers on record at this time. Alexus has no Care Guidelines for this patient. [place] [facility] MO[facility] NOTE: Visits indicate total known visits. ED/C VISIT TRACKING (12 MO.) 11/18/2019 20:[address] [facility] 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 - Other long term care administrator (current) drug therapy - Tachycardia, unspecified - environmental planning engineer (current) use of aspirin - Unspecified atrial fibrillation - Personal history of malignant neoplasm of prostate INPATIENT VISIT TRACKING (12 MO.) 04/14/2019 05:35 [facility] [place] TYPE[facility] Medical Surgical COMPLAINT: - RT TOTAL HIP REPLACEMENT DIAGNOSES: - Chronic atrial fibrillation - Other acute postprocedural pain - Thrombocytopenia, unspecified - environmental planning engineer (current) use of aspirin - Thrombocytopenia, unspecified - Chronic atrial fibrillation - 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 - Body mass index (BMI) 36.0-36.9, adult - 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
[2019-11-18] MEDS ORDERED: NORCO 5-325 TA1 EACH PO (21:10)
[2019-11-18] MEDS ORDERED: DOXYCYCLINE HY100 MG PO (22:57)
--- NOTE | 2019-11-19 07:50 | EKG ---
[facility] [address] [facility] [address] [place], [place] [address] Signed Atrial fibrillation Nonspecific ST and T wave abnormality Abnormal ECG When compared with ECG of 02-DEC-2018 15:56, No significant change was found Confirmed by LUZ BONNER MD ([id number]) on 11/19/2019 7:50:53 AM Electronically Signed By: LUZ BONNER MD 11/19/19 0750 PATIENT NAME: OCTAVIO WASHINGTON Electrocardiogram DATE OF : 52 PHYSICIAN: LUZ BONNER MD REPORT #: [id number] REPORT IS CONFIDENTIAL AND NOT TO BE RELEASED WITHOUT AUTHORIZATION
== END 2019-11-19 01:02 | disposition home or self-care (01) ==
LOC: ED 20:45
DX: J18.9 Pneumonia, unspecified organism (principal); R79.89 Other specified abnormal findings of blood chemistry; R31.29 Other microscopic hematuria; S22.32XD Fracture of one rib, left side, subsequent encounter for fracture with routine healing; W19.XXXD Unspecified fall, subsequent encounter; Z85.46 Personal history of malignant neoplasm of prostate; Z79.82 Long term (current) use of aspirin; Z79.899 Other long term (current) drug therapy
CPT/HCPCS: 71046; 80053; 81001; 83605; 85025; 93005; 93010; 96365; 96367; 99285-25; J0456; J0696; J7060

== ENCOUNTER 2021-08-01 20:19 | Emergency (ER) | payer MEDICARE ==
[~2021-08-01] VITALS: Ht 188 cm; Wt 132.9 kg
[~2021-08-01 20:19] MED LIST changes: +CIPRO500 MG PO; +DOXYCYCLINE HY100 MG PO; +NORCO 5-325 TA1 EACH PO
--- NOTE | 2021-08-02 13:59 | EKG ---
[facility] [address] [facility] [place] [address] Signed Atrial fibrillation with rapid ventricular response Incomplete right bundle branch block Septal infarct , age undetermined Abnormal ECG When compared with ECG of 18-NOV-2019 21:26, Incomplete right bundle branch block is now present Septal infarct is now present Confirmed by NASIM BERRIOS MD ([id number]) on 08/02/2021 1:58:51 PM Electronically Signed By: NASIM BERRIOS MD 08/02/21 1359 PATIENT NAME: OCTAVIO WASHINGTON Electrocardiogram DATE OF : 52 PHYSICIAN: NASIM BERRIOS MD REPORT #: [id number] REPORT IS CONFIDENTIAL AND NOT TO BE RELEASED WITHOUT AUTHORIZATION
[2021-08-03] MEDS ORDERED: AMOX TR-K CLV1 EAC1 PO (17:01)
== END 2021-08-02 00:56 | disposition home or self-care (01) ==
LOC: ED 20:19
DX: U07.1 COVID-19 (principal); I48.20 Chronic atrial fibrillation, unspecified; Z85.46 Personal history of malignant neoplasm of prostate; Z85.6 Personal history of leukemia; Z79.82 Long term (current) use of aspirin; Z79.899 Other long term (current) drug therapy
CPT/HCPCS: 71045; 80053; 81001; 83690; 85007; 85025; 96374; 96376; 99284-25; J7030

== ENCOUNTER 2021-08-03 15:40 | Emergency (ER) | payer MEDICARE ==
[~2021-08-03] VITALS: Ht 188 cm; Wt 125.2 kg
--- OUTSIDE RECORDS SUMMARY | 2021-08-03 15:48 | XMS ---
PreManage Notification: OCTAVIO WASHINGTON Security Healthcare Representative Events No recent Security Events currently on file CRITERIA MET - [facility] - 2 Visits in 30 Days CARE PROVIDERS NASIM BERRIOS Internal Medicine 11/19/2019-Current PHONE: [phone] Alexus has no Care Guidelines for this patient. Care History Medical/Surgical 11/19/2019 [facility] - Patient is currently established with [facility]. If patient is seen in the ED during business hours. Please contact [facility] at [facility]. Care Recommendation: If this patient has had 5 or more Emergency Department visits in the last 12 months.\T\nbsp; Patient will require education on the scope and purpose of the ED as an acute care provider not a Primary Care Provider and should not be utilized for chronic conditions.\T\nbsp; These are guidelines and the provider should exercise clinical judgment when providing care. E.D. VISIT COUNT (12 MO.) 3 [facility] TOTAL 3 NOTE: Visits indicate total known visits. ED/UCC VISIT TRACKING (12 MO.) 08/03/2021 15:[facility] [place] TYPE: Emergency COMPLAINT: - FLU SYMPTOMS 08/01/2021 20:[address] [facility] [place] TYPE: Emergency COMPLAINT: - COLD SYMPTOMS 09/07/2020 00:[address] [facility] [place] TYPE: Emergency COMPLAINT: - BLOOD IN URINE DIAGNOSES: - Other correction (current) drug therapy - Unspecified atrial fibrillation - Hematuria, unspecified - Dysuria - web designer developer (current) use of aspirin INPATIENT VISIT TRACKING (12 MO.) No inpatient visits to display in this time frame [email or web address]
[2021-08-03] MEDS ORDERED: AMOX TR-K CLV1 EAC1 PO (17:01)
== END 2021-08-03 18:06 | disposition home or self-care (01) ==
LOC: ED 15:40
DX: U07.1 COVID-19 (principal); Z85.46 Personal history of malignant neoplasm of prostate; Z85.6 Personal history of leukemia; Z79.82 Long term (current) use of aspirin; Z79.899 Other long term (current) drug therapy
CPT/HCPCS: 99283

== ENCOUNTER 2022-07-07 13:12 | Emergency (ER) | payer MEDICARE ==
[~2022-07-07] VITALS: Ht 188 cm; Wt 132.0 kg
[~2022-07-07 13:12] MED LIST changes: +AMOX TR-K CLV1 EAC1 PO; +FOLIC ACID20 MG PO; +OSTERA TABLET1 EACH PO
== END 2022-07-07 15:43 | disposition home or self-care (01) ==
LOC: ED 13:12
DX: U07.1 COVID-19 (principal); I48.91 Unspecified atrial fibrillation; Z79.899 Other long term (current) drug therapy; Z79.82 Long term (current) use of aspirin
CPT/HCPCS: 96374; 99283-25